=== PATIENT | female | born 1960 | race Caucasian/White ===

== ENCOUNTER 2017-03-02 21:13 | Emergency (ER) | payer OTHER ==
[~2017-03-02] VITALS: Ht 157.5 cm; Wt 108.4 kg
[~2017-03-02 21:13] MED LIST: ALBU0.63 NEB; ALBU6.7H IH; ALBU8.5H8 INH; AMOX500C PO; AZIT250T PO; CITA40TA5 PO; PRED20TA PO
[2017-03-02] MEDS ORDERED: IPRATRPIUM/ALBUTEROL 0.5/2.5MG 3 ML NEBU. ONE (21:26)
[2017-03-02] MEDS ORDERED: IPRATRPIUM/ALBUTEROL 0.5/2.5MG 3 ML NEBU. NEB ONE (21:30)
--- NOTE | 2017-03-02 21:34 | ED.ADGEN ---
Past History Past Medical History: Anxiety, Asthma, Depression Past Surgical History: No Surgical History Alcohol Use: None Drug Use: None Adult General Chief Complaint Chief Complaint ASTHMA EXACERBATION HPI HPI Patient is a 56 Y/O female with asthma sx for past 3-4 days. she has been using her albuterol. she is out of symbicort. she states allergy meds make her tired. she has not felt ill nor has she been around sick contacts. she believes her allergies are bothering her asthma. no fever. no productive cough Review of Systems Review of Systems Constitutional: Denies fever or chills [] Eyes: Denies change in visual acuity, redness, or eye pain [] HENT:+ nasal congestion o, neg sore throat [] Respiratory:dyspnea, wheezing Cardiovascular: No additional information not addressed in HPI [] GI: Denies abdominal pain, nausea, vomiting, bloody stools or diarrhea [] : Denies dysuria or hematuria [] Musculoskeletal: Denies back pain or joint pain [] Integument: Denies rash or skin lesions [] Neurologic: Denies headache, focal weakness or sensory changes [] Endocrine: Denies polyuria or polydipsia [] Current Medications Current Medications Current Medications Medications (Trade) Dose Ordered Sig/Shaunna Start Time Stop Time Status Last Admin Dose Admin Albuterol/ Ipratropium (Duoneb) 6 ml 1X ONCE 03/02/17 21:30 03/02/17 21:31 DC 03/02/17 21:34 6 ML Allergies Allergies Allergies Coded Allergies Type Severity Reaction Last Updated Verified Sulfa (Sulfonamide Antibiotics) Allergy Intermediate 07/24/16 No Physical Exam Physical Exam Constitutional: Well developed, well nourished, no acute distress, non-toxic appearance. [] HENT: Normocephalic, atraumatic, bilateral external ears normal, oropharynx moist, no oral exudates, nose normal. [] Eyes: PERRLA, EOMI, conjunctiva normal, no discharge. [] Neck: Normal range of motion, no tenderness, supple, no stridor. [] Cardiovascular:Heart rate regular rhythm, no murmur [] Lungs & Thorax: wheezing bilat Abdomen: Bowel sounds normal, soft, no tenderness, no masses, no pulsatile masses. [] Skin: Warm, dry, no erythema, no rash. [] Back: No tenderness, no CVA tenderness. [] Extremities: No tenderness, no cyanosis, no clubbing, ROM intact, no edema. [] Neurologic: Alert and oriented X 3, normal motor function, normal sensory function, no focal deficits noted. [] Psychologic: Affect normal, judgement normal, mood normal. [] Current Patient Data Vital Signs Vital Signs Date Time Temp Pulse Resp B/P (MAP) Pulse Ox O2 Delivery O2 Flow Rate FiO2 03/02/17 22:20 99 20 130/54 (79) 98 Room Air 03/02/17 21:13 98.4 EKG EKG [] Radiology/Procedures Radiology/Procedures NAD[] Course & Med Decision Making Course & Med Decision Making Pertinent Labs and Imaging studies reviewed. (See chart for details) pt improved with nebs. still wheezing but feels much better. will refill albuterol and prednisone Final Impression Final Impression asthma exacerbation[] Problems: Dragon Disclaimer Dragon Disclaimer This electronic medical record was generated, in whole or in part, using a voice recognition dictation system. Departure Time of Disposition: 21:59 Disposition: HOME, SELF-CARE Diagnosis: asthma exacerbation Condition: IMPROVED Patient Instructions: Asthma, Adult, [id number] Additional Instructions: albuterol as needed for wheezing. prednisone for inflammation. return if symptoms worsen TOMY MINOR MD Mar 02, 2017 21:34
[2017-03-02] MEDS ORDERED: ALBU2.5V5 NEB (22:03)
[2017-03-02] MEDS ORDERED: PRED50TA PO (22:11)
[2017-03-02] MEDS ORDERED: ALBU6.7H IH (22:11)
[2017-03-02] MEDS ORDERED: ALBU1.25 NEB (22:11)
[2017-03-02 22:20] VITALS: BP 130/54
--- NOTE | 2017-03-03 07:28 | RAD ---
Portable chest, 03/02/2017: History: Asthma, shortness of breath Comparison is made to a study from 07/24/2016. The heart size and pulmonary vascularity are normal. No pulmonary infiltrates are seen. There is no evidence of pleural fluid. IMPRESSION: No acute cardiopulmonary abnormality is detected.
== END 2017-03-02 22:25 | disposition home or self-care (01) ==
LOC: ER 21:13
DX: J45.901 Unspecified asthma with (acute) exacerbation (principal); F41.9 Anxiety disorder, unspecified; F32.9 Major depressive disorder, single episode, unspecified; Z88.2 Allergy status to sulfonamides
CPT/HCPCS: 71010; 94640; 99283; J7620

== ENCOUNTER 2017-03-19 20:39 | Emergency (ER) | payer OTHER ==
[~2017-03-19] VITALS: Ht 157.5 cm; Wt 108.4 kg
[~2017-03-19 20:39] MED LIST changes: +ALBU1.25 NEB; +ALBU2.5V5 NEB; +PRED50TA PO
[2017-03-19] MEDS ORDERED: IPRATRPIUM/ALBUTEROL 0.5/2.5MG 3 ML NEBU. ONE (20:49)
[2017-03-19] MEDS: IPRATRPIUM/ALBUTEROL 0.5/2.5MG 3 ML NEBU. NEB ONE ×2 (21:15→23:01)
[2017-03-19 21:27] LABS: BASO # 0.1 x10^3/uL (0.0-0.2); BASO % 1 % (0-3); EOS # 0.4 x10^3/uL (0.0-0.7); EOS % 4 % (0-3); HEMATOCRIT 40.8 % (36.0-47.0); HEMOGLOBIN 14.1 g/dL (12.0-15.5); LYMPH # 2.6 x10^3/uL (1.0-4.8); LYMPH % 27 % (24-48); MEAN CORPUSCULAR HEMOGLOBIN 30 pg (25-35); MEAN CORPUSCULAR HGB CONC 35 g/dL (31-37); MEAN CORPUSCULAR VOLUME 87 fL (79-100); MONO # 0.5 x10^3/uL (0.0-1.1); MONO % 6 % (0-9); NEUT # 5.9 x10^3uL (1.8-7.7); NEUT % 62 % (31-73); PLATELET COUNT 236 x10^3/uL (140-400); RED BLOOD COUNT 4.69 x10^6/uL (3.50-5.40); RED CELL DISTRIBUTION WIDTH 13.5 % (11.5-14.5); WHITE BLOOD COUNT 9.5 x10^3/uL (4.0-11.0)
[2017-03-19] MEDS ORDERED: IPRATRPIUM/ALBUTEROL 0.5/2.5MG 3 ML NEBU. NEB ONE (21:30)
--- NOTE | 2017-03-19 21:36 | ED.ADGEN ---
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 Patient states symptoms began after walking and overheating. Patient states her was frequently triggered by the weather. Patient took 3 nebulized breathing treatments prior to arrival with limited improvement. She reports chest tightness and wheezing. Denies cough, sore throat, nausea, vomiting and sweats. No chest pain, leg pain or swelling. Patient last treated for asthma exacerbation with steroids 20 days ago. She was placed on a 4 day course of steroids at the time but states her symptoms did not fully improve. Patient is a nonsmoker. No other acute symptoms or complaints. Review of Systems Review of Systems U symptoms as per history of present illness. All other review symptoms are negative. Current Medications Current Medications Current Medications Medications (Trade) Dose Ordered Sig/Shaunna Start Time Stop Time Status Last Admin Dose Admin Albuterol/ Ipratropium (Duoneb) 3 ml 1X ONCE 03/19/17 21:30 03/19/17 21:31 03/19/17 21:26 3 ML Allergies Allergies Allergies Coded Allergies Type Severity Reaction Last Updated Verified Sulfa (Sulfonamide Antibiotics) Allergy Intermediate 07/24/16 No Physical Exam Physical Exam Constitutional: Well developed, well nourished, no acute distress, non-toxic appearance. [] HENT: Normocephalic, atraumatic, bilateral external ears normal, oropharynx moist, no oral exudates, nose normal. [] Eyes: PERRLA, EOMI, conjunctiva normal, no discharge. [] Neck: Normal range of motion, no tenderness, supple, no stridor. [] Cardiovascular:Heart rate regular rhythm, no murmur. Negative Homans sign. Trace peripheral edema. [] Lungs & Thorax: Respirations nonlabored, mildly diminished, with inspiratory next 3 wheezes. No conversational dyspnea[] Abdomen: Bowel sounds normal, soft, no tenderness, no masses, no pulsatile masses. [] Skin: Warm, dry, no erythema, no rash. [] Back: No tenderness, no CVA tenderness. [] Extremities: No tenderness, no cyanosis. [] Neurologic: Alert and oriented X 3, normal motor function, normal sensory function, no focal deficits noted. [] Psychologic: Affect normal, judgement normal, mood normal. [] Current Patient Data Vital Signs Vital Signs Date Time Temp Pulse Resp B/P (MAP) Pulse Ox O2 Delivery O2 Flow Rate FiO2 03/19/17 20:50 98.6 106 20 90 Room Air Lab Results Laboratory Tests Test 03/19/17 21:12 White Blood Count 9.5 x10^3/uL (4.0-11.0) Red Blood Count 4.69 x10^6/uL (3.50-5.40) Hemoglobin 14.1 g/dL (12.0-15.5) Hematocrit 40.8 % (36.0-47.0) Mean Corpuscular Volume 87 fL (79-100) Mean Corpuscular Hemoglobin 30 pg (25-35) Mean Corpuscular Hemoglobin Concent 35 g/dL (31-37) Red Cell Distribution Width 13.5 % (11.5-14.5) Platelet Count 236 x10^3/uL (140-400) Neutrophils (%) (Auto) 62 % (31-73) Lymphocytes (%) (Auto) 27 % (24-48) Monocytes (%) (Auto) 6 % (0-9) Eosinophils (%) (Auto) 4 % (0-3) H Basophils (%) (Auto) 1 % (0-3) Neutrophils # (Auto) 5.9 x10^3uL (1.8-7.7) Lymphocytes # (Auto) 2.6 x10^3/uL (1.0-4.8) Monocytes # (Auto) 0.5 x10^3/uL (0.0-1.1) Eosinophils # (Auto) 0.4 x10^3/uL (0.0-0.7) Basophils # (Auto) 0.1 x10^3/uL (0.0-0.2) EKG EKG [EKG: Normal sinus rhythm, nonspecific T-wave abnormality in the anterolateral leads. Rate 92, QTC 4:30. Chest x-ray: No acute cardiopulmonary disease on preliminary ED read] Radiology/Procedures Radiology/Procedures [] Course & Med Decision Making Course & Med Decision Making Pertinent Labs and Imaging studies reviewed. (See chart for details) [Mild persistent asthma exacerbation. Repeat nebs, steroids given in ED with significant improvement. Increased air movement with only occasional expiratory wheeze on re-auscultation. Will continue supportive treatment with PCP follow- up. Return precautions reviewed.] Final Impression Final Impression [1. Acute asthma exacerbation ] Problems: Dragmagdy Disclaimer Dragon Disclaimer This electronic medical record was generated, in whole or in part, using a voice recognition dictation system. BERTA OLIVER DO Mar 19, 2017 21:36
[2017-03-19] MEDS ORDERED: predniSONE 20 MG TABLET PO ONE (21:45)
[2017-03-19] MEDS ORDERED: ALBUTEROL SULFATE 2.5 MG/3 ML NEBU. NEB ONE (21:45)
[2017-03-19 21:46] LABS: CALCIUM 9.3 mg/dL (8.5-10.1); GFR 57.1
--- NOTE | 2017-03-19 22:18 | EKG ---
[address] [address] Test Date: 2017-03-19 Test Time: 21:04:15 Pat Name: MATEO RODRIGUEZ Department: Room: Gender: F License Issuer: [id number] : 1960 Requested By: BERTA OLIVER Order Number: [id number] Reading MD: Measurements Intervals [place] Rate: 92 P: 51 GA: 148 QRS: 48 QRSD: 82 T: 20 QT: 344 QTc: 430 Interpretive Statements SINUS RHYTHM T ABNORMALITY IN ANTEROLATERAL LEADS ABNORMAL ECG RI6.01 No previous ECG available for comparison
[2017-03-19 23:21] VITALS: BP 142/82
--- NOTE | 2017-03-20 08:25 | RAD ---
AP chest. History: Short of air, history of asthma AP view was taken of the chest. Lungs are clear. Heart is normal in size. There is no effusion. Impression: 1. No acute chest disease.
== END 2017-03-19 23:21 | disposition home or self-care (01) ==
LOC: ER 20:39
DX: J45.901 Unspecified asthma with (acute) exacerbation (principal); Z88.2 Allergy status to sulfonamides
CPT/HCPCS: 36415; 71010; 80048; 83880; 85025; 93005; 94640; 99285; J7512; J7613; J7620

== ENCOUNTER 2017-05-16 17:51 | Emergency (ER) | payer OTHER ==
[~2017-05-16] VITALS: Ht 157.5 cm; Wt 108.4 kg
[2017-05-16 18:05] VITALS: BP 142/82
--- NOTE | 2017-05-16 18:45 | ED.ADGEN ---
Past History Past Medical History: Asthma Past Surgical History: No Surgical History Alcohol Use: None Drug Use: None Adult General Chief Complaint Chief Complaint " My asthma is kicking up" HPI HPI Patient is a 56 year old female who presents with above hx and complaints of Asthma exacerbations. She has one previous history of admission for asthma exacerbation. Incident occurred in July last year after infection with influenza. Patient is not yet received a flu vaccination this year. Patient denies any travel or specific ill contacts. She has not been on steroids recently. Patient does have a history of allergy to sulfa products such as Bactrim. Patient normally follows Dr. Youngblood. Review of Systems Review of Systems Constitutional: History of fever or chills [] Eyes: Denies change in visual acuity, redness, or eye pain [] HENT: History of nasal congestion and sore throat [] Respiratory: History of cough and wheezing Cardiovascular: No additional information not addressed in HPI [] GI: Denies abdominal pain, nausea, vomiting, bloody stools or diarrhea [] : Denies dysuria or hematuria [] Musculoskeletal: Denies back pain or joint pain [] Integument: Denies rash or skin lesions [] Neurologic: Denies headache, focal weakness or sensory changes [] Endocrine: Denies polyuria or polydipsia [] All other systems were reviewed and found to be within normal limits, except as documented in this note. Family History Family History Noncontributory Current Medications Current Medications Current Medications Medications (Trade) Dose Ordered Sig/Shaunna Start Time Stop Time Status Last Admin Dose Admin Albuterol Sulfate (Ventolin Hfa) 2 puff 1X ONCE 05/16/17 19:00 05/16/17 19:01 DC 05/16/17 18:54 2 PUFF Azithromycin (Zithromax) 500 mg 1X ONCE 05/16/17 19:00 05/16/17 19:01 DC 05/16/17 19:00 500 MG Prednisone (Prednisone) 50 mg 1X ONCE 05/16/17 19:00 05/16/17 19:01 DC 05/16/17 19:06 50 MG See nursing for home medications Allergies Allergies Allergies Coded Allergies Type Severity Reaction Last Updated Verified Sulfa (Sulfonamide Antibiotics) Allergy Intermediate 07/24/16 No Physical Exam Physical Exam Constitutional: , well nourished, mild distress, non-toxic appearance. [] HENT: Normocephalic, atraumatic, bilateral external ears normal, oropharynx moist, mild pharyngeal injection, no oral exudates, nose rhinorrhea-clear Eyes: PERRLA, EOMI, conjunctiva normal, no discharge. [] Neck: Normal range of motion, no tenderness, supple, no stridor. [] Cardiovascular:Heart rate regular rhythm, no murmur [] Lungs & Thorax: Bilateral breath sounds equal with scattered wheezing on auscultation [] Abdomen: Bowel sounds normal, soft, no tenderness, no masses, no pulsatile masses. Obese. Skin: Warm, dry, no erythema, no rash. [] Back: No tenderness, no CVA tenderness. [] Extremities: No tenderness, no cyanosis, no clubbing, ROM intact, no edema. No cording noted Neurologic: Alert and oriented X 3, normal motor function, normal sensory function, no focal deficits noted. [] Psychologic: Affect normal, judgement normal, mood normal. [] Current Patient Data Vital Signs Vital Signs Date Time Temp Pulse Resp B/P (MAP) Pulse Ox O2 Delivery O2 Flow Rate FiO2 05/16/17 18:05 98.3 78 16 98 Room Air Lab Results Laboratory Tests Test 05/16/17 18:55 Influenza Type A (Rapid) Negative (NEGATIVE) Influenza Type B (Rapid) Negative (NEGATIVE) EKG EKG [] Radiology/Procedures Radiology/Procedures [] Course & Med Decision Making Course & Med Decision Making Pertinent Labs and Imaging studies reviewed. (See chart for details). Patient take Tylenol and ibuprofen as needed for fever and discomfort. Patient may use Benadryl 25-50 mg up 4 times day for marked coughing, congestion and drainage. Patient take prednisone 50 mg day for 5 days. Patient take his Zithromax 250 mg a day for 5 days. Use MDI 2 puffs 4 times a day. Patient follow-up primary care. Patient return if any concerns. She'll follow-up primary care. Patient strongly encouraged to obtain flu vaccination when over this acute illness. [] Final Impression Final Impression 1. Asthma Exacerbation[] 2. Bronchitis 3. Upper respiratory infection Problems: Dragon Disclaimer Dragon Disclaimer This electronic medical record was generated, in whole or in part, using a voice recognition dictation system. RAYNE REN MD May 16, 2017 18:45
[2017-05-16] MEDS ORDERED: PRED50TA PO (18:50)
[2017-05-16] MEDS ORDERED: AZIT250T PO (18:52)
[2017-05-16] MEDS ORDERED: ALBUTEROL SULFATE 8GM INHALER. INH ONE (19:00)
[2017-05-16] MEDS ORDERED: AZITHROMYCIN 250 MG TABLET. PO ONE (19:00)
[2017-05-16] MEDS ORDERED: predniSONE 10 MG TABLET PO ONE (19:00)
[2017-05-16 19:51] LABS: INFLUENZA A PATIENT NEGATIVE (NEGATIVE); INFLUENZA B PATIENT NEGATIVE (NEGATIVE)
== END 2017-05-16 20:20 | disposition home or self-care (01) ==
LOC: ER 17:51
DX: J45.901 Unspecified asthma with (acute) exacerbation (principal); J06.9 Acute upper respiratory infection, unspecified; Z88.2 Allergy status to sulfonamides
CPT/HCPCS: 87804; 94640; 99284; J0456; J7512; J7613; 94664

== ENCOUNTER 2017-07-06 10:32 | Emergency (ER) | payer OTHER ==
[~2017-07-06] VITALS: Ht 157.5 cm; Wt 108.4 kg
--- NOTE | 2017-07-06 11:14 | RAD ---
Right shoulder, 3 views, 07/06/2017: History: Fall on ice There is cortical irregularity along the lateral margin of the humeral head with a small calcification suggesting a displaced cortical fragment. A tendinous calcification is less likely. No major fracture line extending across the width of the humerus is seen. No dislocation is evident. Moderate degenerative change is present at the AC joint. IMPRESSION: Probable acute fracture of the lateral humeral head.
--- NOTE | 2017-07-06 11:24 | PHYS DOC ---
General Chief Complaint: SHOULDER INJURY Stated Complaint: UPPER EXTREMITY PAIN Time Seen by MD: 10:39 Source: patient Exam Limitations: no limitations Problems: History of Present Illness Initial Comments Patient is a 56-year-old female who comes to the ED complaining of shoulder pain. Patient states that last night she slipped on the ice and fell to her lateral right shoulder. She's had bilateral right shoulder pain since that time with decreased motion at the shoulder due to discomfort. She denies any distal numbness tingling weakness or radiating symptoms, denies head trauma loss of consciousness headache or neck pain. Ehfe-juj-ifwnsdf medications are not helping her pain complaints today so she came for evaluation. Timing/Duration: 24 hours Severity: moderate Modifying Factors: worse with movement, improves with rest Associated Symptoms: other Allergies: Coded Allergies: Sulfa (Sulfonamide Antibiotics) (Unverified Allergy, Intermediate, 07/24/16) Past Medical History Medical History: other (asthma, URI) Surgical History: tonsillectomy Family History Significant Family History: no pertinent family hx Social History Smoker: non-smoker Alcohol: none Drugs: none Review of Systems Constitutional: denies chills, denies diaphoresis, denies fever, denies malaise Respiratory: denies cough, denies shortness of breath Cardiovascular: denies chest pain, denies palpitations Gastrointestinal: denies abdominal pain, denies nausea, denies vomiting Musculoskeletal: see HPI Psychiatric/Neurological: see HPI Hematologic/Lymphatic: denies blood clots, denies easy bleeding, denies easy bruising Physical Exam General Appearance: WD/WN, no apparent distress Ear, Nose, Throat: hearing grossly normal, normal ENT inspection, other ( normocephalic atraumatic) Neck: non-tender, supple Respiratory: normal breath sounds, no respiratory distress Cardiovascular: normal peripheral pulses, regular rate, rhythm Extremities: no calf tenderness, pelvis stable, other (diffuse tenderness both bony and soft tissue at the lateral right shoulder no palpable bony deformity, the rotator cuff tendon integrity not tested due to fracture and patient's pain tolerance, extremity is neurovascularly intact) Orders, Labs, Meds PATIENT: MATEO RODRIGUEZ ACCOUNT: [id number] : 1960 LOCATION: ER AGE: 56 SEX: F EXAM STATUS: REG ER ORD. PHYSICIAN: MONIKA RAMOS DO REASON: fall on ice to R shoulder PROCEDURE: SHOULDER 2+V RIGHT Right shoulder, 3 views, 07/06/2017: History: Fall on ice There is cortical irregularity along the lateral margin of the humeral head with a small calcification suggesting a displaced cortical fragment. A tendinous calcification is less likely. No major fracture line extending across the width of the humerus is seen. No dislocation is evident. Moderate degenerative change is present at the AC joint. IMPRESSION: Probable acute fracture of the lateral humeral head. DICTATED AND SIGNED BY: GOLDY MIRANDA MD DATE: 07/06/17 1108 CC: JESUS MATHEWS DO; MONIKA RAMOS DO ~ Departure Time of Disposition: 11:29 Disposition: 01 HOME, SELF-CARE Diagnosis: right humeral head fracture, mechanical fall Condition: GOOD Patient Instructions: Shoulder Exercises, Generic, SportsMed Additional Instructions: Please review the patient education materials given by ED staff. Wear the sling on her right arm until cleared by orthopedics. No use of right arm until cleared by orthopedics, work note given. Ice to affected area 15-20 minutes 4-6 times daily. Ladw-oty-vfkjibe ibuprofen for baseline discomfort. Prescription: Winkelman 5 mg quantity 20, take with food to avoid nausea and take [id number]-wwgobwu stool softeners to avoid constipation. You will need to follow-up with an orthopedic surgeon. ED staff will provide you with contact information for Dr. Gutierrez orthopedics surgery. Call her office upon discharge to schedule next available appointment for evaluation. Return to the ED with new or changing symptoms. MONIKA RAMOS DO Jul 06, 2017 11:24
[2017-07-06] MEDS ORDERED: HYDR-971 PO (11:29)
[2017-07-06 11:45] VITALS: BP 139/83
== END 2017-07-06 11:45 | disposition home or self-care (01) ==
LOC: ER 10:32
DX: S42.291A Other displaced fracture of upper end of right humerus, initial encounter for closed fracture (principal); J45.909 Unspecified asthma, uncomplicated; Z88.2 Allergy status to sulfonamides; W00.0XXA Fall on same level due to ice and snow, initial encounter; Y93.89 Activity, other specified; Y99.8 Other external cause status; Y92.89 Other specified places as the place of occurrence of the external cause
CPT/HCPCS: 73030; 99284

== ENCOUNTER 2017-09-29 14:47 | Emergency (ER) | payer OTHER ==
[~2017-09-29] VITALS: Ht 160 cm; Wt 113.4 kg
[~2017-09-29 14:47] MED LIST changes: +HYDR-971 PO
[2017-09-29] MEDS ORDERED: IPRATRPIUM/ALBUTEROL 0.5/2.5MG 3 ML NEBU. NEB ONE (15:15)
[2017-09-29] MEDS ORDERED: predniSONE 20 MG TABLET PO ONE (16:00)
[2017-09-29 16:05] VITALS: BP 164/82
[2017-09-29] MEDS ORDERED: PRED50TA PO (16:15)
[2017-09-29] MEDS ORDERED: ALBU2.5V5 NEB (16:15)
--- NOTE | 2017-09-29 16:15 | PHYS DOC ---
Past History Past Medical History: Asthma, URI, Other Past Surgical History: Tonsillectomy, Other Alcohol Use: None Drug Use: None Adult General Chief Complaint Chief Complaint: SHORTNESS OF BREATH [facility] HPI 56-year-old female patient with history of asthma complaining of shortness of breath and dry cough for the last 3 days and had her home nebulizer treatment but was not able to give prescription for Medrol Dosepak because of financial problem presented to ER because of shortness of breath. Patient denies fever and chills, chest pain, vomiting and diarrhea. Review of Systems Review of Systems Constitutional: Denies fever or chills [] Eyes: Denies change in visual acuity, redness, or eye pain [] HENT: Denies nasal congestion or sore throat [] Respiratory: Reports cough and shortness of breath Cardiovascular: No additional information not addressed in HPI [] GI: Denies abdominal pain, nausea, vomiting, bloody stools or diarrhea [] : Denies dysuria or hematuria [] Musculoskeletal: Denies back pain or joint pain [] Integument: Denies rash or skin lesions [] Neurologic: Denies headache, focal weakness or sensory changes [] Endocrine: Denies polyuria or polydipsia [] All other systems were reviewed and found to be within normal limits, except as documented in this note. Current Medications Current Medications Current Medications Medications (Trade) Dose Ordered Sig/Shaunna Start Time Stop Time Status Last Admin Dose Admin Albuterol/ Ipratropium (Duoneb) 3 ml 1X ONCE 09/29/17 15:15 09/29/17 15:16 DC 09/29/17 15:06 3 ML Prednisone (Prednisone) 60 mg 1X ONCE 09/29/17 16:00 09/29/17 16:01 DC 09/29/17 15:57 60 MG Allergies Allergies Allergies Coded Allergies Type Severity Reaction Last Updated Verified Sulfa (Sulfonamide Antibiotics) Allergy Intermediate 07/24/16 No Physical Exam Physical Exam Constitutional: Well developed, well nourished, mild distress, non-toxic appearance. [] HENT: Normocephalic, atraumatic, bilateral external ears normal, oropharynx moist, no oral exudates, nose normal. [] Eyes: PERRLA, EOMI, conjunctiva normal, no discharge. [] Neck: Normal range of motion, no tenderness, supple, no stridor. [] Cardiovascular:Heart rate regular rhythm, no murmur [] Lungs & Thorax: Marked respiratory distress with intercostal retraction and wheezing] Abdomen: Bowel sounds normal, soft, no tenderness, no masses, no pulsatile masses. [] Skin: Warm, dry, no erythema, no rash. [] Back: No tenderness, no CVA tenderness. [] Extremities: No tenderness, no cyanosis, no clubbing, ROM intact, no edema. [] Neurologic: Alert and oriented X 3, normal motor function, normal sensory function, no focal deficits noted. [] Psychologic: Affect normal, judgement normal, mood normal. [] Current Patient Data Vital Signs Vital Signs Date Time Temp Pulse Resp B/P (MAP) Pulse Ox O2 Delivery O2 Flow Rate FiO2 09/29/17 15:07 95 Room Air EKG EKG [] Radiology/Procedures Radiology/Procedures [] Course & Med Decision Making Course & Med Decision Making discharge: I've spoken with the patient and/or caregivers. I've explained the patient's condition, diagnosis and treatment plan based on information available to me at this time. I've answered the patient's and/or caregivers questions and addressed any concerns. The patient and/or caregivers have a good understanding the patient's diagnosis, condition and treatment plan as can be expected at this point. Vital signs have been stabilized. The patient's condition is stable for discharge from the emergency department. The patient will pursue further outpatient evaluation with her primary care provider or other designated consulting physician as outlined in the discharge instructions. Patient and/or caregivers are agreeable to this plan of care and follow-up instructions have been explained in detail. The patient and/or caregivers have received these instructions in written format and expressed understanding of these discharge instructions. The patient and her caregivers are aware that if any significant change in condition or worsening of symptoms should prompt him to immediately return to this of the closest emergency department. If an emergent department is not readily available I would encourage him to call 911. [] Dragon Disclaimer Dragon Disclaimer This electronic medical record was generated, in whole or in part, using a voice recognition dictation system. Departure Departure: Impression: Primary Impression: Acute asthma exacerbation Additional Impression: Medication refill Disposition: HOME, SELF-CARE (At 1615) Condition: IMPROVED Referrals: JESUS MATHEWS DO (PCP) Patient Instructions: Asthma, Adult Additional Instructions: Drink plenty of liquids Follow-up with your primary care physician in 3-5 days Return to ER if not getting better Scripts Prednisone (PREDNISONE) 50 Mg Tablet 1 TAB PO DAILY, #5 TAB Prov: HUMBERTO ROBERTSON MD 09/29/17 Albuterol Sulfate (ALBUTEROL SULFATE NEB SOLN ) 2.5 Mg/3 Ml Vial.neb 1 VIAL NEB PRN Q4HRS, #25 VIAL Prov: HUMBERTO ROBERTSON MD 09/29/17 Problem Qualifiers HUMBERTO ROBERTSON MD Sep 29, 2017 16:15
== END 2017-09-29 16:25 | disposition home or self-care (01) ==
LOC: ER 14:47
DX: J45.901 Unspecified asthma with (acute) exacerbation (principal); Z76.0 Encounter for issue of repeat prescription; Z88.2 Allergy status to sulfonamides
CPT/HCPCS: 94640; 99283; J7512; J7620

== ENCOUNTER 2017-10-24 17:16 | Emergency (ER) | payer SELFPAY ==
[2017-10-24 17:35] VITALS: BP 191/88
--- NOTE | 2017-10-24 18:23 | ED.ADGEN ---
Past History Past Medical History: Asthma, URI, Other Past Surgical History: Tonsillectomy, Other Alcohol Use: None Drug Use: None Adult General Chief Complaint Chief Complaint Anxiety HPI HPI Patient is a 56-year-old female who presents with anxiety. She states she's had difficulty sleeping at night the past 3 nights. She reports feeling anxious about her health. She denies chest pain palpitations shortness of breath. No fever chills, sweats, nausea vomiting. No abdominal pain. No urinary frequency urgency. No dizziness, lightheadedness or strokelike symptoms. No other acute symptoms or complaints. Patient is requesting blood work to be performed for reassurance.[] Review of Systems Review of Systems Review symptoms as per history of present illness. All other review symptoms are negative. All other systems were reviewed and found to be within normal limits, except as documented in this note. Allergies Allergies Allergies Coded Allergies Type Severity Reaction Last Updated Verified Sulfa (Sulfonamide Antibiotics) Allergy Intermediate 07/24/16 No Physical Exam Physical Exam Constitutional: Well developed, well nourished, no acute distress, non-toxic appearance. [] HENT: Normocephalic, atraumatic, bilateral external ears normal, oropharynx moist, nose normal. [] Eyes: PERRLA, EOMI, conjunctiva normal, no discharge. [] Neck: Normal range of motion. [] Lungs & Thorax: Bilateral breath sounds clear to auscultation [ Neurologic: Alert and oriented X 3, normal motor function, normal sensory function, no focal deficits noted. [] Psychologic: Affect,anxious. [] Current Patient Data Vital Signs Vital Signs Date Time Temp Pulse Resp B/P (MAP) Pulse Ox O2 Delivery O2 Flow Rate FiO2 10/24/17 17:35 98.2 120 16 95 Room Air EKG EKG [] Radiology/Procedures Radiology/Procedures [] Course & Med Decision Making Course & Med Decision Making Pertinent Labs and Imaging studies reviewed. (See chart for details) [Patient clinically anxious. Recommendations are melatonin at night for sleeping and following up with PCP for evaluation and management of anxiety.] Final Impression Final Impression [1. Anxiety state] Problems: Dragon Disclaimer Dragon Disclaimer This electronic medical record was generated, in whole or in part, using a voice recognition dictation system. BERTA OLIVER DO October 24, 2017 18:23
== END 2017-10-24 18:10 | disposition home or self-care (01) ==
LOC: ER 17:16
DX: F41.1 Generalized anxiety disorder (principal); J45.909 Unspecified asthma, uncomplicated; Z88.2 Allergy status to sulfonamides
CPT/HCPCS: 99281

== ENCOUNTER 2017-10-24 19:58 | Emergency (ER) | payer SELFPAY ==
[~2017-10-24] VITALS: Ht 160 cm; Wt 113.4 kg
[2017-10-24 20:11] VITALS: BP 119/54
--- NOTE | 2017-10-24 20:49 | ED.ADGEN ---
Past History Past Medical History: Anxiety Past Surgical History: Tonsillectomy, Other Alcohol Use: None Drug Use: None Adult General Chief Complaint Chief Complaint Left ear pain HPI HPI Patient is a 56-year-old female seen in the emergency Department 2 hours ago by this provider for concerns and anxiety regarding her health who presents with left ear pain. Patient reports left ear pain fullness for the past several days. Reports nasal congestion, rhinorrhea. No drainage, tinnitus or hearing loss. No sore throat, cough, fever. Patient also reports insomnia and concerns for her overall health. Patient instructed to take melatonin and Benadryl yet done so.[] Review of Systems Review of Systems Review symptoms as per history of present illness. All other systems were reviewed and found to be within normal limits, except as documented in this note. Allergies Allergies Allergies Coded Allergies Type Severity Reaction Last Updated Verified Sulfa (Sulfonamide Antibiotics) Allergy Intermediate 07/24/16 No Physical Exam Physical Exam Constitutional: Well developed, well nourished, no acute distress, non-toxic appearance. [] HENT: Normocephalic, atraumatic, bilateral external ears normal, left TM, bulging, semi-opaque with clear effusion oropharynx moist, no oral exudates, nose normal. [] Eyes: PERRLA, EOMI, conjunctiva normal, no discharge. [] Neck: Normal range of motion, no tenderness, supple, no stridor. [] Cardiovascular:Heart rate regular rhythm, no murmur [] Lungs & Thorax: Bilateral breath sounds clear to auscultation [] Abdomen: Bowel sounds normal, soft, no tenderness, no masses, no pulsatile masses. [] Skin: Warm, dry, no erythema, no rash. [] Back: No tenderness, no CVA tenderness. [] Extremities: No tenderness, no cyanosis, no clubbing, ROM intact, no edema. [] Neurologic: Alert and oriented X 3, normal motor function, normal sensory function, no focal deficits noted. [] Psychologic: Affect anxious[] Current Patient Data Vital Signs Vital Signs Date Time Temp Pulse Resp B/P (MAP) Pulse Ox O2 Delivery O2 Flow Rate FiO2 10/24/17 20:11 98.3 99 19 98 Room Air EKG EKG [] Radiology/Procedures Radiology/Procedures [] Course & Med Decision Making Course & Med Decision Making Pertinent Labs and Imaging studies reviewed. (See chart for details) [Otalgia with left serous otitis media. Instructions to take antihistamines and Tylenol. Patient instructed to follow-up with case manager specialist and morning with regard to insomnia and other mental illness concerns.] Final Impression Final Impression [#1 left sided otalgia #2 serous otitis media left ear] Problems: Dragon Disclaimer Dragon Disclaimer This electronic medical record was generated, in whole or in part, using a voice recognition dictation system. BERTA OLIVER DO October 24, 2017 20:49
== END 2017-10-24 20:53 | disposition home or self-care (01) ==
LOC: ER 20:01
DX: H65.92 Unspecified nonsuppurative otitis media, left ear (principal); F41.9 Anxiety disorder, unspecified; G47.00 Insomnia, unspecified; Z88.2 Allergy status to sulfonamides
CPT/HCPCS: 99281

== ENCOUNTER 2017-10-25 07:08 | Emergency (ER) | payer SELFPAY ==
[~2017-10-25] VITALS: Ht 160 cm; Wt 113.4 kg
[2017-10-25 07:15] VITALS: BP 161/92
--- NOTE | 2017-10-25 07:40 | PHYS DOC ---
Past History Past Medical History: Anxiety Past Surgical History: Tonsillectomy, Other Alcohol Use: None Drug Use: None Adult General Chief Complaint Chief Complaint: ANXIETY/PANIC ATTACK HPI HPI 56-year-old female patient to emergency room for the third time during the last 24 hours complaining that she cannot shot down her mind and sleep and wants to be admitted at Hospital to have some rest. She denies suicidal and homicidal ideation and previous mental hospitalization. Patient states she is hearing some voices not sure if they are hallucination or not. She denies chest pain, shortness of breath, nausea and vomiting, focal neuro deficit, fever and chills. Patient asking for obtaining blood test to make sure she is not poisoned. Patient states she planned to go to [facility] but they were not open and decided to come to emergency room. Review of Systems Review of Systems Constitutional: Denies fever or chills [] Eyes: Denies change in visual acuity, redness, or eye pain [] HENT: Denies nasal congestion or sore throat [] Respiratory: Denies cough or shortness of breath [] Cardiovascular: No additional information not addressed in HPI [] GI: Denies abdominal pain, nausea, vomiting, bloody stools or diarrhea [] : Denies dysuria or hematuria [] Musculoskeletal: Denies back pain or joint pain [] Integument: Denies rash or skin lesions [] Neurologic: Denies headache, focal weakness or sensory changes [] Endocrine: Denies polyuria or polydipsia [] All other systems were reviewed and found to be within normal limits, except as documented in this note. Allergies Allergies Allergies Coded Allergies Type Severity Reaction Last Updated Verified Sulfa (Sulfonamide Antibiotics) Allergy Intermediate 07/24/16 No Physical Exam Physical Exam Constitutional: Well nourished, no acute distress, non-toxic appearance. [] HENT: Normocephalic, atraumatic, bilateral external ears normal, oropharynx moist, no oral exudates, nose normal. [] Eyes: PERRLA, EOMI, conjunctiva normal, no discharge. [] Neck: Normal range of motion, no tenderness, supple, no stridor. [] Cardiovascular:Heart rate regular rhythm, no murmur [] Lungs & Thorax: Bilateral breath sounds clear to auscultation [] Abdomen: Bowel sounds normal, soft, no tenderness, no masses, no pulsatile masses. [] Skin: Warm, dry, no erythema, no rash. [] Back: No tenderness, no CVA tenderness. [] Extremities: No tenderness, no cyanosis, no clubbing, ROM intact, no edema. [] Neurologic: Alert and oriented X 3, normal motor function, normal sensory function, no focal deficits noted. [] Psychologic: Anxious, mood normal. [] EKG EKG [] Radiology/Procedures Radiology/Procedures [] Course & Med Decision Making Course & Med Decision Making Evaluation of patient in ER showed 56-year-old female patient presented to emergency room for the third time during the last 24 hours and complaining of unable to shot down her mind and get some rest. Patient left at 0734 without signing AMA form. Dragon Disclaimer Dragon Disclaimer This electronic medical record was generated, in whole or in part, using a voice recognition dictation system. Departure Departure: Impression: Primary Impression: Left against medical advice Disposition: 07 AGAINST MEDICAL ADVICE (at 0734) Referrals: JESUS MATHEWS DO (PCP) HUMBERTO ROBERTSON MD October 25, 2017 07:40
== END 2017-10-25 07:50 | disposition left against medical advice (07) ==
LOC: ER 07:08
DX: R44.0 Auditory hallucinations (principal); F41.9 Anxiety disorder, unspecified; Z88.2 Allergy status to sulfonamides
CPT/HCPCS: 99281

== ENCOUNTER 2017-10-26 07:32 | Emergency (ER) | payer SELFPAY ==
[~2017-10-26] VITALS: Ht 160 cm; Wt 113.4 kg
[2017-10-26 07:34] VITALS: BP 146/91
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
[2017-10-26 08:29] LABS: BASO % 0 % (0-3); EOS # 0.1 x10^3/uL (0.0-0.7); EOS % 1 % (0-3); HEMATOCRIT 41.4 % (36.0-47.0); HEMOGLOBIN 14.1 g/dL (12.0-15.5); LYMPH # 2.7 x10^3/uL (1.0-4.8); LYMPH % 25 % (24-48); MEAN CORPUSCULAR HEMOGLOBIN 30 pg (25-35); MEAN CORPUSCULAR HGB CONC 34 g/dL (31-37); MEAN CORPUSCULAR VOLUME 87 fL (79-100); MONO # 0.9 x10^3/uL (0.0-1.1); MONO % 9 % (0-9); NEUT # 7.1 x10^3uL (1.8-7.7); NEUT % 66 % (31-73); PLATELET COUNT 319 x10^3/uL (140-400); RED BLOOD COUNT 4.75 x10^6/uL (3.50-5.40); RED CELL DISTRIBUTION WIDTH 13.7 % (11.5-14.5); WHITE BLOOD COUNT 10.9 x10^3/uL (4.0-11.0)
[2017-10-26 08:37] LABS: POTASSIUM ISTAT 3.7 mmol/L (3.5-5.0)
[2017-10-26 08:38] LABS: HEMOGLOBIN ISTAT 14.3 gm/dL
[2017-10-26 09:20] LABS: ALBUMIN 4.8 g/dL (3.4-5.0); TOTAL BILIRUBIN 0.8 mg/dL (0.2-1.0); TOTAL PROTEIN 8.5 g/dL (6.4-8.2)
[2017-10-26 09:22] LABS: DIRECT BILIRUBIN 0.4 mg/dL (0.0-0.2); MAGNESIUM 1.9 mg/dL (1.8-2.4)
[2017-10-26 09:24] LABS: SALIC < 1.0 mg/dL (2.8-20.0)
[2017-10-26 09:25] LABS: BACTERIA,URINE FEW /HPF (0-FEW); BILIRUBIN,URINE NEG (NEG); CLARITY,URINE HAZY; COLOR,URINE YELLOW; GLUCOSE,URINE NEG (NEG); NITRITE,URINE NEG (NEG); RBC,URINE 0 /HPF (0-2); SQUAMOUS EPITHELIAL CELL,UR FEW /LPF; UROBILINOGEN,URINE 0.2 mg/dL (0.2 mg/dL)
[2017-10-26 09:25] LABS: ACETAMIN < 10 mcg/mL (10-30); ETHANOL < 10 mg/dL (0-10)
[2017-10-26 10:39] LABS: AMPHETAMINE/METHAMPHETAMINE NEG (NEG); BARBITURATES NEG (NEG); BENZODIAZEPINES NEG (NEG); COCAINE NEG (NEG); METHADONE NEG (NEG); OPIATES NEG (NEG); PHENCYCLIDINE NEG (NEG)
[2017-10-26 10:40] LABS: CANNABINOIDS NEG (NEG)
== END 2017-10-26 10:50 | disposition left against medical advice (07) ==
LOC: ER 07:32
DX: F23 Brief psychotic disorder (principal); F22 Delusional disorders; J45.909 Unspecified asthma, uncomplicated; Z88.2 Allergy status to sulfonamides
CPT/HCPCS: 36415; 80047; 80076; 80307; 81001; 83735; 85025; 87086; 99284; G0480; G0479

== ENCOUNTER 2017-10-26 12:59 | Inpatient (IN) | payer SELFPAY ==
[~2017-10-26] VITALS: Ht 160 cm; Wt 111.6 kg
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
[2017-10-26] MEDS ORDERED: ALPRAZolam 0.25 MG TABLET PO ONE (16:00)
[2017-10-26 23:58] VITALS: BP 131/70
[2017-10-27] MEDS ORDERED: ACETAMINOPHEN 325 MG TABLET PO PRN (03:30)
[2017-10-27] MEDS ORDERED: ALBUTEROL SULFATE 2.5 MG/3 ML NEBU. NEB PRN (03:30)
[2017-10-27 05:00] VITALS: BP 102/63
== END 2017-10-27 07:05 | DRG 885 ==
LOC: ER 12:59 → 1 SOUTH 22:52 → ER 23:46
PROVIDERS: ADMIT Internal Medicine; ATTEND Internal Medicine
DX: F23 Brief psychotic disorder (principal); F41.9 Anxiety disorder, unspecified; Z88.2 Allergy status to sulfonamides; Z90.89 Acquired absence of other organs
CPT/HCPCS: 99285-25

== ENCOUNTER 2017-11-05 19:33 | Emergency (ER) | payer SELFPAY ==
[~2017-11-05] VITALS: Ht 160 cm; Wt 108.0 kg
--- NOTE | 2017-11-05 19:36 | ED.ADGEN ---
Past History Past Medical History: Anxiety, Asthma, Bipolar, Depression, Pancreatitis, Schizophrenia, UTI, Other Past Surgical History: Tonsillectomy Alcohol Use: None Drug Use: None Adult General Chief Complaint Chief Complaint " ... I am worried I have bad electrolytes.. and need a blood thinner..." " I just left [facility] because they would not give me any IV fluids... and anticoagulants... I was admitted here the other day for taking overdose of stool softeners..... They also admitted at for mild pancreatitis ..... but then they put me on the Mental / [facility] for an evaluation... ... but I left there because they were not taking care of me... They said I'm crazy at ...... But I am not.. All my family hates me... And I need to have a check of my electrolytes and CBC just to make sure I am okay...",, I know I get anxiety... and sometimes things just don't make sense to me... but I am not crazy..."..They say I am schizo... but I am not..." HPI HPI Patient is a 56 year old female who presents with above hx and complaints worries and concerns she has abnormal electrolytes. Pt. patient has no complaints of pain. Patient denies any drug use or immunosuppression. Patient does admit to anxiety and depression. Patient denies any suicidal ideation or homicidal ideation. Patient admits to leaving multiple hospitals [facility], [facility], and in the last month. Patient denies any travel or specific ill contacts. Patient does have pressured speech and fears that family is against her. Pt. does have hx of frequent ED visits and evaluations. Pt. Has hx. of non-compliance with medical regimens. Pt. normally follows with Viki Bill and Ad[facility] Winters. Review of Systems Review of Systems Concerns about her Electrolytes Constitutional: Denies fever or chills [] Eyes: Denies change in visual acuity, redness, or eye pain [] HENT: Denies nasal congestion or sore throat [] Respiratory: Denies cough or shortness of breath [] Cardiovascular: No additional information not addressed in HPI [] GI: Denies abdominal pain, nausea, vomiting, bloody stools or diarrhea [] : Denies dysuria or hematuria [] Musculoskeletal: Denies back pain or joint pain [] Integument: Denies rash or skin lesions [] Neurologic: Denies headache, focal weakness or sensory changes [] Endocrine: Denies polyuria or polydipsia [] All other systems were reviewed and found to be within normal limits, except as documented in this note. Family History Family History Noncontributory Current Medications Current Medications Current Medications Medications (Trade) Dose Ordered Sig/Shaunna Start Time Stop Time Status Last Admin Dose Admin Cephalexin HCl (Keflex) 500 mg 1X ONCE 11/05/17 22:45 11/05/17 22:46 DC 11/05/17 22:40 500 MG Lactated Ringer's 1,000 ml @ 1,000 mls/hr Q1H 11/05/17 20:16 11/05/17 21:15 DC 11/05/17 21:03 1,000 MLS/HR See nursing for home meds Allergies Allergies Allergies Coded Allergies Type Severity Reaction Last Updated Verified Sulfa (Sulfonamide Antibiotics) Allergy Intermediate 07/24/16 No Physical Exam Physical Exam Constitutional: Anxious, no acute distress, non-toxic appearance. [] HENT: Normocephalic, atraumatic, bilateral external ears normal, oropharynx moist, no oral exudates, nose normal. Very poor dentition. Eyes: PERRLA, EOMI, conjunctiva normal, no discharge. [] Neck: Normal range of motion, no tenderness, supple, no stridor. [] Cardiovascular:Heart rate regular rhythm, no murmur [] Lungs & Thorax: Bilateral breath sounds clear to auscultation [] Abdomen: Bowel sounds normal, soft, no tenderness, no masses, no pulsatile masses. [] Obese Skin: Warm, dry, no erythema, no rash. [] Back: No tenderness, no CVA tenderness. [] Extremities: No tenderness, no cyanosis, no clubbing, ROM intact, no edema. [] Neurologic: Alert and oriented X 3, normal motor function, normal sensory function, no focal deficits noted. [] Psychologic: Affect anxious, judgement seems to lack insight at times, mood normal. []Patient denies suicidal ideation/or homicidal ideation. Patient denies hallucinations. Does exhibit pressured speech at times and fears everyone is out to get her. Current Patient Data Vital Signs Vital Signs Date Time Temp Pulse Resp B/P (MAP) Pulse Ox O2 Delivery O2 Flow Rate FiO2 11/05/17 22:37 86 18 151/87 (108) 97 Room Air 11/05/17 19:33 98.4 Lab Results Laboratory Tests Test 11/05/17 20:04 11/05/17 21:00 Urine Collection Type Unknown Urine Color Yellow Urine Clarity Hazy Urine pH 5.5 Urine Specific Powell 1.025 Urine Protein 30 mg/dl (NEG-TRACE) Urine Glucose (UA) Neg mg/dL (NEG) Urine Ketones (Stick) Neg mg/dL (NEG) Urine Blood Neg (NEG) Urine Nitrite Neg (NEG) Urine Bilirubin Neg (NEG) Urine Urobilinogen Dipstick 0.2 mg/dL (0.2 mg/dL) Urine Leukocyte Esterase Small (NEG) Urine RBC 0 /HPF (0-2) Urine WBC 5-10 /HPF (0-4) Urine Squamous Epithelial Cells Occ /LPF Urine Bacteria Few /HPF (0-FEW) Urine Mucus Mod /LPF White Blood Count 8.2 x10^3/uL (4.0-11.0) Red Blood Count 4.35 x10^6/uL (3.50-5.40) Hemoglobin 13.2 g/dL (12.0-15.5) Hematocrit 38.1 % (36.0-47.0) Mean Corpuscular Volume 88 fL (79-100) Mean Corpuscular Hemoglobin 31 pg (25-35) Mean Corpuscular Hemoglobin Concent 35 g/dL (31-37) Red Cell Distribution Width 13.7 % (11.5-14.5) Platelet Count 326 x10^3/uL (140-400) Neutrophils (%) (Auto) 57 % (31-73) Lymphocytes (%) (Auto) 31 % (24-48) Monocytes (%) (Auto) 8 % (0-9) Eosinophils (%) (Auto) 2 % (0-3) Basophils (%) (Auto) 1 % (0-3) Neutrophils # (Auto) 4.7 x10^3uL (1.8-7.7) Lymphocytes # (Auto) 2.5 x10^3/uL (1.0-4.8) Monocytes # (Auto) 0.7 x10^3/uL (0.0-1.1) Eosinophils # (Auto) 0.2 x10^3/uL (0.0-0.7) Basophils # (Auto) 0.1 x10^3/uL (0.0-0.2) Sodium Level 145 mmol/L (136-145) Potassium Level 3.2 mmol/L (3.5-5.1) L Chloride Level 105 mmol/L (98-107) Carbon Dioxide Level 28 mmol/L (21-32) Anion Gap 12 (6-14) Blood Urea Nitrogen 6 mg/dL (7-20) L Creatinine 0.9 mg/dL (0.6-1.0) Estimated GFR (Cockcroft-Gault) 64.5 Glucose Level 99 mg/dL (70-99) Calcium Level 9.1 mg/dL (8.5-10.1) Total Bilirubin 0.3 mg/dL (0.2-1.0) Direct Bilirubin 0.1 mg/dL (0.0-0.2) Aspartate Amino Transferase (AST) 37 U/L (15-37) Alanine Aminotransferase (ALT) 71 U/L (14-59) H Alkaline Phosphatase 147 U/L (46-116) H Total Protein 7.6 g/dL (6.4-8.2) Albumin 3.5 g/dL (3.4-5.0) Amylase Level 94 U/L (25-115) Lipase 1373 U/L (73-393) H EKG EKG [] Radiology/Procedures Radiology/Procedures [] Course & Med Decision Making Course & Med Decision Making Pertinent Labs and Imaging studies reviewed. (See chart for details). Patient encouraged follow-up for primary care. Patient return of any concerns of abdomen pain or exacerbation of pancreatitis. Advised patient her lipase is still elevated. Patient given a prescription for Keflex 503 times a day for her urinary tract infection. Patient encouraged to return if he elected further evaluation. Patient insistent on leaving in spite of the elevated lipase. Patient to push fruit juices. Patient encouraged follow-up with her primary care or return at any time. [] Final Impression Final Impression 1. Multiple Somatic Complaints 2.Anxiety Disorder 3. Hx Pancreatitis- Elevated Lipase 4. Hypokalemia 5. UTI 6. Hx. Asthma 7. Hx. Depression 8. Hx. Delusions/ Thoughts of persecution and paranoia 9. Hx. Non-compliance 10. Hx. Bipolar Dragon Disclaimer Dragon Disclaimer This electronic medical record was generated, in whole or in part, using a voice recognition dictation system. RAYNE REN MD November 05, 2017 19:36
[2017-11-05] MEDS ORDERED: IV RINGERS SOLUTION,LACTATED 1,000 ML IV SCH (20:16)
[2017-11-05 21:22] LABS: BASO # 0.1 x10^3/uL (0.0-0.2); BASO % 1 % (0-3); EOS # 0.2 x10^3/uL (0.0-0.7); EOS % 2 % (0-3); HEMATOCRIT 38.1 % (36.0-47.0); HEMOGLOBIN 13.2 g/dL (12.0-15.5); LYMPH # 2.5 x10^3/uL (1.0-4.8); LYMPH % 31 % (24-48); MEAN CORPUSCULAR HEMOGLOBIN 31 pg (25-35); MEAN CORPUSCULAR HGB CONC 35 g/dL (31-37); MEAN CORPUSCULAR VOLUME 88 fL (79-100); MONO # 0.7 x10^3/uL (0.0-1.1); MONO % 8 % (0-9); NEUT # 4.7 x10^3uL (1.8-7.7); NEUT % 57 % (31-73); PLATELET COUNT 326 x10^3/uL (140-400); RED BLOOD COUNT 4.35 x10^6/uL (3.50-5.40); RED CELL DISTRIBUTION WIDTH 13.7 % (11.5-14.5); WHITE BLOOD COUNT 8.2 x10^3/uL (4.0-11.0)
[2017-11-05 21:36] LABS: ALBUMIN 3.5 g/dL (3.4-5.0); CALCIUM 9.1 mg/dL (8.5-10.1); CREATININE 0.9 mg/dL (0.6-1.0); DIRECT BILIRUBIN 0.1 mg/dL (0.0-0.2); GFR 64.5; POTASSIUM 3.2 mmol/L (3.5-5.1); TOTAL BILIRUBIN 0.3 mg/dL (0.2-1.0); TOTAL PROTEIN 7.6 g/dL (6.4-8.2)
[2017-11-05 21:53] LABS: BACTERIA,URINE FEW /HPF (0-FEW); BILIRUBIN,URINE NEG (NEG); CLARITY,URINE HAZY; GLUCOSE,URINE NEG (NEG); NITRITE,URINE NEG (NEG); RBC,URINE 0 /HPF (0-2); UROBILINOGEN,URINE 0.2 mg/dL (0.2 mg/dL)
[2017-11-05 21:54] LABS: COLOR,URINE YELLOW; SQUAMOUS EPITHELIAL CELL,UR OCC /LPF
[2017-11-05 22:37] VITALS: BP 151/87
[2017-11-05] MEDS ORDERED: CEPH-264 PO (22:41)
[2017-11-05] MEDS ORDERED: CEPHALEXIN 250 MG CAPSULE PO ONE (22:45)
== END 2017-11-05 22:57 | disposition home or self-care (01) ==
LOC: ER 19:33
DX: F41.9 Anxiety disorder, unspecified (principal); N39.0 Urinary tract infection, site not specified; E87.8 Other disorders of electrolyte and fluid balance, not elsewhere classified; E87.6 Hypokalemia; J45.909 Unspecified asthma, uncomplicated; F20.9 Schizophrenia, unspecified; F31.9 Bipolar disorder, unspecified; Z91.19 Patient's noncompliance with other medical treatment and regimen; Z88.2 Allergy status to sulfonamides
CPT/HCPCS: 36415; 80048; 80076; 81001; 82150; 83690; 85025; 87086; 96360; 96361; 99285; J7120

== ENCOUNTER 2017-11-22 16:15 | Emergency (ER) | payer SELFPAY ==
[~2017-11-22] VITALS: Ht 160 cm; Wt 102.0 kg
[~2017-11-22 16:15] MED LIST changes: +CEPH-264 PO
--- NOTE | 2017-11-22 16:52 | PHYS DOC ---
Past History Past Medical History: Anxiety, Asthma, Bipolar, Depression, Pancreatitis, P.U.D , Schizophrenia, UTI, Other Past Surgical History: Tonsillectomy Alcohol Use: None Drug Use: None Adult General Chief Complaint Chief Complaint: FOOT INJURY PAIN HPI HPI 56-year-old female who is well-known to the ED presents with concern for left foot infection. The patient walking a lot with flip-flops on and noticed yesterday that she has a 2 cm x 2 cm white area on the bottom of her foot between her first and second toe. She just wants to make sure that it is not an infection. She also one aspirin a what medicine she should get for peptic ulcer disease. States that a doctor told her to get a medicine but she couldn't think of the name of it. She denies fever or chills. She has no other complaints. She would like to have a Sprite. Review of Systems Review of Systems Constitutional: Denies fever or chills [] Eyes: Denies change in visual acuity, redness, or eye pain [] HENT: Denies nasal congestion or sore throat [] Respiratory: Denies cough or shortness of breath [] Cardiovascular: No additional information not addressed in HPI [] GI: Denies abdominal pain, nausea, vomiting, bloody stools or diarrhea [] : Denies dysuria or hematuria [] Musculoskeletal: Denies back pain or joint pain [] Integument: white spot on foot [] Neurologic: Denies headache, focal weakness or sensory changes [] Endocrine: Denies polyuria or polydipsia [] All other systems were reviewed and found to be within normal limits, except as documented in this note. Allergies Allergies Allergies Coded Allergies Type Severity Reaction Last Updated Verified Sulfa (Sulfonamide Antibiotics) Allergy Intermediate 11/22/17 No Physical Exam Physical Exam Constitutional: Well developed, well nourished, no acute distress, non-toxic appearance. [] HENT: Normocephalic, atraumatic, bilateral external ears normal, oropharynx moist, no oral exudates, nose normal. [] Eyes: PERRLA, EOMI, conjunctiva normal, no discharge. [] Neck: Normal range of motion, no tenderness, supple, no stridor. [] Cardiovascular:Heart rate regular rhythm, no murmur [] Lungs & Thorax: Bilateral breath sounds clear to auscultation [] Abdomen: Bowel sounds normal, soft, no tenderness, no masses, no pulsatile masses. [] Skin: Calous forming on bilateral bottom of her feet, worse on the left [] Back: No tenderness, no CVA tenderness. [] Extremities: No tenderness, no cyanosis, no clubbing, ROM intact, no edema. [] Neurologic: Alert and oriented X 3, normal motor function, normal sensory function, no focal deficits noted. [] Psychologic: Affect normal, judgement normal, mood normal. [] Current Patient Data Vital Signs Vital Signs Date Time Temp Pulse Resp B/P (MAP) Pulse Ox O2 Delivery O2 Flow Rate FiO2 11/22/17 16:15 97.9 73 18 97 Room Air EKG EKG [] Radiology/Procedures Radiology/Procedures [] Course & Med Decision Making Course & Med Decision Making Pertinent Labs and Imaging studies reviewed. (See chart for details) Patient's feet are negative or signs of infection. She has deep callus formation on both feet. I mentioned that she could have a bunion forming on the left foot and that she should follow up with PCP or pleat patternmaker. Also informed her that the medication she was probably thinking of was a proton pump inhibitor such as Nexium. She should double check with her physician at [facility] to be sure. [] Dragon Disclaimer Dragon Disclaimer This electronic medical record was generated, in whole or in part, using a voice recognition dictation system. Departure Departure: Referrals: GREY MATIAS APRN (PCP) BERTA KIM DO Nov 22, 2017 16:52
[2017-11-22 17:13] VITALS: BP 126/71
== END 2017-11-22 17:05 | disposition home or self-care (01) ==
LOC: ER 16:15
DX: L84 Corns and callosities (principal); F41.9 Anxiety disorder, unspecified; J45.909 Unspecified asthma, uncomplicated; G31.9 Degenerative disease of nervous system, unspecified; F31.9 Bipolar disorder, unspecified; F20.9 Schizophrenia, unspecified; Z87.440 Personal history of urinary (tract) infections; Z87.11 Personal history of peptic ulcer disease; Z88.2 Allergy status to sulfonamides
CPT/HCPCS: 99281; 99283

== ENCOUNTER 2017-12-04 21:47 | Emergency (ER) | payer SELFPAY ==
[~2017-12-04] VITALS: Ht 160 cm; Wt 102.0 kg
[2017-12-04 21:47] VITALS: BP 154/79
[2017-12-04] MEDS: IBUPROFEN 600 MG TABLET. PO ONE (22:08)
[2017-12-04] MEDS: TETANUS AND DIPHTHERIA TOX/PF 0.5 ML VIAL. VAX IM ONE (22:09)
--- NOTE | 2017-12-04 22:39 | ED.ADGEN ---
Past History Past Medical History: Anxiety, Asthma, Bipolar, Depression, Pancreatitis, P.U.D , Schizophrenia, UTI, Other Past Surgical History: Tonsillectomy Alcohol Use: None Drug Use: None Adult General Chief Complaint Chief Complaint ".. I walk... I don't have a car... can you smell that gas smell".." My sister will not let me stay with her.. HPI HPI Patient is a 57 year old female who presents with blister to balls of both feet. Blisters appear to be different stages of development. Injury occurred from walking in loose sandals. Distal neurovascular intact in feet. Patient does not remember her last tetanus shot but does not want get a tetanus booster. No history of HIV or immunosuppression. Patient is well-known to emergency department staff for her schizophrenia and delusions. Patient denies any suicidal or homicidal ideation. Patient refusing meds or tetanus update. Patient requesting a cab ride to her aunt's house. Review of Systems Review of Systems Constitutional: Denies fever or chills [] Eyes: Denies change in visual acuity, redness, or eye pain [] HENT: Denies nasal congestion or sore throat [] Respiratory: Denies cough or shortness of breath [] Cardiovascular: No additional information not addressed in HPI [] GI: Denies abdominal pain, nausea, vomiting, bloody stools or diarrhea [] : Denies dysuria or hematuria [] Musculoskeletal: Denies back pain or joint pain [] Integument: Denies rash or skin lesions []complaints of bilateral foot blisters Neurologic: Denies headache, focal weakness or sensory changes [] Endocrine: Denies polyuria or polydipsia [] All other systems were reviewed and found to be within normal limits, except as documented in this note. Family History Family History Noncontributory Current Medications Current Medications Current Medications Medications (Trade) Dose Ordered Sig/Shaunna Start Time Stop Time Status Last Admin Dose Admin Ibuprofen (Motrin) 600 mg 1X ONCE 12/04/17 22:15 12/04/17 22:34 DC Tetanus/ Diphtheria Toxoids Adsorbed (Tenivac Vial) 0.5 ml ONCE ONCE 12/04/17 22:15 12/04/17 22:34 DC Allergies Allergies Allergies Coded Allergies Type Severity Reaction Last Updated Verified Sulfa (Sulfonamide Antibiotics) Allergy Intermediate 11/22/17 No Physical Exam Physical Exam Constitutional: Moderately acute distress, non-toxic appearance. [] HENT: Normocephalic, atraumatic, bilateral external ears normal, oropharynx moist, no oral exudates, nose normal. [] Eyes: PERRLA, EOMI, conjunctiva normal, no discharge. [] Neck: Normal range of motion, no tenderness, supple, no stridor. [] Cardiovascular:Heart rate regular rhythm, no murmur [] Lungs & Thorax: Bilateral breath sounds equal apex on auscultation [] Abdomen: Bowel sounds normal, soft, no tenderness, no masses, no pulsatile masses. [] Skin: Warm, dry, no erythema, no rash. [] Back: No tenderness, no CVA tenderness. [] Extremities: No tenderness, no cyanosis, no clubbing, ROM intact, no edema. [] Complaints of bilateral foot pain. Bilateral foot blisters Neurologic: Alert and oriented X 3, normal motor function, normal sensory function, no focal deficits noted. [] Psychologic: Affect argumentative, judgement limited , mood normal. [] Current Patient Data Vital Signs Vital Signs Date Time Temp Pulse Resp B/P (MAP) Pulse Ox O2 Delivery O2 Flow Rate FiO2 12/04/17 21:47 98.2 90 18 98 Room Air EKG EKG [] Radiology/Procedures Radiology/Procedures [] Course & Med Decision Making Course & Med Decision Making Pertinent Labs and Imaging studies reviewed. (See chart for details) Keep feet clean and dry. Wear white Socks. Take Tylenol and ibuprofen for pain. Avoid excessive walking. Keep follow-up at counseling center. [] Final Impression Final Impression 1. Bilateral foot blisters 2. History of schizophrenia[] Dragon Disclaimer Dragon Disclaimer This electronic medical record was generated, in whole or in part, using a voice recognition dictation system. RAYNE REN MD Dec 04, 2017 22:39
== END 2017-12-04 22:10 | disposition home or self-care (01) ==
LOC: ER 21:47
DX: S90.822A Blister (nonthermal), left foot, initial encounter (principal); S90.821A Blister (nonthermal), right foot, initial encounter; F41.9 Anxiety disorder, unspecified; J45.909 Unspecified asthma, uncomplicated; F32.9 Major depressive disorder, single episode, unspecified; F20.9 Schizophrenia, unspecified; Z87.11 Personal history of peptic ulcer disease; Z87.440 Personal history of urinary (tract) infections; Z88.2 Allergy status to sulfonamides; X58.XXXA Exposure to other specified factors, initial encounter; Y93.89 Activity, other specified; Y99.8 Other external cause status; Y92.89 Other specified places as the place of occurrence of the external cause
CPT/HCPCS: 99281

== ENCOUNTER 2017-12-13 00:37 | Emergency (ER) | payer SELFPAY ==
[~2017-12-13] VITALS: Ht 160 cm; Wt 102.0 kg
[2017-12-13 00:39] VITALS: BP 154/79
--- NOTE | 2017-12-13 00:46 | ED.ADGEN ---
Past History Past Medical History: Anxiety, Asthma, Bipolar, Depression, Pancreatitis, P.U.D , Schizophrenia, UTI, Other Past Surgical History: Tonsillectomy Alcohol Use: None Drug Use: None Adult General Chief Complaint Chief Complaint ".. I am having chest pain.. and sometime my heart skips a beat... I need a EKG..." [facility] HPI Patient is a 57 year old female who presents with above hx and complaints. Pt. know to ED staff. Pt. has hx of presentation to ED, but leaving before labs or meds given. Pt. Has hx of Schizophrenia and Delusional disorder. Frequent hallucination is that of toxic gas she smells, but no one else is aware. Pt. states she is not suicidal or wants to harm anyone else. Pt does not smoker or use illicit drugs. Pt. to my memory has never been violent or aggressive. Pt. has been referred to Counseling center many times as well as her family her locally has tried to get tx for her. Pt. however refuses to be interested in meds or counseling. Pt. to night states she was worried about her heart and wanted a EKG. As soon as EKG was completed she left the ED, refusing other labs or evaluation. Pt. ambulatory and states she has no CP, dyspnea or other concerns. Begged pt. to return at any time to complete her work up. Note pt seen multiple places on Hospital grounds. She hides from Security, or leaves property when found . . Pt. then returns to Hospital grounds. Attempts to sneak into un occupied rooms to sleep and watch TV. Pt. refuses to go to [facility]. Family has been unable to obtain court order for tx or medical decision. Pt. last seen walking up hill towards the main Hospital. Review of Systems Review of Systems Constitutional: Denies fever or chills [] Eyes: Denies change in visual acuity, redness, or eye pain [] HENT: Denies nasal congestion or sore throat [] Respiratory: Denies cough or shortness of breath [] Cardiovascular: No additional information not addressed in HPI [] GI: Denies abdominal pain, nausea, vomiting, bloody stools or diarrhea [] : Denies dysuria or hematuria [] Musculoskeletal: Denies back pain or joint pain [] Integument: Denies rash or skin lesions [] Neurologic: Denies headache, focal weakness or sensory changes [] Endocrine: Denies polyuria or polydipsia [] All other systems were reviewed and found to be within normal limits, except as documented in this note. Family History Family History Non-contributory Current Medications Current Medications Current Medications Medications (Trade) Dose Ordered Sig/Shaunna Start Time Stop Time Status Last Admin Dose Admin Aspirin (Children'S Aspirin) 81 mg 1X ONCE 12/13/17 01:15 12/13/17 01:17 DC Allergies Allergies Allergies Coded Allergies Type Severity Reaction Last Updated Verified Sulfa (Sulfonamide Antibiotics) Allergy Intermediate 12/13/17 No Physical Exam Physical Exam Constitutional: no acute distress, non-toxic appearance. [] HENT: Normocephalic, atraumatic, bilateral external ears normal, oropharynx moist, no oral exudates, nose normal. [] Eyes: PERRLA, EOMI, conjunctiva normal, no discharge. [] Neck: Normal range of motion, no tenderness, supple, no stridor. [] Cardiovascular:Heart rate regular rhythm, no murmur [] Lungs & Thorax: Bilateral breath sounds clear to auscultation [] Abdomen: Bowel sounds normal, soft, no tenderness, no masses, no pulsatile masses. [] Skin: Warm, dry, no erythema, no rash. [] Back: No tenderness, no CVA tenderness. [] Extremities: No tenderness, no cyanosis, no clubbing, ROM intact, no edema. [] Some blister on her feet from walking. Neurologic: Alert and oriented X 3, normal motor function, normal sensory function, no focal deficits noted. [] Psychologic: Affect distracted, judgement normal, mood normal. [] Current Patient Data Vital Signs Vital Signs Date Time Temp Pulse Resp B/P (MAP) Pulse Ox O2 Delivery O2 Flow Rate FiO2 12/13/17 00:39 97.9 90 16 98 Room Air EKG EKG My interpretation of EKG shows no acute findings, sinus rhythm at a rate of 79, no acute morphology. Radiology/Procedures Radiology/Procedures Refuse CXR[] Course & Med Decision Making Course & Med Decision Making Pertinent Labs and Imaging studies reviewed. (See chart for details)- Pt. refusing Labs or observation. Left- ambulatory without problems. [] Final Impression Final Impression 1. Concern about heart rhythm- dysrhythmia- None noted on EKG or monitor 2. Hx. of Schizophrenia 3. Hx. of Anxiety Disorder[] 4. Blisters on Feet from walking - see last ED Eval. 5. Hx. Bipolar 6. Non-compliance with Med. Tx plans Dragon Disclaimer Dragon Disclaimer This electronic medical record was generated, in whole or in part, using a voice recognition dictation system. RAYNE REN MD Dec 13, 2017 00:46
--- NOTE | 2017-12-13 00:52 | EKG ---
[address] [address] Test Date: 2017-12-13 Test Time: 00:44:51 Pat Name: MATEO RODRIGUEZ Department: Room: Gender: F Hog Ringer: ALEX : 1960 Requested By: RAYNE REN Order Number: [id number] Reading MD: Peter Villalba MD Measurements Intervals Waddy Rate: 79 P: 52 MO: 162 QRS: 15 QRSD: 90 T: 19 QT: 372 QTc: 428 Interpretive Statements SINUS RHYTHM Electronically Signed On 12-13-2017 11:59:04 CDT by Peter Villalba MD
[2017-12-13] MEDS ORDERED: ASPIRIN 81 MG TAB.CHEW PO ONE (01:15)
[2017-12-13] MEDS ORDERED: ZINC57OI TP (14:12)
== END 2017-12-13 01:16 | disposition left against medical advice (07) ==
LOC: ER 00:37
DX: R07.9 Chest pain, unspecified (principal); F20.9 Schizophrenia, unspecified; F41.9 Anxiety disorder, unspecified; F31.9 Bipolar disorder, unspecified; S90.822A Blister (nonthermal), left foot, initial encounter; S90.821A Blister (nonthermal), right foot, initial encounter; J45.909 Unspecified asthma, uncomplicated; Z88.2 Allergy status to sulfonamides; Z87.440 Personal history of urinary (tract) infections; Z87.11 Personal history of peptic ulcer disease; Z91.14 Patient's other noncompliance with medication regimen; X58.XXXA Exposure to other specified factors, initial encounter; Y93.01 Activity, walking, marching and hiking; Y92.89 Other specified places as the place of occurrence of the external cause; Y99.8 Other external cause status
CPT/HCPCS: 93005; 99283

== ENCOUNTER 2017-12-13 13:02 | Emergency (ER) | payer SELFPAY ==
[~2017-12-13] VITALS: Ht 160 cm; Wt 102.1 kg
[2017-12-13 13:36] VITALS: BP 124/66
[2017-12-13] MEDS ORDERED: ZINC57OI TP (14:12)
--- NOTE | 2017-12-13 14:16 | PHYS DOC ---
Past History Past Medical History: Asthma, Depression Additional Past Medical Histor: psychosis Past Surgical History: Tonsillectomy, Other Alcohol Use: None Drug Use: None Adult General Chief Complaint Chief Complaint: LOWER EXT PAIN HPI HPI 57-year-old homeless female patient with history of psychosis and frequent emergency room visits who became homeless recently complaining of bilateral feet blister for more than 12 days that does not getting better. Patient denies fever, drainage of pus, focal neuro deficit. Review of Systems Review of Systems Constitutional: Denies fever or chills [] Eyes: Denies change in visual acuity, redness, or eye pain [] HENT: Denies nasal congestion or sore throat [] Respiratory: Denies cough or shortness of breath [] Cardiovascular: No additional information not addressed in HPI [] GI: Denies abdominal pain, nausea, vomiting, bloody stools or diarrhea [] : Denies dysuria or hematuria [] Musculoskeletal: Denies back pain or joint pain [] Integument: Denies rash, reports blister Neurologic: Denies headache, focal weakness or sensory changes [] Endocrine: Denies polyuria or polydipsia [] All other systems were reviewed and found to be within normal limits, except as documented in this note. Allergies Allergies Allergies Coded Allergies Type Severity Reaction Last Updated Verified Sulfa (Sulfonamide Antibiotics) Allergy Intermediate 12/13/17 No Physical Exam Physical Exam Constitutional: Well well nourished, no acute distress, non-toxic appearance. [] HENT: Normocephalic, atraumatic Eyes: PERRLA, EOMI, conjunctiva normal, no discharge. [] Neck: Normal range of motion, no tenderness, supple, no stridor. [] Cardiovascular:Heart rate regular rhythm, no murmur [] Lungs & Thorax: Bilateral breath sounds clear to auscultation [] Extremities: Bilateral feet old blister in forefeet without sign of infection No tenderness, no cyanosis, no clubbing, ROM intact, no edema. [] Neurologic: Alert and oriented X 3, normal motor function, normal sensory function, no focal deficits noted. [] Psychologic: Affect anxious , mood normal. [] Current Patient Data Vital Signs Vital Signs Date Time Temp Pulse Resp B/P (MAP) Pulse Ox O2 Delivery O2 Flow Rate FiO2 12/13/17 13:36 98.6 95 18 98 Room Air EKG EKG [] Radiology/Procedures Radiology/Procedures [] Course & Med Decision Making Course & Med Decision Making discharge: I've spoken with the patient and/or caregivers. I've explained the patient's condition, diagnosis and treatment plan based on information available to me at this time. I've answered the patient's and/or caregivers questions and addressed any concerns. The patient and/or caregivers have a good understanding the patient's diagnosis, condition and treatment plan as can be expected at this point. Vital signs have been stabilized. The patient's condition is stable for discharge from the emergency department. The patient will pursue further outpatient evaluation with her primary care provider or other designated consulting physician as outlined in the discharge instructions. Patient and/or caregivers are agreeable to this plan of care and follow-up instructions have been explained in detail. The patient and/or caregivers have received these instructions in written format and expressed understanding of these discharge instructions. The patient and her caregivers are aware that if any significant change in condition or worsening of symptoms should prompt him to immediately return to this of the closest emergency department. If an emergent department is not readily available I would encourage him to call 911. Dragon Disclaimer Dragon Disclaimer This electronic medical record was generated, in whole or in part, using a voice recognition dictation system. Departure Departure: Impression: Primary Impression: Blister of foot Disposition: HOME, SELF-CARE (At 1409) Condition: STABLE Referrals: JAZLYN ROMERO (PCP) Patient Instructions: Blisters Additional Instructions: Avoid of walking a lot change your shoes Scripts Zinc Oxide (ZINC OXIDE) 57 Gm Oint...g. 1 GM TP BID, #1 MISC Prov: HUMBERTO ROBERTSON MD 12/13/17 HUMBERTO ROBERTSON MD Dec 13, 2017 14:16
== END 2017-12-13 14:20 | disposition home or self-care (01) ==
LOC: ER 13:02
DX: S90.822A Blister (nonthermal), left foot, initial encounter (principal); S90.821A Blister (nonthermal), right foot, initial encounter; J45.909 Unspecified asthma, uncomplicated; F29 Unspecified psychosis not due to a substance or known physiological condition; Z59.0 Homelessness; Z88.2 Allergy status to sulfonamides; X58.XXXA Exposure to other specified factors, initial encounter; Y93.89 Activity, other specified; Y99.8 Other external cause status; Y92.89 Other specified places as the place of occurrence of the external cause
CPT/HCPCS: 99282

== ENCOUNTER 2017-12-16 01:14 | Inpatient (IN) | payer SELFPAY ==
[~2017-12-16] VITALS: Ht 170.2 cm; Wt 94.5 kg
[~2017-12-16 01:14] MED LIST changes: +ZINC57OI TP
[2017-12-16] MEDS ORDERED: TETANUS AND DIPHTHERIA TOX/PF 0.5 ML VIAL. VAX IM ONE (01:30)
[2017-12-16] MEDS ORDERED: MVI, ADULT NO.4 WITH VIT K 10 ML, FOLIC ACID SYRINGE for ER 1 MG, THIAMINE 100 MG in IV... IV ONE ×4 (01:30)
[2017-12-16] MEDS ORDERED: MVI, ADULT NO.4 WITH VIT K 10 ML VIAL IV ONE (01:40)
[2017-12-16] MEDS ORDERED: FOLIC ACID 5 MG/ML SYRINGE for ER IV ONE (01:40)
[2017-12-16] MEDS ORDERED: THIAMINE 200 MG/2 ML VIAL. IV ONE (01:40)
[2017-12-16] MEDS ORDERED: PHYTONADIONE 10 MG/ML AMPUL. ONE (01:40)
[2017-12-16] MEDS ORDERED: DIPHTH,PERTUSS(ACELL),TET TOX 0.5 ML DISP.SYRIN. VAX IM ONE (01:41)
--- NOTE | 2017-12-16 01:44 | EKG ---
[address] [address] Test Date: 2017-12-16 Test Time: 01:39:27 Pat Name: MATEO RODRIGUEZ Department: Room: Gender: F Grinder Chipper: COURTNEY : 1960 Requested By: RAYNE REN Order Number: [id number] Reading MD: Peter Villalba MD Measurements Intervals [place] Rate: 85 P: 54 MT: 174 QRS: 53 QRSD: 88 T: 11 QT: 386 QTc: 460 Interpretive Statements SINUS RHYTHM NON-SPECIFIC ST/T CHANGES Electronically Signed On 12-16-2017 16:33:19 CDT by Peter Villalba MD
[2017-12-16 01:47] LABS: BASO # 0.1 x10^3/uL (0.0-0.2); BASO % 1 % (0-3); EOS # 0.1 x10^3/uL (0.0-0.7); EOS % 2 % (0-3); HEMATOCRIT 38.5 % (36.0-47.0); HEMOGLOBIN 13.1 g/dL (12.0-15.5); LYMPH # 2.1 x10^3/uL (1.0-4.8); LYMPH % 29 % (24-48); MEAN CORPUSCULAR HEMOGLOBIN 30 pg (25-35); MEAN CORPUSCULAR HGB CONC 34 g/dL (31-37); MEAN CORPUSCULAR VOLUME 88 fL (79-100); MONO # 0.7 x10^3/uL (0.0-1.1); MONO % 10 % (0-9); NEUT # 4.2 x10^3uL (1.8-7.7); NEUT % 58 % (31-73); PLATELET COUNT 262 x10^3/uL (140-400); RED BLOOD COUNT 4.39 x10^6/uL (3.50-5.40); RED CELL DISTRIBUTION WIDTH 14.1 % (11.5-14.5); WHITE BLOOD COUNT 7.1 x10^3/uL (4.0-11.0)
--- NOTE | 2017-12-16 02:07 | ED.ADGEN ---
Past History Past Medical History: Anxiety, Asthma, Depression, Schizophrenia, Other Additional Past Medical Histor: psychosis Past Surgical History: Tonsillectomy, Other Alcohol Use: None Drug Use: None Adult General Chief Complaint Chief Complaint "...I was waiting for my sister to get home...and maybe let me in..." HPI HPI Patient is a 57 year old female who presents with hx. of concerns by sister that she may be dehydrated. Pt. is know to ED staff. Frequent visits for multiple complaints. Pt. know hx of schizophrenia and anxiety disorder. Pt. frequents ED's of [facility] and [facility]. Pt. recently eval. at for her mental health. Pt. has been non-compliant with medical recommendations. Pt. refuses to follow up at [facility] for tx. of her schizophrenia and hallucinations. Pt. frequent has hallucinations of toxic gas exposure. Pt. recently seen for blister on her feet from walking. Pt. usually refuses care, meds or referral to in hospital tx. for her schizophrenia. Pt. frequently leave ED AMA or without discharge. Pt. sometimes hides on hospital property, and attempts to stay in empty rooms in hospital. Pt. however refuses admission. Pt. sisters have attempted to have pt court ordered tx. Pt. denies homicidal or suicidal ideation. Pt. has refused referral to skilled nursing. Tonight exam shows some new blisters on her feet and some findings of possible cellulitis to shins. Pt. has agreed to IV fluids and lab draws. Review of Systems Review of Systems Constitutional: Denies fever or chills [] Eyes: Denies change in visual acuity, redness, or eye pain [] HENT: Denies nasal congestion or sore throat [] Respiratory: Denies cough or shortness of breath [] Cardiovascular: No additional information not addressed in HPI [] GI: Denies abdominal pain, nausea, vomiting, bloody stools or diarrhea [] : Denies dysuria or hematuria [] Musculoskeletal: Denies back pain or joint pain [] Integument: Denies rash or skin lesions [] Neurologic: Denies headache, focal weakness or sensory changes [] Endocrine: Denies polyuria or polydipsia [] All other systems were reviewed and found to be within normal limits, except as documented in this note. Family History Family History Non contributory Current Medications Current Medications Current Medications Medications (Trade) Dose Ordered Sig/Shaunna Start Time Stop Time Status Last Admin Dose Admin Acetaminophen (Tylenol) 1,000 mg PRN QID PRN 12/16/17 03:00 Diphtheria/ Tetanus/Acell Pertussis (Boostrix) 0.5 ml STK-MED ONCE 12/16/17 01:41 12/16/17 01:42 DC Folic Acid (FOLIC ACID SYRINGE for ER) 5 mg STK-MED ONCE 12/16/17 01:40 12/16/17 01:41 DC Lactated Ringer's 1,000 ml @ 200 mls/hr Q5H 12/16/17 03:00 Multivitamins/ Minerals (Infuvite Adult) 10 ml STK-MED ONCE 12/16/17 01:40 12/16/17 01:41 DC Multivitamins/ Minerals 10 ml/ Folic Acid 1 mg/ Thiamine HCl 100 mg/Lactated Ringer's 1,011.2 ml @ 1,000 mls/ hr 1X ONCE 12/16/17 01:30 12/16/17 02:30 DC 12/16/17 01:50 1,000 MLS/HR Phytonadione (Vitamin K) 10 mg STK-MED ONCE 12/16/17 01:40 12/16/17 01:41 DC Potassium Chloride (KCl Oral Soln) 40 meq 1X ONCE 12/16/17 02:15 12/16/17 04:45 DC 12/16/17 02:21 40 MEQ Tetanus/ Diphtheria Toxoids Adsorbed (Tenivac Vial) 0.5 ml ONCE ONCE 12/16/17 01:30 12/16/17 02:13 DC 12/16/17 01:51 0.5 ML Thiamine HCl 200 mg STK-MED ONCE 12/16/17 01:40 12/16/17 01:41 DC Allergies Allergies Allergies Coded Allergies Type Severity Reaction Last Updated Verified Sulfa (Sulfonamide Antibiotics) Allergy Intermediate 12/13/17 No Physical Exam Physical Exam Constitutional: , no acute distress, non-toxic appearance. [] HENT: Normocephalic, atraumatic, bilateral external ears normal, oropharynx moist, no oral exudates, nose normal. [Poor dentition. Eyes: PERRLA, EOMI, conjunctiva normal, no discharge. [] Neck: Normal range of motion, no tenderness, supple, no stridor. [] Cardiovascular:Heart rate regular rhythm, no murmur [] Lungs & Thorax: Bilateral breath sounds equal at apex on auscultation [] Abdomen: Bowel sounds normal, soft, no tenderness, no masses, no pulsatile masses. [] Skin: Warm, dry, bilateral rincon erythema, blisters on feet, new and old. Back: No tenderness, no CVA tenderness. [] Extremities: No tenderness, no cyanosis, no clubbing, ROM intact, no edema. [] Neurologic: Alert and oriented X 3, normal motor function, normal sensory function, no focal deficits noted. [] Psychologic: Affect distracted, judgement poor insight to her mental health disorder. , mood normal. [] Current Patient Data Vital Signs Vital Signs Date Time Temp Pulse Resp B/P (MAP) Pulse Ox O2 Delivery O2 Flow Rate FiO2 12/16/17 01:25 97.5 87 18 98 Room Air Lab Results Laboratory Tests Test 12/16/17 01:31 White Blood Count 7.1 x10^3/uL (4.0-11.0) Red Blood Count 4.39 x10^6/uL (3.50-5.40) Hemoglobin 13.1 g/dL (12.0-15.5) Hematocrit 38.5 % (36.0-47.0) Mean Corpuscular Volume 88 fL (79-100) Mean Corpuscular Hemoglobin 30 pg (25-35) Mean Corpuscular Hemoglobin Concent 34 g/dL (31-37) Red Cell Distribution Width 14.1 % (11.5-14.5) Platelet Count 262 x10^3/uL (140-400) Neutrophils (%) (Auto) 58 % (31-73) Lymphocytes (%) (Auto) 29 % (24-48) Monocytes (%) (Auto) 10 % (0-9) H Eosinophils (%) (Auto) 2 % (0-3) Basophils (%) (Auto) 1 % (0-3) Neutrophils # (Auto) 4.2 x10^3uL (1.8-7.7) Lymphocytes # (Auto) 2.1 x10^3/uL (1.0-4.8) Monocytes # (Auto) 0.7 x10^3/uL (0.0-1.1) Eosinophils # (Auto) 0.1 x10^3/uL (0.0-0.7) Basophils # (Auto) 0.1 x10^3/uL (0.0-0.2) Prothrombin Time 11.5 SEC (9.4-11.4) H Prothrombin Time INR 1.1 (0.9-1.1) PTT 25 SEC (23-33) Sodium Level 141 mmol/L (136-145) Potassium Level 2.8 mmol/L (3.5-5.1) *L Chloride Level 102 mmol/L (98-107) Carbon Dioxide Level 30 mmol/L (21-32) Anion Gap 9 (6-14) Blood Urea Nitrogen 9 mg/dL (7-20) Creatinine 0.9 mg/dL (0.6-1.0) Estimated GFR (Cockcroft-Gault) 64.3 Glucose Level 86 mg/dL (70-99) Calcium Level 8.9 mg/dL (8.5-10.1) Magnesium Level 1.9 mg/dL (1.8-2.4) Creatine Kinase 657 U/L (26-192) H Creatine Kinase MB (Mass) 2.4 ng/mL (0.0-3.6) Creatine Kinase MB Relative Index 0.4 % (0-4) Troponin I Quantitative < 0.017 ng/mL (0-0.055) EKG EKG My interpretation EKG shows a sinus rhythm at 85 bpm. No acute morphology[] Radiology/Procedures Radiology/Procedures My interpretation chest x-ray shows no acute cardiopulmonary findings.[] Course & Med Decision Making Course & Med Decision Making Pertinent Labs and Imaging studies reviewed. (See chart for details) Pt. has agreed to Tetanus and admit for dehydration , hypokalemia-, cellulitis. Discussed presentation, testing and tx. plan with Dr. Armendariz- [] Final Impression Final Impression 1. Schizophrenia 2. Plantar blisters acute on old 3. Cellulitis of shins/ feet 4. Hypokalemia 5. Dehydration 6. Anxiety 7. Hallucinations / Delusions 8. Elevated CK 9. Hx of Non-compliance with medical recommendations. [] Dragon Disclaimer Dragon Disclaimer This electronic medical record was generated, in whole or in part, using a voice recognition dictation system. RAYNE REN MD Dec 16, 2017 02:07
[2017-12-16 02:11] LABS: CALCIUM 8.9 mg/dL (8.5-10.1); CREATININE 0.9 mg/dL (0.6-1.0); GFR 64.3; MAGNESIUM 1.9 mg/dL (1.8-2.4)
[2017-12-16 02:14] LABS: POTASSIUM 2.8 mmol/L (3.5-5.1)
[2017-12-16] MEDS ORDERED: POTASSIUM CHLORIDE 20 MEQ/15 ML ORAL LIQUID. PO ONE (02:15)
[2017-12-16 03:41] LABS: CLARITY,URINE CLEAR; COLOR,URINE YELLOW
[2017-12-16 03:42] VITALS: BP 140/72
[2017-12-16 03:42] LABS: BACTERIA,URINE 0 /HPF (0-FEW); BILIRUBIN,URINE NEG (NEG); GLUCOSE,URINE NEG (NEG); NITRITE,URINE NEG (NEG); RBC,URINE 0 /HPF (0-2); SQUAMOUS EPITHELIAL CELL,UR OCC /LPF; UROBILINOGEN,URINE 0.2 mg/dL (0.2 mg/dL); WBC,URINE OCC /HPF (0-4)
[2017-12-16 03:45] LABS: BARBITURATES NEG (NEG); BENZODIAZEPINES NEG (NEG); CANNABINOIDS NEG (NEG); COCAINE NEG (NEG); METHADONE NEG (NEG); OPIATES NEG (NEG); PHENCYCLIDINE NEG (NEG)
[2017-12-16 03:52] LABS: AMPHETAMINE/METHAMPHETAMINE NEG (NEG)
[2017-12-16] MEDS ORDERED: SODIUM BICARB ADULT 8.4% 50 MEQ/50 ML DISP.SYRIN. IV ONE (04:45)
[2017-12-16] MEDS: IPRATRPIUM/ALBUTEROL 0.5/2.5MG 3 ML NEBU. NEB PRN ×2 (05:20→21:05)
--- NOTE | 2017-12-16 05:37 | RAD ---
Chest AP portable at 0254: Reason for examination: Cough and congestion. Comparison is made to previous study dated 03/19/2017. The heart size is normal. Mediastinum is unremarkable. Lung gonzales are clear. No acute bony abnormalities are seen. Impression: No acute cardiopulmonary disease. Electronically signed by: Racheal Cra MD (12/16/2017 5:33 AM) [facility] [place]
[2017-12-16] MEDS: IV RINGERS SOLUTION,LACTATED 1,000 ML IV SCH ×3 (06:08→11:24)
[2017-12-16] MEDS: NEOMYCIN/BACITRAC/POLY TOPICAL OINTMENT 28GM TUBE. TP SCH ×4 (08:24→20:05)
[2017-12-16] MEDS: CLINDAMYCIN 600MG PREMIX 50 ML IV SCH ×3 (08:25→21:06)
[2017-12-16] MEDS ORDERED: BACITRACIN/POLYMYXIN B TOPICAL OINT 15GM TUBE. TP SCH (09:00)
[2017-12-16] MEDS: LACTOBACILLUS RHAMNOSUS GG 1 CAPSULE. PO SCH ×2 (09:00→20:04)
[2017-12-16] MEDS ORDERED: POTASSIUM CHLORIDE 20 MEQ/15 ML ORAL LIQUID. PO SCH (09:00)
[2017-12-16 09:33] VITALS: BP 123/54
[2017-12-16] MEDS ORDERED: POTASSIUM CHLORIDE 20 MEQ TABLET.ER. PO ONE (10:00)
[2017-12-16 11:08] LABS: CALCIUM 8.2 mg/dL (8.5-10.1); CREATININE 0.8 mg/dL (0.6-1.0); GFR 73.7
[2017-12-16] MEDS: POTASSIUM CL 40MEQ D5-0.45NACL 1,000 ML IV SCH (11:49)
--- NOTE | 2017-12-16 11:54 | HP ---
ADMIT DATE: 12/16/2017 HISTORY OF PRESENT ILLNESS: The patient is a 57-year-old female patient who was brought to the Emergency Room by her sister that she might be dehydrated. She is well known to the Emergency Department staff as she has frequent visits for multiple complaints. She is known to have schizophrenia, anxiety disorder and has been seen in the Emergency Room Department of both [facility] and [facility]. She was recently admitted to [facility] for acute psychosis. Unfortunately, she is not compliant with medical recommendation. She refuses to follow up at the [facility] for treatment of her schizophrenia and hallucination. She frequently has hallucination for toxic gas exposure. She was evaluated in the Emergency Room, was found to have blisters on her feet from walking. She usually refuses care, medication, or referral to in-hospital treatment for her schizophrenia and has been frequently leaving the Emergency Department against medical advice with or without discharge. Her sister has attempted to have start the patient court ordered treatment; however, she denied any homicidal or suicidal ideation. She refused referral to [facility]; however, last night she was evaluated in the Emergency Room and was found to have blisters in her deep plantar aspect of both feet and also possible cellulitis in her shins bilaterally. She was also found to be dehydrated and hypokalemic. Her potassium was only 2.8 and was admitted for rehydration and IV antibiotic treatment for bilateral lower extremity cellulitis. PAST MEDICAL HISTORY: Significant for bronchial asthma. PAST SURGICAL HISTORY: Significant for tonsillectomy, adenoidectomy, right ear surgery. ALLERGIES: SHE IS ALLERGIC TO SULFA DRUGS. MEDICATIONS: She is only on albuterol inhaler for her bronchial asthma. FAMILY HISTORY: She has 3 brothers and 4 sisters. She said that she is closer to her youngest sister and oldest brother. Her father at age of 73 because of lung cancer and mother at age of 78 because of lung cancer. SOCIAL HISTORY: She is single, never , has no children. She does not smoke, drink alcohol or use recreational drugs. He claimed that she has worked for 38 years at [employer] and also [employer]. REVIEW OF SYSTEMS: Unremarkable. PHYSICAL EXAMINATION: GENERAL: On arrival to the Emergency Room, she apparently looked well and was clearly in no apparent respiratory distress. VITAL SIGNS: Her heart rate was 87, blood pressure 140/72, temperature was 97.5, respiratory rate was 18 and oxygen saturation was 97% on room air. HEAD, EYES, EARS, NOSE AND THROAT: Showed normocephalic, atraumatic. NECK: Supple. HEART: Showed normal first and second heart sounds with no gallop, rub or murmur. CHEST: Clear to auscultation. No crepitation or rhonchi. ABDOMEN: Distended, soft, nontender. NEUROLOGIC: She is awake, alert, responding appropriately. Her cranial nerves are intact. EXTREMITIES: She moves extremities without difficulty. She apparently ambulates without assistance or assistive devices. Examination of lower extremity showed that she has blisters on the plantar aspect of both feet, more so on the left than the right. She has also what seems of bilateral cellulitis and probably lymphangitis extending proximally senior care both legs with intense erythema. LABORATORY DATA: Showed that her white cell count was 7100; hemoglobin 13; hematocrit 38; MCV 88 and platelet count of 162,000. Serum sodium on admission 141, potassium 2.8, chloride 102, bicarbonate 30, anion gap of 9, BUN 9, creatinine 0.9. Estimated GFR was 64 mL per minute. Her glucose was 86, calcium was 8.9, magnesium was 1.9. Her CK was 657. Her prothrombin time was 11.5, INR 1.1, aPTT was 25. Urinalysis showed the urine was yellow, clear with a pH of 6.5, specific gravity of 1.010. The urine was negative for protein, glucose. There was trace of ketones, negative for blood, nitrite and leukocyte esterase. There were no rbc's, no wbc's and no bacteria and urine toxicology screen was negative. Her chest x-ray showed that the heart size is normal, mediastinum is unremarkable. Lung gonzales are clear. No acute bony abnormalities are seen. IMPRESSION AND PLAN: In summary, this is a 57-year-old female patient with known chronic schizophrenia and anxiety disorder, episode of acute psychosis who came in to the Emergency Room for possible dehydration. She was found to be extremely hypokalemic. She has also blisters under plantar aspect of both feet with cellulitis and probably lymphangitis with intense erythema extending approximately senior care to both legs. She was given oral potassium. We will continue with the normal saline with 40 mEq of potassium chloride. Continue with IV clindamycin and pain management. Monitor her labs closely. PRINCE IWTT MD DR: BARBARA/miladys JOB#: [id number] / [id number]
[2017-12-16 16:13] VITALS: BP 99/60
[2017-12-16 19:18] VITALS: BP 177/85
[2017-12-16 20:00] VITALS: BP 130/71
[2017-12-16] MEDS: ACETAMINOPHEN 500 MG TABLET PO PRN (20:02)
[2017-12-16 22:51] VITALS: BP 92/57
[2017-12-17] MEDS: POTASSIUM CL 40MEQ D5-0.45NACL 1,000 ML IV SCH ×2 (02:15→14:10)
[2017-12-17] MEDS: CLINDAMYCIN 600MG PREMIX 50 ML IV SCH (05:37)
[2017-12-17 06:02] VITALS: BP 98/58
[2017-12-17 06:07] LABS: BASO % 0 % (0-3); EOS % 1 % (0-3); HEMATOCRIT 37.3 % (36.0-47.0); HEMOGLOBIN 12.4 g/dL (12.0-15.5); LYMPH # 0.5 x10^3/uL (1.0-4.8); LYMPH % 11 % (24-48); MEAN CORPUSCULAR HEMOGLOBIN 29 pg (25-35); MEAN CORPUSCULAR HGB CONC 33 g/dL (31-37); MEAN CORPUSCULAR VOLUME 88 fL (79-100); MONO # 0.4 x10^3/uL (0.0-1.1); MONO % 8 % (0-9); NEUT # 3.3 x10^3uL (1.8-7.7); NEUT % 79 % (31-73); PLATELET COUNT 207 x10^3/uL (140-400); RED BLOOD COUNT 4.22 x10^6/uL (3.50-5.40); RED CELL DISTRIBUTION WIDTH 14.2 % (11.5-14.5); WHITE BLOOD COUNT 4.2 x10^3/uL (4.0-11.0)
[2017-12-17 06:12] LABS: CALCIUM 7.9 mg/dL (8.5-10.1); CREATININE 0.8 mg/dL (0.6-1.0); GFR 73.7; MAGNESIUM 1.4 mg/dL (1.8-2.4); POTASSIUM 3.3 mmol/L (3.5-5.1)
[2017-12-17] MEDS: ACETAMINOPHEN 500 MG TABLET PO PRN (06:20)
[2017-12-17] MEDS: IPRATRPIUM/ALBUTEROL 0.5/2.5MG 3 ML NEBU. NEB PRN ×3 (06:35→23:58)
[2017-12-17] MEDS ORDERED: MAGNESIUM OXIDE 400 MG TABLET PO SCH (09:00)
[2017-12-17] MEDS: LACTOBACILLUS RHAMNOSUS GG 1 CAPSULE. PO SCH ×2 (10:18→21:00)
[2017-12-17] MEDS: NEOMYCIN/BACITRAC/POLY TOPICAL OINTMENT 28GM TUBE. TP SCH ×4 (10:19→21:00)
[2017-12-17 10:41] VITALS: BP 101/62
--- NOTE | 2017-12-17 18:39 | PDOC ---
Exam Note: Gerardo Note: Please also refer to the separate dictated note~for this date of service dictated separately.~Patient seen individually. Discussed the patient with Nursing staff reviewed the chart.~Reviewed interim history and current functioning. Reviewed vital signs,~Labs/ Radiology~and current medications noted below. Continue current treatment with the changes noted in the dictated addendum note Assessment: Vital Signs: Vital Signs Date Time Temp Pulse Resp B/P (MAP) Pulse Ox O2 Delivery O2 Flow Rate FiO2 12/17/17 10:41 98.7 84 18 101/62 (75) 95 Room Air I&O Intake and Output 12/17/17 07:00 Intake Total 2853.11 ml Balance 2853.11 ml Intake Oral 890 ml IV Total 1963.11 ml # Voids 5 Labs: Laboratory Tests Test 12/17/17 05:50 White Blood Count 4.2 x10^3/uL (4.0-11.0) Red Blood Count 4.22 x10^6/uL (3.50-5.40) Hemoglobin 12.4 g/dL (12.0-15.5) Hematocrit 37.3 % (36.0-47.0) Mean Corpuscular Volume 88 fL (79-100) Mean Corpuscular Hemoglobin 29 pg (25-35) Mean Corpuscular Hemoglobin Concent 33 g/dL (31-37) Red Cell Distribution Width 14.2 % (11.5-14.5) Platelet Count 207 x10^3/uL (140-400) Neutrophils (%) (Auto) 79 % (31-73) H Lymphocytes (%) (Auto) 11 % (24-48) L Monocytes (%) (Auto) 8 % (0-9) Eosinophils (%) (Auto) 1 % (0-3) Basophils (%) (Auto) 0 % (0-3) Neutrophils # (Auto) 3.3 x10^3uL (1.8-7.7) Lymphocytes # (Auto) 0.5 x10^3/uL (1.0-4.8) L Monocytes # (Auto) 0.4 x10^3/uL (0.0-1.1) Eosinophils # (Auto) 0.0 x10^3/uL (0.0-0.7) Basophils # (Auto) 0.0 x10^3/uL (0.0-0.2) Sodium Level 139 mmol/L (136-145) Potassium Level 3.3 mmol/L (3.5-5.1) L Chloride Level 105 mmol/L (98-107) Carbon Dioxide Level 30 mmol/L (21-32) Anion Gap 4 (6-14) L Blood Urea Nitrogen 4 mg/dL (7-20) L Creatinine 0.8 mg/dL (0.6-1.0) Estimated GFR (Cockcroft-Gault) 73.7 Glucose Level 123 mg/dL (70-99) H Calcium Level 7.9 mg/dL (8.5-10.1) L Magnesium Level 1.4 mg/dL (1.8-2.4) L Creatine Kinase 238 U/L (26-192) H Current Medications: Meds: Current Medications Multivitamins/ Minerals 10 ml/ Folic Acid 1 mg/ Thiamine HCl 100 mg/Lactated Ringer's 1,011.2 ml @ 1,000 mls/ hr 1X ONCE IV Last administered on at 01:50; Start 12/16/17 at 01:30; Stop 12/16/17 at 02:30; Status DC Tetanus/ Diphtheria Toxoids Adsorbed (Tenivac Vial) 0.5 ml ONCE ONCE VAX IM Last administered on 12/16/17at 01:51; Start 12/16/17 at 01:30; Stop 12/16/17 at 02:13; Status DC Phytonadione (Vitamin K) 10 mg STK-MED ONCE .ROUTE ; Start 12/16/17 at 01:40; Stop 12/16/17 at 01:41; Status DC Thiamine HCl 200 mg STK-MED ONCE IV ; Start 12/16/17 at 01:40; Stop 12/16/17 at 01:41; Status DC Multivitamins/ Minerals (Infuvite Adult) 10 ml STK-MED ONCE IV ; Start 12/16/17 at 01:40; Stop 12/16/17 at 01:41; Status DC Folic Acid (FOLIC ACID SYRINGE for ER) 5 mg STK-MED ONCE IV ; Start 12/16/17 at 01:40; Stop 12/16/17 at 01:41; Status DC Diphtheria/ Tetanus/Acell Pertussis (Boostrix) 0.5 ml STK-MED ONCE VAX IM ; Start 12/16/17 at 01:41; Stop 12/16/17 at 01:42; Status DC Potassium Chloride (KCl Oral Soln) 40 meq 1X ONCE PO Last administered on 12/16at 02:21; Start 12/16/17 at 02:15; Stop 12/16/17 at 04:45; Status DC Lactated Ringer's 1,000 ml @ 200 mls/hr Q5H IV Last administered on 12/16/17at 06:08; Start 12/16/17 at 03:00; Stop 12/16/17 at 12:31; Status DC Potassium Chloride (KCl Oral Soln) 40 meq DAILY PO Last administered on at 08:13; Start 12/16/17 at 09:00; Stop 12/16/17 at 09:27; Status DC Acetaminophen (Tylenol) 1,000 mg PRN QID PRN PO pain Last administered on at 06:20; Start 12/16/17 at 03:00 Clindamycin Phosphate 50 ml @ 100 mls/hr Q8HRS IV Last administered on at 05:37; Start 12/16/17 at 06:00; Stop 12/17/17 at 16:21; Status DC Bacitracin/ Polymyxin B Sulfate (Polysporin) 1 helena QID TP ; Start 12/16/17 at 09 :00; Stop 12/16/17 at 09:00; Status DC Sodium Bicarbonate (Sodium Bicarb Adult 8.4% Syr) 50 meq 1X ONCE IV Last administered on 12/16/17at 06:08; Start 12/16/17 at 04:45; Stop 12/16/17 at 04:46 ; Status DC Albuterol/ Ipratropium (Duoneb) 3 ml RTQID PRN NEB SHORTNESS OF BREATH Last administered on 12/17/17at 15:20; Start 12/16/17 at 04:45 Neomycin/ Polymyxin/ Bacitracin (Triple Antibiotic) 1 helena QID TP Last administered on 12/17/17at 13:00; Start 12/16/17 at 09:00 Lactobacillus Rhamnosus (Culturelle) 1 cap BID PO Last administered on at 10:18; Start 12/16/17 at 09:00 Potassium Chloride (Klor-Con) 40 meq 1X ONCE PO Last administered on at 09:44; Start 12/16/17 at 10:00; Stop 12/16/17 at 10:01; Status DC Potassium Chloride/Dextrose/ Sod Cl 1,000 ml @ 75 mls/hr [id number] IV Last administered on 12/17/17at 02:15; Start 12/16/17 at 11:30; Stop 12/17/17 at 16:38 ; Status DC Magnesium Oxide (Magnesium Oxide) 400 mg BID PO Last administered on 12/17/17at 09:04; Start 12/17/17 at 09:00; Stop 12/18/17 at 21:01 Clindamycin HCl (Cleocin) 450 mg TID PO ; Start 12/17/17 at 21:00 Levofloxacin (Levaquin) 750 mg DAILY06 PO ; Start 12/18/17 at 06:00 Magnesium Oxide (Magnesium Oxide) 400 mg TID PO ; Start 12/17/17 at 21:00 Potassium Chloride (Klor-Con) 20 meq TID PO ; Start 12/17/17 at 21:00 Active Scripts Active Reported No Known Medications Prior To Admisstion (Info) Each 1 Each MC I have reviewed the current psychotropics carefully including drug interactions. Risk benefit ratio favors no change other than as noted in my dictated progress note. Diagnosis: Problems: (1) Psychosis, atypical (2) Hypokalemia (3) Dehydration (4) Asthma exacerbation (5) Acute severe asthma (6) Acute respiratory failure with hypoxia (7) Asthma CINDY STEWART MD Dec 17, 2017 18:39
[2017-12-17 19:33] VITALS: BP 118/69
[2017-12-17] MEDS: POTASSIUM CHLORIDE 20 MEQ TABLET.ER. PO SCH ×2 (21:00→21:54)
[2017-12-17] MEDS: MAGNESIUM OXIDE 400 MG TABLET PO SCH ×2 (21:00→21:53)
[2017-12-17] MEDS: CLINDAMYCIN HCL 150 MG CAPSULE PO SCH ×2 (21:00→21:53)
[2017-12-17 22:41] VITALS: BP 119/69
[2017-12-17] MEDS: risperiDONE ORAL 1 MG/ML 30ml BOTTLE. SL SCH (23:00)
--- NOTE | 2017-12-18 00:12 | PN ---
DATE: 12/17/2017 SUBJECTIVE: The patient is sitting on the edge of the bed comfortably, in no apparent distress. On questioning her, she feels that her feet are looking much better. She continued to have erythema. She has multiple blisters on the plantar aspect of her right foot. I actually cut all the skin and opened 2 blisters and took swabs for culture and sensitivity. Unfortunately, the patient is refusing to allow us to put an IV line. Continue with IV antibiotics. She continued to have hypokalemia and hypomagnesemia and the plan is to continue. PHYSICAL EXAMINATION: GENERAL: When I examined her, she looked well and was clearly in no apparent respiratory distress. VITAL SIGNS: Her heart rate was 84, blood pressure was 101/62, temperature was 98.7, respiratory rate was 18 and oxygen saturation was 95%. She continued to spike her temperature. HEAD, EYES, EARS, NOSE AND THROAT: Showed normocephalic, atraumatic. NECK: Supple. HEART: Showed normal first and second sounds. No gallop, rub or murmur. CHEST: Clear to auscultation. No crepitation or rhonchi. ABDOMEN: Distended, soft, nontender. No guarding or rigidity. No organomegaly. Hernial orifice intact. Bowel sounds normal. NEUROLOGIC: She was awake, alert, and responding appropriately. Cranial nerves intact. She moves her extremities without difficulty. EXTREMITIES: She continued to have bilateral lower extremity cellulitis with multiple blisters in the plantar aspect of both feet. I removed large amount of skin from the plantar aspect of the right foot and open 2 blisters and took swab for culture and sensitivity. LABORATORY DATA: This morning showed a serum sodium 139, potassium 3.3, chloride 105, bicarbonate 30, anion gap of 4, BUN 4, creatinine 0.8, estimated GFR was 74 mL per minute. Her glucose was 123, calcium was 7.9, magnesium was 1.4. CK was 238. White cell count was 4200, hemoglobin 12, hematocrit 37, MCV 88 and platelet count 207,000. Prothrombin time was 11.5, INR 1.1, aPTT was 25. Urinalysis was unremarkable. Toxic screen was negative. Her blood culture so far negative. ASSESSMENT AND PLAN: The patient was admitted with bilateral lower extremity cellulitis. She has also multiple blisters on the plantar aspect of both feet. She has other medical problems to include bronchial asthma and she is also known to have schizophrenia as well as anxiety disorder. Today, she has been uncooperative, refusing all IV antibiotics and IV fluid. We did consult the wound care. My plan is to continue with oral clindamycin as well as levofloxacin to cover gram-negative bacteria as we took swabs from the blisters that were opened and removed large amount of skin from the plantar aspect of her right foot. PRINCE WITT MD DR: BARBARA/miladys JOB#: [id number] / [id number]
[2017-12-18 05:39] VITALS: BP 133/78
[2017-12-18] MEDS: levoFLOXacin 750 MG TABLET PO SCH (06:20)
[2017-12-18 08:02] LABS: CALCIUM 8.2 mg/dL (8.5-10.1); CREATININE 0.8 mg/dL (0.6-1.0); GFR 73.7; MAGNESIUM 1.6 mg/dL (1.8-2.4); POTASSIUM 3.6 mmol/L (3.5-5.1)
[2017-12-18] MEDS: NEOMYCIN/BACITRAC/POLY TOPICAL OINTMENT 28GM TUBE. TP SCH ×4 (09:00→21:15)
--- NOTE | 2017-12-18 11:31 | PN ---
DATE: 12/18/2017 SUBJECTIVE: The patient is resting slightly propped up in bed, in no apparent respiratory distress. Awake, alert, stated that she felt dizzy, but no fall. We debrided her right foot and removed a large amount of skin and opened to blisters, took swabs. Her erythema is fading slowly. Nursing staff did not voice any concern. States that she has an uneventful night. PHYSICAL EXAMINATION: GENERAL: When I examined her, there was no pallor, jaundice, cyanosis, or thyromegaly. No jugular venous distension. No limb edema. VITAL SIGNS: Her heart rate was 80, blood pressure was 133/78, temperature was 99.3, respiratory rate was 16, and oxygen saturation was 96%. HEAD, EYES, EARS, NOSE, AND THROAT: Showed normocephalic, atraumatic. NECK: Supple. HEART: Showed normal first and second heart sounds. No gallop, rub, or murmur. CHEST: Clear to auscultation. No crepitation or rhonchi. ABDOMEN: Distended, soft, nontender. No guarding or rigidity. No organomegaly. All hernial orifices intact. Bowel sounds normal. NEUROLOGIC: She was awake, alert, responding appropriately. Cranial nerves intact. She moves extremities without difficulty. She ambulates without assistance or assistive devices. LABORATORY DATA: Her chemistry showed a serum sodium of 142, potassium 3.6, chloride 107, bicarbonate 31, anion gap of 4, BUN 2, creatinine 0.8, estimated GFR was 74 mL per minute. Her glucose was 92, calcium was 8.2, and magnesium was 1.6. Her white cell count is 4200, hemoglobin 12, hematocrit 37, MCV 88 and platelet count of 207,000. ASSESSMENT AND PLAN: 1. Bilateral lower extremity cellulitis. 2. Multiple blisters on both the plantar aspect of both feet. 3. Bronchial asthma. 4. Schizophrenia. 5. Anxiety disorder. Plan is to continue with oral antibiotic. Continue with wound care and we have consulted Dr. Jarvis. PRINCE WITT MD DR: BARBARA/miladys JOB#: [id number] / [id number]
[2017-12-18] MEDS: MAGNESIUM OXIDE 400 MG TABLET PO SCH ×3 (12:19→21:00)
[2017-12-18] MEDS: POTASSIUM CHLORIDE 20 MEQ TABLET.ER. PO SCH ×3 (12:19→21:00)
[2017-12-18] MEDS: CLINDAMYCIN HCL 150 MG CAPSULE PO SCH ×3 (12:19→21:00)
[2017-12-18] MEDS: LACTOBACILLUS RHAMNOSUS GG 1 CAPSULE. PO SCH ×2 (12:20→21:00)
[2017-12-18] MEDS: risperiDONE ORAL 1 MG/ML 30ml BOTTLE. SL SCH ×2 (12:20→19:58)
[2017-12-18 15:28] VITALS: BP 104/66
[2017-12-18] MEDS: IPRATRPIUM/ALBUTEROL 0.5/2.5MG 3 ML NEBU. NEB PRN (17:00)
--- NOTE | 2017-12-18 18:15 | PDOC ---
Exam Note: Gerardo Note: Please also refer to the separate dictated note~for this date of service dictated separately.~Patient seen individually. Discussed the patient with Nursing staff reviewed the chart.~Reviewed interim history and current functioning. Reviewed vital signs,~Labs/ Radiology~and current medications noted below. Continue current treatment with the changes noted in the dictated addendum note Assessment: Vital Signs: Vital Signs Date Time Temp Pulse Resp B/P (MAP) Pulse Ox O2 Delivery O2 Flow Rate FiO2 12/18/17 17:00 96 Room Air 12/18/17 15:28 98.0 80 20 104/66 (79) I&O Intake and Output 12/18/17 07:00 Intake Total 1240 ml Balance 1240 ml Intake Oral 1240 ml # Voids 3 Labs: Laboratory Tests Test 12/18/17 06:08 Sodium Level 142 mmol/L (136-145) Potassium Level 3.6 mmol/L (3.5-5.1) Chloride Level 107 mmol/L (98-107) Carbon Dioxide Level 31 mmol/L (21-32) Anion Gap 4 (6-14) L Blood Urea Nitrogen 2 mg/dL (7-20) L Creatinine 0.8 mg/dL (0.6-1.0) Estimated GFR (Cockcroft-Gault) 73.7 Glucose Level 92 mg/dL (70-99) Calcium Level 8.2 mg/dL (8.5-10.1) L Magnesium Level 1.6 mg/dL (1.8-2.4) L Current Medications: Meds: Current Medications Multivitamins/ Minerals 10 ml/ Folic Acid 1 mg/ Thiamine HCl 100 mg/Lactated Ringer's 1,011.2 ml @ 1,000 mls/ hr 1X ONCE IV Last administered on at 01:50; Start 12/16/17 at 01:30; Stop 12/16/17 at 02:30; Status DC Tetanus/ Diphtheria Toxoids Adsorbed (Tenivac Vial) 0.5 ml ONCE ONCE VAX IM Last administered on 12/16/17at 01:51; Start 12/16/17 at 01:30; Stop 12/16/17 at 02:13; Status DC Phytonadione (Vitamin K) 10 mg STK-MED ONCE .ROUTE ; Start 12/16/17 at 01:40; Stop 12/16/17 at 01:41; Status DC Thiamine HCl 200 mg STK-MED ONCE IV ; Start 12/16/17 at 01:40; Stop 12/16/17 at 01:41; Status DC Multivitamins/ Minerals (Infuvite Adult) 10 ml STK-MED ONCE IV ; Start 12/16/17 at 01:40; Stop 12/16/17 at 01:41; Status DC Folic Acid (FOLIC ACID SYRINGE for ER) 5 mg STK-MED ONCE IV ; Start 12/16/17 at 01:40; Stop 12/16/17 at 01:41; Status DC Diphtheria/ Tetanus/Acell Pertussis (Boostrix) 0.5 ml STK-MED ONCE VAX IM ; Start 12/16/17 at 01:41; Stop 12/16/17 at 01:42; Status DC Potassium Chloride (KCl Oral Soln) 40 meq 1X ONCE PO Last administered on 12/16at 02:21; Start 12/16/17 at 02:15; Stop 12/16/17 at 04:45; Status DC Lactated Ringer's 1,000 ml @ 200 mls/hr Q5H IV Last administered on 12/16/17at 06:08; Start 12/16/17 at 03:00; Stop 12/16/17 at 12:31; Status DC Potassium Chloride (KCl Oral Soln) 40 meq DAILY PO Last administered on at 08:13; Start 12/16/17 at 09:00; Stop 12/16/17 at 09:27; Status DC Acetaminophen (Tylenol) 1,000 mg PRN QID PRN PO pain Last administered on at 06:20; Start 12/16/17 at 03:00 Clindamycin Phosphate 50 ml @ 100 mls/hr Q8HRS IV Last administered on at 05:37; Start 12/16/17 at 06:00; Stop 12/17/17 at 16:21; Status DC Bacitracin/ Polymyxin B Sulfate (Polysporin) 1 helena QID TP ; Start 12/16/17 at 09 :00; Stop 12/16/17 at 09:00; Status DC Sodium Bicarbonate (Sodium Bicarb Adult 8.4% Syr) 50 meq 1X ONCE IV Last administered on 12/16/17at 06:08; Start 12/16/17 at 04:45; Stop 12/16/17 at 04:46 ; Status DC Albuterol/ Ipratropium (Duoneb) 3 ml RTQID PRN NEB SHORTNESS OF BREATH Last administered on 12/18/17 17:00; Start 12/16/17 at 04:45 Neomycin/ Polymyxin/ Bacitracin (Triple Antibiotic) 1 helena QID TP Last administered on 12/18/17 17:00; Start 12/16/17 at 09:00 Lactobacillus Rhamnosus (Culturelle) 1 cap BID PO Last administered on 12:20; Start 12/16/17 at 09:00 Potassium Chloride (Klor-Con) 40 meq 1X ONCE PO Last administered on at 09:44; Start 12/16/17 at 10:00; Stop 12/16/17 at 10:01; Status DC Potassium Chloride/Dextrose/ Sod Cl 1,000 ml @ 75 mls/hr [id number] IV Last administered on 12/17/17at 02:15; Start 12/16/17 at 11:30; Stop 12/17/17 at 16:38 ; Status DC Magnesium Oxide (Magnesium Oxide) 400 mg BID PO Last administered on 12/17/17 09:04; Start 12/17/17 at 09:00; Stop 12/17/17 at 22:22; Status DC Clindamycin HCl (Cleocin) 450 mg TID PO Last administered on 12/18/17 12:19; Start 12/17/17 at 21:00 Levofloxacin (Levaquin) 750 mg DAILY06 PO Last administered on 12/18/17 06:20 ; Start 12/18/17 at 06:00 Magnesium Oxide (Magnesium Oxide) 400 mg TID PO Last administered on 12/18/17 12:19; Start 12/17/17 at 21:00 Potassium Chloride (Klor-Con) 20 meq TID PO Last administered on 12/18/17 12: 19; Start 12/17/17 at 21:00 Risperidone (RisperDAL) 0.5 mg DAILY SL Last administered on 12/18/17 12:20; Start 12/17/17 at 23:00 Active Scripts Active Reported No Known Medications Prior To Admisstion (Info) Each 1 Each MC I have reviewed the current psychotropics carefully including drug interactions. Risk benefit ratio favors no change other than as noted in my dictated progress note. Diagnosis: Problems: (1) Psychosis, atypical CINDY STEWART MD Dec 18, 2017 18:15
[2017-12-18 20:10] VITALS: BP 114/71
--- NOTE | 2017-12-18 21:20 | CONS ---
DATE OF CONSULTATION: 12/17/2017 PSYCHIATRIC CONSULTATION This late entry date of service 12/17/2017 covers elements not covered in my initial note. IDENTIFYING DATA: The patient is a 57-year-old female seen in bed [address] [facility] for a psychiatric consult requested by Dr. Armendariz on account of the patient's marked psychosis, refusal of medications for her cellulitis and treatment for her dehydration. Reportedly, the patient has been to the [facility] in the past, refused all treatment, has been paranoid, psychotic, homeless. Additionally, refusing treatment of her cellulitis. The patient has been walking in over a 100 degree temperature on the [place], would just flip flops, is being turned away from homeless shelters and other living arrangements due to her ongoing psychotic symptoms. No suicidal or homicidal ideation. CHIEF COMPLAINT: "There is nothing wrong with my mind. My sister was putting things in the vents and covering it. I could smell it. That's the problem nothing else." HISTORY OF PRESENT ILLNESS: The patient reportedly has a long history of psychiatric symptoms, but she had been able to reside at her sister's place. Recently, she has been increasingly psychotic, turned out and away from the sister's place. She has been homeless, psychotic. States her sister has her own son who has disability, living at home. Reportedly, the patient was leaving the doors open so that disabled son could walk away leading to concerns about safety of other family members, partly which prompted her leaving the home. PAST PSYCHIATRIC HISTORY: As above. MEDICAL HISTORY: Hypokalemia, cellulitis. No alcohol or drug abuse history is noted. Bronchial asthma. PAST SURGICAL HISTORY: Tonsillectomy, adenoidectomy, right ear surgery. ALLERGIES: SULFA DRUGS. CURRENT MEDICATIONS: Albuterol inhaler and I have reviewed her EMRAD. FAMILY HISTORY: The patient states that her father was diagnosed with bipolar disorder, also had alcohol abuse. SOCIAL HISTORY: No alcohol or drug abuse. She is single, never , has no children, was living with her sister as noted above and currently homeless. Reportedly, she worked for 38 years at [employer] and [employer]. MENTAL STATUS EXAM: The patient was seen individually in room 109. She is lying in bed, refusing all treatment per nursing staff. Quite paranoid, suspicious of the medications. Otherwise, well oriented. No suicidal or homicidal ideation. Speech coherent. Thought processes goal directed for the most part. Intellect average and she states she has completed high school and went to [employer] for a couple of semesters and then dropped out. No active suicidal or homicidal ideation. IMPRESSION: Probable bipolar 1 disorder, mixed with psychotic features; psychotic disorder, unspecified. Rest as above. PLAN: From a psychiatric standpoint, would recommend starting Risperdal liquid 0.5 mg daily, may need to increase this if psychotic symptoms persist. May add Depakote as a mood stabilizer, but once the patient is medically stable the [facility] should be consulted to see if she could be placed inpatient psychiatry for stabilization. Additionally, social service should help coordinate some placement options since she is homeless and has been turned away from shelters as well. MAN Darío STEWART MD DR: CARLOS A/miladys JOB#: [id number] / [id number]
[2017-12-19 06:32] VITALS: BP 130/82
[2017-12-19] MEDS: levoFLOXacin 750 MG TABLET PO SCH (06:32)
[2017-12-19] MEDS: IPRATRPIUM/ALBUTEROL 0.5/2.5MG 3 ML NEBU. NEB PRN ×2 (06:36→20:58)
[2017-12-19] MEDS: LACTOBACILLUS RHAMNOSUS GG 1 CAPSULE. PO SCH ×2 (09:00→21:20)
[2017-12-19 11:00] VITALS: BP 111/70
[2017-12-19] MEDS: MAGNESIUM OXIDE 400 MG TABLET PO SCH ×3 (11:53→21:19)
[2017-12-19] MEDS: POTASSIUM CHLORIDE 20 MEQ TABLET.ER. PO SCH ×3 (11:53→21:20)
[2017-12-19] MEDS: CLINDAMYCIN HCL 150 MG CAPSULE PO SCH ×3 (11:54→21:19)
[2017-12-19] MEDS: risperiDONE ORAL 1 MG/ML 30ml BOTTLE. SL SCH (14:46)
[2017-12-19] MEDS: NEOMYCIN/BACITRAC/POLY TOPICAL OINTMENT 28GM TUBE. TP SCH ×4 (14:46→22:01)
--- NOTE | 2017-12-19 15:01 | PN ---
DATE: 12/19/2017 SUBJECTIVE: The patient is resting, slightly propped up in bed, in no apparent distress. On questioning her, she denied any complaints; however, the nursing staff states that she has been refusing to take her medication, extremely paranoid. She took only one Levaquin yesterday, refused all her clindamycin. We did debride her right foot, took large amount of skin and opened 2 blisters and we took swabs for culture and sensitivity. Her cultures so far showed no growths. OBJECTIVE: GENERAL: When I examined her this afternoon, she looked well and was clearly in no apparent respiratory distress, pale, but no jaundice, cyanosis, lymphadenopathy or thyromegaly. No jugular venous distension. No limb edema. VITAL SIGNS: Her heart rate was 78, blood pressure was 111/70, temperature was 98.3, respiratory rate 20, and oxygen saturation was 95%. HEAD, EYES, EARS, NOSE AND THROAT: Normocephalic, atraumatic. NECK: Supple. HEART: Showed normal first and second heart sounds with no gallop, rub or murmur. CHEST: Clear to auscultation. No crepitation or rhonchi. ABDOMEN: Distended, soft, nontender. No guarding or rigidity. No organomegaly. Hernial orifice intact. Bowel sounds normal. NEUROLOGIC: She was awake, alert. All her cranial nerves intact. She moves extremities without difficulty. The erythema on both legs is slowly fading. Continued to have large amount of hyperkeratotic skin that is nonviable on the plantar aspect of both feet. I actually managed to debride some more of that. LABORATORY DATA: Her lab work showed a serum sodium of 142, potassium 3.6, chloride 107, bicarbonate 31, anion gap of 4, BUN 2, creatinine 0.8. Her white cell count is 4200, hemoglobin 12, hematocrit 37, MCV 88 and platelet count 207,000. ASSESSMENT: 1. Bilateral lower extremity cellulitis, multiple blisters on the plantar aspect of both feet that were opened. 2. Hypokalemia, resolved. 3. Hypomagnesemia, improved. 4. Mild rhabdomyolysis, also improving. PLAN: To continue with oral clindamycin and Levaquin. Continue with potassium supplement and magnesium supplement. We will repeat all her lab work tomorrow and if they remained stable, she can be discharged to continue treatment as an outpatient. PRINCE WITT MD DR: BARBARA/miladys JOB#: [id number] / [id number]
[2017-12-19 15:09] VITALS: BP 122/76
[2017-12-19 19:17] VITALS: BP 117/75
--- NOTE | 2017-12-19 22:44 | PN ---
DATE: 12/18/2017 This is a late entry, 12/18/2017, covers the elements not covered in my initial note, 12/18/2017. SUBJECTIVE: Per nursing report, the patient is being quite psychotic, refusing her antibiotics for the cellulitis. She has had 2 dosages of Risperdal 0.5 mg so far. I met with the patient in her room. She states that she does not need any antibiotics. She has no medical problems. She just needs to get to work. MENTAL STATUS EXAMINATION: Speech coherent, appears somewhat anxious, distractible, and paranoid. No active suicidal or homicidal ideation. Attention span short. Language function intact. LABORATORY DATA: Reviewed. IMPRESSION: Unchanged from initial note. PLAN: Increase Risperdal to 1 mg by mouth daily liquid, continue rest of the psychotropics for now. MAN Darío STEWART MD DR: CARLOS A/miladys JOB#: [id number] / [id number]
[2017-12-20 05:20] VITALS: BP 122/78
[2017-12-20] MEDS: levoFLOXacin 750 MG TABLET PO SCH (05:42)
[2017-12-20 06:30] LABS: CALCIUM 8.7 mg/dL (8.5-10.1); CREATININE 0.8 mg/dL (0.6-1.0); GFR 73.7; MAGNESIUM 1.8 mg/dL (1.8-2.4)
[2017-12-20] MEDS: MAGNESIUM OXIDE 400 MG TABLET PO SCH ×2 (09:00→14:00)
[2017-12-20] MEDS: POTASSIUM CHLORIDE 20 MEQ TABLET.ER. PO SCH ×2 (09:00→14:00)
[2017-12-20] MEDS: LACTOBACILLUS RHAMNOSUS GG 1 CAPSULE. PO SCH (09:00)
[2017-12-20] MEDS: IPRATRPIUM/ALBUTEROL 0.5/2.5MG 3 ML NEBU. NEB PRN ×2 (09:15→16:42)
[2017-12-20 11:00] VITALS: BP 113/72
[2017-12-20] MEDS: NEOMYCIN/BACITRAC/POLY TOPICAL OINTMENT 28GM TUBE. TP SCH ×2 (12:36→13:00)
[2017-12-20] MEDS: CLINDAMYCIN HCL 150 MG CAPSULE PO SCH ×2 (12:36→15:57)
[2017-12-20] MEDS ORDERED: CLIN300C8 PO (13:34)
[2017-12-20] MEDS ORDERED: LEVO500T59 PO (13:35)
--- NOTE | 2017-12-20 15:31 | DS ---
DATE OF DISCHARGE: 12/20/2017 HOSPITAL COURSE: The patient is a 57-year-old female patient who was admitted with bilateral lower extremity cellulitis, dehydration, severe hypokalemia and hypomagnesemia. She also has blisters on the plantar aspect of both feet with accompanying cellulitis and probably lymphangitis, intense erythema extending approximately longterm of both legs. She was treated with IV fluid and with potassium chloride. She was also started on clindamycin 600 mg IV q. 8 hourly as well as pain management. The patient was not very cooperative and paranoid because of underlying schizophrenia and so we could not finish treatment with IV antibiotic and we started her on oral clindamycin as well as Levaquin. I did open blisters on her both feet and we did actually send the swabs for culture and sensitivity that were so far negative and no growth was seen, although the Gram stain showed that there have few gram-positive cocci. I debrided plantar aspect of both feet and removed a large amount of skin that was peeled off easily after opening the blisters. The patient did very well. She remained afebrile and hemodynamically stable. Her serum potassium and magnesium were replenished. In fact, her potassium this morning was 4 mEq per liter from as low as 2.8 and her magnesium was 1.8 from a low of 1.2 and the patient was felt to be safe to be discharged home to her brother or sister to continue treatment as an outpatient. PHYSICAL EXAMINATION: GENERAL: When I saw her today, she looked well and was clearly in no apparent respiratory distress, pale, but no jaundice, cyanosis, lymphadenopathy or thyromegaly. No jugular venous distension. No lower limb edema. VITAL SIGNS: Her heart rate was 75, blood pressure 113/72, temperature was 98, respiratory rate was 20, and oxygen saturation was 94%. HEAD, EYES, EARS, NOSE AND THROAT: Normocephalic, atraumatic. NECK: Supple. HEART: Showed normal first and second sounds. No gallop, rub or murmur. CHEST: Clear to auscultation. No crepitation or rhonchi. ABDOMEN: Distended, soft, nontender. No guarding or rigidity. No organomegaly. Hernial orifice intact. Bowel sounds normal. NEUROLOGIC: She was awake, alert, responding appropriately. All cranial nerves intact. She moves extremities without difficulty. She ambulates without assistance or assistive devices. Her intake is 1200, no output was recorded. LABORATORY DATA: This morning showed a serum sodium 139, potassium 4, chloride 100, bicarbonate 27, anion gap of 6, BUN 4, creatinine 0.8, estimated GFR was 74 mL per minute. Her glucose was 95, calcium was 8.7, magnesium was 1.8. Her white cell count was 4200, hemoglobin 12, hematocrit 37, MCV 88 and platelet count 207,000. DISCHARGE MEDICATIONS: The patient was discharged home to continue on clindamycin 450 mg 3 times a day for 5 more days and Levaquin 500 mg once a day for 5 more days. FINAL DISCHARGE DIAGNOSES: 1. Chronic schizophrenia, anxiety disorder with episodes of acute psychosis. 2. Dehydration with hypokalemia and hypomagnesemia. Bilateral lower extremity cellulitis and lymphangitis with intense erythema extending approximately half of both legs, bilateral blisters on the plantar aspect of both feet that were opened and the skin was debrided. The patient will be discharged to her brother or her sister's care as she is schizophrenic, severely paranoid, and noncompliant with her medication. PRINCE WITT MD DR: BARBARA/miladys JOB#: [id number] / [id number]
[2017-12-20] MEDS: risperiDONE ORAL 1 MG/ML 30ml BOTTLE. SL SCH (15:57)
--- NOTE | 2017-12-20 18:43 | PDOC ---
Exam Note: Gerardo Note: Please also refer to the separate dictated note~for this date of service dictated separately.~Patient seen individually. Discussed the patient with Nursing staff reviewed the chart.~Reviewed interim history and current functioning. Reviewed vital signs,~Labs/ Radiology~and current medications noted below. Continue current treatment with the changes noted in the dictated addendum note Assessment: Vital Signs: Vital Signs Date Time Temp Pulse Resp B/P (MAP) Pulse Ox O2 Delivery O2 Flow Rate FiO2 12/20/17 16:43 97 Room Air 12/20/17 11:00 98.0 75 20 113/72 (86) I&O Intake and Output 12/20/17 07:00 Intake Total 1390 ml Output Total 120 ml Balance 1270 ml Intake Oral 1390 ml Output Urine Total 120 ml # Voids 7 # Bowel Movements 1 Labs: Laboratory Tests Test 12/20/17 05:50 Sodium Level 139 mmol/L (136-145) Potassium Level 4.0 mmol/L (3.5-5.1) Chloride Level 106 mmol/L (98-107) Carbon Dioxide Level 27 mmol/L (21-32) Anion Gap 6 (6-14) Blood Urea Nitrogen 4 mg/dL (7-20) L Creatinine 0.8 mg/dL (0.6-1.0) Estimated GFR (Cockcroft-Gault) 73.7 Glucose Level 95 mg/dL (70-99) Calcium Level 8.7 mg/dL (8.5-10.1) Magnesium Level 1.8 mg/dL (1.8-2.4) Current Medications: Meds: Current Medications Multivitamins/ Minerals 10 ml/ Folic Acid 1 mg/ Thiamine HCl 100 mg/Lactated Ringer's 1,011.2 ml @ 1,000 mls/ hr 1X ONCE IV Last administered on at 01:50; Start 12/16/17 at 01:30; Stop 12/16/17 at 02:30; Status DC Tetanus/ Diphtheria Toxoids Adsorbed (Tenivac Vial) 0.5 ml ONCE ONCE VAX IM Last administered on 12/16/17at 01:51; Start 12/16/17 at 01:30; Stop 12/16/17 at 02:13; Status DC Phytonadione (Vitamin K) 10 mg STK-MED ONCE .ROUTE ; Start 12/16/17 at 01:40; Stop 12/16/17 at 01:41; Status DC Thiamine HCl 200 mg STK-MED ONCE IV ; Start 12/16/17 at 01:40; Stop 12/16/17 at 01:41; Status DC Multivitamins/ Minerals (Infuvite Adult) 10 ml STK-MED ONCE IV ; Start 12/16/17 at 01:40; Stop 12/16/17 at 01:41; Status DC Folic Acid (FOLIC ACID SYRINGE for ER) 5 mg STK-MED ONCE IV ; Start 12/16/17 at 01:40; Stop 12/16/17 at 01:41; Status DC Diphtheria/ Tetanus/Acell Pertussis (Boostrix) 0.5 ml STK-MED ONCE VAX IM ; Start 12/16/17 at 01:41; Stop 12/16/17 at 01:42; Status DC Potassium Chloride (KCl Oral Soln) 40 meq 1X ONCE PO Last administered on 12/16at 02:21; Start 12/16/17 at 02:15; Stop 12/16/17 at 04:45; Status DC Lactated Ringer's 1,000 ml @ 200 mls/hr Q5H IV Last administered on 12/16/17at 06:08; Start 12/16/17 at 03:00; Stop 12/16/17 at 12:31; Status DC Potassium Chloride (KCl Oral Soln) 40 meq DAILY PO Last administered on at 08:13; Start 12/16/17 at 09:00; Stop 12/16/17 at 09:27; Status DC Acetaminophen (Tylenol) 1,000 mg PRN QID PRN PO pain Last administered on at 06:20; Start 12/16/17 at 03:00 Clindamycin Phosphate 50 ml @ 100 mls/hr Q8HRS IV Last administered on at 05:37; Start 12/16/17 at 06:00; Stop 12/17/17 at 16:21; Status DC Bacitracin/ Polymyxin B Sulfate (Polysporin) 1 helena QID TP ; Start 12/16/17 at 09 :00; Stop 12/16/17 at 09:00; Status DC Sodium Bicarbonate (Sodium Bicarb Adult 8.4% Syr) 50 meq 1X ONCE IV Last administered on 12/16/17 06:08; Start 12/16/17 at 04:45; Stop 12/16/17 at 04:46 ; Status DC Albuterol/ Ipratropium (Duoneb) 3 ml RTQID PRN NEB SHORTNESS OF BREATH Last administered on 12/20/17 16:42; Start 12/16/17 at 04:45 Neomycin/ Polymyxin/ Bacitracin (Triple Antibiotic) 1 helena QID TP Last administered on 12/20/17at 13:00; Start 12/16/17 at 09:00 Lactobacillus Rhamnosus (Culturelle) 1 cap BID PO Last administered on 21:20; Start 12/16/17 at 09:00 Potassium Chloride (Klor-Con) 40 meq 1X ONCE PO Last administered on at 09:44; Start 12/16/17 at 10:00; Stop 12/16/17 at 10:01; Status DC Potassium Chloride/Dextrose/ Sod Cl 1,000 ml @ 75 mls/hr [id number] IV Last administered on 12/17/17at 02:15; Start 12/16/17 at 11:30; Stop 12/17/17 at 16:38 ; Status DC Magnesium Oxide (Magnesium Oxide) 400 mg BID PO Last administered on 12/17/17 09:04; Start 12/17/17 at 09:00; Stop 12/17/17 at 22:22; Status DC Clindamycin HCl (Cleocin) 450 mg TID PO Last administered on 12/20/17 15:57; Start 12/17/17 at 21:00 Levofloxacin (Levaquin) 750 mg DAILY06 PO Last administered on 12/19/17at 06:32; Start 12/18/17 at 06:00 Magnesium Oxide (Magnesium Oxide) 400 mg TID PO Last administered on 12/19/17 21:19; Start 12/17/17 at 21:00 Potassium Chloride (Klor-Con) 20 meq TID PO Last administered on 12/19/17 21:20 ; Start 12/17/17 at 21:00 Risperidone (RisperDAL) 0.5 mg DAILY SL Last administered on 12/18/17 12:20; Start 12/17/17 at 23:00; Stop 12/18/17 at 19:06; Status DC Risperidone (RisperDAL) 1 mg DAILY SL Last administered on 12/20/17at 15:57; Start 12/18/17 at 19:15 Active Scripts Active Levaquin (Levofloxacin) 500 Mg Tablet 1 Tab PO DAILY 7 Days Clindamycin Hcl 300 Mg Capsule 450 Mg PO TID Reported No Known Medications Prior To Admisstion (Info) Each 1 Each MC I have reviewed the current psychotropics carefully including drug interactions. Risk benefit ratio favors no change other than as noted in my dictated progress note. Diagnosis: Problems: (1) Psychosis, atypical CINDY STEWART MD Dec 20, 2017 18:43
--- NOTE | 2017-12-20 23:23 | PN ---
DATE: 12/19/2017 PSYCHIATRIC PROGRESS NOTE This is a late entry 12/19/2017, covers elements not covered in my initial note 12/19/2017. SUBJECTIVE: I met with the patient in the evening. Per nursing report, the patient has received 1 mg Risperdal, seems less psychotic, more accepting of her treatment. She still remains somewhat confused, wanting to go for her job. MENTAL STATUS EXAM: I met with her in her room. She is very appreciative of my visit, less paranoid, less psychotic. No suicidal or homicidal ideation. Despite all of this, she is still suspicious, but showing improvement. IMPRESSION: Unchanged from initial note. PLAN: No change from initial note. MAN Darío STEWART MD DR: CARLOS A/miladys JOB#: [id number] / [id number]
--- NOTE | 2017-12-21 21:11 | PN ---
DATE: 12/20/2017 PSYCHIATRIC PROGRESS NOTE This note covers elements not covered in my initial note 12/20/2017. SUBJECTIVE: Discussed the patient with nursing staff, reviewed the chart. Nursing staff informed me that the patient is being transitioned to a homeless fpc and that the family has been informed since they were not able to have the patient back with the sister. The patient has been intermittently more compliant with her psychotropics. Diagnosis is unchanged and I have not been made aware of any suicidal or homicidal ideation and in the past the patient has categorically denied these. PLAN: I would recommend considering contacting the [facility].ace[facility] nurse to see if the patient would qualify for inpatient psychiatric hospitalization through the state system given financial considerations of hospital coverage. Rest, she should continue with Risperdal 1 mg daily and if she is not admitted inpatient, she should follow up outpatient at the [facility]. CINDY STEWART MD DR: CARLOS A/miladys JOB#: [id number] / [id number]
== END 2017-12-20 20:12 | disposition home or self-care (01) | DRG 602 ==
LOC: ER 01:14 → ICU 03:00 → 1 SOUTH 14:36
PROVIDERS: ADMIT Internal Medicine; ATTEND Internal Medicine
PROC: 0HDNXZZ Extraction of Left Foot Skin, External Approach (ICD-10-PCS; principal; 2017-12-18)
PROC: 0HDMXZZ Extraction of Right Foot Skin, External Approach (ICD-10-PCS; 2017-12-18)
DX: L03.115 Cellulitis of right lower limb (principal); J96.01 Acute respiratory failure with hypoxia; F31.60 Bipolar disorder, current episode mixed, unspecified; J45.901 Unspecified asthma with (acute) exacerbation; M62.82 Rhabdomyolysis; E83.42 Hypomagnesemia; E86.0 Dehydration; E87.6 Hypokalemia; F20.9 Schizophrenia, unspecified; S90.822A Blister (nonthermal), left foot, initial encounter; S90.821A Blister (nonthermal), right foot, initial encounter; X58.XXXA Exposure to other specified factors, initial encounter; F41.9 Anxiety disorder, unspecified; L03.116 Cellulitis of left lower limb; Z59.0 Homelessness; Z80.1 Family history of malignant neoplasm of trachea, bronchus and lung; Z91.14 Patient's other noncompliance with medication regimen; Z90.89 Acquired absence of other organs; Z88.2 Allergy status to sulfonamides; Y93.89 Activity, other specified; Y92.89 Other specified places as the place of occurrence of the external cause; Y99.8 Other external cause status
CPT/HCPCS: 36415; 71045; 80048; 80307; 81001; 82550; 82553; 83735; 84484; 85025; 85610; 85730; 87040; 87070; 87641; 90471; 90714; 93005; 94640; 96365; G0238; J3490; J7042; J7120; J7620; 99285-25; G0479

== ENCOUNTER 2017-12-21 10:40 | Emergency (ER) | payer SELFPAY ==
[~2017-12-21] VITALS: Ht 170.2 cm; Wt 93.4 kg
[~2017-12-21 10:40] MED LIST changes: +CLIN300C8 PO; +LEVO500T59 PO
--- NOTE | 2017-12-21 11:10 | PHYS DOC ---
Past History Past Medical History: Anxiety, Asthma, Depression, Schizophrenia, Other Additional Past Medical Histor: psychosis Past Surgical History: Tonsillectomy, Other Alcohol Use: None Drug Use: None Adult General Chief Complaint Chief Complaint: ASTHMA HPI HPI 57-year-old female well-known to the ED presents with shortness of breath. The patient has asthma and feels like her breathing is slightly restricted. She is concerned that she did not take all of prednisone that she was supposed to take. She tells me she was in another facility and they gave her steroids but she could not afford to get the prescription for the additional days. She did take 3 days' worth of prednisone that she was given pills by that facility. Today she says she feels like her breathing is slightly tight. She does not have access to her inhaler as she left at someone's house. She does believe she can get access to it but does not have it right now. She denies chest pain or diaphoresis. The patient was just discharged from this facility yesterday for hypokalemia and cellulitis. The patient does not mention any of this to me. She denies other complaints. She denies fever or chills. Review of Systems Review of Systems Constitutional: Denies fever or chills [] Eyes: Denies change in visual acuity, redness, or eye pain [] HENT: Denies nasal congestion or sore throat [] Respiratory: Shortness of breath [] Cardiovascular: No additional information not addressed in HPI [] GI: Denies abdominal pain, nausea, vomiting, bloody stools or diarrhea [] : Denies dysuria or hematuria [] Musculoskeletal: Denies back pain or joint pain [] Integument: Denies rash or skin lesions [] Neurologic: Denies headache, focal weakness or sensory changes [] Endocrine: Denies polyuria or polydipsia [] All other systems were reviewed and found to be within normal limits, except as documented in this note. Current Medications Current Medications Current Medications Medications (Trade) Dose Ordered Sig/Shaunna Start Time Stop Time Status Last Admin Dose Admin Albuterol/ Ipratropium (Duoneb) 3 ml 1X ONCE 12/21/17 11:15 12/21/17 11:16 UNV Allergies Allergies Allergies Coded Allergies Type Severity Reaction Last Updated Verified Sulfa (Sulfonamide Antibiotics) Allergy Intermediate 12/13/17 No Physical Exam Physical Exam Constitutional: Well developed, well nourished, no acute distress, non-toxic appearance. [] HENT: Normocephalic, atraumatic, bilateral external ears normal, oropharynx moist, no oral exudates, nose normal. [] Eyes: PERRLA, EOMI, conjunctiva normal, no discharge. [] Neck: Normal range of motion, no tenderness, supple, no stridor. [] Cardiovascular:Heart rate regular rhythm, no murmur [] Lungs & Thorax: Bilateral breath sounds clear to auscultation [] Abdomen: Bowel sounds normal, soft, no tenderness, no masses, no pulsatile masses. [] Skin: Warm, dry, no erythema, no rash. [] Back: No tenderness, no CVA tenderness. [] Extremities: No tenderness, no cyanosis, no clubbing, ROM intact, no edema. [] Neurologic: Alert and oriented X 3, normal motor function, normal sensory function, no focal deficits noted. [] Psychologic: Affect normal, judgement normal, mood normal. [] Current Patient Data Vital Signs Vital Signs Date Time Temp Pulse Resp B/P (MAP) Pulse Ox O2 Delivery O2 Flow Rate FiO2 12/21/17 10:49 98.1 95 18 99 Room Air EKG EKG [] Radiology/Procedures Radiology/Procedures [] Course & Med Decision Making Course & Med Decision Making Pertinent Labs and Imaging studies reviewed. (See chart for details) The patient's lungs sound clear. She may have some upper airway congestion. I will give her a DuoNeb to see if this helps her feel breathing better. It may also dry her secretions. The patient was feeling better after the breathing treatment. She felt able to go home. She is stable for discharge. [] Dragon Disclaimer Dragon Disclaimer This electronic medical record was generated, in whole or in part, using a voice recognition dictation system. Departure Departure: Referrals: JAZLYN ROMERO (PCP) BERTA KIM DO Dec 21, 2017 11:10
[2017-12-21 11:25] VITALS: BP 124/61
[2017-12-21] MEDS ORDERED: IPRATRPIUM/ALBUTEROL 0.5/2.5MG 3 ML NEBU. NEB ONE (11:30)
[2017-12-22] MEDS ORDERED: ALBU8.5H8 INH (11:30)
== END 2017-12-21 11:46 | disposition home or self-care (01) ==
LOC: ER 10:40
DX: R06.02 Shortness of breath (principal); J45.901 Unspecified asthma with (acute) exacerbation; F41.9 Anxiety disorder, unspecified; F20.9 Schizophrenia, unspecified; F32.9 Major depressive disorder, single episode, unspecified; Z88.2 Allergy status to sulfonamides
CPT/HCPCS: 94640; 99283; J7620

== ENCOUNTER 2017-12-22 09:56 | Emergency (ER) | payer SELFPAY ==
[~2017-12-22] VITALS: Ht 160 cm; Wt 102.1 kg
[2017-12-22] MEDS ORDERED: predniSONE 10 MG TABLET PO ONE (10:30)
[2017-12-22] MEDS ORDERED: IPRATRPIUM/ALBUTEROL 0.5/2.5MG 3 ML NEBU. NEB ONE (10:45)
[2017-12-22 10:46] LABS: BASO # 0.1 x10^3/uL (0.0-0.2); BASO % 1 % (0-3); EOS # 0.1 x10^3/uL (0.0-0.7); EOS % 1 % (0-3); HEMATOCRIT 40.3 % (36.0-47.0); HEMOGLOBIN 13.3 g/dL (12.0-15.5); LYMPH # 1.6 x10^3/uL (1.0-4.8); LYMPH % 24 % (24-48); MEAN CORPUSCULAR HEMOGLOBIN 29 pg (25-35); MEAN CORPUSCULAR HGB CONC 33 g/dL (31-37); MEAN CORPUSCULAR VOLUME 89 fL (79-100); MONO # 0.6 x10^3/uL (0.0-1.1); MONO % 10 % (0-9); NEUT # 4.3 x10^3uL (1.8-7.7); NEUT % 65 % (31-73); PLATELET COUNT 244 x10^3/uL (140-400); RED BLOOD COUNT 4.55 x10^6/uL (3.50-5.40); WHITE BLOOD COUNT 6.7 x10^3/uL (4.0-11.0)
[2017-12-22] MEDS ORDERED: methylPREDNISolone SOD SUCC PF 125 MG/2 ML VIAL. IV ONE (11:00)
--- NOTE | 2017-12-22 11:02 | RAD ---
EXAM: Chest, 2 views. HISTORY: Shortness of breath. COMPARISON: 12/16/2017 FINDINGS: Frontal and lateral views of the chest are obtained. There is no infiltrate, pleural effusion or pneumothorax. The heart is normal in size. There is a healed left seventh rib fracture. IMPRESSION: No acute pulmonary finding. Electronically signed by: Danuta Silva MD (12/22/2017 10:59 AM) [facility]
--- NOTE | 2017-12-22 11:11 | PHYS DOC ---
Past History Past Medical History: Anxiety, Asthma, Bipolar, Depression, Schizophrenia Additional Past Medical Histor: psychosis Past Surgical History: Tonsillectomy Alcohol Use: None Drug Use: None Adult General Chief Complaint Chief Complaint: SHORTNESS OF BREATH HPI HPI 57-year-old homeless female patient with history of schizophrenia and frequent emergency room visits who was seen twice in this emergency room yesterday complaining of shortness of breath since this morning and states her asthma is acting up. Patient complaining of dry cough without chest pain, fever and chills , focal neuro deficit, vomiting and diarrhea. Patient denies taking any medication for asthma. Patient denies suicidal and homicidal ideation and hallucination. Review of Systems Review of Systems Constitutional: Denies fever or chills [] Eyes: Denies change in visual acuity, redness, or eye pain [] HENT: Denies nasal congestion or sore throat [] Respiratory: Reports shortness of breath and dry cough Cardiovascular: No additional information not addressed in HPI [] GI: Denies abdominal pain, nausea, vomiting, bloody stools or diarrhea [] : Denies dysuria or hematuria [] Musculoskeletal: Denies back pain or joint pain [] Integument: Denies rash or skin lesions [] Neurologic: Denies headache, focal weakness or sensory changes [] Endocrine: Denies polyuria or polydipsia [] All other systems were reviewed and found to be within normal limits, except as documented in this note. Current Medications Current Medications Current Medications Medications (Trade) Dose Ordered Sig/Shaunna Start Time Stop Time Status Last Admin Dose Admin Albuterol/ Ipratropium (Duoneb) 3 ml 1X ONCE 12/22/17 10:45 12/22/17 10:46 DC 12/22/17 10:34 3 ML Methylprednisolone Sodium Succinate (SOLU-Medrol 125MG VIAL) 125 mg 1X ONCE 12/22/17 11:00 12/22/17 11:01 DC 12/22/17 10:46 125 MG Prednisone (Prednisone) 125 mg 1X ONCE 12/22/17 10:30 12/22/17 10:35 DC Allergies Allergies Allergies Coded Allergies Type Severity Reaction Last Updated Verified Sulfa (Sulfonamide Antibiotics) Allergy Intermediate 12/13/17 No Physical Exam Physical Exam Constitutional: Well nourished, no acute distress, non-toxic appearance, poor hygiene. [] HENT: Normocephalic, atraumatic, bilateral external ears normal, oropharynx moist, no oral exudates, nose normal. [] Eyes: PERRLA, EOMI, conjunctiva normal, no discharge. [] Neck: Normal range of motion, no tenderness, supple, no stridor. [] Cardiovascular:Heart rate regular rhythm, no murmur [] Lungs & Thorax: Inspiratory and expiratory wheezing without respiratory distress Abdomen: Bowel sounds normal, soft, no tenderness, no masses, no pulsatile masses. [] Skin: Warm, dry, no erythema, no rash. [] Back: No tenderness, no CVA tenderness. [] Extremities: No tenderness, no cyanosis, no clubbing, ROM intact, no edema. [] Neurologic: Alert and oriented X 3, normal motor function, normal sensory function, no focal deficits noted. [] Psychologic: Affect anxious, mood normal. [] Current Patient Data Vital Signs Vital Signs Date Time Temp Pulse Resp B/P (MAP) Pulse Ox O2 Delivery O2 Flow Rate FiO2 12/22/17 10:49 102 18 116/82 (93) 96 Room Air 12/22/17 10:00 98.4 Lab Results Laboratory Tests Test 12/22/17 10:30 White Blood Count 6.7 x10^3/uL (4.0-11.0) # Red Blood Count 4.55 x10^6/uL (3.50-5.40) Hemoglobin 13.3 g/dL (12.0-15.5) Hematocrit 40.3 % (36.0-47.0) Mean Corpuscular Volume 89 fL (79-100) Mean Corpuscular Hemoglobin 29 pg (25-35) Mean Corpuscular Hemoglobin Concent 33 g/dL (31-37) Red Cell Distribution Width 14.0 % (11.5-14.5) Platelet Count 244 x10^3/uL (140-400) Neutrophils (%) (Auto) 65 % (31-73) Lymphocytes (%) (Auto) 24 % (24-48) Monocytes (%) (Auto) 10 % (0-9) H Eosinophils (%) (Auto) 1 % (0-3) Basophils (%) (Auto) 1 % (0-3) Neutrophils # (Auto) 4.3 x10^3uL (1.8-7.7) Lymphocytes # (Auto) 1.6 x10^3/uL (1.0-4.8) Monocytes # (Auto) 0.6 x10^3/uL (0.0-1.1) Eosinophils # (Auto) 0.1 x10^3/uL (0.0-0.7) Basophils # (Auto) 0.1 x10^3/uL (0.0-0.2) Troponin I Quantitative < 0.017 ng/mL (0-0.055) EKG EKG [] Radiology/Procedures Radiology/Procedures [][address] [id number] IMAGING REPORT Signed PATIENT: MATEO RODRIGUEZ ACCOUNT: [id number] : 1960 LOCATION: ER AGE: 57 SEX: F EXAM STATUS: REG ER ORD. PHYSICIAN: HUMBERTO ROBERTSON MD REASON: shortness of breath PROCEDURE: CHEST PA & LATERAL EXAM: Chest, 2 views. HISTORY: Shortness of breath. COMPARISON: 12/16/2017 FINDINGS: Frontal and lateral views of the chest are obtained. There is no infiltrate, pleural effusion or pneumothorax. The heart is normal in size. There is a healed left seventh rib fracture. IMPRESSION: No acute pulmonary finding. Electronically signed by: Danuta Tompkins MD (12/22/2017 10:59 AM) [facility] DICTATED AND SIGNED BY: DANUTA TOMPKINS MD DATE: 12/22/17 1059 CC: HUMBERTO ROBERTSON MD; JAZLYN ROMERO ~ Course & Med Decision Making Course & Med Decision Making Pertinent Labs and Imaging studies reviewed. (See chart for details) Evaluation of patient in ER showed 57-year-old homeless female patient complaining of shortness of breath since this morning. Patient treated Solu- Medrol and DuoNeb and felt better. Labs and x-ray was unremarkable and patient discharged with prescription of albuterol inhaler. Dragon Disclaimer Dragon Disclaimer This electronic medical record was generated, in whole or in part, using a voice recognition dictation system. Departure Departure: Impression: Primary Impression: Dyspnea Additional Impressions: Schizophrenia Asthma exacerbation Homelessness Disposition: HOME, SELF-CARE (at 1128) Condition: IMPROVED Referrals: JAZLYN ROMERO (PCP) Patient Instructions: Asthma Attacks, Prevention, Asthma, Adult Additional Instructions: Drink plenty of liquids Follow-up with your primary care physician in 3-5 days Return to ER if not getting better Stay with family member or in a [place] [facility] facility Scripts Albuterol Sulfate (PROAIR HFA INHALER) 8.5 Gm Hfa.aer.ad 2 PUFF INH PRN Q6HRS PRN for SHORTNESS OF BREATH, #1 INHALER 0 Refills Prov: HUMBERTO ROBERTSON MD 12/22/17 Problem Qualifiers HUMBERTO ROBERTSON MD Dec 22, 2017 11:11
[2017-12-22 11:15] LABS: ALBUMIN 3.3 g/dL (3.4-5.0); ALBUMIN/GLOBULIN RATIO 0.8 (1.0-1.7); CREATININE 0.9 mg/dL (0.6-1.0); GFR 64.3; POTASSIUM 3.8 mmol/L (3.5-5.1); TOTAL BILIRUBIN 0.7 mg/dL (0.2-1.0); TOTAL PROTEIN 7.2 g/dL (6.4-8.2)
[2017-12-22] MEDS ORDERED: ALBU8.5H8 INH (11:30)
[2017-12-22 11:35] VITALS: BP 127/55
--- NOTE | 2017-12-22 15:20 | EKG ---
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
== END 2017-12-22 11:41 | disposition home or self-care (01) ==
LOC: ER 09:56
DX: R06.00 Dyspnea, unspecified (principal); J45.901 Unspecified asthma with (acute) exacerbation; F20.9 Schizophrenia, unspecified; F41.9 Anxiety disorder, unspecified; F31.9 Bipolar disorder, unspecified; Z59.0 Homelessness; Z88.2 Allergy status to sulfonamides
CPT/HCPCS: 36415; 71046; 80053; 82553; 83605; 83880; 84484; 85025; 93005; 94640; 96374; 99285; J2930; J7620

== ENCOUNTER 2017-12-23 17:57 | Emergency (ER) | payer SELFPAY ==
[~2017-12-23] VITALS: Ht 160 cm; Wt 93.4 kg
--- NOTE | 2017-12-23 18:05 | ED.ADGEN ---
Past History Past Medical History: Anxiety, Asthma, Bipolar, Depression, Schizophrenia Additional Past Medical Histor: psychosis Past Surgical History: Tonsillectomy Alcohol Use: None Drug Use: None Adult General Chief Complaint Chief Complaint " .. I left my MDI in the snf... and they have closed... " " Karmen had given me two... that I lost... and they would not give me another one.. and they escorted me off the hospital property to night......" HPI HPI Patient is a 57 year old female who presents with above hx and complaints asthma and lost of her MDI. Pt. is know to ED staff. Pt. has hx. of schizophrenia and asthma. Pt. recent admitted for cellulitis. Pt. has hx of non-compliance with medical plans. Pt. refused tx. for schizophrenia or placement. Pt. cellulitis on legs have markedly improved since last exam when she was admitted. Pt. seen previously in 12/22 for asthma. Pt. currently does not appear in asthma exacerbation. Does have some wheezes. Pt. requesting a MDI for the one she just lost. Pt. will be give a depo of Medrol so she will be able to taper steroid- with out having to depend on her to take prednisone as directed. Pt. denies suicidal, self harm or homicidal ideations; Does have delusions that air is full of toxic fumes ( particular here in the hospital). Review of Systems Review of Systems Constitutional: Denies fever or chills [] Eyes: Denies change in visual acuity, redness, or eye pain [] HENT: Denies nasal congestion or sore throat [] Respiratory: Complaints of wheezing. Cardiovascular: No additional information not addressed in HPI [] GI: Denies abdominal pain, nausea, vomiting, bloody stools or diarrhea [] : Denies dysuria or hematuria [] Musculoskeletal: Denies back pain or joint pain [] Integument: Denies rash or skin lesions [] Neurologic: Denies headache, focal weakness or sensory changes [] Endocrine: Denies polyuria or polydipsia [] All other systems were reviewed and found to be within normal limits, except as documented in this note. Family History Family History Non- contributory Current Medications Current Medications Current Medications Medications (Trade) Dose Ordered Sig/Shaunna Start Time Stop Time Status Last Admin Dose Admin Albuterol Sulfate (Ventolin Hfa) 2 puff 1X ONCE 12/23/17 18:15 12/23/17 18:23 DC 12/23/17 19:09 2 PUFF Albuterol/ Ipratropium (Duoneb) 3 ml 1X ONCE 12/23/17 18:30 12/23/17 18:31 DC 12/23/17 18:27 3 ML Methylprednisolone Acetate (DEPO-Medrol IM) 40 mg 1X ONCE 12/23/17 18:15 12/23/17 18:23 DC 12/23/17 19:08 40 MG Allergies Allergies Allergies Coded Allergies Type Severity Reaction Last Updated Verified Sulfa (Sulfonamide Antibiotics) Allergy Intermediate 12/13/17 No Physical Exam Physical Exam Constitutional: well nourished, no acute distress, non-toxic appearance. [] HENT: Normocephalic, atraumatic, bilateral external ears normal, oropharynx moist, no oral exudates, nose normal. [] Eyes: PERRLA, EOMI, conjunctiva normal, no discharge. [] Neck: Normal range of motion, no tenderness, supple, no stridor. [] Cardiovascular:Heart rate regular rhythm, no murmur [] Lungs & Thorax: Bilateral breath sounds equal at apex with few wheezes on auscultation [] Peak flow 340= > 90% of predicted. Abdomen: Bowel sounds normal, soft, no tenderness, no masses, no pulsatile masses. [] Skin: Warm, dry, no erythema, no rash. [] Back: No tenderness, no CVA tenderness. [] Extremities: No tenderness, no cyanosis, no clubbing, ROM intact, no edema. [] Almost complete resolution of cellulitis legs. Blisters healing on feet. Neurologic: Alert and oriented X 3, normal motor function, normal sensory function, no focal deficits noted. [] Psychologic: Affect distracted, judgement normal, mood normal. [] Current Patient Data Vital Signs Vital Signs Date Time Temp Pulse Resp B/P (MAP) Pulse Ox O2 Delivery O2 Flow Rate FiO2 12/23/17 19:05 79 16 111/52 (71) 97 Room Air EKG EKG [] Radiology/Procedures Radiology/Procedures [] Course & Med Decision Making Course & Med Decision Making Pertinent Labs and Imaging studies reviewed. (See chart for details) Pt. just escorted of [facility] property prior to presentation here. Pt. encouraged to follow up with primary. Pt. encouraged to follow up at counseling center. Pt. to use MDI 2 puffs four times a day. Must keep MDI with her. Pt. encourage to follow up with primary. [] Final Impression Final Impression 1. Asthma 2. Schizophrenia.[] 3. History of noncompliance Dragon Disclaimer Dragon Disclaimer This electronic medical record was generated, in whole or in part, using a voice recognition dictation system. RAYNE REN MD Dec 23, 2017 18:05
[2017-12-23] MEDS ORDERED: ALBUTEROL SULFATE 8GM INHALER. INH ONE (18:15)
[2017-12-23] MEDS ORDERED: methylPREDNISolone ACETATE 40 MG/ML VIAL. IM ONE (18:15)
[2017-12-23] MEDS ORDERED: IPRATRPIUM/ALBUTEROL 0.5/2.5MG 3 ML NEBU. NEB ONE (18:30)
[2017-12-23 19:05] VITALS: BP 111/52
== END 2017-12-23 19:10 | disposition home or self-care (01) ==
LOC: ER 17:57
DX: J45.909 Unspecified asthma, uncomplicated (principal); F20.9 Schizophrenia, unspecified; F41.9 Anxiety disorder, unspecified; F32.9 Major depressive disorder, single episode, unspecified; Z91.19 Patient's noncompliance with other medical treatment and regimen; Z88.2 Allergy status to sulfonamides
CPT/HCPCS: 94640; 96372; 99284; J1030; J7613; J7620

== ENCOUNTER 2017-12-27 15:29 | Emergency (ER) | payer SELFPAY ==
[~2017-12-27] VITALS: Ht 160 cm; Wt 93.4 kg
[2017-12-27 15:38] VITALS: BP 120/76
[2017-12-27 16:18] LABS: BASO # 0.1 x10^3/uL (0.0-0.2); BASO % 1 % (0-3); EOS # 0.1 x10^3/uL (0.0-0.7); EOS % 1 % (0-3); HEMATOCRIT 42.3 % (36.0-47.0); HEMOGLOBIN 14.2 g/dL (12.0-15.5); LYMPH # 2.3 x10^3/uL (1.0-4.8); LYMPH % 27 % (24-48); MEAN CORPUSCULAR HEMOGLOBIN 30 pg (25-35); MEAN CORPUSCULAR HGB CONC 34 g/dL (31-37); MEAN CORPUSCULAR VOLUME 88 fL (79-100); MONO # 0.7 x10^3/uL (0.0-1.1); MONO % 9 % (0-9); NEUT # 5.2 x10^3uL (1.8-7.7); NEUT % 62 % (31-73); PLATELET COUNT 317 x10^3/uL (140-400); RED BLOOD COUNT 4.79 x10^6/uL (3.50-5.40); RED CELL DISTRIBUTION WIDTH 14.7 % (11.5-14.5); WHITE BLOOD COUNT 8.3 x10^3/uL (4.0-11.0)
[2017-12-27 16:40] LABS: CALCIUM 9.3 mg/dL (8.5-10.1); CREATININE 0.9 mg/dL (0.6-1.0); GFR 64.3; POTASSIUM 3.8 mmol/L (3.5-5.1)
[2017-12-27 16:57] LABS: BILIRUBIN,URINE NEG (NEG); CLARITY,URINE CLOUDY; COLOR,URINE YELLOW; GLUCOSE,URINE NEG (NEG); NITRITE,URINE NEG (NEG); UROBILINOGEN,URINE 0.2 mg/dL (0.2 mg/dL)
[2017-12-27 16:58] LABS: AMORPHOUS SEDIMENT,UR PRESENT /HPF; BACTERIA,URINE FEW /HPF (0-FEW); RBC,URINE 0 /HPF (0-2); SQUAMOUS EPITHELIAL CELL,UR FEW /LPF
--- NOTE | 2017-12-27 17:15 | ED.ADGEN ---
Past History Past Medical History: Anxiety, COPD Additional Past Medical Histor: psychosis Past Surgical History: No Surgical History Alcohol Use: None Drug Use: None Adult General HPI HPI Patient is a 57 year old female who presents with generalized weakness. The patient is well-known to this emergency department. Today, she presents to the ER complaining of generalized weakness over the last 2-3 days. She states that she is homeless and she does a lot of walking outside. She complains that she feels she is unable to walk as far as she normally would without becoming generally weak and sometimes with shortness of breath. She does not have chest pain. No fever. No recent illness. [facility] and cannot reenter the detention until 9 PM. Review of Systems Review of Systems Constitutional: Denies fever or chills Eyes: Denies change in visual acuity, redness, or eye pain HENT: Denies nasal congestion or sore throat Respiratory: Denies cough or shortness of breath Cardiovascular: No additional information not addressed in HPI GI: Denies abdominal pain, nausea : Denies dysuria or hematuria Musculoskeletal: Denies back pain Integument: Denies rash or skin lesions Neurologic: Denies headache, focal weakness All other systems were reviewed and found to be within normal limits, except as documented in this note. Allergies Allergies Allergies Coded Allergies Type Severity Reaction Last Updated Verified Sulfa (Sulfonamide Antibiotics) Allergy Intermediate 12/13/17 No Physical Exam Physical Exam Constitutional: Well developed, well nourished HENT: Normocephalic, atraumatic Eyes: PERRLA, EOMI, conjunctiva normal Neck: Normal range of motion, no tenderness, supple Cardiovascular:Heart rate regular rhythm, no murmur Lungs & Thorax: Bilateral breath sounds clear to auscultation Abdomen: Bowel sounds normal, soft, no tenderness Skin: Warm, dry, no erythema, no rash Extremities: No tenderness, no cyanosis, no clubbing, ROM intact Neurologic: Alert and oriented X 3 Psychologic: Affect normal Current Patient Data Vital Signs Vital Signs Date Time Temp Pulse Resp B/P (MAP) Pulse Ox O2 Delivery O2 Flow Rate FiO2 12/27/17 15:38 98.0 75 18 99 Room Air Lab Results Laboratory Tests Test 12/27/17 15:54 12/27/17 16:07 White Blood Count 8.3 x10^3/uL (4.0-11.0) Red Blood Count 4.79 x10^6/uL (3.50-5.40) Hemoglobin 14.2 g/dL (12.0-15.5) Hematocrit 42.3 % (36.0-47.0) Mean Corpuscular Volume 88 fL (79-100) Mean Corpuscular Hemoglobin 30 pg (25-35) Mean Corpuscular Hemoglobin Concent 34 g/dL (31-37) Red Cell Distribution Width 14.7 % (11.5-14.5) H Platelet Count 317 x10^3/uL (140-400) Neutrophils (%) (Auto) 62 % (31-73) Lymphocytes (%) (Auto) 27 % (24-48) Monocytes (%) (Auto) 9 % (0-9) Eosinophils (%) (Auto) 1 % (0-3) Basophils (%) (Auto) 1 % (0-3) Neutrophils # (Auto) 5.2 x10^3uL (1.8-7.7) Lymphocytes # (Auto) 2.3 x10^3/uL (1.0-4.8) Monocytes # (Auto) 0.7 x10^3/uL (0.0-1.1) Eosinophils # (Auto) 0.1 x10^3/uL (0.0-0.7) Basophils # (Auto) 0.1 x10^3/uL (0.0-0.2) Sodium Level 140 mmol/L (136-145) Potassium Level 3.8 mmol/L (3.5-5.1) Chloride Level 101 mmol/L (98-107) Carbon Dioxide Level 30 mmol/L (21-32) Anion Gap 9 (6-14) Blood Urea Nitrogen 11 mg/dL (7-20) Creatinine 0.9 mg/dL (0.6-1.0) Estimated GFR (Cockcroft-Gault) 64.3 Glucose Level 94 mg/dL (70-99) Calcium Level 9.3 mg/dL (8.5-10.1) WA-Vph-A-Type Natriuretic Peptide 236 pg/mL (0-124) H Urine Collection Type Unknown Urine Color Yellow Urine Clarity Cloudy Urine pH 5.5 Urine Specific [place] >=1.030 Urine Protein Trace (NEG-TRACE) Urine Glucose (UA) Neg mg/dL (NEG) Urine Ketones (Stick) Neg mg/dL (NEG) Urine Blood Neg (NEG) Urine Nitrite Neg (NEG) Urine Bilirubin Neg (NEG) Urine Urobilinogen Dipstick 0.2 mg/dL (0.2 mg/dL) Urine Leukocyte Esterase Trace (NEG) Urine RBC 0 /HPF (0-2) Urine WBC 1-4 /HPF (0-4) Urine Squamous Epithelial Cells Few /LPF Urine Transitional Epithelial Cells Few /LPF Urine Amorphous Sediment Present /HPF Urine Bacteria Few /HPF (0-FEW) EKG EKG [] Radiology/Procedures Radiology/Procedures [] Course & Med Decision Making Course & Med Decision Making Pertinent Labs and Imaging studies reviewed. (See chart for details) Patient is seen and examined in the ER. Her physical exam is benign. Basic labs are completed but there are no acute findings to explain her symptoms. Suspect her symptoms are secondary to her poor social situation and homelessness. Patient is discharged from the ER. She is encouraged to continue all of her current medical regimens and seek detention at the usual location this evening. She was given food and fluids by mouth in the emergency department. Final Impression Final Impression Generalized Weakness [place] Disclaimer Dragon Disclaimer This electronic medical record was generated, in whole or in part, using a voice recognition dictation system. TEODORA COLE DO Dec 27, 2017 17:15
== END 2017-12-27 17:30 | disposition home or self-care (01) ==
LOC: ER 15:29
DX: R53.1 Weakness (principal); R06.02 Shortness of breath; J44.9 Chronic obstructive pulmonary disease, unspecified; F41.9 Anxiety disorder, unspecified; Z59.0 Homelessness; Z88.2 Allergy status to sulfonamides
CPT/HCPCS: 36415; 80048; 81001; 83880; 85025; 99284

== ENCOUNTER 2018-01-09 23:07 | Emergency (ER) | payer SELFPAY ==
[~2018-01-09] VITALS: Ht 160 cm; Wt 89.5 kg
[2018-01-09] MEDS ORDERED: IV NORMAL SALINE 1,000ML 1,000 ML IV ONE (23:30)
[2018-01-09 23:45] LABS: BASO # 0.1 x10^3/uL (0.0-0.2); BASO % 1 % (0-3); EOS # 0.1 x10^3/uL (0.0-0.7); EOS % 1 % (0-3); HEMATOCRIT 41.4 % (36.0-47.0); HEMOGLOBIN 13.6 g/dL (12.0-15.5); LYMPH # 1.9 x10^3/uL (1.0-4.8); LYMPH % 30 % (24-48); MEAN CORPUSCULAR HEMOGLOBIN 29 pg (25-35); MEAN CORPUSCULAR HGB CONC 33 g/dL (31-37); MEAN CORPUSCULAR VOLUME 89 fL (79-100); MONO # 0.5 x10^3/uL (0.0-1.1); MONO % 8 % (0-9); NEUT # 3.7 x10^3uL (1.8-7.7); NEUT % 59 % (31-73); PLATELET COUNT 240 x10^3/uL (140-400); RED BLOOD COUNT 4.66 x10^6/uL (3.50-5.40); RED CELL DISTRIBUTION WIDTH 14.5 % (11.5-14.5); WHITE BLOOD COUNT 6.2 x10^3/uL (4.0-11.0)
[2018-01-09 23:53] LABS: CALCIUM 9.4 mg/dL (8.5-10.1); GFR 56.9; POTASSIUM 3.2 mmol/L (3.5-5.1)
--- NOTE | 2018-01-10 00:10 | PHYS DOC ---
Past History Past Medical History: Anxiety, Asthma, COPD Additional Past Medical Histor: psychosis Past Surgical History: Tonsillectomy, Other Alcohol Use: None Drug Use: None Adult General Chief Complaint Chief Complaint: PAIN ON URINATION HPI HPI 57-year-old female well-known to the ED presents with dysuria for last 2 days. The patient states it doesn't hurt every time she relates, but when she holds her urine for several hours, she has pain with urination and sometimes a darkly colored discharge. She denies discharge at any other time. She denies fever or chills. She does not complain of urinary frequency or abdominal pain. Review of Systems Review of Systems Constitutional: Denies fever or chills [] Eyes: Denies change in visual acuity, redness, or eye pain [] HENT: Denies nasal congestion or sore throat [] Respiratory: Denies cough or shortness of breath [] Cardiovascular: No additional information not addressed in HPI [] GI: Denies abdominal pain, nausea, vomiting, bloody stools or diarrhea [] : Dysuria [] Musculoskeletal: Denies back pain or joint pain [] Integument: Denies rash or skin lesions [] Neurologic: Denies headache, focal weakness or sensory changes [] Endocrine: Denies polyuria or polydipsia [] All other systems were reviewed and found to be within normal limits, except as documented in this note. Current Medications Current Medications Current Medications Medications (Trade) Dose Ordered Sig/Shaunna Start Time Stop Time Status Last Admin Dose Admin Sodium Chloride 1,000 ml @ 1,000 mls/hr 1X ONCE 01/09/18 23:30 01/10/18 00:29 01/09/18 23:41 1,000 MLS/HR Allergies Allergies Allergies Coded Allergies Type Severity Reaction Last Updated Verified Sulfa (Sulfonamide Antibiotics) Allergy Intermediate 12/13/17 No Physical Exam Physical Exam Constitutional: Well developed, well nourished, no acute distress, non-toxic appearance. [] HENT: Normocephalic, atraumatic, bilateral external ears normal, oropharynx moist, no oral exudates, nose normal. [] Eyes: PERRLA, EOMI, conjunctiva normal, no discharge. [] Neck: Normal range of motion, no tenderness, supple, no stridor. [] Cardiovascular:Heart rate regular rhythm, no murmur [] Lungs & Thorax: Bilateral breath sounds clear to auscultation [] Abdomen: Bowel sounds normal, soft, no tenderness, no masses, no pulsatile masses. [] Skin: Warm, dry, no erythema, no rash. [] Back: No tenderness, no CVA tenderness. [] Extremities: No tenderness, no cyanosis, no clubbing, ROM intact, no edema. [] Neurologic: Alert and oriented X 3, normal motor function, normal sensory function, no focal deficits noted. [] Psychologic: Affect normal, judgement normal, mood normal. [] Current Patient Data Vital Signs Vital Signs Date Time Temp Pulse Resp B/P (MAP) Pulse Ox O2 Delivery O2 Flow Rate FiO2 01/09/18 23:07 97.9 77 20 98 Room Air Lab Results Laboratory Tests Test 01/09/18 23:29 White Blood Count 6.2 x10^3/uL (4.0-11.0) Red Blood Count 4.66 x10^6/uL (3.50-5.40) Hemoglobin 13.6 g/dL (12.0-15.5) Hematocrit 41.4 % (36.0-47.0) Mean Corpuscular Volume 89 fL (79-100) Mean Corpuscular Hemoglobin 29 pg (25-35) Mean Corpuscular Hemoglobin Concent 33 g/dL (31-37) Red Cell Distribution Width 14.5 % (11.5-14.5) Platelet Count 240 x10^3/uL (140-400) Neutrophils (%) (Auto) 59 % (31-73) Lymphocytes (%) (Auto) 30 % (24-48) Monocytes (%) (Auto) 8 % (0-9) Eosinophils (%) (Auto) 1 % (0-3) Basophils (%) (Auto) 1 % (0-3) Neutrophils # (Auto) 3.7 x10^3uL (1.8-7.7) Lymphocytes # (Auto) 1.9 x10^3/uL (1.0-4.8) Monocytes # (Auto) 0.5 x10^3/uL (0.0-1.1) Eosinophils # (Auto) 0.1 x10^3/uL (0.0-0.7) Basophils # (Auto) 0.1 x10^3/uL (0.0-0.2) Sodium Level 144 mmol/L (136-145) Potassium Level 3.2 mmol/L (3.5-5.1) L Chloride Level 106 mmol/L (98-107) Carbon Dioxide Level 30 mmol/L (21-32) Anion Gap 8 (6-14) Blood Urea Nitrogen 13 mg/dL (7-20) Creatinine 1.0 mg/dL (0.6-1.0) Estimated GFR (Cockcroft-Gault) 56.9 Glucose Level 90 mg/dL (70-99) Calcium Level 9.4 mg/dL (8.5-10.1) EKG EKG [] Radiology/Procedures Radiology/Procedures [] Course & Med Decision Making Course & Med Decision Making Pertinent Labs and Imaging studies reviewed. (See chart for details) The patient's labs are unremarkable. Her urinalysis does show UTI. We'll treat her with Keflex in the ED and discharge her with a prescription for the same. [] Dragon Disclaimer Dragon Disclaimer This electronic medical record was generated, in whole or in part, using a voice recognition dictation system. Departure Departure: Referrals: JAZLYN ROMERO (PCP) Scripts Cephalexin (KEFLEX) 500 Mg Capsule 1 CAP PO TID for 3 Days, #9 CAP Prov: BERTA KIM DO 01/10/18 BERTA KIM DO Jan 10, 2018 00:10
[2018-01-10] MEDS ORDERED: POTASSIUM CHLORIDE 20 MEQ TABLET.ER. PO ONE (00:30)
[2018-01-10] MEDS ORDERED: ALBUTEROL SULFATE 2.5 MG/3 ML NEBU. NEB ONE (01:30)
[2018-01-10 01:41] LABS: BILIRUBIN,URINE NEG (NEG); CLARITY,URINE CLEAR; COLOR,URINE YELLOW; GLUCOSE,URINE NEG (NEG); NITRITE,URINE POS (NEG); RBC,URINE 0 /HPF (0-2); UROBILINOGEN,URINE 0.2 mg/dL (0.2 mg/dL)
[2018-01-10 01:42] LABS: BACTERIA,URINE FEW /HPF (0-FEW); SQUAMOUS EPITHELIAL CELL,UR MOD /LPF
[2018-01-10] MEDS ORDERED: CEPH-264 PO (01:50)
[2018-01-10 02:00] VITALS: BP 146/63
[2018-01-10] MEDS ORDERED: CEPHALEXIN 250 MG CAPSULE PO ONE (02:30)
== END 2018-01-10 02:05 | disposition home or self-care (01) ==
LOC: ER 23:07
DX: N39.0 Urinary tract infection, site not specified (principal); F41.9 Anxiety disorder, unspecified; J44.9 Chronic obstructive pulmonary disease, unspecified; Z88.2 Allergy status to sulfonamides
CPT/HCPCS: 36415; 80048; 81001; 85025; 87086; 94640; 99284; J7613; 96360; J7030

== ENCOUNTER 2018-01-10 05:37 | Emergency (ER) | payer SELFPAY ==
[2018-01-10 02:00] VITALS: BP 146/63
== END 2018-01-10 05:42 | disposition left against medical advice (07) ==
LOC: ER 05:37
DX: M79.673 Pain in unspecified foot (principal); Z53.21 Procedure and treatment not carried out due to patient leaving prior to being seen by health care provider

== ENCOUNTER 2018-01-13 12:52 | Emergency (ER) | payer SELFPAY ==
[~2018-01-13] VITALS: Ht 160 cm; Wt 89.4 kg
[2018-01-13] MEDS ORDERED: IPRATRPIUM/ALBUTEROL 0.5/2.5MG 3 ML NEBU. ONE (13:00)
[2018-01-13] MEDS ORDERED: IV NORMAL SALINE 1,000ML 1,000 ML IV SCH (13:38)
[2018-01-13] MEDS ORDERED: methylPREDNISolone SOD SUCC PF 125 MG/2 ML VIAL. IV ONE (13:45)
--- NOTE | 2018-01-13 13:57 | RAD ---
CHEST PA LATERAL History: SHORT OF BREATH, COUGH Comparison: Two-view chest December 22, 2017. Findings: The cardiomediastinal silhouette is normal. Pulmonary vasculature is normal. There is minimal airspace opacity in the left lung base.. No pleural effusion or pneumothorax is seen. There is no acute bone abnormality. IMPRESSION: Minimal airspace opacity in the left lung base may be atelectasis or early pneumonia. Electronically signed by: Harrison Mendoza MD (01/13/2018 1:54 PM) [id number]
[2018-01-13 14:10] LABS: BASO # 0.1 x10^3/uL (0.0-0.2); BASO % 1 % (0-3); EOS # 0.1 x10^3/uL (0.0-0.7); EOS % 1 % (0-3); HEMATOCRIT 42.7 % (36.0-47.0); LYMPH # 0.8 x10^3/uL (1.0-4.8); LYMPH % 10 % (24-48); MEAN CORPUSCULAR HEMOGLOBIN 29 pg (25-35); MEAN CORPUSCULAR HGB CONC 33 g/dL (31-37); MEAN CORPUSCULAR VOLUME 89 fL (79-100); MONO # 0.4 x10^3/uL (0.0-1.1); MONO % 5 % (0-9); NEUT % 84 % (31-73); PLATELET COUNT 222 x10^3/uL (140-400); RED CELL DISTRIBUTION WIDTH 14.8 % (11.5-14.5); WHITE BLOOD COUNT 8.4 x10^3/uL (4.0-11.0)
[2018-01-13 14:42] LABS: ALBUMIN 3.4 g/dL (3.4-5.0); ALBUMIN/GLOBULIN RATIO 0.9 (1.0-1.7); CALCIUM 8.9 mg/dL (8.5-10.1); CREATININE 0.8 mg/dL (0.6-1.0); GFR 73.7; POTASSIUM 3.4 mmol/L (3.5-5.1); TOTAL BILIRUBIN 0.5 mg/dL (0.2-1.0); TOTAL PROTEIN 7.1 g/dL (6.4-8.2)
[2018-01-13] MEDS ORDERED: ALBU8.5H8 INH (14:54)
--- NOTE | 2018-01-13 14:54 | PHYS DOC ---
Past History Past Medical History: Anxiety, Asthma, COPD Additional Past Medical Histor: psychosis Past Surgical History: Tonsillectomy, Other Alcohol Use: None Drug Use: None Adult General Chief Complaint Chief Complaint: SHORTNESS OF BREATH HPI HPI 57-year-old homeless female patient with history of sarcoidosis and asthma and frequent emergency room visits complaining of shortness of breath since this morning after she left long term at 7 AM and was walking at [address]. Patient states she has had cough for several weeks and denies fever and chills, chest pain, nausea and vomiting. Patient asking for a general checkup. Review of Systems Review of Systems Constitutional: Denies fever or chills [] Eyes: Denies change in visual acuity, redness, or eye pain [] HENT: Denies nasal congestion or sore throat [] Respiratory: Reports shortness of breath and cough[] Cardiovascular: No additional information not addressed in HPI [] GI: Denies abdominal pain, nausea, vomiting, bloody stools or diarrhea [] : Denies dysuria or hematuria [] Musculoskeletal: Denies back pain or joint pain [] Integument: Denies rash or skin lesions [] Neurologic: Denies headache, focal weakness or sensory changes [] Endocrine: Denies polyuria or polydipsia [] All other systems were reviewed and found to be within normal limits, except as documented in this note. Current Medications Current Medications Current Medications Medications (Trade) Dose Ordered Sig/Shaunna Start Time Stop Time Status Last Admin Dose Admin Albuterol/ Ipratropium (Duoneb) 3 ml STK-MED ONCE 01/13/18 13:00 01/13/18 13:01 DC Methylprednisolone Sodium Succinate (SOLU-Medrol 125MG VIAL) 125 mg 1X ONCE 01/13/18 13:45 01/13/18 14:02 DC 01/13/18 14:00 125 MG Sodium Chloride 1,000 ml @ 1,000 mls/hr Q1H 01/13/18 13:38 01/13/18 14:37 DC 01/13/18 14:00 1,000 MLS/HR Allergies Allergies Allergies Coded Allergies Type Severity Reaction Last Updated Verified Sulfa (Sulfonamide Antibiotics) Allergy Intermediate 12/13/17 No Physical Exam Physical Exam Constitutional: No acute distress, facial sun burn, non-toxic appearance. [] HENT: Normocephalic, atraumatic, oropharynx moist, no oral exudates, nose normal. [] Eyes: PERRLA, EOMI, conjunctiva normal, no discharge. [] Neck: Normal range of motion, no tenderness, supple, no stridor. [] Cardiovascular:Heart rate regular rhythm, no murmur [] Lungs & Thorax: Bilateral breath sounds clear to auscultation [] Abdomen: Bowel sounds normal, soft, no tenderness, no masses, no pulsatile masses. [] Skin: Warm, dry, no erythema, no rash. [] Back: No tenderness, no CVA tenderness. [] Extremities: No tenderness, no cyanosis, no clubbing, ROM intact, no edema. [] Neurologic: Alert and oriented X 3, normal motor function, normal sensory function, no focal deficits noted. [] Psychologic: Anxious, judgement abnormal, not suicidal or homicidal Current Patient Data Vital Signs Vital Signs Date Time Temp Pulse Resp B/P (MAP) Pulse Ox O2 Delivery O2 Flow Rate FiO2 01/13/18 13:05 92 Nasal Cannula 2.0 01/13/18 12:52 98.7 110 24 Lab Results Laboratory Tests Test 01/13/18 13:58 White Blood Count 8.4 x10^3/uL (4.0-11.0) Red Blood Count 4.80 x10^6/uL (3.50-5.40) Hemoglobin 14.0 g/dL (12.0-15.5) Hematocrit 42.7 % (36.0-47.0) Mean Corpuscular Volume 89 fL (79-100) Mean Corpuscular Hemoglobin 29 pg (25-35) Mean Corpuscular Hemoglobin Concent 33 g/dL (31-37) Red Cell Distribution Width 14.8 % (11.5-14.5) H Platelet Count 222 x10^3/uL (140-400) Neutrophils (%) (Auto) 84 % (31-73) H Lymphocytes (%) (Auto) 10 % (24-48) L Monocytes (%) (Auto) 5 % (0-9) Eosinophils (%) (Auto) 1 % (0-3) Basophils (%) (Auto) 1 % (0-3) Neutrophils # (Auto) 7.0 x10^3uL (1.8-7.7) Lymphocytes # (Auto) 0.8 x10^3/uL (1.0-4.8) L Monocytes # (Auto) 0.4 x10^3/uL (0.0-1.1) Eosinophils # (Auto) 0.1 x10^3/uL (0.0-0.7) Basophils # (Auto) 0.1 x10^3/uL (0.0-0.2) Sodium Level 143 mmol/L (136-145) Potassium Level 3.4 mmol/L (3.5-5.1) L Chloride Level 106 mmol/L (98-107) Carbon Dioxide Level 29 mmol/L (21-32) Anion Gap 8 (6-14) Blood Urea Nitrogen 7 mg/dL (7-20) Creatinine 0.8 mg/dL (0.6-1.0) Estimated GFR (Cockcroft-Gault) 73.7 BUN/Creatinine Ratio 9 (6-20) Glucose Level 129 mg/dL (70-99) H Calcium Level 8.9 mg/dL (8.5-10.1) Total Bilirubin 0.5 mg/dL (0.2-1.0) Aspartate Amino Transferase (AST) 28 U/L (15-37) Alanine Aminotransferase (ALT) 25 U/L (14-59) Alkaline Phosphatase 79 U/L (46-116) Troponin I Quantitative < 0.017 ng/mL (0-0.055) XN-Doo-A-Type Natriuretic Peptide 496 pg/mL (0-124) H Total Protein 7.1 g/dL (6.4-8.2) Albumin 3.4 g/dL (3.4-5.0) Albumin/Globulin Ratio 0.9 (1.0-1.7) L EKG EKG [] Radiology/Procedures Radiology/Procedures [][address] [id number] IMAGING REPORT Signed PATIENT: MATEO RODRIGUEZ ACCOUNT: [id number] : 1960 LOCATION: ER AGE: 57 SEX: F EXAM STATUS: REG ER ORD. PHYSICIAN: HUMBERTO ROBERTSON MD REASON: shortness of breath PROCEDURE: CHEST PA & LATERAL CHEST PA LATERAL History: SHORT OF BREATH, COUGH Comparison: Two-view chest December 22, 2017. Findings: The cardiomediastinal silhouette is normal. Pulmonary vasculature is normal. There is minimal airspace opacity in the left lung base.. No pleural effusion or pneumothorax is seen. There is no acute bone abnormality. IMPRESSION: Minimal airspace opacity in the left lung base may be atelectasis or early pneumonia. Electronically signed by: Harrison Mendoza MD (01/13/2018 1:54 PM) [id number] DICTATED AND SIGNED BY: HARRISON MENDOZA MD DATE: 01/13/18 1353 CC: HUMBERTO ROBERTSON MD; JAZLYN ROMERO ~ Course & Med Decision Making Course & Med Decision Making Pertinent Labs and Imaging studies reviewed. (See chart for details) Evaluation of patient in ER showed 57-year-old female patient with history of schizophrenia and frequent emergency room visits complaining of shortness of breath. Patient had O2 sat of 88% at arrival to triage that improved with nebulizer treatment and oxygen. Patient had O2 sat of 97% at time of discharge at room air. Patient ambulated without problem and instructed to avoid of walking at hot weather. Prescription for Proair was given. Dragon Disclaimer Dragon Disclaimer This electronic medical record was generated, in whole or in part, using a voice recognition dictation system. Departure Departure: Impression: Primary Impression: Dyspnea Additional Impressions: Asthma Homelessness Psychosis, atypical Disposition: 01 HOME, SELF-CARE (at 1452) Condition: IMPROVED Referrals: JAZLYN ROMERO (PCP) Patient Instructions: Asthma Attacks, Prevention, Asthma, Adult Additional Instructions: Drink plenty of liquids Follow-up with your primary care physician in 3-5 days Return to ER if not getting better Scripts Albuterol Sulfate (PROAIR HFA INHALER) 8.5 Gm Hfa.aer.ad 2 PUFF INH PRN Q6HRS PRN for SHORTNESS OF BREATH, #1 INHALER 0 Refills Prov: HUMBERTO ROBERTSON MD 01/13/18 Problem Qualifiers HUMBERTO ROBERTSON MD Jan 13, 2018 14:54
[2018-01-13 15:00] VITALS: BP 138/73
[2018-01-13] MEDS ORDERED: BENZ100C PO (17:55)
== END 2018-01-13 14:57 | disposition home or self-care (01) ==
LOC: ER 12:52
DX: J45.909 Unspecified asthma, uncomplicated (principal); J44.9 Chronic obstructive pulmonary disease, unspecified; F41.9 Anxiety disorder, unspecified; F29 Unspecified psychosis not due to a substance or known physiological condition; Z59.0 Homelessness; Z88.2 Allergy status to sulfonamides
CPT/HCPCS: 36415; 71046; 80053; 83880; 84484; 85025; 94640; 96374; 99285; J2930; J7030

== ENCOUNTER 2018-01-13 17:25 | Emergency (ER) | payer SELFPAY ==
[2018-01-13 17:40] VITALS: BP 127/68
--- NOTE | 2018-01-13 17:41 | PHYS DOC ---
Past History Past Medical History: Anxiety, Asthma, COPD Additional Past Medical Histor: psychosis Past Surgical History: Tonsillectomy, Other Alcohol Use: None Drug Use: None Adult General Chief Complaint Chief Complaint: SHORTNESS OF BREATH [facility] 57-year-old female patient with history of schizophrenia and psychosis and homelessness who was here today with the same complaint complaining of shortness of breath and feeling something in her throat with cough after she left the emergency room. Review of Systems Review of Systems Constitutional: Denies fever or chills [] Eyes: Denies change in visual acuity, redness, or eye pain [] HENT: Denies nasal congestion or sore throat [] Respiratory: Reports cough and shortness of breath Cardiovascular: No additional information not addressed in HPI [] GI: Denies abdominal pain, nausea, vomiting, bloody stools or diarrhea [] : Denies dysuria or hematuria [] Musculoskeletal: Denies back pain or joint pain [] Integument: Denies rash or skin lesions [] Neurologic: Denies headache, focal weakness or sensory changes [] Endocrine: Denies polyuria or polydipsia [] All other systems were reviewed and found to be within normal limits, except as documented in this note. Allergies Allergies Allergies Coded Allergies Type Severity Reaction Last Updated Verified Sulfa (Sulfonamide Antibiotics) Allergy Intermediate 12/13/17 No Physical Exam Physical Exam Constitutional: No acute distress, non-toxic appearance. [] HENT: Normocephalic, atraumatic, oropharynx moist, no oral exudates, nose normal. [] Eyes: PERRLA, EOMI, conjunctiva normal, no discharge. [] Neck: Normal range of motion, no tenderness, supple, no stridor. [] Cardiovascular:Heart rate regular rhythm, no murmur [] Lungs & Thorax: Bilateral breath sounds clear to auscultation [] Skin: Warm, dry, no erythema, no rash. [] Back: No tenderness, no CVA tenderness. [] Extremities: No tenderness, no cyanosis, no clubbing, ROM intact, no edema. [] Neurologic: Alert and oriented X 3, normal motor function, normal sensory function, no focal deficits noted. [] Psychologic: Affect anxious, not suicidal ] EKG EKG [] Radiology/Procedures Radiology/Procedures [] Course & Med Decision Making Course & Med Decision Making discharge: I've spoken with the patient and/or caregivers. I've explained the patient's condition, diagnosis and treatment plan based on information available to me at this time. I've answered the patient's and/or caregivers questions and addressed any concerns. The patient and/or caregivers have a good understanding the patient's diagnosis, condition and treatment plan as can be expected at this point. Vital signs have been stabilized. The patient's condition is stable for discharge from the emergency department. The patient will pursue further outpatient evaluation with her primary care provider or other designated consulting physician as outlined in the discharge instructions. Patient and/or caregivers are agreeable to this plan of care and follow-up instructions have been explained in detail. The patient and/or caregivers have received these instructions in written format and expressed understanding of these discharge instructions. The patient and her caregivers are aware that if any significant change in condition or worsening of symptoms should prompt him to immediately return to this of the closest emergency department. If an emergent department is not readily available I would encourage him to call 911. Dragon Disclaimer Dragon Disclaimer This electronic medical record was generated, in whole or in part, using a voice recognition dictation system. Departure Departure: Impression: Primary Impression: Cough Disposition: HOME, SELF-CARE (at 1754) Condition: STABLE Referrals: JAZLYN ROMERO (PCP) Patient Instructions: Cough, Adult Additional Instructions: Drink plenty of liquids Follow-up with your primary care physician in 3-5 days Return to ER if not getting better Scripts Benzonatate (TESSALON PERLE) 100 Mg Capsule 1 CAP PO TID, #21 CAP Prov: HUMBERTO ROBERTSON MD 01/13/18 HUMBERTO ROBERTSON MD Jan 13, 2018 17:41
[2018-01-13] MEDS ORDERED: BENZONATATE 100 MG CAPSULE. PO ONE (17:45)
[2018-01-13] MEDS ORDERED: BENZ100C PO (17:55)
== END 2018-01-13 18:04 | disposition home or self-care (01) ==
LOC: ER 17:25
DX: R05 Cough (principal); R06.02 Shortness of breath; F20.9 Schizophrenia, unspecified; J44.9 Chronic obstructive pulmonary disease, unspecified; F41.9 Anxiety disorder, unspecified; F29 Unspecified psychosis not due to a substance or known physiological condition; Z59.0 Homelessness; Z88.2 Allergy status to sulfonamides
CPT/HCPCS: 99283

== ENCOUNTER 2018-02-05 21:56 | Emergency (ER) | payer SELFPAY ==
[~2018-02-05] VITALS: Ht 160 cm; Wt 89.5 kg
[2018-02-05 21:56] VITALS: BP 131/68
[~2018-02-05 21:56] MED LIST changes: +BENZ100C PO
== END 2018-02-05 22:39 | disposition left against medical advice (07) ==
LOC: ER 21:56
DX: M79.672 Pain in left foot (principal); Z53.21 Procedure and treatment not carried out due to patient leaving prior to being seen by health care provider

== ENCOUNTER 2018-02-06 21:25 | Emergency (ER) | payer SELFPAY ==
[~2018-02-06] VITALS: Ht 160 cm; Wt 89.1 kg
[2018-02-06] MEDS ORDERED: IV NORMAL SALINE 1,000ML 1,000 ML IV ONE (21:45)
[2018-02-06 22:06] LABS: BASO % 1 % (0-3); EOS # 0.2 x10^3/uL (0.0-0.7); EOS % 3 % (0-3); HEMATOCRIT 40.2 % (36.0-47.0); HEMOGLOBIN 13.3 g/dL (12.0-15.5); LYMPH # 2.5 x10^3/uL (1.0-4.8); LYMPH % 33 % (24-48); MEAN CORPUSCULAR HEMOGLOBIN 29 pg (25-35); MEAN CORPUSCULAR HGB CONC 33 g/dL (31-37); MEAN CORPUSCULAR VOLUME 88 fL (79-100); MONO # 0.6 x10^3/uL (0.0-1.1); MONO % 8 % (0-9); NEUT # 4.2 x10^3uL (1.8-7.7); NEUT % 56 % (31-73); PLATELET COUNT 262 x10^3/uL (140-400); RED BLOOD COUNT 4.59 x10^6/uL (3.50-5.40); RED CELL DISTRIBUTION WIDTH 14.4 % (11.5-14.5); WHITE BLOOD COUNT 7.6 x10^3/uL (4.0-11.0)
[2018-02-06 22:18] LABS: ALBUMIN 3.1 g/dL (3.4-5.0); ALBUMIN/GLOBULIN RATIO 0.8 (1.0-1.7); CREATININE 0.7 mg/dL (0.6-1.0); GFR 85.9; POTASSIUM 3.7 mmol/L (3.5-5.1); TOTAL BILIRUBIN 0.4 mg/dL (0.2-1.0); TOTAL PROTEIN 6.8 g/dL (6.4-8.2)
[2018-02-06 22:20] VITALS: BP 134/64
[2018-02-06] MEDS ORDERED: ALBUTEROL SULFATE 2.5 MG/3 ML NEBU. ONE (22:33)
[2018-02-06] MEDS ORDERED: ALBUTEROL SULFATE 2.5 MG/3 ML NEBU. NEB ONE (22:45)
--- NOTE | 2018-02-06 22:50 | PHYS DOC ---
Past History Past Medical History: Asthma, Schizophrenia Additional Past Medical Histor: psychosis Past Surgical History: Other Alcohol Use: None Drug Use: None Adult General Chief Complaint Chief Complaint: OTHER COMPLAINTS HPI HPI 57-year-old female well-known to the ED returns with complaint of low potassium and calcium. She states that she can tell these are low because she is having mild numbness in the back of her hands. She is not specific about which hand. She is nonspecific about how long this has lasted. She would like us to check these blood levels. He denies any other complaints or concerns. Denies fever or chills. Review of Systems Review of Systems Constitutional: Denies fever or chills [] Eyes: Denies change in visual acuity, redness, or eye pain [] HENT: Denies nasal congestion or sore throat [] Respiratory: Denies cough or shortness of breath [] Cardiovascular: No additional information not addressed in HPI [] GI: Denies abdominal pain, nausea, vomiting, bloody stools or diarrhea [] : Denies dysuria or hematuria [] Musculoskeletal: Denies back pain or joint pain [] Integument: Denies rash or skin lesions [] Neurologic: Denies headache, focal weakness. Dorsal hand tingling [] Endocrine: Denies polyuria or polydipsia [] All other systems were reviewed and found to be within normal limits, except as documented in this note. Current Medications Current Medications Current Medications Medications (Trade) Dose Ordered Sig/Shaunna Start Time Stop Time Status Last Admin Dose Admin Albuterol Sulfate (Ventolin) 2.5 mg 1X ONCE 02/06/18 22:45 02/06/18 22:46 DC 02/06/18 22:37 2.5 MG Sodium Chloride 1,000 ml @ 1,000 mls/hr 1X ONCE 02/06/18 21:45 02/06/18 22:44 DC 02/06/18 22:02 1,000 MLS/HR Allergies Allergies Allergies Coded Allergies Type Severity Reaction Last Updated Verified Sulfa (Sulfonamide Antibiotics) Allergy Intermediate 12/13/17 No Physical Exam Physical Exam Constitutional: Well developed, well nourished, no acute distress, non-toxic appearance. [] HENT: Normocephalic, atraumatic, bilateral external ears normal, oropharynx moist, no oral exudates, nose normal. [] Eyes: PERRLA, EOMI, conjunctiva normal, no discharge. [] Neck: Normal range of motion, no tenderness, supple, no stridor. [] Cardiovascular:Heart rate regular rhythm, no murmur [] Lungs & Thorax: Bilateral breath sounds clear to auscultation [] Abdomen: Bowel sounds normal, soft, no tenderness, no masses, no pulsatile masses. [] Skin: Warm, dry, no erythema, no rash. [] Back: No tenderness, no CVA tenderness. [] Extremities: No tenderness, no cyanosis, no clubbing, ROM intact, no edema. [] Neurologic: Alert and oriented X 3, normal motor function, normal sensory function, no focal deficits noted. [] Psychologic: Affect flat. [] Current Patient Data Vital Signs Vital Signs Date Time Temp Pulse Resp B/P (MAP) Pulse Ox O2 Delivery O2 Flow Rate FiO2 02/06/18 22:40 98 Room Air 02/06/18 21:25 97.6 71 16 Lab Results Laboratory Tests Test 02/06/18 21:51 White Blood Count 7.6 x10^3/uL (4.0-11.0) Red Blood Count 4.59 x10^6/uL (3.50-5.40) Hemoglobin 13.3 g/dL (12.0-15.5) Hematocrit 40.2 % (36.0-47.0) Mean Corpuscular Volume 88 fL (79-100) Mean Corpuscular Hemoglobin 29 pg (25-35) Mean Corpuscular Hemoglobin Concent 33 g/dL (31-37) Red Cell Distribution Width 14.4 % (11.5-14.5) Platelet Count 262 x10^3/uL (140-400) Neutrophils (%) (Auto) 56 % (31-73) Lymphocytes (%) (Auto) 33 % (24-48) Monocytes (%) (Auto) 8 % (0-9) Eosinophils (%) (Auto) 3 % (0-3) Basophils (%) (Auto) 1 % (0-3) Neutrophils # (Auto) 4.2 x10^3uL (1.8-7.7) Lymphocytes # (Auto) 2.5 x10^3/uL (1.0-4.8) Monocytes # (Auto) 0.6 x10^3/uL (0.0-1.1) Eosinophils # (Auto) 0.2 x10^3/uL (0.0-0.7) Basophils # (Auto) 0.0 x10^3/uL (0.0-0.2) Sodium Level 144 mmol/L (136-145) Potassium Level 3.7 mmol/L (3.5-5.1) Chloride Level 109 mmol/L (98-107) H Carbon Dioxide Level 32 mmol/L (21-32) Anion Gap 3 (6-14) L Blood Urea Nitrogen 8 mg/dL (7-20) Creatinine 0.7 mg/dL (0.6-1.0) Estimated GFR (Cockcroft-Gault) 85.9 BUN/Creatinine Ratio 11 (6-20) Glucose Level 93 mg/dL (70-99) Calcium Level 9.0 mg/dL (8.5-10.1) Total Bilirubin 0.4 mg/dL (0.2-1.0) Aspartate Amino Transferase (AST) 24 U/L (15-37) Alanine Aminotransferase (ALT) 19 U/L (14-59) Alkaline Phosphatase 91 U/L (46-116) Total Protein 6.8 g/dL (6.4-8.2) Albumin 3.1 g/dL (3.4-5.0) L Albumin/Globulin Ratio 0.8 (1.0-1.7) L EKG EKG [] Radiology/Procedures Radiology/Procedures [] Course & Med Decision Making Course & Med Decision Making Pertinent Labs and Imaging studies reviewed. (See chart for details) The patient's labs are unremarkable. Her potassium and calcium were normal. She was given 1 L normal saline as she has a history of being dehydrated which comes the ED. After the IV, she requested a breathing treatment because the IV "was letting the air out of her" and she was feeling short of breath. I did comply with requests and had a nebulizer treatment of albuterol. She stated that this helped and she was better. She is stable for discharge at this time. [] Dragon Disclaimer Dragon Disclaimer This electronic medical record was generated, in whole or in part, using a voice recognition dictation system. Departure Departure: Referrals: JAZLYN ROMERO (PCP) BERTA KIM DO Feb 06, 2018 22:50
== END 2018-02-06 23:05 | disposition home or self-care (01) ==
LOC: ER 21:25
DX: R20.2 Paresthesia of skin (principal); E86.0 Dehydration; J45.909 Unspecified asthma, uncomplicated; F20.9 Schizophrenia, unspecified; Z88.2 Allergy status to sulfonamides
CPT/HCPCS: 36415; 80053; 85025; 94640; 96360; 99284; J7613; J7030

== ENCOUNTER 2018-03-27 22:51 | Emergency (ER) | payer SELFPAY ==
[~2018-03-27] VITALS: Ht 158.8 cm; Wt 80.8 kg
--- NOTE | 2018-03-27 22:55 | ED.ADGEN ---
Past History Past Medical History: Asthma, Schizophrenia Additional Past Medical Histor: psychosis Past Surgical History: Other Alcohol Use: None Drug Use: None Adult General Chief Complaint Chief Complaint ".. I ve been wheezing more this year... It was too hot summer....and now kick you out of the homeless correction in the day time.. I left the correction.. because they had bad air... and now it raining.. My sister will not have me at her house.. and my brother is out of town... I did eat a bad sandwich at [facility]... I lost 150 pounds..".. " I have not been able to drink water... because it is bad here in [place]...".. " Even the bottle water has poison in it... and tastes bad...".." If I drink it .. it make my neck hurt..." HPI HPI Patient is a 57 year old female who presents with complaints of of increased wheezing and coughing. Patient denies specific ill contacts. No recent travel. Patient has not recently followed at the [facility] for her schizophrenia and delusions of "bad" and/or " toxic" air. Patient states she's had a recent nonproductive cough. No specific history of fever. Patient denies any trauma or fever. Patient is known to the emergency department for frequent ED visits. Patient does a history of schizophrenia, asthma and persistent noncompliance with medical recommendations. Review of Systems Review of Systems Constitutional: Denies fever or chills [] Eyes: Denies change in visual acuity, redness, or eye pain [] HENT: Denies nasal congestion or sore throat [] Respiratory: Complaints of cough and wheezing Cardiovascular: No additional information not addressed in HPI [] GI: Denies abdominal pain, nausea, vomiting, bloody stools or diarrhea [] : Denies dysuria or hematuria [] Musculoskeletal: Denies back pain or joint pain [] Integument: Denies rash or skin lesions [] Neurologic: Denies headache, focal weakness or sensory changes [] Endocrine: Denies polyuria or polydipsia [] All other systems were reviewed and found to be within normal limits, except as documented in this note. Family History Family History Noncontributory Current Medications Current Medications Current Medications Medications (Trade) Dose Ordered Sig/Shaunna Start Time Stop Time Status Last Admin Dose Admin Albuterol Sulfate (Ventolin Hfa Inhaler) 2 puff 1X ONCE 03/27/18 23:15 03/27/18 23:16 DC 03/27/18 23:23 2 PUFF Albuterol/ Ipratropium (Duoneb) 3 ml 1X ONCE 03/27/18 23:30 03/27/18 23:47 DC 03/27/18 23:26 3 ML Diphenhydramine HCl (Benadryl) 25 mg 1X ONCE 03/27/18 23:15 03/27/18 23:16 DC Methylprednisolone Acetate (DEPO-Medrol IM) 40 mg 1X ONCE 03/27/18 23:45 03/27/18 23:47 DC Prednisone (Prednisone) 50 mg 1X ONCE 03/27/18 23:15 03/27/18 23:16 DC Allergies Allergies Allergies Coded Allergies Type Severity Reaction Last Updated Verified Sulfa (Sulfonamide Antibiotics) Allergy Intermediate 03/27/18 No Physical Exam Physical Exam Constitutional: Moderately acute distress, non-toxic appearance. [] HENT: Normocephalic, atraumatic, bilateral external ears normal, oropharynx moist, no oral exudates, nose clear rhinorrhea] Eyes: PERRLA, EOMI, conjunctiva normal, no discharge. [] Neck: Normal range of motion, no tenderness, supple, no stridor. [] Cardiovascular:Heart rate regular rhythm, no murmur [] Lungs & Thorax: Bilateral breath sounds equal apex with scattered wheezing on auscultation [] Abdomen: Bowel sounds normal, soft, no tenderness, no masses, no pulsatile masses. [] Skin: Warm, dry, no erythema, no rash. [] Back: No tenderness, no CVA tenderness. [] Extremities: No tenderness, no cyanosis, no clubbing, ROM intact, no edema. [] Neurologic: Alert and oriented X 3, normal motor function, normal sensory function, no focal deficits noted. [] Psychologic: Affect anxious, judgement normal, mood normal. []Some delusions which are typical for patient- of toxic fumes, air, and poisons in [place]. Current Patient Data Vital Signs Vital Signs Date Time Temp Pulse Resp B/P (MAP) Pulse Ox O2 Delivery O2 Flow Rate FiO2 03/27/18 23:28 96 Room Air 10/7/18 23:00 98.0 99 20 EKG EKG [] Radiology/Procedures Radiology/Procedures [] Course & Med Decision Making Course & Med Decision Making Pertinent Labs and Imaging studies reviewed. (See chart for details) Patient to use MDI 2 puffs 4 times a day. Patient may take Benadryl 25-50 mg up 4 times a day. Patient follow-up primary care. Patient to follow-up at [facility]. Patient return of any concerns. Pt at time of discharge refused any meds. [] Final Impression Final Impression 1. Mild asthma exacerbation 2. Schizophrenia[] Dragon Disclaimer Dragon Disclaimer This electronic medical record was generated, in whole or in part, using a voice recognition dictation system. RAYNE REN MD Mar 27, 2018 22:55
[2018-03-27 23:00] VITALS: BP 128/44
[2018-03-27] MEDS ORDERED: diphenhydrAMINE HCL 25 MG CAPSULE PO ONE (23:15)
[2018-03-27] MEDS ORDERED: ALBUTEROL SULFATE 8GM INHALER. INH ONE (23:15)
[2018-03-27] MEDS ORDERED: predniSONE 10 MG TABLET PO ONE (23:15)
[2018-03-27] MEDS ORDERED: IPRATRPIUM/ALBUTEROL 0.5/2.5MG 3 ML NEBU. NEB ONE (23:30)
[2018-03-27] MEDS ORDERED: methylPREDNISolone ACETATE 40 MG/ML VIAL. IM ONE (23:45)
[2018-03-27] MEDS ORDERED: PRED50TA PO (23:46)
== END 2018-03-28 00:24 | disposition home or self-care (01) ==
LOC: ER 22:51
DX: J45.901 Unspecified asthma with (acute) exacerbation (principal); F20.9 Schizophrenia, unspecified; Z88.2 Allergy status to sulfonamides
CPT/HCPCS: 94640; 99284; J7613; J7620

== ENCOUNTER 2018-04-13 14:12 | Emergency (ER) | payer SELFPAY | END 2018-04-13 14:20 | disposition left against medical advice (07) | LOC: ER 14:12 | DX: J45.909 Unspecified asthma, uncomplicated (principal); Z53.21 Procedure and treatment not carried out due to patient leaving prior to being seen by health care provider ==

== ENCOUNTER 2018-05-22 19:28 | Emergency (ER) | payer SELFPAY ==
[~2018-05-22] VITALS: Ht 158.8 cm; Wt 81.6 kg
[~2018-05-22 19:28] MED LIST changes: +HYDR-3165 PO; -HYDR-971 PO
--- NOTE | 2018-05-22 19:59 | PHYS DOC ---
Past History Past Medical History: Asthma, Schizophrenia Additional Past Medical Histor: psychosis Past Surgical History: Tonsillectomy Alcohol Use: None Drug Use: None Adult General Chief Complaint Chief Complaint: SHORTNESS OF BREATH HPI HPI Patient is a 57 year old female who presents with complaint of shortness of breath. Patient states her symptoms started worsening today. Patient states she has history of asthma and states that she has been trying to use her inhaler today for symptoms with no significant relief. Patient states that she thinks her albuterol inhaler maybe about. Denies any fever or chest pain. Due to worsening symptoms the patient called 911 and was brought to the emergency department by ambulance. Patient was administered a DuoNeb treatment during transport which she stated helped with her symptoms. Cough has been productive of whitish sputum. Patient also notes that she has a bump on her back that she would like to be evaluated. Patient states that she has had this for several months and has noticed that when she ever she lays down on it or back into a chair. She states that his is uncomfortable but has not seemed to grow significantly in size over the past several months. Review of Systems Review of Systems Constitutional: Denies fever or chills [] Eyes: Denies change in visual acuity, redness, or eye pain [] HENT: Denies nasal congestion or sore throat [] Respiratory: Cough, wheezing, shortness of breath[] Cardiovascular: Denies chest pain or edema[] GI: Denies abdominal pain, nausea, vomiting, bloody stools or diarrhea [] : Denies dysuria or hematuria [] Musculoskeletal: Denies back pain or joint pain [] Integument: Denies rash or skin lesions [] Neurologic: Denies headache, focal weakness or sensory changes [] All other systems were reviewed and found to be within normal limits, except as documented in this note. Current Medications Current Medications Current Medications Medications (Trade) Dose Ordered Sig/Shaunna Start Time Stop Time Status Last Admin Dose Admin Albuterol Sulfate (Ventolin) 2.5 mg 1X ONCE 05/22/18 20:00 05/22/18 20:01 UNV Prednisone (Prednisone) 60 mg 1X ONCE 05/22/18 20:00 05/22/18 20:01 UNV Allergies Allergies Allergies Coded Allergies Type Severity Reaction Last Updated Verified Sulfa (Sulfonamide Antibiotics) Allergy Intermediate 03/27/18 No Physical Exam Physical Exam Constitutional: Well developed, well nourished, no acute distress, non-toxic appearance. [] HENT: Normocephalic, atraumatic, bilateral external ears normal, oropharynx moist, no oral exudates, nose normal. [] Eyes: PERRLA, EOMI, conjunctiva normal, no discharge. [] Neck: Normal range of motion, no tenderness, supple, no stridor. [] Cardiovascular:Heart rate regular rhythm, no murmur [] Lungs & Thorax: Wheezing bilaterally, mildly shifted air movement bilaterally, no rales, no accessory muscle usage[] Abdomen: Bowel sounds normal, soft, no tenderness, no masses, no pulsatile masses. [] Skin: Warm, dry, no erythema, no rash. [] Back: No midline tenderness, no CVA tenderness, 5 cm spongy freely mobile soft tissue mass overlying right posterior thorax, nontender to palpation. [] Extremities: No tenderness, no cyanosis, no clubbing, ROM intact, no edema. [] Neurologic: Alert and oriented X 3, normal motor function, normal sensory function, no focal deficits noted. [] Current Patient Data Vital Signs Vital Signs Date Time Temp Pulse Resp B/P (MAP) Pulse Ox O2 Delivery O2 Flow Rate FiO2 05/22/18 19:37 97.8 97 97 Room Air 05/22/18 19:33 18 139/88 (105) Lab Results Not performed EKG EKG Not performed[] Radiology/Procedures Radiology/Procedures Two-view chest x-ray interpreted by me: No infiltrate, no effusions, normal cardiac silhouette[] Course & Med Decision Making Course & Med Decision Making Pertinent Labs and Imaging studies reviewed. (See chart for details) Patient given albuterol and prednisone in the emergency department. On reevaluation, wheezing has resolved and patient states that she is feeling better. The patient's soft tissue mass on her back is consistent with a benign lipoma. Chest x-ray negative. Patient discharged with albuterol and prednisone. Advised follow-up with primary care in 3-5 days for reevaluation and return to emergency department for any worsening symptoms. Patient was understanding and in agreement with treatment plan.[] Dragon Disclaimer Dragon Disclaimer This electronic medical record was generated, in whole or in part, using a voice recognition dictation system. Departure Departure: Impression: Primary Impression: Asthma exacerbation Additional Impression: Lipoma Disposition: HOME, SELF-CARE Condition: IMPROVED Referrals: JAZLYN ROMERO (PCP) Patient Instructions: Asthma, Adult Additional Instructions: Follow-up with your primary doctor in 3-5 days for reevaluation. The soft tissue mass on your back is believed to be a benign fatty tumor called a lipoma. This typically does not require any further care but can be followed up by your primary doctor if it continues to cause significant discomfort. Return to the emergency department for any worsening symptoms. Scripts Prednisone (PREDNISONE) 10 Mg Tablet 10 MG PO UD for PREDNISONE TAPER, #39 TAB 0 Refills Take 3 tablets by mouth twice a day for 3 days, then take 2 tablets by mouth twice a day for 3 days, then take 1 tablet by mouth twice a day for 3 days, then take 1 tablet by mouth daily x 3 days, then stop. Prov: ASIA RYAN MD 05/22/18 Albuterol Sulfate (PROAIR HFA INHALER) 8.5 Gm Hfa.aer.ad 1 PUFF INH PRN Q4-6HRS PRN for SHORTNESS OF BREATH, #1 INHALER 0 Refills Prov: ASIA RYAN MD 05/22/18 Problem Qualifiers Primary Impression: Asthma exacerbation Asthma severity: mild Asthma persistence: unspecified Qualified Codes: J45.901 - Unspecified asthma with (acute) exacerbation Additional Impression: Lipoma Lipoma location: unspecified Qualified Codes: D17.9 - Benign lipomatous neoplasm, unspecified ASIA RYAN MD May 22, 2018 19:59
[2018-05-22] MEDS ORDERED: predniSONE 20 MG TABLET PO ONE (20:00)
[2018-05-22] MEDS ORDERED: ALBUTEROL SULFATE 2.5 MG/3 ML NEBU. NEB ONE (20:00)
[2018-05-22 20:34] VITALS: BP 117/74
[2018-05-22] MEDS ORDERED: PRED-220 PO (20:53)
[2018-05-22] MEDS ORDERED: ALBU8.5H8 INH (20:53)
--- NOTE | 2018-05-22 22:38 | RAD ---
Chest PA and lateral 05/22/2018. Reason for exam: Shortness of breath and cough. Comparison is made with a study of 01/13/2018. No infiltrate or effusion is seen. Heart size and pulmonary vascularity appear normal. IMPRESSION: No acute disease. Electronically signed by: William Wild Jr., MD (05/22/2018 10:35 PM) [id number]
== END 2018-05-22 20:58 | disposition home or self-care (01) ==
LOC: ER 19:28
DX: J45.901 Unspecified asthma with (acute) exacerbation (principal); D17.9 Benign lipomatous neoplasm, unspecified; F20.9 Schizophrenia, unspecified; Z88.2 Allergy status to sulfonamides
CPT/HCPCS: 71046; 94640; 99283; J7512; J7613

== ENCOUNTER 2018-10-13 05:48 | Emergency (ER) | payer SELFPAY ==
[~2018-10-13] VITALS: Ht 154.9 cm; Wt 65.8 kg
[~2018-10-13 05:48] MED LIST changes: +ALBU2.5V8 IH; +ALBU2.5V8 INH; -ALBU6.7H IH; -ALBU8.5H8 INH; +PRED-220 PO
--- NOTE | 2018-10-13 05:55 | ED.ADGEN ---
Past History Past Medical History: Asthma, Schizophrenia Additional Past Medical Histor: psychosis (RAYNE REN MD) Past Surgical History: Tonsillectomy (RAYNE REN MD) Alcohol Use: None Drug Use: None (RAYNE REN MD) Adult General Chief Complaint Chief Complaint ".. I ve been sick all week... I ve been using my inhaler... The coffee they started at the residential... made me much worse.. " (RAYNE REN MD) HPI HPI Patient is a 57 year old female who presents with above hx and complaints of e xacerbation of her Asthma. Pt. reports a history of increased wheezing , coughing, fever and chills this past week. Patient has known seasonal and weather changes which is exacerbated her asthma. Patient is a known schizophrenic who has been noncompliant with her meds. 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 Patient does not smoke. No history immunosuppression. No history of travel. Per paramedics patient was seen yesterday at [facility] for similar complaint. Patient currently living at [facility]. (RAYNE REN MD) Review of Systems Review of Systems Constitutional:Give history of fever or chills [] Eyes: Denies change in visual acuity, redness, or eye pain [] HENT: History of nasal congestion and itchy sore throat [] Respiratory: History of cough , shortness of breath and wheezing[] Cardiovascular: No additional information not addressed in HPI [] GI: Denies abdominal pain, nausea, vomiting, bloody stools or diarrhea [] : Denies dysuria or hematuria [] Musculoskeletal: Denies back pain or joint pain [] Integument: Denies rash or skin lesions [] Neurologic: Denies headache, focal weakness or sensory changes [] Endocrine: Denies polyuria or polydipsia [] All other systems were reviewed and found to be within normal limits, except as documented in this note. (RAYNE REN MD) Family History Family History Noncontributory still has a sister that lives in [place] (RAYNE REN MD) Current Medications Current Medications Current Medications Medications (Trade) Dose Ordered Sig/Shaunna Start Time Stop Time Status Last Admin Dose Admin Albuterol/ Ipratropium (Duoneb) 3 ml 1X ONCE 10/13/18 06:30 10/13/18 06:31 DC 10/13/18 06:26 3 ML Lactated Ringer's 1,000 ml @ 1,000 mls/hr Q1H 10/13/18 06:30 10/13/18 07:29 10/13/18 06:30 1,000 MLS/HR Methylprednisolone Sodium Succinate (SOLU-Medrol 125MG VIAL) 125 mg 1X ONCE 10/13/18 06:30 10/13/18 06:31 DC 10/13/18 06:30 125 MG ([facility]) Allergies Allergies Allergies Coded Allergies Type Severity Reaction Last Updated Verified Sulfa (Sulfonamide Antibiotics) Allergy Intermediate 03/27/18 No ([facility]) Physical Exam Physical Exam Constitutional: Moderately acute distress, non-toxic appearance. [] HENT: Normocephalic, atraumatic, mild excoriation of ear canals,, oropharynx moist, no oral exudates, nose swollen turbinates and clear rhinorrhea Eyes: PERRLA, EOMI, conjunctiva normal, no discharge. [] Neck: Normal range of motion, no tenderness, supple, no stridor. [] Cardiovascular: Tachycardia Heart rate regular rhythm, no murmur [] Lungs & Thorax: Bilateral breath sounds equal apex with scattered wheezes on auscultation [] Abdomen: Bowel sounds normal, soft, no tenderness, no masses, no pulsatile masses. [] Skin: Warm, dry, no erythema, no rash. [] Back: No tenderness, no CVA tenderness. [] Extremities: No tenderness, no cyanosis, no clubbing, ROM intact, no edema. [] Neurologic: Alert and oriented X 3, normal motor function, normal sensory function, no focal deficits noted. [] Psychologic: Affect anxious, judgement normal, mood normal. [] (RAYNE REN MD) Current Patient Data Vital Signs Vital Signs Date Time Temp Pulse Resp B/P (MAP) Pulse Ox O2 Delivery O2 Flow Rate FiO2 10/13/18 06:27 Room Air 10/13/18 05:48 98.2 93 18 97 ([facility]) Lab Results Laboratory Tests Test 10/13/18 06:12 10/13/18 06:20 Urine Collection Type Unknown Urine Color Yellow Urine Clarity Clear Urine pH 7.0 Urine Specific [place] 1.020 Urine Protein Neg (NEG-TRACE) Urine Glucose (UA) Neg mg/dL (NEG) Urine Ketones (Stick) Neg mg/dL (NEG) Urine Blood Neg (NEG) Urine Nitrite Neg (NEG) Urine Bilirubin Neg (NEG) Urine Urobilinogen Dipstick 0.2 mg/dL (0.2 mg/dL) Urine Leukocyte Esterase Neg (NEG) Urine RBC Occ /HPF (0-2) Urine WBC Occ /HPF (0-4) Urine Squamous Epithelial Cells Few /LPF Urine Bacteria 0 /HPF (0-FEW) Urine Mucus Slight /LPF Urine Opiates Screen Neg (NEG) Urine Methadone Screen Neg (NEG) Urine Barbiturates Neg (NEG) Urine Phencyclidine Screen Neg (NEG) Urine Amphetamine/Methamphetamine Neg (NEG) Urine Benzodiazepines Screen Neg (NEG) Urine Cocaine Screen Neg (NEG) Urine Cannabinoids Screen Neg (NEG) Urine Ethyl Alcohol Neg (NEG) White Blood Count 10.2 x10^3/uL (4.0-11.0) Red Blood Count 4.65 x10^6/uL (3.50-5.40) Hemoglobin 14.2 g/dL (12.0-15.5) Hematocrit 42.0 % (36.0-47.0) Mean Corpuscular Volume 90 fL (79-100) Mean Corpuscular Hemoglobin 31 pg (25-35) Mean Corpuscular Hemoglobin Concent 34 g/dL (31-37) Red Cell Distribution Width 14.3 % (11.5-14.5) Platelet Count 220 x10^3/uL (140-400) Neutrophils (%) (Auto) 93 % (31-73) H Lymphocytes (%) (Auto) 4 % (24-48) L Monocytes (%) (Auto) 3 % (0-9) Eosinophils (%) (Auto) 0 % (0-3) Basophils (%) (Auto) 0 % (0-3) Neutrophils # (Auto) 9.5 x10^3uL (1.8-7.7) H Lymphocytes # (Auto) 0.4 x10^3/uL (1.0-4.8) L Monocytes # (Auto) 0.3 x10^3/uL (0.0-1.1) Eosinophils # (Auto) 0.0 x10^3/uL (0.0-0.7) Basophils # (Auto) 0.0 x10^3/uL (0.0-0.2) Prothrombin Time 9.8 SEC (9.4-11.4) Prothrombin Time INR 1.0 (0.9-1.1) PTT 25 SEC (23-33) D-Dimer ([place]) 0.19 mg/L (0.00-0.50) Troponin I Quantitative < 0.017 ng/mL (0-0.055) (VERN ELLISON DO) Lab Results Laboratory Tests Test 10/13/18 06:12 10/13/18 06:20 Urine Collection Type Unknown Urine Color Yellow Urine Clarity Clear Urine pH 7.0 Urine Specific [place] 1.020 Urine Protein Neg (NEG-TRACE) Urine Glucose (UA) Neg mg/dL (NEG) Urine Ketones (Stick) Neg mg/dL (NEG) Urine Blood Neg (NEG) Urine Nitrite Neg (NEG) Urine Bilirubin Neg (NEG) Urine Urobilinogen Dipstick 0.2 mg/dL (0.2 mg/dL) Urine Leukocyte Esterase Neg (NEG) Urine RBC Occ /HPF (0-2) Urine WBC Occ /HPF (0-4) Urine Squamous Epithelial Cells Few /LPF Urine Bacteria 0 /HPF (0-FEW) Urine Mucus Slight /LPF Urine Opiates Screen Neg (NEG) Urine Methadone Screen Neg (NEG) Urine Barbiturates Neg (NEG) Urine Phencyclidine Screen Neg (NEG) Urine Amphetamine/Methamphetamine Neg (NEG) Urine Benzodiazepines Screen Neg (NEG) Urine Cocaine Screen Neg (NEG) Urine Cannabinoids Screen Neg (NEG) Urine Ethyl Alcohol Neg (NEG) White Blood Count 10.2 x10^3/uL (4.0-11.0) Red Blood Count 4.65 x10^6/uL (3.50-5.40) Hemoglobin 14.2 g/dL (12.0-15.5) Hematocrit 42.0 % (36.0-47.0) Mean Corpuscular Volume 90 fL (79-100) Mean Corpuscular Hemoglobin 31 pg (25-35) Mean Corpuscular Hemoglobin Concent 34 g/dL (31-37) Red Cell Distribution Width 14.3 % (11.5-14.5) Platelet Count 220 x10^3/uL (140-400) Neutrophils (%) (Auto) 93 % (31-73) H Lymphocytes (%) (Auto) 4 % (24-48) L Monocytes (%) (Auto) 3 % (0-9) Eosinophils (%) (Auto) 0 % (0-3) Basophils (%) (Auto) 0 % (0-3) Neutrophils # (Auto) 9.5 x10^3uL (1.8-7.7) H Lymphocytes # (Auto) 0.4 x10^3/uL (1.0-4.8) L Monocytes # (Auto) 0.3 x10^3/uL (0.0-1.1) Eosinophils # (Auto) 0.0 x10^3/uL (0.0-0.7) Basophils # (Auto) 0.0 x10^3/uL (0.0-0.2) Prothrombin Time 9.8 SEC (9.4-11.4) Prothrombin Time INR 1.0 (0.9-1.1) PTT 25 SEC (23-33) D-Dimer ([place]) 0.19 mg/L (0.00-0.50) Sodium Level 142 mmol/L (136-145) Potassium Level 4.2 mmol/L (3.5-5.1) Chloride Level 103 mmol/L (98-107) Carbon Dioxide Level 29 mmol/L (21-32) Anion Gap 10 (6-14) Blood Urea Nitrogen 8 mg/dL (7-20) Creatinine 0.9 mg/dL (0.6-1.0) Estimated GFR (Cockcroft-Gault) 64.3 Glucose Level 123 mg/dL (70-99) H Calcium Level 9.6 mg/dL (8.5-10.1) Magnesium Level 1.6 mg/dL (1.8-2.4) L Total Bilirubin 0.6 mg/dL (0.2-1.0) Direct Bilirubin 0.1 mg/dL (0.0-0.2) Aspartate Amino Transferase (AST) 30 U/L (15-37) Alanine Aminotransferase (ALT) 37 U/L (14-59) Alkaline Phosphatase 88 U/L (46-116) Creatine Kinase 178 U/L (26-192) Troponin I Quantitative < 0.017 ng/mL (0-0.055) SK-[id number]-[id number]-Type Natriuretic Peptide 205 pg/mL (0-124) H Total Protein 7.9 g/dL (6.4-8.2) Albumin 4.0 g/dL (3.4-5.0) Thyroid Stimulating Hormone (TSH) 0.869 uIU/mL (0.358-3.740) Microbiology 10/13/18 Blood Culture - Preliminary, Resulted NO GROWTH AFTER 2 DAYS... (RAYNE REN MD) EKG EKG [] (RAYNE REN MD) EKG EKG shows sinus tachycardia at 108 bpm, no ST elevation, normal axis, QTC of 441 ms. Interpreted by me at 0647 (VERN ELLISON DO) Radiology/Procedures Radiology/Procedures [] (RAYNE REN MD) Radiology/Procedures Chest x-ray shows no infiltrate, no effusion, no pneumothorax. Compared with 05/22/2018, no acute changes. (VERN ELLISON DO) Course & Med Decision Making Course & Med Decision Making Pertinent Labs and Imaging studies reviewed. (See chart for details) Pt. checked out to Dr. Ellison at shift change. He will make disposition of pt. [] (RAYNE REN MD) Course & Med Decision Making Dr. Ellison's note: Receive patient at 6 AM. Agree with previous H&P. After breathing treatments her breath sounds were clear to auscultation. Oxygen saturation 99% on room air. Patient reported feeling much better. Laboratory and x-ray findings were discussed with the patient voiced understanding. All questions were answered. Patient was discharged in improved condition. (VERN ELLISON DO) Final Impression Final Impression 1. Asthma Exacerbation 2. Schizophrenia 3. Bronchitis[] 4. History of delusions of toxic gases 5. History of Non-compliance (RAYNE REN MD) Problems: (1) Asthma exacerbation Qualifiers: Qualified Codes: J45.21 - Mild intermittent asthma with (acute) exacerbation (VERN ELLISON DO) Dragon Disclaimer Dragon Disclaimer This electronic medical record was generated, in whole or in part, using a voice recognition dictation system. (RAYNE REN MD) RAYNE REN MD Oct 13, 2018 05:55 VERN ELLISON DO Oct 13, 2018 07:11
[2018-10-13] MEDS ORDERED: IV RINGERS SOLUTION,LACTATED 1,000 ML IV SCH (06:30)
[2018-10-13] MEDS ORDERED: methylPREDNISolone SOD SUCC PF 125 MG/2 ML VIAL. IV ONE (06:30)
[2018-10-13] MEDS ORDERED: IPRATRPIUM/ALBUTEROL 0.5/2.5MG 3 ML NEBU. NEB ONE (06:30)
[2018-10-13 06:39] LABS: BASO % 0 % (0-3); EOS % 0 % (0-3); HEMOGLOBIN 14.2 g/dL (12.0-15.5); LYMPH # 0.4 x10^3/uL (1.0-4.8); LYMPH % 4 % (24-48); MEAN CORPUSCULAR HEMOGLOBIN 31 pg (25-35); MEAN CORPUSCULAR HGB CONC 34 g/dL (31-37); MEAN CORPUSCULAR VOLUME 90 fL (79-100); MONO # 0.3 x10^3/uL (0.0-1.1); MONO % 3 % (0-9); NEUT # 9.5 x10^3uL (1.8-7.7); NEUT % 93 % (31-73); PLATELET COUNT 220 x10^3/uL (140-400); RED BLOOD COUNT 4.65 x10^6/uL (3.50-5.40); RED CELL DISTRIBUTION WIDTH 14.3 % (11.5-14.5); WHITE BLOOD COUNT 10.2 x10^3/uL (4.0-11.0)
[2018-10-13 06:49] LABS: BACTERIA,URINE 0 /HPF (0-FEW); BILIRUBIN,URINE NEG (NEG); CLARITY,URINE CLEAR; COLOR,URINE YELLOW; GLUCOSE,URINE NEG (NEG); NITRITE,URINE NEG (NEG); RBC,URINE OCC /HPF (0-2); SQUAMOUS EPITHELIAL CELL,UR FEW /LPF; UROBILINOGEN,URINE 0.2 mg/dL (0.2 mg/dL); WBC,URINE OCC /HPF (0-4)
[2018-10-13 06:54] LABS: AMPHETAMINE/METHAMPHETAMINE NEG (NEG); BARBITURATES NEG (NEG); BENZODIAZEPINES NEG (NEG); CANNABINOIDS NEG (NEG); COCAINE NEG (NEG); METHADONE NEG (NEG); OPIATES NEG (NEG); PHENCYCLIDINE NEG (NEG)
[2018-10-13 07:04] LABS: CALCIUM 9.6 mg/dL (8.5-10.1); CREATININE 0.9 mg/dL (0.6-1.0); DIRECT BILIRUBIN 0.1 mg/dL (0.0-0.2); GFR 64.3; MAGNESIUM 1.6 mg/dL (1.8-2.4); POTASSIUM 4.2 mmol/L (3.5-5.1); TOTAL BILIRUBIN 0.6 mg/dL (0.2-1.0); TOTAL PROTEIN 7.9 g/dL (6.4-8.2)
[2018-10-13 07:09] VITALS: BP 118/57
[2018-10-13] MEDS ORDERED: ALBU2.5V8 INH (07:14)
[2018-10-13] MEDS ORDERED: PRED50TA PO (07:14)
--- NOTE | 2018-10-13 08:01 | RAD ---
CHEST PA LATERAL History: DYSPNEA, COUGH Comparison: 05/22/2018 two-view chest x-ray exam. Findings: The cardiomediastinal silhouette is normal. Pulmonary vasculature is normal. The lungs are clear. No pleural effusion or pneumothorax is seen. There is no acute bone abnormality. IMPRESSION: No acute cardiopulmonary process. Electronically signed by: Quique Rodarte MD (10/13/2018 7:59 AM) [facility]
--- NOTE | 2018-10-13 16:39 | EKG ---
[address] [address] Test Date: 2018-10-13 Test Time: 06:45:36 Pat Name: MATEO RODRIGUEZ Department: Room: Gender: F Pocket Marker: FUNMILAYO : 1960 Requested By: RAYNE REN Order Number: [id number] Reading MD: William George Measurements Intervals [place] Rate: 108 P: 59 [place]: 134 QRS: 56 QRSD: 78 T: 23 QT: 326 QTc: 441 Interpretive Statements SINUS TACHYCARDIA NONSPECIFIC ST-T WAVE CHANGES. Electronically Signed On 10-19-2018 11:48:57 CDT by William George
== END 2018-10-13 07:45 | disposition home or self-care (01) ==
LOC: ER 05:48
DX: J45.21 Mild intermittent asthma with (acute) exacerbation (principal); F20.9 Schizophrenia, unspecified; Z88.2 Allergy status to sulfonamides
CPT/HCPCS: 36415; 71046; 80048; 80076; 80307; 81001; 82550; 83735; 83880; 84443; 84484; 85025; 85379; 85610; 85730; 87040; 93005; 94640; 96374; 99285; J2930; J7120; J7620

== ENCOUNTER 2019-02-24 10:44 | Emergency (ER) | payer SELFPAY ==
[~2019-02-24] VITALS: Ht 154.9 cm; Wt 81.0 kg
[2019-02-24] MEDS ORDERED: IPRATRPIUM/ALBUTEROL 0.5/2.5MG 3 ML NEBU. NEB ONE (11:15)
[2019-02-24 11:19] VITALS: BP 110/49
[2019-02-24] MEDS ORDERED: DOXY100C2 PO (11:20)
--- NOTE | 2019-02-24 11:29 | RAD ---
Chest, PA and Lateral: Technique: PA and lateral views of the chest were obtained. History: Cough. Comparison: None. Findings: The heart and pulmonary vasculature appear within normal limits. Minimal right lung base atelectasis or infiltrate.. The pleural margins are clear. Impression: Minimal right lung base atelectasis or infiltrate.. Electronically signed by: Tiburcio Patel MD (02/24/2019 11:26 AM) [place] [id number]
[2019-02-24] MEDS ORDERED: ALBUTEROL SULFATE 2.5 MG/3 ML NEBU. NEB ONE (11:30)
--- NOTE | 2019-02-24 12:02 | PHYS DOC ---
Past History Past Medical History: Asthma Additional Past Medical Histor: psychosis Past Surgical History: Tonsillectomy, Other Additional Past Surgical Histo: EAR SURGERY Alcohol Use: None Drug Use: None Adult General Chief Complaint Chief Complaint: SHORTNESS OF BREATH HPI HPI Patient is a 58 yo f sob cough yellow sputum no fever went to [place] last night got neb and prednisone still having wheezing and cough wants a nebulizer for home symptoms moderate Review of Systems Review of Systems Constitutional: Denies fever or chills [] Eyes: Denies change in visual acuity, redness, or eye pain [] HENT: Denies nasal congestion or sore throat [] Respiratory: Denies cough or shortness of breath [] Cardiovascular: No additional information not addressed in HPI [] GI: Denies abdominal pain, nausea, vomiting, bloody stools or diarrhea [] : Denies dysuria or hematuria [] Musculoskeletal: Denies back pain or joint pain [] Integument: Denies rash or skin lesions [] Neurologic: Denies headache, focal weakness or sensory changes [] Endocrine: Denies polyuria or polydipsia [] All other systems were reviewed and found to be within normal limits, except as documented in this note. Current Medications Current Medications Current Medications Medications (Trade) Dose Ordered Sig/Shaunna Start Time Stop Time Status Last Admin Dose Admin Albuterol Sulfate (Ventolin) 2.5 mg 1X ONCE 02/24/19 11:30 02/24/19 11:31 DC 02/24/19 11:18 2.5 MG Albuterol/ Ipratropium (Duoneb) 3 ml 1X ONCE 02/24/19 11:15 02/24/19 11:17 DC 02/24/19 11:08 3 ML Allergies Allergies Allergies Coded Allergies Type Severity Reaction Last Updated Verified Sulfa (Sulfonamide Antibiotics) Allergy Intermediate 02/24/19 No Physical Exam Physical Exam Constitutional: Well developed, well nourished, no acute distress, non-toxic appearance. [] HENT: Normocephalic, atraumatic, bilateral external ears normal, oropharynx moist, no oral exudates, nose normal. [] Eyes: PERRLA, EOMI, conjunctiva normal, no discharge. [] Neck: Normal range of motion, no tenderness, supple, no stridor. [] Cardiovascular:Heart rate regular rhythm, no murmur [] Lungs & Thorax: pt speaking full sentences. wheezing mild. no rhonchi Abdomen: Bowel sounds normal, soft, no tenderness, no masses, no pulsatile mass es. [] Skin: Warm, dry, no erythema, no rash. [] Back: No tenderness, no CVA tenderness. [] Extremities: No tenderness, no cyanosis, no clubbing, ROM intact, no edema. [] Neurologic: Alert and oriented X 3, normal motor function, normal sensory function, no focal deficits noted. [] Psychologic: Affect normal, judgement normal, mood normal. [] Current Patient Data Vital Signs Vital Signs Date Time Temp Pulse Resp B/P (MAP) Pulse Ox O2 Delivery O2 Flow Rate FiO2 02/24/19 11:19 89 18 110/49 (69) 97 02/24/19 10:51 97.7 Room Air EKG EKG [] Radiology/Procedures Radiology/Procedures [] Impressions: Findings: The heart and pulmonary vasculature appear within normal limits. Minimal right lung base atelectasis or infiltrate.. The pleural margins are clear. Impression: Minimal right lung base atelectasis or infiltrate.. Electronically signed by: Tiburcio Patel MD (02/24/2019 11:26 AM) [facility] DICTATED AND SIGNED BY: TIBURCIO PATEL MD DATE: 02/24/191125 CC: PEPITO DAWKINS MD; PCP,NO ~ Course & Med Decision Making Course & Med Decision Making Pertinent Labs and Imaging studies reviewed. (See chart for details) []58 yo f hx of asthma, well apperaing mild wheezing sat'ing well faint wheezing on reeval but no resp distress able to ambulate appears ok fro outpt mgmt noted xray will give abx, in case, mild finding overall. Dragon Disclaimer Dragon Disclaimer This electronic medical record was generated, in whole or in part, using a voice recognition dictation system. Departure Departure: Impression: Primary Impression: Asthma exacerbation Disposition: 01 HOME/RESIDENCE PRIOR TO ADM Condition: STABLE Referrals: PCP,NO (PCP) Patient Instructions: Asthma, Adult, [id number] Scripts Doxycycline Hyclate (DOXYCYCLINE HYCLATE) 100 Mg Capsule 1 CAP PO BID for bronchitis, #14 CAP Prov: PEPITO DAWKINS MD 02/24/19 PEPITO DAWKINS MD Feb 24, 2019 12:02
[2019-02-28] MEDS ORDERED: PRED20TA PO (14:26)
[2019-02-28] MEDS ORDERED: AZIT250T PO (14:26)
== END 2019-02-24 11:51 | disposition home or self-care (01) ==
LOC: ER 10:44
DX: J45.901 Unspecified asthma with (acute) exacerbation (principal); Z88.2 Allergy status to sulfonamides
CPT/HCPCS: 71046; 94640; 99284; J7613; J7620

== ENCOUNTER 2019-02-25 08:40 | Inpatient (IN) | payer SELFPAY ==
[~2019-02-25] VITALS: Ht 154.9 cm; Wt 79.4 kg
[~2019-02-25 08:40] MED LIST changes: +DOXY100C2 PO
[2019-02-25 09:18] LABS: BASO % 0 % (0-3); EOS % 0 % (0-3); HEMATOCRIT 42.2 % (36.0-47.0); HEMOGLOBIN 13.9 g/dL (12.0-15.5); LYMPH # 1.4 x10^3/uL (1.0-4.8); LYMPH % 11 % (24-48); MEAN CORPUSCULAR HEMOGLOBIN 30 pg (25-35); MEAN CORPUSCULAR HGB CONC 33 g/dL (31-37); MEAN CORPUSCULAR VOLUME 91 fL (79-100); MONO # 1.1 x10^3/uL (0.0-1.1); MONO % 8 % (0-9); NEUT # 10.6 x10^3uL (1.8-7.7); NEUT % 81 % (31-73); PLATELET COUNT 240 x10^3/uL (140-400); RED BLOOD COUNT 4.62 x10^6/uL (3.50-5.40); RED CELL DISTRIBUTION WIDTH 13.8 % (11.5-14.5); WHITE BLOOD COUNT 13.1 x10^3/uL (4.0-11.0)
--- NOTE | 2019-02-25 09:24 | ED.ADGEN ---
Past History Past Medical History: Anxiety, Asthma, COPD, Depression Additional Past Medical Histor: psychosis Past Surgical History: No Surgical History Additional Past Surgical Histo: EAR SURGERY Alcohol Use: None Drug Use: None Adult General Chief Complaint Chief Complaint Asthma exacerbation HPI HPI Patient is a 58-year-old female with history of asthma who presents with her third ER visit in 3 days with persistent asthma exacerbation despite steroids, antibiotics and breathing tx. Patient is taking prednisone for the past 3 days and started on Zithromax yesterday. States she has increased shortness of breath and wheezing. Her O2 saturation is 90% on room air. No fever, shills, sweat. Review of Systems Review of Systems ROS as per HPI. All other systems were reviewed and found to be within normal limits, except as documented in this note. Allergies Allergies Allergies Coded Allergies Type Severity Reaction Last Updated Verified Sulfa (Sulfonamide Antibiotics) Allergy Intermediate 02/24/19 No Physical Exam Physical Exam Constitutional: Well developed, well nourished, no acute distress, non-toxic appearance. [] HENT: Normocephalic, atraumatic, bilateral external ears normal, oropharynx moist, no oral exudates, nose normal. [] Eyes: PERRLA, EOMI, conjunctiva normal, no discharge. [] Neck: Normal range of motion, no tenderness, supple, no stridor. [] Cardiovascular:Heart rate regular rhythm, no murmur [] Lungs & Thorax: [] Abdomen: Bowel sounds normal, soft, no tenderness.[] Skin: Warm, dry, no erythema, no rash. [] Back: No tenderness, no CVA tenderness. [] Extremities: No tenderness, no cyanosis, no clubbing, ROM intact, no edema. [] Neurologic: Alert and oriented X 3, normal motor function, normal sensory function, no focal deficits noted. [] Psychologic: Affect normal, judgement normal, mood normal. [] Current Patient Data Vital Signs Vital Signs Date Time Temp Pulse Resp B/P (MAP) Pulse Ox O2 Delivery O2 Flow Rate FiO2 02/25/19 08:54 98.1 107 20 93 Nasal Cannula 2.0 EKG EKG [EKG: Normal sinus rhythm.] Radiology/Procedures Radiology/Procedures [CXR: R sided infiltrate] Course & Med Decision Making Course & Med Decision Making Pertinent Labs and Imaging studies reviewed. (See chart for details) [Moderate persistent asthma exacerbation with hypoxia despite 3 days of. Therap y, acute bronchitis/pneumonia noted on x-ray dated 02/24/19. Will admit for further treatment.] Final Impression Final Impression [1 acute respiratory failure with hypoxia ]2. Moderate persistent asthma exacerbation. 3. Pneumonia Dragon Disclaimer Dragon Disclaimer This electronic medical record was generated, in whole or in part, using a voice recognition dictation system. BERTA OLIVER DO Feb 25, 2019 09:24
--- NOTE | 2019-02-25 09:27 | RAD ---
AP portable chest radiograph 02/25/2019 Clinical History: Chest pain. An AP erect portable digital radiograph of the chest was obtained. Comparison study is dated 02/24/2019. The cardiac silhouette is normal in size. The thoracic aorta is minimally tortuous. No acute pulmonary infiltrate is seen. No pleural effusion or pneumothorax is noted. The osseous structures are unchanged. Impression: No acute abnormality is seen. Electronically signed by: Manny Keys MD (02/25/2019 9:25 AM) [facility]
[2019-02-25 09:29] LABS: ALBUMIN 3.9 g/dL (3.4-5.0); CALCIUM 9.2 mg/dL (8.5-10.1); CREATININE 1.1 mg/dL (0.6-1.0); GFR 50.8; POTASSIUM 3.6 mmol/L (3.5-5.1); TOTAL BILIRUBIN 0.4 mg/dL (0.2-1.0)
[2019-02-25] MEDS ORDERED: IPRATRPIUM/ALBUTEROL 0.5/2.5MG 3 ML NEBU. NEB ONE (09:45)
[2019-02-25] MEDS ORDERED: methylPREDNISolone SOD SUCC PF 125 MG/2 ML VIAL. IV ONE (09:45)
[2019-02-25] MEDS ORDERED: ONDANSETRON PF 4 MG/2 ML VIAL. IV PRN (10:15)
[2019-02-25] MEDS ORDERED: methylPREDNISolone SOD SUCC PF 125 MG/2 ML VIAL. IV SCH (10:15)
[2019-02-25] MEDS ORDERED: AZITHROMYCIN 250 MG TABLET. PO ONE (10:15)
[2019-02-25 10:31] LABS: BGAS PH 7.43 (7.35-7.45)
[2019-02-25 11:26] VITALS: BP 118/72
[2019-02-25 11:31] LABS: TOTAL PROTEIN 7.9 g/dL (6.4-8.2)
[2019-02-25] MEDS: IPRATRPIUM/ALBUTEROL 0.5/2.5MG 3 ML NEBU. NEB SCH ×3 (12:21→20:43)
--- NOTE | 2019-02-25 12:40 | HP ---
ADMIT DATE: 02/25/2019 HISTORY OF PRESENT ILLNESS: The patient is a 58-year-old female patient who [facility] [place] [facility] and who basically came to the Emergency Room, complaining of shortness of breath, cough with yellowish sputum. She was apparently seen at [facility] and was started on steroids and Zithromax without much improvement. By the time she arrived to the Emergency Room, her oxygen saturation was only 90% on room air and continued to have marked chest tightness and wheezing and therefore, a decision was made to admit her for inpatient treatment of her asthma exacerbation. The patient denied any chest pain, denied any chills, rigors or fever. PAST MEDICAL HISTORY: Significant for bronchial asthma/COPD, has anxiety and depression as well as questionable hypothyroidism, severe sensorineural deafness and possible schizophrenia. PAST SURGICAL HISTORY: Significant for tonsillectomy, adenoidectomy, ear surgery, left ovarian cyst, and left breast biopsy. ALLERGIES: She is allergic to SULFA DRUGS. FAMILY HISTORY: She has one brother who at the age of 59 because of lung cancer. Her sister also diagnosed with lung cancer at the age of 53. Her father at the age of 73 because of lung cancer and mother at age of 78 because of lung cancer. SOCIAL HISTORY: She is single, never , has no children. She does not smoke, drink alcohol or use any recreational drugs. She used to work at [employer] and apparently has worked for [employer] for almost 26 years. MEDICATIONS: She is currently on following medications: She is on doxycycline 100 mg twice a day, albuterol sulfate 2 puffs every 6 hours, prednisone 50 mg daily, prednisone in a tapering fashion. PHYSICAL EXAMINATION: GENERAL: On arrival to the Emergency Room, the patient looked slightly tachypneic, but there is no pallor, jaundice, cyanosis or thyromegaly. No jugular venous distention. No limb edema. VITAL SIGNS: Her heart rate was 107, blood pressure was 118/72, temperature was 98.1, respiratory rate 20, and oxygen saturation was 93%. HEAD, EYES, EARS, NOSE AND THROAT: Showed normocephalic, atraumatic. NECK: Supple. HEART: Showed normal first and second heart sounds. No gallop or murmur. CHEST: Shows central trachea, equal bilateral expansion, air entry, vesicular sounds with bilateral scattered rhonchi. I could not appreciate any crepitation. ABDOMEN: Distended, soft, nontender. NEUROLOGIC: She is awake, alert, responding appropriately. All cranial nerves intact. EXTREMITIES: She moves extremities without difficulty. She ambulates without assistance or assistive devices. LABORATORY DATA: Her lab work showed a white cell count of 13,100, hemoglobin 13.9, hematocrit 42, MCV 91, and platelet count 240,000 with normal manual differential. Her chemistry showed a serum sodium of 141, potassium 3.6, chloride 103, bicarbonate 28, anion gap of 10, BUN 14, creatinine 1.1, estimated GFR was 50 mL per minute. Her glucose was 83. Lactic acid was 1.3, calcium was 9.2. Total bilirubin, AST, ALT, alkaline phosphatase were normal. Total protein 7.9, albumin 3.9. Her D-dimer was only 0.43. Blood gases showed a pH of 7.43, pCO2 of 38, pO2 of 68, bicarbonate 25, and oxygen saturation was 94%. Her chest x-ray showed that the cardiac silhouette is normal in size. Thoracic aorta is minimally tortuous. No acute pulmonary infiltrate is seen. No pleural effusion, no pneumothorax noted. Osseous structures are unchanged. ASSESSMENT AND PLAN: The patient was admitted with acute asthma exacerbation. Continue with Zithromax. Continue with steroids, ipratropium bromide. I will add Pulmicort and Singulair and we will follow her closely on a daily basis. PRINCE WITT MD DR: BARBARA/miladys JOB#: [id number] / [id number]
[2019-02-25] MEDS: methylPREDNISolone SOD SUCC PF 125 MG/2 ML VIAL. IV SCH ×3 (12:58→20:24)
[2019-02-25 15:08] VITALS: BP 113/68
[2019-02-25 18:42] VITALS: BP 133/74
[2019-02-25] MEDS ORDERED: ACETAMINOPHEN 325 MG TABLET PO ONE (19:00)
[2019-02-25] MEDS: MONTELUKAST 10 MG TABLET. PO SCH (20:24)
[2019-02-25] MEDS: BUDESONIDE 0.5 MG/2 ML NEBU NEB SCH (20:42)
[2019-02-25 23:50] VITALS: BP 128/78
[2019-02-26] MEDS: IPRATRPIUM/ALBUTEROL 0.5/2.5MG 3 ML NEBU. NEB SCH ×2 (05:27→09:59)
[2019-02-26 07:02] LABS: HEMATOCRIT 40.3 % (36.0-47.0); HEMOGLOBIN 13.4 g/dL (12.0-15.5); RED BLOOD COUNT 4.47 x10^6/uL (3.50-5.40); WHITE BLOOD COUNT 7.4 x10^3/uL (4.0-11.0)
[2019-02-26 07:23] LABS: ALBUMIN 3.5 g/dL (3.4-5.0); ALBUMIN/GLOBULIN RATIO 0.9 (1.0-1.7); CALCIUM 8.9 mg/dL (8.5-10.1); CREATININE 0.8 mg/dL (0.6-1.0); GFR 73.4; POTASSIUM 3.8 mmol/L (3.5-5.1); TOTAL BILIRUBIN 0.4 mg/dL (0.2-1.0); TOTAL PROTEIN 7.4 g/dL (6.4-8.2)
[2019-02-26 07:27] VITALS: BP 114/70
[2019-02-26] MEDS: methylPREDNISolone SOD SUCC PF 125 MG/2 ML VIAL. IV SCH ×4 (07:52→20:50)
[2019-02-26] MEDS: AZITHROMYCIN 250 MG TABLET. PO SCH (07:53)
[2019-02-26] MEDS: LACTOBACILLUS RHAMNOSUS GG 1 CAPSULE. PO SCH ×2 (08:32→20:50)
[2019-02-26] MEDS: BUDESONIDE 0.5 MG/2 ML NEBU NEB SCH ×2 (09:58→21:33)
[2019-02-26 10:58] VITALS: BP 134/71
[2019-02-26] MEDS: ACETAMINOPHEN 325 MG TABLET PO PRN (14:51)
[2019-02-26 15:21] VITALS: BP 110/74
[2019-02-26 19:51] VITALS: BP 112/69
[2019-02-26] MEDS: MONTELUKAST 10 MG TABLET. PO SCH (20:50)
--- NOTE | 2019-02-26 23:29 | PN ---
DATE: 02/26/2019 SUBJECTIVE: The patient is resting, slightly propped up in bed, continued to be slightly tachypneic, continued to have marked chest tightness and wheezing. PHYSICAL EXAMINATION: GENERAL: When I examined her, she looked somewhat flushed with no pallor, jaundice, cyanosis or thyromegaly. No jugular venous distention. No limb edema. VITAL SIGNS: Her heart rate was 107, blood pressure was 134/71, temperature was 98, respiratory rate 20, and oxygen saturation was 93% on 4 liters of oxygen. HEAD, EYES, EARS, NOSE AND THROAT: Showed normocephalic, atraumatic. NECK: Supple. HEART: Showed normal first and second heart sounds. No gallop or murmur. CHEST: Shows central trachea, equal bilateral expansion, air entry, vesicular sounds with bilateral scattered rhonchi and wheezing both sides. I could not appreciate any crepitation. ABDOMEN: Distended, soft, nontender. NEUROLOGIC: She is awake, alert, responding appropriately. All cranial nerves intact. She moves extremities without difficulty. Her intake and output are incompletely recorded. LABORATORY DATA: Showed a white cell count is down to 7,400, hemoglobin 13, hematocrit 40, MCV 90 and platelet count 253,000. Her chemistry showed a serum sodium of 140, potassium 3.8, chloride 104, bicarbonate 26, anion gap of 10, BUN 12, creatinine 0.8, estimated GFR was 73 mL per minute. Her glucose 128, calcium was 8.9. Total bilirubin, AST, ALT, alkaline phosphatase were normal. Total protein was 7.4, albumin 3.5. Her TSH was normal at 0.463. ASSESSMENT: 1. Acute asthma exacerbation. Continue with IV steroids, IV Zithromax as well as bronchodilators. 2. Other medical problems include anxiety and depression, severe sensorineural deafness and possible schizophrenia. PRINCE WITT MD DR: BARBARA/miladys JOB#: [id number] / [id number]
[2019-02-26 23:30] VITALS: BP 136/70
--- NOTE | 2019-02-27 03:38 | EKG ---
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
[2019-02-27 05:50] LABS: HEMATOCRIT 38.7 % (36.0-47.0); HEMOGLOBIN 12.9 g/dL (12.0-15.5); RED BLOOD COUNT 4.27 x10^6/uL (3.50-5.40); RED CELL DISTRIBUTION WIDTH 13.9 % (11.5-14.5); WHITE BLOOD COUNT 10.1 x10^3/uL (4.0-11.0)
[2019-02-27 06:05] LABS: CALCIUM 8.6 mg/dL (8.5-10.1); CREATININE 0.8 mg/dL (0.6-1.0); GFR 73.4; POTASSIUM 4.1 mmol/L (3.5-5.1)
[2019-02-27 06:27] VITALS: BP 126/71
[2019-02-27] MEDS: BUDESONIDE 0.5 MG/2 ML NEBU NEB SCH ×2 (09:17→21:16)
[2019-02-27] MEDS: methylPREDNISolone SOD SUCC PF 125 MG/2 ML VIAL. IV SCH ×3 (09:58→20:26)
[2019-02-27] MEDS: AZITHROMYCIN 250 MG TABLET. PO SCH (09:58)
[2019-02-27] MEDS: LACTOBACILLUS RHAMNOSUS GG 1 CAPSULE. PO SCH ×2 (09:58→20:26)
[2019-02-27] MEDS: ACETAMINOPHEN 325 MG TABLET PO PRN ×2 (11:12→20:26)
[2019-02-27 11:18] VITALS: BP 123/69
--- NOTE | 2019-02-27 14:05 | RAD ---
CHEST PA LATERAL History: Worsening shortness of breath Comparison: February 25, 2019; February 24, 2019 Findings: 2 views of the chest are submitted. As seen on the March 06, 2019 exam, there is mild right base airspace opacity likely in the right lower lobe. There is no dependent pleural fluid or pneumothorax. Heart size is stable. Impression: 1. There is again mild right lower lobe atelectasis or infiltrate. Electronically signed by: Ruben Elmore MD (02/27/2019 2:02 PM) [id number]
[2019-02-27 14:28] VITALS: BP 109/66
[2019-02-27 18:27] VITALS: BP 113/69
[2019-02-27] MEDS: MONTELUKAST 10 MG TABLET. PO SCH (20:26)
[2019-02-27 22:05] VITALS: BP 129/77
--- NOTE | 2019-02-27 23:07 | PN ---
DATE: 02/27/2019 SUBJECTIVE: The patient is resting slightly propped up in bed, continued to have a complaint of cough with yellowish sputum. Continued to have chest tightness and wheezing. PHYSICAL EXAMINATION: GENERAL: When I examined her, she was sitting propped up in bed. No pallor, jaundice, cyanosis or thyromegaly. No jugular venous distension. No lower limb edema. VITAL SIGNS: Her heart rate was 64, blood pressure was 126/71, temperature was 98, respiratory rate was 18 and oxygen saturation was 93% on room air. HEAD, EYES, EARS, NOSE AND THROAT: Showed normocephalic, atraumatic. NECK: Supple. HEART: Showed normal first and second heart sounds with no gallop or murmur. CHEST: Clear to auscultation. No crepitation or rhonchi. ABDOMEN: Distended, soft, nontender. No guarding or rigidity. No organomegaly. All hernial orifices intact. Bowel sounds normal. NEUROLOGIC: She was awake, alert, responding appropriately. All cranial nerves intact. She moves extremities without difficulty. She ambulates without assistance or assistive devices. Her intake was 1300, no output was recorded. LABORATORY DATA: As of this morning, her white cell count is down to 10,000, hemoglobin 13, hematocrit 37, MCV 91, and platelet count 255,000. Her serum sodium was 140, potassium 4.1, chloride 106, bicarbonate 26, anion gap of 8, BUN 13, creatinine 0.8, estimated GFR was 73 mL per minute, his glucose 136, calcium was 8.6. D-dimer was only 0.43. His blood gases showed that her pO2 was 68. So far, her blood cultures showed no growth. ASSESSMENT: 1. Acute hypoxic respiratory failure. 2. Acute asthma exacerbation. PLAN: My plan is to repeat another chest x-ray as she has audible crackles on the right side posteriorly. She continued to have cough with whitish to yellowish sputum. Continued to have marked wheezing on both sides. Although the wheezing is slightly better than before, so I cut down steroids to 3 times a day. Repeat her chest x-ray today and hopefully, if improved tomorrow, she can be discharged home on a tapering course of steroids. PRINCE WITT MD DR: BARBARA/miladys JOB#: [id number] / [id number]
[2019-02-28 06:20] VITALS: BP 131/78
[2019-02-28] MEDS: BUDESONIDE 0.5 MG/2 ML NEBU NEB SCH ×2 (08:00→11:21)
[2019-02-28] MEDS: methylPREDNISolone SOD SUCC PF 125 MG/2 ML VIAL. IV SCH ×2 (09:09→13:23)
[2019-02-28] MEDS: AZITHROMYCIN 250 MG TABLET. PO SCH (09:09)
[2019-02-28] MEDS: LACTOBACILLUS RHAMNOSUS GG 1 CAPSULE. PO SCH (09:09)
[2019-02-28 10:45] VITALS: BP 139/84
[2019-02-28] MEDS: ACETAMINOPHEN 325 MG TABLET PO PRN (13:23)
[2019-02-28] MEDS ORDERED: PRED20TA PO (14:26)
[2019-02-28] MEDS ORDERED: AZIT250T PO (14:26)
--- NOTE | 2019-02-28 21:10 | DS ---
DATE OF DISCHARGE: 02/28/2019 HOSPITAL COURSE: The patient is a 58-year-old female patient who was admitted with shortness of breath, hypoxia, cough with yellow sputum. She was seen at [facility] and started on steroids and Zithromax without much improvement. By the time she arrived to the Emergency Room, she was hypoxic, marked chest tightness and wheezing; therefore, decision was made to admit her for inpatient treatment for asthma exacerbation. She was started on IV steroids as well as IV Zithromax and bronchodilator and she did actually very well. She is now maintaining her oxygen saturation at 94% on room air. Most of the wheezing has re-subsided. PHYSICAL EXAMINATION: GENERAL: When I examined her, she looked well and was clearly in no apparent respiratory distress. No pallor, jaundice, cyanosis or thyromegaly. No jugular venous distention. No limb edema. VITAL SIGNS: Her heart rate was 72, blood pressure was 139/84, temperature was 98.2, respiratory rate 20 and oxygen saturation was 94% on room air. HEAD, EYES, EARS, NOSE AND THROAT: Showed normocephalic, atraumatic. NECK: Supple. HEART: Showed normal first and second heart sounds with no gallop or murmur. CHEST: Shows central trachea, equal bilateral expansion, air entry. I could not appreciate any crepitation. She has very few scattered rhonchi, mostly on the right side posteriorly. ABDOMEN: Distended, soft, nontender. NEUROLOGIC: She is awake, alert, responding appropriately. All cranial nerves intact. EXTREMITIES: She moves extremities without difficulty. She ambulates without assistance or assistive devices. LABORATORY DATA: Showed a white cell count of 10,000, hemoglobin 13, hematocrit 39, MCV 91 and platelet count 255,000. Her serum sodium was 140, potassium 4.1, chloride 106, bicarbonate 26, anion gap of 8, BUN 13, creatinine 0.8, estimated GFR was 73 mL per minute. Her glucose 136, calcium was 8.6. Her TSH was 0.463. D-dimer was 0.43 mg/dL. DISCHARGE MEDICATIONS: She was discharged home to continue on albuterol inhaler 2 puffs 4 times a day, azithromycin 250 mg daily for 5 days and prednisone 40 mg once a day for 3 days, 30 mg once a day for 3 days, 20 mg once a day for 3 days and 10 mg once a day for 3 days. FINAL DISCHARGE DIAGNOSES: 1. Acute hypoxic respiratory failure, resolved. She is now maintaining her oxygen saturation at 94% on room air. 2. Acute asthma exacerbation, resolved. 3. Other medical problems include anxiety, depression, hypothyroidism, sensorineural deafness and schizophrenia. She is actually homeless. She was given prescription to go to [facility] to assist with her medications. PRINCE WITT MD DR: BARBARA/miladys JOB#: [id number] / [id number]
== END 2019-02-28 16:33 | disposition home or self-care (01) | DRG 193 ==
LOC: ER 08:40 → 1 SOUTH 10:54
PROVIDERS: ADMIT Internal Medicine; ATTEND Internal Medicine
DX: J18.9 Pneumonia, unspecified organism (principal); J96.01 Acute respiratory failure with hypoxia; J45.41 Moderate persistent asthma with (acute) exacerbation; E03.9 Hypothyroidism, unspecified; F20.9 Schizophrenia, unspecified; F32.9 Major depressive disorder, single episode, unspecified; F41.9 Anxiety disorder, unspecified; H90.5 Unspecified sensorineural hearing loss; J44.9 Chronic obstructive pulmonary disease, unspecified; Z59.0 Homelessness; Z80.1 Family history of malignant neoplasm of trachea, bronchus and lung; Z88.2 Allergy status to sulfonamides
CPT/HCPCS: 36415; 36600; 71045; 71046; 80048; 80053; 82803; 82947; 83605; 84443; 84484; 85025; 85027; 85379; 87040; 87641; 93005; 94640; 96374; J0456; J2930; J7620; J7626; 99285-25

== ENCOUNTER 2019-03-31 17:56 | Emergency (ER) | payer SELFPAY ==
--- NOTE | 2019-03-31 17:59 | ED.ADGEN ---
Past History Past Medical History: Anxiety, Asthma, COPD, Depression, Schizophrenia Additional Past Medical Histor: psychosis Past Surgical History: No Surgical History Additional Past Surgical Histo: EAR SURGERY Alcohol Use: None Drug Use: None Adult General Chief Complaint Chief Complaint ".. I just feeling really fatigued... just really tired.. I have been keeping my [facility] ups [facility]... currently I m staying in the care home. " I just need to be checked out..." HPI HPI Patient is a 58 year old female who presents with above hx and complaints of generalize fatigue. Pt. is know for prior ED visits for Asthma exacerbation and somatic complaints related to her Schizophrenia. Patient has history of noncompliance. Pt. Previously worked for [employer] for 36 yrs.. until disabled with her schizoaffective disorder. Pt. has hx of Paranoid delusions . Pt. has marked hx of Dysosmia and Hyper sensitivity to aromas. These olfactory hallucinations are most likely related to her schizoaffective disorder or atypical seizure. Tonight odors are irritation to her, but states they are not currently markedly exacerbated. Pt. reports some wheezing but does not feel she is in acute exacerbation. Pt. currently does not have a MDI. Pt. does agree to some lab work tonight, which she has refused on previous evaluation. Pt. agrees not to leave AMA and stay until results can be obtained. Patient does report she has been compliant with her medications and going to counseling center. Patient denies any immunosuppression, travel or specific ill contacts. Patient has hx of insomnia last few days, but reports it is always a problem when she sleeps in the care home. Patient denies any fever or chills. Patient denies any suicidal ideation or homicidal ideation. Patient reports some halluc inations but no significant exacerbation. Pt. does have hx of Depression and anxiety disorder. Overall pt. on lst impression pt. seems to emotionally stable as compared to previous ED visits. Review of Systems Review of Systems Constitutional: Denies fever or chills [] Eyes: Denies change in visual acuity, redness, or eye pain [] HENT: Denies nasal congestion or sore throat [] Respiratory: Denies cough or shortness of breath [] Cardiovascular: No additional information not addressed in HPI [] GI: Denies abdominal pain, nausea, vomiting, bloody stools or diarrhea [] : Denies dysuria or hematuria [] Musculoskeletal: Denies back pain or joint pain [] Integument: Denies rash or skin lesions [] Neurologic: Denies headache, focal weakness or sensory changes [] Endocrine: Denies polyuria or polydipsia [] All other systems were reviewed and found to be within normal limits, except as documented in this note. Family History Family History Noncontributory Current Medications Current Medications Current Medications Medications (Trade) Dose Ordered Sig/Shaunna Start Time Stop Time Status Last Admin Dose Admin Albuterol Sulfate (Ventolin Hfa Inhaler) 2 puff 1X ONCE 03/31/19 18:45 03/31/19 18:46 DC 03/31/19 19:00 2 PUFF Allergies Allergies Allergies Coded Allergies Type Severity Reaction Last Updated Verified Sulfa (Sulfonamide Antibiotics) Allergy Intermediate 02/24/19 No Physical Exam Physical Exam Constitutional: , no acute distress, non-toxic appearance. [] HENT: Normocephalic, atraumatic, bilateral external ears normal, oropharynx moist, no oral exudates, nose normal. [] Eyes: PERRLA, EOMI, conjunctiva normal, no discharge. [] Neck: Normal range of motion, no tenderness, supple, no stridor. [] Cardiovascular:Heart rate regular rhythm, no murmur [] Lungs & Thorax: Bilateral breath sounds equal at apexes with few scattered wheezes on auscultation [] Abdomen: Bowel sounds normal, soft, no tenderness, no masses, no pulsatile masses. [] Skin: Warm, dry, no erythema, no rash. [] Back: No tenderness, no CVA tenderness. [] Extremities: No tenderness, no cyanosis, no clubbing, ROM intact, no edema. [] Neurologic: Alert and oriented X 3, normal motor function, normal sensory function for her complaints of bad smells, no focal deficits noted. DTRs +2 patella and brachial. Patient is ambulatory without problems. Psychologic: Affect anxious, judgement normal, mood normal. [] Current Patient Data Vital Signs Vital Signs Date Time Temp Pulse Resp B/P (MAP) Pulse Ox O2 Delivery O2 Flow Rate FiO2 03/31/19 19:09 100 Room Air 03/31/19 18:04 97.6 81 18 Lab Results Laboratory Tests Test 03/31/19 18:45 03/31/19 19:10 Urine Collection Type Unknown Urine Color Yellow Urine Clarity Clear Urine pH 5.5 Urine Specific [place] 1.020 Urine Protein Neg (NEG-TRACE) Urine Glucose (UA) Neg mg/dL (NEG) Urine Ketones (Stick) Neg mg/dL (NEG) Urine Blood Neg (NEG) Urine Nitrite Neg (NEG) Urine Bilirubin Neg (NEG) Urine Urobilinogen Dipstick 0.2 mg/dL (0.2 mg/dL) Urine Leukocyte Esterase Neg (NEG) Urine RBC 0 /HPF (0-2) Urine WBC Occ /HPF (0-4) Urine Squamous Epithelial Cells Occ /LPF Urine Bacteria 0 /HPF (0-FEW) Urine Opiates Screen Neg (NEG) Urine Methadone Screen Neg (NEG) Urine Barbiturates Neg (NEG) Urine Phencyclidine Screen Neg (NEG) Urine Amphetamine/Methamphetamine Neg (NEG) Urine Benzodiazepines Screen Neg (NEG) Urine Cocaine Screen Neg (NEG) Urine Cannabinoids Screen Neg (NEG) Urine Ethyl Alcohol Neg (NEG) White Blood Count 4.9 x10^3/uL (4.0-11.0) Red Blood Count 4.31 x10^6/uL (3.50-5.40) Hemoglobin 13.6 g/dL (12.0-15.5) Hematocrit 41.0 % (36.0-47.0) Mean Corpuscular Volume 95 fL (79-100) Mean Corpuscular Hemoglobin 31 pg (25-35) Mean Corpuscular Hemoglobin Concent 33 g/dL (31-37) Red Cell Distribution Width 14.8 % (11.5-14.5) H Platelet Count 198 x10^3/uL (140-400) Neutrophils (%) (Auto) 45 % (31-73) Lymphocytes (%) (Auto) 45 % (24-48) Monocytes (%) (Auto) 8 % (0-9) Eosinophils (%) (Auto) 2 % (0-3) Basophils (%) (Auto) 1 % (0-3) Neutrophils # (Auto) 2.2 x10^3uL (1.8-7.7) Lymphocytes # (Auto) 2.2 x10^3/uL (1.0-4.8) Monocytes # (Auto) 0.4 x10^3/uL (0.0-1.1) Eosinophils # (Auto) 0.1 x10^3/uL (0.0-0.7) Basophils # (Auto) 0.0 x10^3/uL (0.0-0.2) Sodium Level 142 mmol/L (136-145) Potassium Level 3.8 mmol/L (3.5-5.1) Chloride Level 104 mmol/L (98-107) Carbon Dioxide Level 29 mmol/L (21-32) Anion Gap 9 (6-14) Blood Urea Nitrogen 11 mg/dL (7-20) Creatinine 0.9 mg/dL (0.6-1.0) Estimated GFR (Cockcroft-Gault) 64.1 Glucose Level 90 mg/dL (70-99) Calcium Level 8.7 mg/dL (8.5-10.1) Troponin I Quantitative < 0.017 ng/mL (0-0.055) EKG EKG My interpretation EKG shows a sinus rhythm at 60 bpm. No findings acute STEMI of contralateral changes.[] Radiology/Procedures Radiology/Procedures [] Course & Med Decision Making Course & Med Decision Making Pertinent Labs and Imaging studies reviewed. (See chart for details) Pt. to [facility]. Pt. return if any concerns. [] Final Impression Final Impression 1. Complaints of Fatigue 2. Hx. Schizoaffective Disorder 3. Hx. Dysosmia 4. Hx. Anxiety 5. Hx. of Asthma Dragon Disclaimer Dragon Disclaimer This electronic medical record was generated, in whole or in part, using a voice recognition dictation system. Dragon Disclaimer This chart was dictated in whole or in part using Voice Recognition software in a busy, high-work load, and often noisy Emergency Department environment. It may contain unintended and wholly unrecognized errors or omissions. RAYNE REN MD Mar 31, 2019 17:59
[2019-03-31 18:04] VITALS: BP 125/65
[2019-03-31] MEDS ORDERED: ALBUTEROL SULFATE 8GM INHALER. INH ONE (18:45)
--- NOTE | 2019-03-31 18:47 | EKG ---
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
[2019-03-31 19:45] LABS: BASO % 1 % (0-3); EOS # 0.1 x10^3/uL (0.0-0.7); EOS % 2 % (0-3); HEMOGLOBIN 13.6 g/dL (12.0-15.5); LYMPH # 2.2 x10^3/uL (1.0-4.8); LYMPH % 45 % (24-48); MEAN CORPUSCULAR HEMOGLOBIN 31 pg (25-35); MEAN CORPUSCULAR HGB CONC 33 g/dL (31-37); MEAN CORPUSCULAR VOLUME 95 fL (79-100); MONO # 0.4 x10^3/uL (0.0-1.1); MONO % 8 % (0-9); NEUT # 2.2 x10^3uL (1.8-7.7); NEUT % 45 % (31-73); PLATELET COUNT 198 x10^3/uL (140-400); RED BLOOD COUNT 4.31 x10^6/uL (3.50-5.40); RED CELL DISTRIBUTION WIDTH 14.8 % (11.5-14.5); WHITE BLOOD COUNT 4.9 x10^3/uL (4.0-11.0)
[2019-03-31 19:49] LABS: CALCIUM 8.7 mg/dL (8.5-10.1); CREATININE 0.9 mg/dL (0.6-1.0); GFR 64.1; POTASSIUM 3.8 mmol/L (3.5-5.1)
[2019-03-31 19:51] LABS: BARBITURATES NEG (NEG); BENZODIAZEPINES NEG (NEG); CANNABINOIDS NEG (NEG); COCAINE NEG (NEG); METHADONE NEG (NEG); OPIATES NEG (NEG); PHENCYCLIDINE NEG (NEG)
[2019-03-31 19:52] LABS: AMPHETAMINE/METHAMPHETAMINE NEG (NEG)
[2019-03-31 19:53] LABS: BILIRUBIN,URINE NEG (NEG); CLARITY,URINE CLEAR; COLOR,URINE YELLOW; GLUCOSE,URINE NEG (NEG); NITRITE,URINE NEG (NEG); RBC,URINE 0 /HPF (0-2); UROBILINOGEN,URINE 0.2 mg/dL (0.2 mg/dL); WBC,URINE OCC /HPF (0-4)
[2019-03-31 19:54] LABS: BACTERIA,URINE 0 /HPF (0-FEW); SQUAMOUS EPITHELIAL CELL,UR OCC /LPF
== END 2019-03-31 20:15 | disposition home or self-care (01) ==
LOC: ER 17:56
DX: R53.83 Other fatigue (principal); J44.9 Chronic obstructive pulmonary disease, unspecified; F25.9 Schizoaffective disorder, unspecified; F41.9 Anxiety disorder, unspecified; F32.9 Major depressive disorder, single episode, unspecified; Z88.2 Allergy status to sulfonamides
CPT/HCPCS: 36415; 80048; 80307; 81001; 84484; 85025; 93005; 94640; 99285; J7613

== ENCOUNTER 2019-07-04 15:23 | Emergency (ER) | payer SELFPAY ==
[~2019-07-04] VITALS: Ht 154.9 cm; Wt 85.1 kg
--- NOTE | 2019-07-04 16:13 | PHYS DOC ---
Past History Past Medical History: Anxiety, Asthma, COPD, Depression, Schizophrenia Additional Past Medical Histor: psychosis Past Surgical History: Tonsillectomy Additional Past Surgical Histo: EAR SURGERY Smoking: Non-smoker Alcohol Use: None Drug Use: None Adult General Chief Complaint Chief Complaint: MULTIPLE COMPLAINTS HPI HPI A 58-year-old female presents with sided chest pain that started today after waking up from a nap. She describes the pain as dull/achy and 7 and 10, the pain is constant and does not change with inhalation/exhalation, exertion, palpitations. The patient was diagnosed with walking pneumonia 5 days ago and has been taking doxycycline for it. She reports still having a dry cough but denies fevers, mucus production, shortness of breath, diarrhea. She reports occasional nausea. Review of Systems Review of Systems Constitutional: Denies fever or chills Eyes: Denies redness or eye pain HENT: Denies nasal congestion or sore throat Respiratory: Reports cough but denies shortness of breath Cardiovascular: Reports left-sided chest pain but denies palpitations GI: Reports occasional nausea but denies abdominal pain and vomiting. : Denies dysuria or hematuria Musculoskeletal: Denies back pain or joint pain Integument: Denies rash or skin lesions Neurologic: Denies headache, focal weakness or sensory changes Complete systems were reviewed and found to be within normal limits, except as documented in this note. Allergies Allergies Allergies Coded Allergies Type Severity Reaction Last Updated Verified Sulfa (Sulfonamide Antibiotics) Allergy Intermediate 07/04/19 No Physical Exam Physical Exam Constitutional: Well developed, well nourished, no acute distress, non-toxic helena earance HENT: Normocephalic, atraumatic, oropharynx moist Eyes: Conjunctiva normal, no discharge Neck: Normal range of motion, no tenderness, supple Cardiovascular: Heart rate normal, regular rhythm. Chest wall nontender to palpation. Lungs & Thorax: Bilateral breath sounds clear to auscultation, scattered wheezes Abdomen: Soft, no tenderness Skin: Warm, dry, no erythema, no rash Back: No tenderness, no CVA tenderness Extremities: No tenderness, ROM intact, no edema Neurologic: Alert and oriented X 3, no focal deficits noted Psychologic: Affect normal, judgment normal Current Patient Data Vital Signs Vital Signs Date Time Temp Pulse Resp B/P (MAP) Pulse Ox O2 Delivery O2 Flow Rate FiO2 07/04/19 15:44 98.2 78 18 99 Room Air EKG EKG EKG at 1631 shows sinus rhythm with a heart rate of 75 bpm. Low voltage QRS complex and aVL. No ST segment elevation noted. Radiology/Procedures Radiology/Procedures PROCEDURE: CHEST PA & LATERAL PA and lateral views of the chest. Comparison: 02/27/2019. Indication: Right-sided chest pain Findings: The heart size is normal. No pneumothorax or effusion. No air space or interstitial disease. The bony structures are intact. Impression: 1. No acute cardiopulmonary process. Electronically signed by: Willem Samaniego MD (07/04/2019 4:26 PM) [id number] Course & Med Decision Making Course & Med Decision Making Patient reports with left-sided chest pain that started today after waking up from a nap. She was recently diagnosed with walking pneumonia 5 days ago and is on doxycycline. Chest x-ray is negative for focal pneumonia. EKG suggests no cardiac pathology. CBC and CMP are unremarkable for signs of infection, electrolyte abnormalities, and negative for troponin. HEART score 1. Chest pain most likely chest muscle strain secondary to coughing. Patient instructed to continue antibiotics, and was prescribed steroids and a cough suppressant. She was instructed to return to the ER if symptoms worsen. Patient stable for discharge home with outpatient follow-up with PCP. Discussed findings and plan with patient, who acknowledges understanding and agreement. Dragon Disclaimer Dragon Disclaimer This electronic medical record was generated, in whole or in part, using a voice recognition dictation system. Departure Departure: Impression: Primary Impression: Atypical chest pain Disposition: HOME, SELF-CARE Condition: STABLE Referrals: RON MEJIAS (PCP) Patient Instructions: Chest Pain (Nonspecific), [id number] Scripts Benzonatate (TESSALON PERLE) 100 Mg Capsule 1 CAP PO TID PRN for COUGH, #21 CAP Prov: YARA TATUM DO 07/04/19 Prednisone (PREDNISONE) 20 Mg Tablet 1 TAB PO BID for Bronchitis, #10 TAB Prov: YARA TATUM DO 07/04/19 HEART Score for Chest Pain PTs The HEART Score for CP Pts HEART Score for Chest Pain: HEART Score for Chest Pain Response (Comments) Value History Slighlty/Non-Suspicious 0 ECG Normal 0 Age >45 - < 65 1 Risk Factors No Risk Factors 0 Troponin < Normal Limit 0 Total 1 Risk Factors: Risk Factors: DM, Current or recent (<one month) smoker, HTN, HLP, family history of CAD, obesity. Risk Scores: Score 0 - 3: 2.5% MACE over next 6 weeks - Discharge Home Score 4 - 6: 20.3% MACE over next 6 weeks - Admit for Clinical Observation Score 7 - 10: 72.7% MACE over next 6 weeks - Early Invasive Strategies YARA TATUM DO Jul 04, 2019 16:13
--- NOTE | 2019-07-04 16:29 | RAD ---
PA and lateral views of the chest. Comparison: 02/27/2019. Indication: Right-sided chest pain Findings: The heart size is normal. No pneumothorax or effusion. No air space or interstitial disease. The bony structures are intact. Impression: 1. No acute cardiopulmonary process. Electronically signed by: Willem Samaniego MD (07/04/2019 4:26 PM) [id number]
[2019-07-04] MEDS ORDERED: KETOROLAC 15 MG/ML VIAL. IVP ONE (16:30)
[2019-07-04] MEDS ORDERED: ASPIRIN 325 MG TABLET PO ONE (16:30)
[2019-07-04] MEDS ORDERED: IV NORMAL SALINE 1,000ML 1,000 ML IV ONE (16:30)
[2019-07-04 17:18] LABS: CALCIUM 8.4 mg/dL (8.5-10.1); CREATININE 0.9 mg/dL (0.6-1.0); GFR 64.1; POTASSIUM 4.7 mmol/L (3.5-5.1)
[2019-07-04 17:30] LABS: BASO # 0.1 x10^3/uL (0.0-0.2); BASO % 1 % (0-3); EOS # 0.1 x10^3/uL (0.0-0.7); EOS % 1 % (0-3); HEMATOCRIT 36.4 % (36.0-47.0); HEMOGLOBIN 12.1 g/dL (12.0-15.5); LYMPH # 2.3 x10^3/uL (1.0-4.8); LYMPH % 32 % (24-48); MEAN CORPUSCULAR HEMOGLOBIN 30 pg (25-35); MEAN CORPUSCULAR HGB CONC 33 g/dL (31-37); MEAN CORPUSCULAR VOLUME 90 fL (79-100); MONO # 0.5 x10^3/uL (0.0-1.1); MONO % 8 % (0-9); NEUT # 4.1 x10^3uL (1.8-7.7); NEUT % 58 % (31-73); PLATELET COUNT 339 x10^3/uL (140-400); RED BLOOD COUNT 4.07 x10^6/uL (3.50-5.40); RED CELL DISTRIBUTION WIDTH 13.3 % (11.5-14.5); WHITE BLOOD COUNT 7.1 x10^3/uL (4.0-11.0)
--- NOTE | 2019-07-04 17:32 | EKG ---
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
[2019-07-04 17:33] LABS: ALBUMIN 3.2 g/dL (3.4-5.0); ALBUMIN/GLOBULIN RATIO 1.1 (1.0-1.7); MAGNESIUM 1.9 mg/dL (1.8-2.4); TOTAL BILIRUBIN 0.2 mg/dL (0.2-1.0); TOTAL PROTEIN 6.2 g/dL (6.4-8.2)
[2019-07-04 17:41] VITALS: BP 119/59
[2019-07-04] MEDS ORDERED: BENZ100C PO (17:41)
[2019-07-04] MEDS ORDERED: PRED20TA PO (17:41)
== END 2019-07-04 17:50 | disposition home or self-care (01) ==
LOC: ER 15:23
DX: R07.89 Other chest pain (principal); F41.9 Anxiety disorder, unspecified; J44.9 Chronic obstructive pulmonary disease, unspecified; F32.9 Major depressive disorder, single episode, unspecified; Z88.2 Allergy status to sulfonamides
CPT/HCPCS: 36415; 71046; 80053; 82553; 83690; 83735; 83880; 84484; 85025; 93005; 96374; 99285; J1885; 96361; J7030

== ENCOUNTER 2020-04-04 23:41 | Emergency (ER) | payer SELFPAY ==
[~2020-04-04] VITALS: Ht 154.9 cm; Wt 85.1 kg
--- NOTE | 2020-04-05 00:20 | PHYS DOC ---
Past History Past Medical History: Anxiety, Asthma, COPD, Depression, Schizophrenia Additional Past Medical Histor: psychosis Past Surgical History: Tonsillectomy Additional Past Surgical Histo: EAR SURGERY Alcohol Use: None Drug Use: None General Adult EDM: Chief Complaint: SORE THROAT HPI: HPI: 59-year-old female who is well-known to the emergency room presents with sore throat and chest congestion. She denies fever chills. She has been homeless in the past, but states she is living with her sister. She has had a sore throat for the last couple of days and whenever checked out. No known COVID-19 exposures. Review of Systems: Review of Systems: Constitutional: Denies fever or chills Eyes: Denies change in visual acuity HENT: sore throat Respiratory: Denies cough or shortness of breath Cardiovascular: Denies chest pain or edema GI: Denies abdominal pain, nausea, vomiting, bloody stools or diarrhea : Denies dysuria Musculoskeletal: Denies back pain or joint pain Integument: Denies rash Neurologic: Denies headache, focal weakness or sensory changes Endocrine: Denies polyuria or polydipsia Lymphatic: Denies swollen glands Psychiatric: Denies depression or anxiety Heart Score: Risk Factors: Risk Factors: DM, Current or recent (<one month) smoker, HTN, HLP, family history of CAD, obesity. Risk Scores: Score 0 - 3: 2.5% MACE over next 6 weeks - Discharge Home Score 4 - 6: 20.3% MACE over next 6 weeks - Admit for Clinical Observation Score 7 - 10: 72.7% MACE over next 6 weeks - Early Invasive Strategies Allergies: Allergies: Allergies Coded Allergies Type Severity Reaction Last Updated Verified Sulfa (Sulfonamide Antibiotics) Allergy Intermediate 07/04/19 No Physical Exam: PE: Constitutional: Well developed, well nourished, no acute distress, non-toxic appearance. [] HENT: Normocephalic, atraumatic, bilateral external ears normal, oropharynx mildly erythematous without exudates, nose normal. [] Eyes: PERRLA, EOMI, conjunctiva normal, no discharge. [] Neck: Normal range of motion, no tenderness, supple, no stridor. [] Cardiovascular:Heart rate regular rhythm, no murmur [] Lungs & Thorax: Bilateral breath sounds clear to auscultation [] Abdomen: Bowel sounds normal, soft, no tenderness, no masses, no pulsatile masses. [] Skin: Warm, dry, no erythema, no rash. [] Back: No tenderness, no CVA tenderness. [] Extremities: No tenderness, no cyanosis, no clubbing, ROM intact, no edema. [] Neurologic: Alert and oriented X 3, normal motor function, normal sensory function, no focal deficits noted. [] Psychologic: Affect normal, judgement normal, mood normal. [] EKG: EKG: [] Radiology/Procedures: Radiology/Procedures: [] Course & Med Decision Making: Course & Med Decision Making Pertinent Labs and Imaging studies reviewed. (See chart for details) The patient's rapid strep is negative. She requested a breathing treatment and so she was given albuterol nebulizer. I believe this most likely the patient's symptoms are viral well with the recent weather changes. It is also possible that she has a viral infection. I have advised supportive care. She is stable for discharge at this time. [] Leon Disclaimer: Leon Disclaimer: This electronic medical record was generated, in whole or in part, using a voice recognition dictation system. Departure Departure: Impression: Primary Impression: Sorethroat Disposition: 01 DC HOME SELF CARE/HOMELESS Condition: STABLE Referrals: PCP,NO (PCP) Patient Instructions: Viral Pharyngitis BERTA KIM DO Apr 05, 2020 00:20
[2020-04-05] MEDS ORDERED: ALBUTEROL SULFATE 2.5 MG/3 ML NEBU. NEB ONE (00:30)
[2020-04-05] MEDS ORDERED: ALBUTEROL SULFATE 8GM INHALER. ONE (00:31)
[2020-04-05 01:15] VITALS: BP 128/63
== END 2020-04-05 01:41 | disposition home or self-care (01) ==
LOC: ER 23:41
DX: J02.9 Acute pharyngitis, unspecified (principal); R09.89 Other specified symptoms and signs involving the circulatory and respiratory systems; J44.9 Chronic obstructive pulmonary disease, unspecified; F20.9 Schizophrenia, unspecified; Z59.0 Homelessness; Z88.2 Allergy status to sulfonamides
CPT/HCPCS: 87070; 87880; 94640; 99284; J7613

== ENCOUNTER 2020-05-09 19:10 | Emergency (ER) | payer SELFPAY ==
[~2020-05-09] VITALS: Ht 154.9 cm; Wt 98.1 kg
[2020-05-09 19:20] VITALS: BP 148/80
[2020-05-09] MEDS ORDERED: predniSONE 20 MG TABLET PO ONE (20:00)
[2020-05-09] MEDS ORDERED: ALBUTEROL SULFATE 8GM INHALER. INH ONE (20:00)
--- NOTE | 2020-05-09 20:11 | RAD ---
Examination: CHEST AP ONLY History: Reason: shob / Spl. Instructions: / History: Comparison: 07/04/2021 view chest x-ray exam. Findings: AP portable upright frontal view of the chest was obtained. The cardiomediastinal silhouette is normal. Lungs are clear. There is no pneumothorax. No pleural effusion is appreciated. No acute bone abnormality. IMPRESSION: No acute cardiopulmonary process. Electronically signed by: Quique Rodarte MD (05/09/2020 8:08 PM) [facility]
--- NOTE | 2020-05-09 20:23 | PHYS DOC ---
Past History Past Medical History: Anxiety, Asthma, COPD, Depression, Schizophrenia Additional Past Medical Histor: psychosis Past Surgical History: Tonsillectomy Additional Past Surgical Histo: EAR SURGERY Alcohol Use: Rarely Drug Use: None Adult General Chief Complaint Chief Complaint: ASTHMA HPI HPI Patient is a 59-year-old female who presents for URI-like symptoms and wheezing. Patient has known history of asthma, reports being out of her albuterol inhaler for past 3 weeks and has been short of breath with increased wheezing suffered since onset. Patient also reports approximately 72 hours of URI-like symptoms. Patient reports being exposed in the public, has often forgotten her mask and has been around other individuals with similar symptomology, she is unsure if they had COVID-19 and unsure if they have been tested for it. She denies any reportable fever but feels hot, has had chills, nasal congestion and rhinorrhea with a productive cough which is new for her. No other changes in home medications, no recent antibiotic use, no long distance travel, chest pain, hemoptysis, history of cardiac abnormalities and/or blood clots, no abdominal pain, no changes in bladder or bowel function. Review of Systems Review of Systems Fourteen body systems of review of systems have been reviewed. See HPI for pertinent positives and negative responses, other chance all other systems are negative, non-pertinent or non-contributory Current Medications Current Medications Current Medications Medications (Trade) Dose Ordered Sig/Shaunna Start Time Stop Time Status Last Admin Dose Admin Albuterol Sulfate (Ventolin Hfa Inhaler) 1 puff 1X ONCE 05/09/20 20:00 05/09/20 20:01 DC 05/09/20 20:16 1 PUFF Prednisone (Prednisone) 60 mg 1X ONCE 05/09/20 20:00 05/09/20 20:01 DC 05/09/20 20:00 60 MG Allergies Allergies Allergies Coded Allergies Type Severity Reaction Last Updated Verified Sulfa (Sulfonamide Antibiotics) Allergy Intermediate 07/04/19 No Physical Exam Physical Exam Constitutional: Well developed, well nourished, no acute distress, non-toxic appearance. HENT: Normocephalic, atraumatic, bilateral external ears normal, oropharynx moist, no oral exudates, moderate postnasal drip present, moderately engorged nasal turbinates with clear rhinorrhea present, external nose normal. Eyes: PERRLA, EOMI, conjunctiva normal, no discharge. Neck: Normal range of motion, no tenderness, supple, no stridor. Cardiovascular: Heart rate regular, sinus rhythm, no murmurs rubs or gallops Lungs & Thorax: No respiratory distress or accessory muscle usage, wheezes present in bilateral lung gonzales without any obvious rhonchi or rails Abdomen: Bowel sounds normal, soft, no tenderness, no masses, no pulsatile masses. Nonsurgical abdomen, no peritoneal signs Skin: Warm, dry, no erythema, no rash. Back: No tenderness, no CVA tenderness. Extremities: No tenderness, no cyanosis, no clubbing, ROM intact, no edema. Neurologic: Alert and oriented X 3, grossly normal motor & sensory function, no focal deficits noted. Psychologic: Affect normal, judgement normal, mood normal. Current Patient Data Vital Signs Vital Signs Date Time Temp Pulse Resp B/P (MAP) Pulse Ox O2 Delivery O2 Flow Rate FiO2 05/09/20 19:20 98.1 82 18 148/80 (102) 99 Room Air EKG EKG [] Radiology/Procedures Radiology/Procedures PROCEDURE: CHEST AP ONLY Examination: CHEST AP ONLY History: Reason: shob / Spl. Instructions: / History: Comparison: 07/04/2021 view chest x-ray exam. Findings: AP portable upright frontal view of the chest was obtained. The cardiomediastinal silhouette is normal. Lungs are clear. There is no pneumothorax. No pleural effusion is appreciated. No acute bone abnormality. IMPRESSION: No acute cardiopulmonary process. Electronically signed by: Quique Rodarte MD (05/09/2020 8:08 PM) [facility] Heart Score HEART Score for Chest Pain: HEART Score for Chest Pain Response (Comments) Value History Slighlty/Non-Suspicious 0 ECG Normal 0 Age < 45 0 Risk Factors No Risk Factors 0 Total 0 Risk Factors: Risk Factors: DM, Current or recent (<one month) smoker, HTN, HLP, family history of CAD, obesity. Risk Scores: Risk Factors: DM, Current or recent (<one month) smoker, HTN, HLP, family history of CAD, obesity. Course & Med Decision Making Course & Med Decision Making Pertinent Labs and Imaging studies reviewed. (See chart for details) Discussed most likely diagnosis of viral syndrome, cannot exclude COVID-19 and thus patient was tested for this today. I do believe patient is suffering from acute asthma exacerbation as well, patient was given prednisone and DuoNeb treatment while in ER with near total improvement in wheezing and reported symptomology Patient well-appearing, ambulatory, hemodynamically stable with saturations greater than 90% on room air. I feel she is safe for discharge home with continued supportive care with new prescriptions for albuterol inhaler, albuterol nebulizer, and short-term prednisone taper for her asthma exacerbation I advised her she is a person under investigation for COVID-19 and as such, will need to self quarantine etc. until results pend. She was educated on this extensively with good understanding Strict return precautions were discussed with good understanding by patient, all questions and concerns addressed prior to ER departure in improved condition Dragmagdy Disclaimer Leon Disclaimer This electronic medical record was generated, in whole or in part, using a voice recognition dictation system. PERC Rule for PE PERC Rule for PE Response (Comments) Value Age > 50: Yes 1 HR > 100: No 0 Sa02 on room air <95%: No 0 Unilateral leg swelling: No 0 Hemoptysis: No 0 Recent surgery or trauma: No 0 Prior PE or DVT: No 0 Hormone use: No 0 Total 1 Departure Departure: Impression: Primary Impression: Acute asthma exacerbation Additional Impressions: Viral syndrome Person under investigation for COVID-19 Disposition: 01 DC HOME SELF CARE/HOMELESS Condition: IMPROVED Referrals: PCP,JENNIFER (PCP) Patient Instructions: Asthma Attacks, Prevention, Viral Syndrome Additional Instructions: Home Care Instructions for Patients with Mild Respiratory Infection Most people with respiratory infections like colds, the flu, and Coronavirus Disease (COVID-19) will have mild illness and can get better with appropriate home care and without the need to see a provider. People who are elderly, pre gnant, or have a weak immune system, or other medical problem are at higher risk of more serious illness or complications. It is recommended that they carefully monitor their symptoms closely and seek medical care early if their symptoms get worse. Treatment There is no specific treatment for most viruses including those that that cause the common cold and those that cause COVID-19. Sometimes there is treatment for the viruses that cause influenza if given early. Antibiotics treat infections caused by bacteria, but they do not work against viruses.Most people recover on their own from these viruses, including COVID-19. Here are steps that you can take to help you get better: Rest Drink plenty of fluids Take [id number] cold and flu medications to reduce fever and pain. Follow the instructions on the package, unless your doctor gave you instructions. Note that these medicines do not ``cure the illness and therefore do not stop you from spreading germs. Children should not be given medication that contains aspirin (acetylsalicylic acid) because it can cause a rare but serious illness called Abdullahi syndrome. Medicines without aspirin include acetaminophen (Tylenol) and ibuprofen (Advil, Motrin). Children younger than age 2 should not be given any mfui-vph-ejxbkii cold medications without first speaking with a doctor.Seeking Medical Care You should seek medical care if you are not getting better within a week, or if your symptoms get worse. If you are elderly, , have a weak immune system, or other medical problems, call your doctor right away. It is best to call ahead of time to discuss your symptoms, if possible. This may allow you to receive the advice you need by phone. By avoiding a visit to a healthcare facility, you protect yourself from getting a new infection and protect others from catching an infection from you. If you do visit a healthcare facility, put on a mask to protect other patients and staff. It is recommended that you seek medical care for serious symptoms, such as: People with potentially life-threatening symptoms should call 911. If possible, put on a facemask before emergency medical services arrive.PROTECTING OTHERS Follow the steps below to help prevent the disease from spreading to people in your home and community.Stay home when you are sick Stay home - do not go to work, school, or public areas. Stay home for at least 24 hours after your symptoms have gone away without the use of fever-reducing medicines. If you must leave home while you are sick, try to avoid using public transportation, ride-shares, and taxis. Wear a mask if possible. Separate yourself from other people and animals in your home Stay in a specific room and away from other people in your home as much as possible. Use a separate bathroom, if available. Try to stay at least 6 feet from others. Do not handle pets or other animals while you are sick. Cover your coughs and sneezes Cover your mouth and nose with a tissue when you cough or sneeze. Throw used tissues in a lined trash can; immediately wash your hands. Avoid sharing personal household items Do not share dishes, drinking glasses, cups, eating utensils, towels, or bedding with other people or pets in your home. Wash them thoroughly with soap and water after use. Clean your hands often Wash your hands often with soap and water for at least 20 seconds. If soap and water are not available, clean your hands with an alcohol-based hand manufacturing engineer chief that contains at least 60% alcohol, covering all surfaces of your hands and rubbing them together until they feel dry. Use soap and water if your hands are visibly dirty. Clean all ``high-touch surfaces every day High touch surfaces include counters, tabletops, doorknobs, bathroom fixtures, toilets, phones, keyboards, tablets, and bedside tables. Also, clean any surfaces that may have body fluids on them. Use a household cleaning spray or wipe, according to the product label instructions. COVID-19 (Novel Coronavirus) FAQs for Inquiring Patients What do you do if you are worried that you have been exposed to COVID-19 but are without any symptoms? If you develop symptoms that may indicate an infection, contact your physician. These include fever, cough, and shortness of breath. Testing is not available for asymptomatic individuals, regardless of travel history. To reduce the chance of getting sick use general infection prevention measures such as hand washing, covering your mouth and nose when you cough or sneeze and discarding any tissues carefully, and staying home when you are sick.Can excep tions be made for patients who are really worried and want to be tested? Presently testing is only available through the [facility] Department of Public Health and Centers for Disease Control and Prevention. Only patients who meet the updated COVID-19 PUI definition may be tested. We do not control or set the PUI definition or evaluation criteria. We are unable to provide testing to patients who do not meet the strict criteria. Should patients cancel or postpone an upcoming trip? The decision about travel is personal and should be made in the context of a persons underlying health conditions, reason for travel and necessity of travel. Travel insurance generally does not cover cancellations due to concerns of infectious disease outbreaks. The Center for Disease Control has a section on travel notices. Situations are changing frequently and you should monitor the site for updates. Should situations change rapidly in a foreign country while they are traveling, you could be subject to quarantine or restrictions upon return to the [place]. It is best to have a plan on how to return urgently if needed during a trip abroad. Because of how air circulates and is filtered on airplanes, most viruses do not spread easily on airplanes. CDC does not recommend use of facemasks during air travel.What other general precautions are advised? Patients should be instructed to: Avoid close contact with people who are sick. Avoid touching your eyes, nose and mouth. Stay home from work or school when they are sick. If you have a fever, you should remain home until 24 hours after fever resolves. Clean and disinfect frequently touched objects and surfaces using a regular household cleaning spray or wipe. Sneeze/cough into their elbow, not your hand. Practice frequent hand hygiene with soap and water (at least 20 seconds) or alcohol-based hand rub. Consider avoiding crowded places or mass gatherings, especially if you are immunocompromised or have chronic lung disease. There is no evidence to support transmission of COVID-19 from goods imported from [place]. Are there any special precautions that are recommended if I am ? There is not yet any information available about the susceptibility of women to COVID-19. As a general rule, women may be more susceptible to viral respiratory infections and at risk for more severe illness. The CDC guidance for COVID-19 and has answers to questions about transmission during delivery, as well as other situations. Should food, water, or medications be stockpiled? Should people telecommute? The CDC has excellent information on this. Please visit the CDCs guidance for getting your household ready for COVID-19. What should I do if I start feeling sick at work? And what should the workplace do for anyone exposed? Anyone who is sick with a fever and cough should stay home from work until at least 24 hours after resolution of fever, regardless of concerns for COVID-19. It is still influenza (flu) season and influenza remains far more common. Scripts Prednisone (PREDNISONE) 20 Mg Tablet 40 MG PO DAILY for bronchitis for 5 Days, #10 TAB Prov: JOSLYN TORRES DO 05/09/20 Albuterol Sulfate (ALBUTEROL SULFATE CONC NEB SOLN) 2.5 Mg/0.5 Ml Vial.neb 1 VIAL NEB Q4HRS for Shortness of breath, #60 VIAL 1 Refill Prov: JOSLYN TORRES DO 05/09/20 Albuterol Sulfate (PROAIR HFA INHALER) 8.5 Gm Hfa.aer.ad 2 PUFF INH PRN Q6HRS PRN for SHORTNESS OF BREATH for 7 Days, #1 INHALER 0 Refills Prov: JOSLYN TORRES DO 05/09/20 Problem Qualifiers JOSLYN TORRES DO May 09, 2020 20:23
[2020-05-09] MEDS ORDERED: PRED20TA PO (20:31)
[2020-05-09] MEDS ORDERED: ALBU2.5V14 NEB (20:31)
[2020-05-09] MEDS ORDERED: ALBU2.5V8 INH (20:31)
== END 2020-05-09 20:40 | disposition home or self-care (01) ==
LOC: ER 19:10
DX: J45.901 Unspecified asthma with (acute) exacerbation (principal); B34.9 Viral infection, unspecified; J44.9 Chronic obstructive pulmonary disease, unspecified; F20.9 Schizophrenia, unspecified; Z20.828 Contact with and (suspected) exposure to other viral communicable diseases; Z88.2 Allergy status to sulfonamides
CPT/HCPCS: 71045; 94640; 99284; C9803; J7512; J7613; U0003; 94664

== ENCOUNTER 2020-06-17 18:26 | Emergency (ER) | payer SELFPAY ==
[~2020-06-17] VITALS: Ht 154.9 cm; Wt 99.0 kg
[~2020-06-17 18:26] MED LIST changes: +ALBU2.5V14 NEB
[2020-06-17] MEDS ORDERED: ALBUTEROL SULFATE 8GM INHALER. ONE (18:55)
[2020-06-17] MEDS ORDERED: DEXAMETHASONE 4 MG TABLET PO ONE (19:00)
[2020-06-17] MEDS ORDERED: ALBUTEROL SULFATE 2.5 MG/3 ML NEBU. NEB ONE (19:00)
[2020-06-17] MEDS ORDERED: ALBU2.5V8 IH (20:44)
[2020-06-17] MEDS ORDERED: PRED20TA PO (20:44)
--- NOTE | 2020-06-17 20:45 | PHYS DOC ---
Past History Past Medical History: Anxiety, Asthma, COPD, Depression, Schizophrenia Additional Past Medical Histor: psychosis Past Surgical History: Tonsillectomy Additional Past Surgical Histo: EAR SURGERY Alcohol Use: Rarely Drug Use: None General Adult EDM: Chief Complaint: ASTHMA HPI: HPI: Patient is a [age] year old [sex] who presents with [] Review of Systems: Review of Systems: Constitutional: Denies fever or chills Eyes: Denies change in visual acuity HENT: Denies nasal congestion or sore throat Respiratory: Denies cough or shortness of breath Cardiovascular: Denies chest pain or edema GI: Denies abdominal pain, nausea, vomiting, bloody stools or diarrhea : Denies dysuria Musculoskeletal: Denies back pain or joint pain Integument: Denies rash Neurologic: Denies headache, focal weakness or sensory changes Endocrine: Denies polyuria or polydipsia Lymphatic: Denies swollen glands Psychiatric: Denies depression or anxiety Current Medications: Current Meds: Current Medications Medications (Trade) Dose Ordered Sig/Shaunna Start Time Stop Time Status Last Admin Dose Admin Albuterol Sulfate (Ventolin Hfa Inhaler) 60 puff STK-MED ONCE 06/17/20 18:55 06/17/20 18:55 DC Albuterol Sulfate (Ventolin) 2.5 mg 1X ONCE 06/17/20 19:00 06/17/20 19:01 DC 06/17/20 19:00 2.5 MG Dexamethasone (Decadron) 10 mg 1X ONCE 06/17/20 19:00 06/17/20 19:01 DC 06/17/20 19:08 10 MG Allergies: Allergies: Allergies Coded Allergies Type Severity Reaction Last Updated Verified Sulfa (Sulfonamide Antibiotics) Allergy Intermediate 06/17/20 No Physical Exam: PE: Constitutional: Well developed, well nourished, no acute distress, non-toxic appearance. [] HENT: Normocephalic, atraumatic, bilateral external ears normal, oropharynx moist, no oral exudates, nose normal. [] Eyes: PERRLA, EOMI, conjunctiva normal, no discharge. [] Neck: Normal range of motion, no tenderness, supple, no stridor. [] Cardiovascular:Heart rate regular rhythm, no murmur [] Lungs & Thorax: Bilateral breath sounds clear to auscultation [] Abdomen: Bowel sounds normal, soft, no tenderness, no masses, no pulsatile masses. [] Skin: Warm, dry, no erythema, no rash. [] Back: No tenderness, no CVA tenderness. [] Extremities: No tenderness, no cyanosis, no clubbing, ROM intact, no edema. [] Neurologic: Alert and oriented X 3, normal motor function, normal sensory function, no focal deficits noted. [] Psychologic: Affect normal, judgement normal, mood normal. [] Current Patient Data: Vital Signs: Vital Signs Date Time Temp Pulse Resp B/P (MAP) Pulse Ox O2 Delivery O2 Flow Rate FiO2 06/17/20 19:03 95 Room Air 06/17/20 18:40 97.1 92 20 113/57 (75) EKG: EKG: [] Radiology/Procedures: Radiology/Procedures: [] Heart Score: Risk Factors: Risk Factors: DM, Current or recent (<one month) smoker, HTN, HLP, family histo ry of CAD, obesity. Risk Scores: Score 0 - 3: 2.5% MACE over next 6 weeks - Discharge Home Score 4 - 6: 20.3% MACE over next 6 weeks - Admit for Clinical Observation Score 7 - 10: 72.7% MACE over next 6 weeks - Early Invasive Strategies Course & Med Decision Making: Course & Med Decision Making Pertinent Labs and Imaging studies reviewed. (See chart for details) [] Dragon Disclaimer: Dragon Disclaimer: This electronic medical record was generated, in whole or in part, using a voice recognition dictation system. Departure Departure: Impression: Primary Impression: Asthma exacerbation Qualified Codes: J45.21 - Mild intermittent asthma with (acute) exacerbation Additional Impression: Suspected 2019 novel coronavirus infection Disposition: 01 DC HOME SELF CARE/HOMELESS Condition: STABLE Referrals: PCP,NO (PCP) Patient Instructions: Asthma, Adult, [id number] Additional Instructions: You have been tested for or diagnosed with COVID-19. It is an infection caused by a new type of coronavirus. COVID-19 will cause cold-like or mild flu symptoms in most. It can cause more severe symptoms like problems breathing in some. There is no treatment for COVID-19. The body will clear the infection over time. Self-care will help to ease discomfort. Steps to Take: Self-Care Rest as needed. Healthy habits may help you feel better. Steps include: Choose healthy foods including fruits and vegetables. Drink water throughout the day. Get plenty of sleep each night. If you smoke, try to quit. It may ease breathing. Avoid alcohol. Keep Others Healthy The virus can spread to others. Droplets are released every time you sneeze or cough. The droplets can get into the mouth, nose, or eyes of people near you and lead to infection. To lower the chances of spreading COVID-19 to others: Stay at home until your doctor has said it is safe to leave. If you tested positive this will mean staying isolated until both of the following are true: At least 7 days have passed since the start of illness. You are free of fever for at least 72 hours without the use of medicine. During this time: - Avoid public areas, events, or transportation. Do not return to work or school until your doctor has said it is safe to do so. - Call ahead if you need to go to a medical center. Let them know you may have COVID-19. It will help them guide you where to go. They may also ask you to wear a facemask when you come to the office. - If you call for emergency medical services, let them know you may have COVID- 19. While at home: - Try to avoid close contact with others. Stay about 6 feet away. - If possible, spend most of your time in a separate room from others. - Use a face mask if you will be in close contact with others such as sharing a room or vehicle. - Have someone wipe down common surfaces in the home. Use household fire marshal refinery every day on areas like doorknobs, counters, or sinks. - Cough or sneeze into a tissue. Throw the tissue away right after use. If a tissue is not available, cough or sneeze into your elbow. - Wash your hands often. Wash them after sneezing or coughing. Use soap and water and wash for at least 20 seconds. Alcohol based hand coke still cleaner can be used if soap and water is not available. - Do not prepare food for others. Avoid sharing personal items like forks, spoons, or toothbrushes. - Avoid close contact with pets while you are sick. There is no evidence of the virus passing to pets. This is a safety step until more is known about this virus. Isolation can be frustrating. Social interaction can help. Keep in touch with friends and family through phone and tech options. You can still interact with others in your home, just keep a safe distance of about 6 feet. Follow-up: Your doctors office will check in with you to see if there are any changes in your health. You may be asked to keep track of symptoms to share with them. They will also let you know when you are clear to be in public again. Problems to Look Out For: Contact your doctor if your recovery is not going as you expect. Get emergency care if you have problems such as: - Trouble breathing - Nonstop chest pain or pressure - Changes in awareness, confusion, or problems waking - Lips or face have bluish color - Worsening of symptoms If you think you have an emergency, call for emergency medical services right away. As taken from [facility] Albuterol Sulfate (PROAIR HFA INHALER) 8.5 Gm Hfa.aer.ad 2 PUFF IH PRN Q4-6HRS PRN for wheezing for 21 Days, #1 INHALER 0 Refills Prov: YARA TATUM DO 06/17/20 Prednisone (PREDNISONE) 20 Mg Tablet 2 TAB PO DAILY for Asthma, #8 TAB Start this prescription tomorrow, Wednesday06/18/20 Prov: YARA TATUM DO 06/17/20 COVID-19 Assessment COVID-19 Patient Risks: Age 65 or older: No Sign of co-morbidity: Yes Exp to person + for COVID: No Exp to PUI: No Travel from affected area: No Lower respiratory symptoms: Yes Fever: No Other: No PPE Use: Full PPE with N95 mask or PAPR: Yes YARA TATUM DO Jun 17, 2020 20:45
[2020-06-17 20:53] VITALS: BP 122/62
--- NOTE | 2020-06-17 21:08 | RAD ---
EXAM: CHEST 1 VIEW History: Shortness of breath COMPARISON: 05/09/2020 TECHNIQUE: Single portable radiograph of the chest FINDINGS: The cardiac silhouette is unremarkable. Mild bibasilar lung atelectasis. The costophrenic sulci are clear and well demarcated. IMPRESSION: Mild bibasilar lung atelectasis Electronically signed by: Tiburcio Patel MD (06/17/2020 9:06 PM) [id number]
== END 2020-06-17 20:55 | disposition home or self-care (01) ==
LOC: ER 18:26
DX: J45.21 Mild intermittent asthma with (acute) exacerbation (principal); F41.9 Anxiety disorder, unspecified; J44.9 Chronic obstructive pulmonary disease, unspecified; F20.9 Schizophrenia, unspecified; Z20.828 Contact with and (suspected) exposure to other viral communicable diseases; Z88.2 Allergy status to sulfonamides
CPT/HCPCS: 71045; 94640; 99284; C9803; J7613; J8540; U0003

== ENCOUNTER 2020-07-09 09:10 | Emergency (ER) | payer SELFPAY ==
[~2020-07-09] VITALS: Ht 154.9 cm; Wt 99.0 kg
[~2020-07-09 09:10] MED LIST changes: -CLIN300C8 PO; +CLIN300C9 PO
--- NOTE | 2020-07-09 09:20 | PHYS DOC ---
Past History Past Medical History: Anxiety, Asthma, COPD, Depression, Schizophrenia Additional Past Medical Histor: psychosis Past Surgical History: Tonsillectomy Additional Past Surgical Histo: EAR SURGERY Alcohol Use: Rarely Drug Use: None General Adult EDM: Chief Complaint: ASTHMA HPI: HPI: Patient is a 59-year-old female who was brought here by EMS from home due to trouble breathing. Patient says she has a history of asthma, she woke up this morning having trouble breathing, she is running out of her albuterol inhaler. Patient called EMS, EMS stated that her oxygen saturation was 88% on room air with wheezing. EMS gave her a DuoNeb on route. Patient denies any cough or fever. Patient denies any chest pain. Patient denies being exposed to anybody who tested positive for COVID-19. Patient was evaluated here in April and May of last year for asthmatic exacerbation. Patient was tested negative for COVID-19 infection on June 17 of last year. Review of Systems: Review of Systems: Constitutional: Denies fever or chills Eyes: Denies change in visual acuity HENT: Positive for nasal congestion, denies sore throat, positive for left ear pain. Respiratory: Denies cough, positive for trouble breathing and wheezing Cardiovascular: Denies chest pain or edema GI: Denies abdominal pain, nausea, vomiting, bloody stools or diarrhea : Denies dysuria Musculoskeletal: Denies back pain or joint pain Integument: Denies rash Neurologic: Denies headache, focal weakness or sensory changes Endocrine: Denies polyuria or polydipsia Lymphatic: Denies swollen glands Psychiatric: Denies depression or anxiety Current Medications: Current Meds: Current Medications Medications (Trade) Dose Ordered Sig/Shaunna Start Time Stop Time Status Last Admin Dose Admin Albuterol/ Ipratropium (Duoneb) 3 ml 1X ONCE 07/09/20 09:15 07/09/20 09:16 UNV Prednisone (Prednisone) 60 mg 1X ONCE 07/09/20 09:15 07/09/20 09:16 UNV Allergies: Allergies: Allergies Coded Allergies Type Severity Reaction Last Updated Verified Sulfa (Sulfonamide Antibiotics) Allergy Intermediate 07/09/20 No Physical Exam: PE: Constitutional: Well developed, well nourished, no acute distress, non-toxic appearance. [] HENT: Normocephalic, atraumatic, bilateral external ears normal, oropharynx moist, no oral exudates, nose normal. Left TM is bulging with scar formation. Eyes: PERRLA, EOMI, conjunctiva normal, no discharge. [] Neck: Normal range of motion, no tenderness, supple, no stridor. [] Cardiovascular:Heart rate regular rhythm, no murmur [] Lungs & Thorax: Bilateral breath sounds with wheezing to auscultation [] Abdomen: Bowel sounds normal, soft, no tenderness, no masses, no pulsatile ma sses. [] Skin: Warm, dry, no erythema, no rash. [] Back: No tenderness, no CVA tenderness. [] Extremities: No tenderness, no cyanosis, no clubbing, ROM intact, no edema. [] Neurologic: Alert and oriented X 3, normal motor function, normal sensory function, no focal deficits noted. [] Psychologic: Affect normal, judgement normal, mood normal. [] Current Patient Data: Vital Signs: Current Medications Medications (Trade) Dose Ordered Sig/Shaunna Route PRN Reason Start Time Stop Time Status Last Admin Dose Admin Albuterol/ Ipratropium (Duoneb) 3 ml 1X ONCE NEB 07/09/20 09:30 07/09/20 09:31 DC 07/09/20 09:41 Prednisone (Prednisone) 60 mg 1X ONCE PO 07/09/20 09:30 07/09/20 09:31 DC 07/09/20 09:41 EKG: EKG: [] Radiology/Procedures: Radiology/Procedures: [address] [address] IMAGING REPORT Signed PATIENT: MATEO RODRIGUEZ ACCOUNT: [id number] : 1960 LOCATION: ER AGE: 59 SEX: F EXAM STATUS: REG ER ORD. PHYSICIAN: TEMI OLVERA DO REASON: shortness of air, chest pain PROCEDURE: CHEST AP ONLY EXAM: CHEST 1 VIEW History: Shortness of breath COMPARISON: 06/17/2020 TECHNIQUE: Single portable radiograph of the chest FINDINGS: The cardiac silhouette is unremarkable. The lungs are clear bilaterally. The costophrenic sulci are clear and well demarcated. IMPRESSION: No radiographic evidence of an acute cardiopulmonary process. Electronically signed by: Tiburcio Sahu MD (07/09/2020 9:50 AM) [id number] DICTATED AND SIGNED BY: TIBURCIO SAHU MD DATE: 07/09/20940 CC: PCPJENNIFER; TEMI OLVERA DO ~MTH0 0 Heart Score: Risk Factors: Risk Factors: DM, Current or recent (<one month) smoker, HTN, HLP, family history of CAD, obesity. Risk Scores: Score 0 - 3: 2.5% MACE over next 6 weeks - Discharge Home Score 4 - 6: 20.3% MACE over next 6 weeks - Admit for Clinical Observation Score 7 - 10: 72.7% MACE over next 6 weeks - Early Invasive Strategies Course & Med Decision Making: Course & Med Decision Making Pertinent Labs and Imaging studies reviewed. (See chart for details) Patient is a 59-year-old female who was evaluated in ER due to asthmatic attack. Patient chest x-ray is within normal limits. Patient was given p.o. steroids and DuoNeb treatment in the ER, she feel much better. Her oxygen saturation is 100% on room air. Patient would like a prescription for albuterol nebulizer solution and steroid and some antibiotic. Patient said last week she ate a piece of chocolate cake and it brought her asthma attack, interesting to test to see what she allergic to. Patient was informed by this physician that patient will need to follow-up with an outpatient allergy doctor for allergy testing. Patient will be discharged home, since she is instructed to follow-up with her family physician. Leon Disclaimer: Leon Disclaimer: This electronic medical record was generated, in whole or in part, using a voice recognition dictation system. Departure Departure: Impression: Primary Impression: Acute asthma exacerbation Additional Impression: Left otitis media Disposition: 01 DC HOME SELF CARE/HOMELESS Condition: IMPROVED Referrals: PCP,JENNIFER (PCP) Follow-up with your family physician for outpatient evaluation and treatment this week. Patient Instructions: Asthma Attacks, Prevention, Asthma, Adult, Otitis Media, Adult Additional Instructions: Thank you for visiting our Emergency Department. We appreciate you trusting us with your care. If any additional problems come up don't hesitate to return to visit us. Please follow up with your primary care provider so they can plan additional care if needed and know about the problem that you had. If symptoms worsen come back to the Emergency Department. Any concerning symptoms that start such as chest pain, shortness of air, weakness or numbness on one side of the body, running high fevers or any other concerning symptoms return to the ER. Scripts Amoxicillin/Potassium Clav (AUGMENTIN 875-125 TABLET) 1 Each Tablet 1 TAB PO BID for otitis media for 10 Days, #20 TAB 0 Refills Prov: TEMI OLVERA DO 07/09/20 Albuterol Sulfate (ALBUTEROL SULFATE CONC NEB SOLN) 2.5 Mg/0.5 Ml Vial.neb 1 VIAL NEB Q6HRS PRN for shortness of air for 30 Days, #60 VIAL 1 Refill Prov: TEMI OLVERA DO 07/09/20 Albuterol Sulfate (PROAIR HFA INHALER) 8.5 Gm Hfa.aer.ad 1 PUFF INH PRN Q6HRS PRN for SHORTNESS OF BREATH for 30 Days, #1 INHALER 0 Refills Prov: TEMI OLVERA DO 07/09/20 Prednisone (PREDNISONE) 20 Mg Tablet 1 TAB PO DAILY for asthma for 10 Days, #10 TAB Prov: TEMI OLVERA DO 07/09/20 TEMI OLVERA DO Jul 09, 2020 09:20
[2020-07-09] MEDS: predniSONE 20 MG TABLET PO ONE (09:41)
[2020-07-09] MEDS: IPRATRPIUM/ALBUTEROL 0.5/2.5MG 3 ML NEBU. NEB ONE (09:41)
--- NOTE | 2020-07-09 09:53 | RAD ---
EXAM: CHEST 1 VIEW History: Shortness of breath COMPARISON: 06/17/2020 TECHNIQUE: Single portable radiograph of the chest FINDINGS: The cardiac silhouette is unremarkable. The lungs are clear bilaterally. The costophrenic sulci are clear and well demarcated. IMPRESSION: No radiographic evidence of an acute cardiopulmonary process. Electronically signed by: Tiburcio Patel MD (07/09/2020 9:50 AM) [id number]
[2020-07-09 10:45] VITALS: BP 127/57
[2020-07-09] MEDS ORDERED: ALBU2.5V14 NEB (10:49)
[2020-07-09] MEDS ORDERED: AMOX1TAB61 PO (10:49)
[2020-07-09] MEDS ORDERED: ALBU2.5V8 INH (10:49)
[2020-07-09] MEDS ORDERED: PRED20TA PO (10:49)
== END 2020-07-09 11:00 | disposition home or self-care (01) ==
LOC: ER 09:10
DX: J45.901 Unspecified asthma with (acute) exacerbation (principal); H66.92 Otitis media, unspecified, left ear; J44.9 Chronic obstructive pulmonary disease, unspecified; F20.9 Schizophrenia, unspecified; F41.9 Anxiety disorder, unspecified; F32.9 Major depressive disorder, single episode, unspecified; Z88.2 Allergy status to sulfonamides
CPT/HCPCS: 71045; 94640; 99283; J7512

== ENCOUNTER 2020-07-29 21:54 | Emergency (ER) | payer SELFPAY ==
[~2020-07-29 21:54] MED LIST changes: +AMOX1TAB61 PO
== END 2020-07-29 22:30 | disposition left against medical advice (07) ==
LOC: ER 21:54
DX: R06.02 Shortness of breath (principal); J45.909 Unspecified asthma, uncomplicated; Z53.21 Procedure and treatment not carried out due to patient leaving prior to being seen by health care provider

== ENCOUNTER 2020-07-31 22:55 | Emergency (ER) | payer SELFPAY ==
[~2020-07-31] VITALS: Ht 154.9 cm; Wt 99.0 kg
--- NOTE | 2020-07-31 23:26 | RAD ---
XR CHEST 1V 07/31/2020 11:13 PM INDICATION: Cough, congestion COMPARISON: 07/09/2020 TECHNIQUE: Portable frontal view of the chest is provided. FINDINGS: The cardiomediastinal silhouette is within normal limits. Lungs are clear. There are no significant pleural effusions. There is no pulmonary vascular congestion. No pneumothora x. No suspicious osseous abnormality. IMPRESSION: There is no acute cardiopulmonary process. Electronically signed by: Bobbi Carpio MD (07/31/2020 11:24 PM) [facility]
[2020-07-31] MEDS ORDERED: IPRATRPIUM/ALBUTEROL 0.5/2.5MG 3 ML NEBU. NEB ONE (23:30)
[2020-07-31] MEDS ORDERED: DEXAMETHASONE 4 MG TABLET PO ONE (23:30)
--- NOTE | 2020-07-31 23:37 | EKG ---
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
--- NOTE | 2020-07-31 23:41 | PHYS DOC ---
Past History Past Medical History: Anxiety, Asthma, COPD, Depression, Schizophrenia Additional Past Medical Histor: psychosis Past Surgical History: Tonsillectomy Additional Past Surgical Histo: EAR SURGERY Alcohol Use: Rarely Drug Use: None Adult General Chief Complaint Chief Complaint: CHEST PAIN HPI HPI Patient is a 59-year-old female with a history of asthma who presents to the emergency department with a chief complaint shortness of breath, wheezing and cough with some nasal congestion for about the last day. States that she has had some wheezing at home and has used her asthma medications with minimal relief. Denies any recent travel, illnesses, fevers, known ill contacts. Denies any chest pain, abdominal pain, nausea, vomiting, diarrhea. States she is taking all her medications as prescribed. Denies any tobacco, alcohol or drug use. Review of Systems Review of Systems Review of systems otherwise unremarkable except noted in HPI Current Medications Current Medications Current Medications Medications (Trade) Dose Ordered Sig/Shaunna Start Time Stop Time Status Last Admin Dose Admin Albuterol/ Ipratropium (Duoneb) 3 ml 1X ONCE 07/31/20 23:30 07/31/20 23:31 DC 07/31/20 23:21 3 ML Dexamethasone (Decadron) 10 mg 1X ONCE 07/31/20 23:30 07/31/20 23:31 DC 07/31/20 23:25 10 MG Allergies Allergies Allergies Coded Allergies Type Severity Reaction Last Updated Verified Sulfa (Sulfonamide Antibiotics) Allergy Intermediate 07/31/20 No Physical Exam Physical Exam Constitutional: Well developed, well nourished, no acute distress, non-toxic appearance. [] HENT: Normocephalic, atraumatic, oropharynx moist, no oral exudates, Eyes: conjunctiva normal, no discharge. [] Neck: Normal range of motion, no tenderness, supple, no stridor. [] Cardiovascular:Heart rate regular rhythm, no murmur [] Lungs & Thorax: Bilateral breath sounds notable for end expiratory wheezing, globally. Abdomen: soft, no tenderness, no masses, no pulsatile masses. [] Skin: Warm, dry, no erythema, no rash. [] Extremities: No tenderness, no cyanosis, no clubbing, ROM intact, no edema. [] Neurologic: Alert and oriented X 3, normal motor function, normal sensory function, no focal deficits noted. [] Psychologic: Affect normal, judgement normal, mood normal. [] Current Patient Data Vital Signs Vital Signs Date Time Temp Pulse Resp B/P (MAP) Pulse Ox O2 Delivery O2 Flow Rate FiO2 07/31/20 23:23 98 Room Air 07/31/20 23:10 98.2 79 18 145/53 (83) EKG EKG [] Radiology/Procedures Radiology/Procedures [FINDINGS: The cardiomediastinal silhouette is within normal limits. Lungs are clear. There are no significant pleural effusions. There is no pulmonary vascular conge stion. No pneumothorax. No suspicious osseous abnormality. IMPRESSION: There is no acute cardiopulmonary process. Electronically signed by: Bobbi Carpio MD (07/31/2020 11:24 PM) [facility]] Heart Score Risk Factors: Risk Factors: DM, Current or recent (<one month) smoker, HTN, HLP, family history of CAD, obesity. Risk Scores: Risk Factors: DM, Current or recent (<one month) smoker, HTN, HLP, family history of CAD, obesity. Course & Med Decision Making Course & Med Decision Making Patient is a 59-year-old female who presents with asthma related symptoms with associated congestion for a day Vital signs notable for mild hypertension. Physical exam noted above. Patient placed on the monitor with IV access established. EKG noted above and not concerning. Troponin normal. Chest x-ray not concerning. Given dexamethasone. Given breathing treatment. On reassessment patient's wheezes had resolved, heart rate remained good, blood pressure normalized, and 98 - 100% saturation on room air. Patient states she was feeling much better and felt safe to discharge home. Advised to continue home medications. Advised to call primary care physician first thing tomorrow to set up a post ER follow-up visit to discuss asthma exacerbation management. Gave strict return precautions to the ED. Patient grateful, verbalized understanding and agreed with plan of discharge. [] Dragon Disclaimer Dragon Disclaimer This electronic medical record was generated, in whole or in part, using a voice recognition dictation system. Departure Departure: Disposition: 01 DC HOME SELF CARE/HOMELESS Condition: GOOD Referrals: PCP,NO (PCP) TEMI FAUSTIN MD Patient Instructions: Asthma Attacks, Prevention, Asthma, Acute Bronchospasm Additional Instructions: Please read all the attached information. Please continue your asthma medications at home as prescribed. You can use an [id number] cold medici ne or decongestant as needed for your nasal congestion. Please call your primary care physician first thing in the morning to set up a post ER follow-up visit as soon as you can. Please return to the ED with new or concerning symptoms. PRABHAKAR URBINA MD Jul 31, 2020 23:41
[2020-08-01 00:11] VITALS: BP 114/55
== END 2020-08-01 00:30 | disposition home or self-care (01) ==
LOC: ER 22:55
DX: R06.02 Shortness of breath (principal); R06.2 Wheezing; R09.81 Nasal congestion; J44.9 Chronic obstructive pulmonary disease, unspecified; F20.9 Schizophrenia, unspecified; F32.9 Major depressive disorder, single episode, unspecified; Z88.2 Allergy status to sulfonamides
CPT/HCPCS: 36415; 71045; 84484; 93005; 94640; 99285; J8540

== ENCOUNTER 2020-08-14 08:28 | Emergency (ER) | payer SELFPAY ==
[~2020-08-14] VITALS: Ht 154.9 cm; Wt 99.0 kg
[2020-08-14 08:42] VITALS: BP 153/85
[2020-08-14] MEDS ORDERED: DEXAMETHASONE 4 MG TABLET PO ONE (09:15)
[2020-08-14] MEDS ORDERED: IPRATRPIUM/ALBUTEROL 0.5/2.5MG 3 ML NEBU. NEB ONE ×2 (09:15)
--- NOTE | 2020-08-14 09:28 | RAD ---
EXAM: CHEST 1 VIEW History: Chest tightness COMPARISON: 07/31/2020. TECHNIQUE: Single portable radiograph of the chest FINDINGS: The cardiac silhouette is unremarkable. The lungs are clear bilaterally. The costophrenic sulci are clear and well demarcated. IMPRESSION: No radiographic evidence of an acute cardiopulmonary process. Electronically signed by: Tiburcio Patel MD (08/14/2020 9:26 AM) [id number]
[2020-08-14] MEDS ORDERED: DEXAMETHASONE SOD PHOS 10 MG/ML VIAL. IM ONE (09:30)
--- NOTE | 2020-08-14 09:59 | PHYS DOC ---
Past History Past Medical History: Anxiety, Asthma, COPD, Depression, Schizophrenia Additional Past Medical Histor: psychosis Past Surgical History: Tonsillectomy Additional Past Surgical Histo: EAR SURGERY Alcohol Use: None Drug Use: None General Adult EDM: Chief Complaint: ASTHMA HPI: HPI: 59-year-old female past medical history of schizophrenia, anxiety and asthma, presents the ED with complaints of "this morning I had an asthma attack," described as bilateral upper chest tightness with difficulties breathing. Reports last asthma exacerbation was 1 month ago when she was given a short term dose of prednisone. Last hospital admission for asthma was "over a year ago." H/o oxygen use with asthma but no intubations. No known h/o covid in past year. Sxs started this am -reports she slept comfortably last night. Review of Systems: Review of Systems: Constitutional: Denies fever or chills Eyes: Denies change in visual acuity HENT: Denies nasal congestion or sore throat Respiratory: Denies cough or shortness of breath Cardiovascular: Denies chest pain or edema GI: Denies abdominal pain, nausea, vomiting, bloody stools or diarrhea : Denies dysuria Musculoskeletal: Denies back pain or joint pain Integument: Denies rash Neurologic: Denies headache, focal weakness or sensory changes Endocrine: Denies polyuria or polydipsia Lymphatic: Denies swollen glands Psychiatric: Denies depression or anxiety Current Medications: Current Meds: Current Medications Medications (Trade) Dose Ordered Sig/Shaunna Start Time Stop Time Status Last Admin Dose Admin Albuterol/ Ipratropium (Duoneb) 3 ml 1X ONCE 08/14/20 09:15 08/14/20 09:16 DC 08/14/20 09:23 3 ML Dexamethasone (Decadron) 10 mg 1X ONCE 08/14/20 09:15 08/14/20 09:20 DC Dexamethasone Sodium Phosphate (Decadron) 10 mg 1X ONCE 08/14/20 09:30 08/14/20 09:31 DC 08/14/20 09:26 10 MG Allergies: Allergies: Allergies Coded Allergies Type Severity Reaction Last Updated Verified Sulfa (Sulfonamide Antibiotics) Allergy Intermediate 07/31/20 No Physical Exam: PE: Constitutional: Well developed, well nourished, no acute distress, non-toxic appearance. HENT: Normocephalic, atraumatic, Eyes: EOMI, conjunctiva normal, no discharge. Neck: Normal range of motion, supple, Cardiovascular: S1/2 present, regular rhythm Lungs & Thorax: Speaking in full sentences, bilateral equal chest rise, no tachypnea or increased work of breathing Abdomen: soft, no tenderness, Skin: Warm, dry, no erythema, no rash. [] Back: No tenderness, no CVA tenderness. [] Extremities: No tenderness, no cyanosis, no lower extremity edema Neurologic: Alert and oriented X 3, normal motor function, normal sensory function, no focal deficits noted. [] Psychologic: Affect normal, judgement normal, mood normal. [] Current Patient Data: Vital Signs: Vital Signs Date Time Temp Pulse Resp B/P (MAP) Pulse Ox O2 Delivery O2 Flow Rate FiO2 08/14/20 09:31 100 Room Air 08/14/20 08:42 97.7 102 24 153/85 (107) EKG: EKG: [] Radiology/Procedures: Radiology/Procedures: IMAGING REPORT Signed PATIENT: MATEO RODRIGUEZ ACCOUNT: [id number] : 1960 LOCATION: ER AGE: 59 SEX: F EXAM STATUS: REG ER ORD. PHYSICIAN: JAZLYN YODER DO REASON: chest tight PROCEDURE: CHEST AP ONLY EXAM: CHEST 1 VIEW History: Chest tightness COMPARISON: 07/31/2020. TECHNIQUE: Single portable radiograph of the chest FINDINGS: The cardiac silhouette is unremarkable. The lungs are clear bilat erally. The costophrenic sulci are clear and well demarcated. IMPRESSION: No radiographic evidence of an acute cardiopulmonary process. Electronically signed by: Tiburcio Patel MD (08/14/2020 9:26 AM) [id number] DICTATED AND SIGNED BY: TIBURCIO PATEL MD DATE: 08/14/20 0924 CC: PCP,JENNIFER; JAZLYN YODER DO ~MTH0 0 Heart Score: Risk Factors: Risk Factors: DM, Current or recent (<one month) smoker, HTN, HLP, family history of CAD, obesity. Risk Scores: Score 0 - 3: 2.5% MACE over next 6 weeks - Discharge Home Score 4 - 6: 20.3% MACE over next 6 weeks - Admit for Clinical Observation Score 7 - 10: 72.7% MACE over next 6 weeks - Early Invasive Strategies Course & Med Decision Making: Course & Med Decision Making Pertinent Labs and Imaging studies reviewed. (See chart for details) Will discharge home with strict ED return precautions were given for []. Encouraged urgent outpatient follow-up with PMD and pulmonology. Life- threatening processes were considered but are low suspicion at this time, given history, physical exam and ED workup. Pt was educated on all prescription medications and adverse effects. All patient's questions were answered and pt was stable at time of discharge. Life/limb-threatening differential includes but is not limited to, ACS, dysrhyth nanette, pneumothorax or hemothorax, pulmonary embolus, pneumonia, bronchoconstriction, pulmonary edema, angioedema, epiglottitis, tracheitis, Salinas's angina, RPA/CORE ANALYST, anaphylaxis, angioedema, cardiac tamponade or murmurs, pericarditis, myocarditis, poisoning or toxicity, sepsis or autoimmune/neurologic disease. I spoken with the patient and her caregivers. I explained the patient's condition, diagnoses and treatment plan based on the information available to me at this time. I have answered the patient and her caregiver's questions and addressed any concerns. The patient and her caregivers have a good understanding of patient's diagnosis, condition and treatment plan as can be expected at this point. Vital signs have been stable. Patient's condition is s table and appropriate for discharge from the emergency department. Patient will pursue further outpatient evaluation with primary care physician or other designated or consulting physician as outlined in the discharge instructions. The patient and/or caregivers are agreeable to this plan of care and follow-up instructions have been explained in detail. The patient and/or caregivers have received these instructions in written form and have expressed an understanding of the discharge instructions. The patient and/or caregivers are aware that any significant change of condition or worsening of symptoms should prompt immediate return to this or the closest emergency department or call to 911. Leon Disclaimer: Leon Disclaimer: This electronic medical record was generated, in whole or in part, using a voice recognition dictation system. Departure Departure: Impression: Primary Impression: Asthma exacerbation Disposition: 01 DC HOME SELF CARE/HOMELESS Condition: STABLE Referrals: PCP,NO (PCP) FOLLOW UP WITH FAMILY MEDICINE: Family Medicine Address: [address] [place] [address], [address] [place] [address] Patient Instructions: Asthma, Adult Additional Instructions: FOLLOW UP WITH: [facility] Address: [address] [place] [address] EMERGENCY DEPARTMENT GENERAL DISCHARGE INSTRUCTIONS Thank you for coming to [facility] (ED) today and trusting us with you care. We trust that you had a positivie experience in our Emergency Department. If you wish to speak to the department management, you may call the director at [phone]. YOUR FOLLOW UP INSTRUCTIONS ARE FOLLOWS: 1. Do you have a private Doctor? If you do not have a private doctor, please ask for a resource list of physicians or clinics that may be able to assist you with follow up care. 2. The Emergency Physician has interpreted your x-rays. The X-Ray specialist will also review them. If there is a change in the findings, you will be notified in 48 hours when at all possible. 3. A lab test or culture has been done, your results will be reviewed and you will be notified if you need a change in treatment. ADDITIONAL INSTRUCTIONS AND INFORMATION: 1. Your care today has been supervised by a physician who is specially trained in emergency care. Many problems require more than one evaluation for a complete diagnosis and treatment. We recommend that you schedule your follow up appointment as recommended to ensure complete treatment of you illness or injury. If you are unable to obtain follow up care and continue to have a problem, or if your condition worsens, we recommend that you return to the ED. 2. We are not able to safely determine your condition over the phone nor are we able to give sound medical advice over the phone. For these safety reasons, if you call for medical advice we will ask you to come to the ED for further evaluation. 3. If you have any questions regarding these discharge instructions please call the ED at [phone]. SAFETY INFORMATION: In the interest of safety, wellness, and injury prevention; we encourage you to wear your sealbelt, if you smoke; quite smoking, and we encourage family to use a protective helmet for bicycling and other sporting events that present an increased risk for head injury. IF YOUR SYMPTOMS WORSEN OR NEW SYMPTOMS DEVELOP, OR YOU HAVE CONCERNS ABOUT YOUR CONDITION; OR IF YOUR CONDITION WORSENS WHILE YOU ARE WAITING FOR YOUR FOLLOW UP APPOINTMENT; EITHER CONTACT YOUR PRIMARY CARE DOCTOR, THE PHYSICIAN WHOSE NAME AND NUMBER YOU WERE GIVEN, OR RETURN TO THE ED IMMEDIATELY. Scripts Albuterol Sulfate (VENTOLIN HFA INHALER) 18 Gm Hfa.aer.ad 1 PUFF IH PRN Q4HRS PRN for FOR ASTHMA for 30 Days, #1 EACH 0 Refills Prov: JAZLYN YODER DO 08/14/20 Prednisone (PREDNISONE) 10 Mg Tablet 40 MG PO DAILY for asthma for 5 Days, #20 TAB for 4 days started 08/15/20 Prov: JAZLYN YODER DO 08/14/20 JAZLYN YODER DO Aug 14, 2020 09:59
[2020-08-14] MEDS ORDERED: ALBU2.5V8 IH (10:41)
[2020-08-14] MEDS ORDERED: PRED-220 PO (10:41)
== END 2020-08-14 10:48 | disposition home or self-care (01) ==
LOC: ER 08:28
DX: J44.9 Chronic obstructive pulmonary disease, unspecified (principal); J45.901 Unspecified asthma with (acute) exacerbation; F20.9 Schizophrenia, unspecified; F32.9 Major depressive disorder, single episode, unspecified; Z88.2 Allergy status to sulfonamides
CPT/HCPCS: 71045; 94640; 96372; 99284; J1100

== ENCOUNTER → 2020-10-10 | Emergency (ER) | payer SELFPAY | END | disposition left against medical advice (07) | LOC: ER 22:12 | DX: R09.81 Nasal congestion (principal); R06.02 Shortness of breath; Z53.21 Procedure and treatment not carried out due to patient leaving prior to being seen by health care provider ==

== ENCOUNTER 2020-11-01 11:19 | Emergency (ER) | payer SELFPAY ==
[~2020-11-01] VITALS: Ht 154.9 cm; Wt 101.0 kg
[2020-11-01] MEDS ORDERED: predniSONE 20 MG TABLET PO ONE (12:45)
[2020-11-01] MEDS ORDERED: IBUPROFEN 600 MG TABLET. PO ONE (12:45)
[2020-11-01] MEDS ORDERED: IPRATRPIUM/ALBUTEROL 0.5/2.5MG 3 ML NEBU. NEB ONE (12:45)
--- NOTE | 2020-11-01 13:25 | RAD ---
EXAM: Chest, 2 views. HISTORY: Wheezing. Congestion. COMPARISON: 08/14/2020 FINDINGS: 2 views of chest are obtained. There is stable bilateral infrahilar opacity likely due to a telectasis or scarring. There is no consolidation, pleural effusion or pneumothorax. The heart is nor mal in size. IMPRESSION: No acute pulmonary finding. Electronically signed by: Danuta Silva MD (11/01/2020 1:23 PM) [facility]
--- NOTE | 2020-11-01 13:33 | PHYS DOC ---
Past History Past Medical History: Anxiety, Asthma, COPD, Depression, Schizophrenia Additional Past Medical Histor: psychosis (YARA SERRANO APRN) Past Surgical History: Tonsillectomy Additional Past Surgical Histo: EAR SURGERY (YARA SERRANO APRN) Alcohol Use: None Drug Use: None (YARA SERRANO APRN) Adult General Chief Complaint Chief Complaint: CONGESTION HPI HPI Patient is a 59-year-old female presents emergency department complaining of wheezing and dry cough for the past week. Patient states she is been using her inhaler several times a day and taking Tylenol without relief. Patient reports using her albuterol MDI 12 times today without relief. Patient denies any recent fever or chills, denies chest pain, denies headaches or dizziness. Patient denies swelling to her extremities. Patient denies any nasal congestion. Patient reports it feels to her as if she has chest congestion but she is unable to cough anything up. Patient reports she has a history of asthma. Patient states she has not had an asthma work-up performed with a primary care physician, patient states she only sees emergency room doctors to treat her asthma problems. Patient denies any other physical complaints or physical concerns. (YARA SERRANO APRN) Review of Systems Review of Systems 14 body systems of review of systems have been reviewed. See HPI for pertinent positives and negative responses, otherwise all other systems are negative, nonpertinent or noncontributory. (YARA SERRANO APRN) Current Medications Current Medications Albuterol MDI Current Medications Medications (Trade) Dose Ordered Sig/Shaunna Start Time Stop Time Status Last Admin Dose Admin Albuterol/ Ipratropium (Duoneb) 3 ml 1X ONCE 11/01/20 12:45 11/01/20 12:46 DC 11/01/20 12:45 3 ML Ibuprofen (Motrin) 600 mg 1X ONCE 11/01/20 12:45 11/01/20 12:46 DC 11/01/20 12:59 600 MG Prednisone (Prednisone) 60 mg 1X ONCE 11/01/20 12:45 11/01/20 12:46 DC 11/01/20 13:00 60 MG (YARA SERRANO APRN) Allergies Allergies Allergies Coded Allergies Type Severity Reaction Last Updated Verified Sulfa (Sulfonamide Antibiotics) Allergy Intermediate 07/31/20 No (YARA SERRANO APRN) Physical Exam Physical Exam Constitutional: Well developed, well nourished, no acute distress, non-toxic appearance. 59-year-old female in mild respiratory distress, audible i.e. wheezing appreciated. HENT: Normocephalic, atraumatic, bilateral external ears normal, oropharynx moist, no oral exudates, nose normal. Oropharynx pink, moist, no uvular edema, no peritonsillar swelling, no laryngeal edema appreciated, no deep tissue infectious process appreciated, no postnasal drip appreciated, no lymphadenopathy of the head or neck appreciated. Eyes: PERRLA, EOMI, conjunctiva normal, no discharge. Neck: Normal range of motion, no tenderness, supple, no stridor. No nuchal rigidity, no meningismus signs. Cardiovascular:Heart rate regular rhythm, no murmur heart sounds S1-S2 to auscultation. Lungs & Thorax: Diminished breath sounds bilateral bases, I/E wheezing upper lobes. No other adventitious lung sounds appreciated. Abdomen: Bowel sounds normal, soft, no tenderness, no masses, no pulsatile masses. Skin: Warm, dry, no erythema, no rash. Back: No tenderness, no CVA tenderness. Extremities: No tenderness, no cyanosis, no clubbing, ROM intact, no edema. Neurologic: Alert and oriented X 3, normal motor function, normal sensory function, no focal deficits noted. Psychologic: Affect normal, judgement normal, mood normal. (YARA SERRANO APRN) Current Patient Data Vital Signs Vital Signs Date Time Temp Pulse Resp B/P (MAP) Pulse Ox O2 Delivery O2 Flow Rate FiO2 11/01/20 12:49 97 Room Air 11/01/20 11:36 97.7 77 18 110/47 (68) (YARA SERRANO APRN) EKG EKG [] (YARA SERRANO APRN) Radiology/Procedures Radiology/Procedures PATIENT: MATEO RODRIGUEZ ACCOUNT: [id number] : 1960 LOCATION: ER AGE: 59 SEX: F EXAM STATUS: REG ER ORD. PHYSICIAN: YARA SERRANO APRN REASON: WHEEZING, CONGESTION PROCEDURE: CHEST PA & LATERAL EXAM: Chest, 2 views. HISTORY: Wheezing. Congestion. COMPARISON: 08/14/2020 FINDINGS: 2 views of chest are obtained. There is stable bilateral infrahilar opacity likely due to atelectasis or scarring. There is no consolidation, pleural effusion or pneumothorax. The heart is normal in size. IMPRESSION: No acute pulmonary finding. Electronically signed by: Danuta Tompkins MD (11/01/2020 1:23 PM) [facility] DICTATED AND SIGNED BY: DANUTA TOMPKINS MD DATE: 11/01/20 1322 CC: YARA SERRANO APRN; PCP,NO ~MTH0 0 (YARA SERRANO APRN) Heart Score C/O Chest Pain: No Risk Factors: Risk Factors: DM, Current or recent (<one month) smoker, HTN, HLP, family history of CAD, obesity. Risk Scores: Risk Factors: DM, Current or recent (<one month) smoker, HTN, HLP, family history of CAD, obesity. (YARA SERRANO APRN) Course & Med Decision Making Course & Med Decision Making Pertinent Labs and Imaging studies reviewed. (See chart for details) 59-year-old female, vital signs reviewed, presents emergency department concer charanjit wheezing and dry cough for the past week. Physical examination consistent with asthma exacerbation. Will order albuterol and Atrovent MDI, 60 mg p.o. prednisone, chest x-ray PA and lateral. Chest x-ray read negative for acute process per house radiologist interpretation. Upon reexamination of the patient after her MDI breathing treatment, found patient in no apparent distress, lung sounds clear to auscultate all lung gonzales, patient states she feels 100% better and is ready to go home, patient is requesting a MDI Ventolin inhaler, discussed with patient will also prescribe prednisone 20 mg daily x5 days. Discussed with patient strict follow-up with primary care provider for ongoing asthma evaluation and treatment. Discussed with patient will give an area healthcare provider for follow-up consideration, discussed with patient may use any physician of her choice. Patient gave verbal understanding of discharge home instructions, prescription instructions, strict follow-up with primary care provider for asthma evaluation and treatment, return to ER precautions and concerns, patient was discharged home without incident. (YARA SERRANO APRN) Dragon Disclaimer Dragon Disclaimer This electronic medical record was generated, in whole or in part, using a voice recognition dictation system. (YARA SERRANO APRN) Attending Co-Sign The patient was seen and interviewed as well as examined at the bedside. The chart was reviewed. The case was discussed. Agree with the plan of care. (BERTA KIM DO) Departure Departure: Impression: Primary Impression: Acute asthma exacerbation Disposition: HOME / SELF CARE / HOMELESS Condition: GOOD Referrals: PCP,JENNIFER (PCP) JAZLYN ROMERO Patient Instructions: Asthma, Acute Bronchospasm Additional Instructions: You were seen today in the emergency department for asthma exacerbation, you improved significantly with 1 albuterol and Atrovent breathing treatment. You are also given a 60 mg dose of prednisone in the ER today. As we discussed I am prescribing you prednisone to take at home, 20 mg tablets 1 tablet each day for the next 5 days. You may start this tomorrow. I am also prescribing you a Ventolin inhaler. I have provided you a healthcare provider to follow-up with for evaluation and ongoing treatment of your asthma problems. Please return to the emergency department for worsening symptoms or other concerns. EMERGENCY DEPARTMENT GENERAL DISCHARGE INSTRUCTIONS Thank you for coming to [facility] (ED) today and trusting us with you care. We trust that you had a positivie experience in our Emergency Department. If you wish to speak to the department management, you may call the director at [phone]. YOUR FOLLOW UP INSTRUCTIONS ARE FOLLOWS: 1. Do you have a private Doctor? If you do not have a private doctor, please ask for a resource list of physicians or clinics that may be able to assist you with follow up care. 2. The Emergency Physician has interpreted your x-rays. The X-Ray specialist will also review them. If there is a change in the findings, you will be notified in 48 hours when at all possible. 3. A lab test or culture has been done, your results will be reviewed and you will be notified if you need a change in treatment. ADDITIONAL INSTRUCTIONS AND INFORMATION: 1. Your care today has been supervised by a physician who is specially trained in emergency care. Many problems require more than one evaluation for a complete diagnosis and treatment. We recommend that you schedule your follow up appointment as recommended to ensure complete treatment of you illness or injury. If you are unable to obtain follow up care and continue to have a problem, or if your condition worsens, we recommend that you return to the ED. 2. We are not able to safely determine your condition over the phone nor are we able to give sound medical advice over the phone. For these safety reasons, if you call for medical advice we will ask you to come to the ED for further evaluation. 3. If you have any questions regarding these discharge instructions please call the ED at [phone]. SAFETY INFORMATION: In the interest of safety, wellness, and injury prevention; we encourage you to wear your sealbelt, if you smoke; quite smoking, and we encourage family to use a protective helmet for bicycling and other sporting events that present an increased risk for head injury. IF YOUR SYMPTOMS WORSEN OR NEW SYMPTOMS DEVELOP, OR YOU HAVE CONCERNS ABOUT YOUR CONDITION; OR IF YOUR CONDITION WORSENS WHILE YOU ARE WAITING FOR YOUR FOLLOW UP APPOINTMENT; EITHER CONTACT YOUR PRIMARY CARE DOCTOR, THE PHYSICIAN WHOSE NAME AND NUMBER YOU WERE GIVEN, OR RETURN TO THE ED IMMEDIATELY. Scripts Prednisone (PREDNISONE) 20 Mg Tablet 1 TAB PO DAILY for allergies for 5 Days, #5 TAB 0 Refills Prov: YARA SERRANO APRN 11/01/20 Albuterol Sulfate (VENTOLIN HFA INHALER) 18 Gm Hfa.aer.ad 1 PUFF IH PRN Q4HRS PRN for FOR ASTHMA, #1 EACH 0 Refills Prov: YARA SERRANO APRN 11/01/20 Problem Qualifiers Primary Impression: Acute asthma exacerbation Asthma severity: mild Asthma persistence: unspecified Qualified Codes: J45.901 - Unspecified asthma with (acute) exacerbation YARA SERRANO APRN November 01, 2020 13:33 BERTA KIM DO November 02, 2020 06:07
[2020-11-01] MEDS ORDERED: ALBU2.5V8 IH (13:42)
[2020-11-01] MEDS ORDERED: PRED20TA PO (13:42)
[2020-11-01 14:07] VITALS: BP 114/47
== END 2020-11-01 14:07 | disposition home or self-care (01) ==
LOC: ER 11:19
DX: J45.901 Unspecified asthma with (acute) exacerbation (principal); Z88.2 Allergy status to sulfonamides
CPT/HCPCS: 71046; 94640; 99283; J7512

== ENCOUNTER → 2020-11-01 | Emergency (ER) | payer SELFPAY | END | disposition left against medical advice (07) | LOC: ER 05:00 | DX: R07.9 Chest pain, unspecified (principal); Z53.21 Procedure and treatment not carried out due to patient leaving prior to being seen by health care provider ==

== ENCOUNTER 2020-11-02 03:32 | Emergency (ER) | payer SELFPAY ==
[~2020-11-02] VITALS: Ht 154.9 cm; Wt 101.0 kg
[2020-11-02 03:49] VITALS: BP 132/84
[2020-11-02] MEDS ORDERED: IPRATRPIUM/ALBUTEROL 0.5/2.5MG 3 ML NEBU. ONE (03:52)
[2020-11-02] MEDS ORDERED: DEXAMETHASONE 4 MG TABLET PO ONE (04:00)
--- NOTE | 2020-11-02 04:29 | PHYS DOC ---
Past History Past Medical History: Anxiety, Asthma, COPD, Depression, Schizophrenia Additional Past Medical Histor: psychosis Past Surgical History: Tonsillectomy Additional Past Surgical Histo: EAR SURGERY Alcohol Use: None Drug Use: None Adult General Chief Complaint Chief Complaint: ASTHMA HPI HPI Patient is a 59-year-old female with a past medical history for asthma who presents for chief complaint of asthma exacerbation. States she was in the emergency department yesterday and was treated for the same. States that she went home and was around her and some other people who were smoking cigarettes and it seemed to cause her to have some wheeze. States she has an albuterol inhaler at home but no spacer. States that she is currently working on getting in with a primary care physician to manage her medications better. Denies any recent travel, illnesses, fevers, chest pain, abdominal pain, nausea, vomiting. States she is otherwise eating and drinking normally. States though that the prescription she got earlier for albuterol and steroid she was not able to fill because she did not have time. Review of Systems Review of Systems Review of systems otherwise unremarkable except noted in HPI Current Medications Current Medications Current Medications Medications (Trade) Dose Ordered Sig/Shaunna Start Time Stop Time Status Last Admin Dose Admin Albuterol/ Ipratropium (Duoneb) 3 ml STK-MED ONCE 11/02/20 03:52 11/02/20 03:52 DC Dexamethasone (Decadron) 10 mg 1X ONCE 11/02/20 04:00 11/02/20 04:01 DC 11/02/20 04:02 10 MG Allergies Allergies Allergies Coded Allergies Type Severity Reaction Last Updated Verified Sulfa (Sulfonamide Antibiotics) Allergy Intermediate 07/31/20 No Physical Exam Physical Exam Constitutional: Well developed, well nourished, no acute distress, non-toxic appearance. [] HENT: Normocephalic, atraumatic, bilateral external ears normal, oropharynx moist, no oral exudates, nose normal. [] Eyes: PERRLA, EOMI, conjunctiva normal, no discharge. [] Neck: Normal range of motion, no tenderness, supple, no stridor. [] Cardiovascular:Heart rate regular rhythm, no murmur [] Lungs & Thorax: Global, bilateral mild end expiratory wheeze Abdomen: soft, no tenderness, no masses, no pulsatile masses. [] Skin: Warm, dry, no erythema, no rash. [] Neurologic: Alert and oriented X 3, normal motor function, normal sensory function, no focal deficits noted. [] Psychologic: Affect normal, judgement normal, mood normal. [] Current Patient Data Vital Signs Vital Signs Date Time Temp Pulse Resp B/P (MAP) Pulse Ox O2 Delivery O2 Flow Rate FiO2 11/02/20 03:55 96 2.5 11/02/20 03:49 97.6 117 32 132/84 (100) Nasal Cannula EKG EKG [] Radiology/Procedures Radiology/Procedures [] Heart Score C/O Chest Pain: No Risk Factors: Risk Factors: DM, Current or recent (<one month) smoker, HTN, HLP, family history of CAD, obesity. Risk Scores: Risk Factors: DM, Current or recent (<one month) smoker, HTN, HLP, family history of CAD, obesity. Course & Med Decision Making Course & Med Decision Making Patient is a 59-year-old female who presents with asthma exacerbation Vital signs notable for mild tachycardia. Physical exam noted above. Patient given dexamethasone, DuoNeb, and given an albuterol inhaler with a spacer and given instruction on appropriate use. Chest x-ray from yesterday with no acute findings. On reassessment patient's wheezes had improved and patient stated she felt as if she was breathing better and was ready to be discharged home. Discussed staying away from triggers and given education. Advised to follow-up with a primary care physician and given contact information for local free clinics. Gave return precautions to the ED. Patient very grateful, verbalized understanding and agreed with plan of discharge. [] Dragon Disclaimer Dragon Disclaimer This electronic medical record was generated, in whole or in part, using a voice recognition dictation system. Departure Departure: Impression: Primary Impression: Acute asthma exacerbation Disposition: HOME / SELF CARE / HOMELESS Condition: GOOD Referrals: PCP,NO (PCP) TEMI FAUSTIN MD Patient Instructions: Asthma Attacks, Prevention, Asthma, Acute Bronchospasm Additional Instructions: Please read all of the attached information very carefully. Please use your albuterol inhaler and spacer as instructed and demonstrated. Please fill your prescriptions as soon as you are able. Please follow-up with one of the primary care physician/free clinics noted in the information given to you as soon as you can to set up a follow-up visit and establish care. Please come back to the emergency department immediately with new or concerning symptoms. PRABHAKAR URBINA MD November 02, 2020 04:29
== END 2020-11-02 04:35 | disposition home or self-care (01) ==
LOC: ER 03:32
DX: J45.901 Unspecified asthma with (acute) exacerbation (principal); F17.210 Nicotine dependence, cigarettes, uncomplicated; Z88.2 Allergy status to sulfonamides
CPT/HCPCS: 94640; 99283; J8540

== ENCOUNTER 2020-11-15 01:02 | Emergency (ER) | payer SELFPAY ==
[~2020-11-15] VITALS: Ht 154.9 cm; Wt 101.0 kg
[2020-11-15 01:02] VITALS: BP 146/73
[2020-11-15] MEDS ORDERED: IPRATRPIUM/ALBUTEROL 0.5/2.5MG 3 ML NEBU. NEB ONE ×2 (01:30→01:45)
[2020-11-15] MEDS ORDERED: ALBUTEROL SULFATE 8GM INHALER. INH ONE (01:30)
[2020-11-15] MEDS ORDERED: DEXAMETHASONE SOD PHOS 10 MG/ML VIAL. PO ONE (01:30)
[2020-11-15] MEDS ORDERED: ALBU2.5V8 IH (01:31)
--- NOTE | 2020-11-15 01:41 | PHYS DOC ---
Past History Past Medical History: Anxiety, Asthma, COPD, Depression, Schizophrenia Additional Past Medical Histor: psychosis Past Surgical History: Tonsillectomy Additional Past Surgical Histo: EAR SURGERY Alcohol Use: None Drug Use: None Adult General Chief Complaint Chief Complaint: ASTHMA HPI HPI Patient is a 59-year-old female with a past medical history significant for asthma who presents to the emergency department with a chief complaint of asthma exacerbation. States she has been fighting with it over the last week but ran out of her albuterol. States over the last day or so she has had increased wheeze and is out of her albuterol inhaler and would like a medication refill. Denies any recent trauma, travels, illnesses, fevers, chest pain, abdominal pain, nausea, vomiting. Review of Systems Review of Systems Review of systems otherwise unremarkable except noted in HPI Allergies Allergies Allergies Coded Allergies Type Severity Reaction Last Updated Verified Sulfa (Sulfonamide Antibiotics) Allergy Intermediate 07/31/20 No Physical Exam Physical Exam Constitutional: Well developed, well nourished, no acute distress, non-toxic appearance. [] HENT: Normocephalic, atraumatic, bilateral external ears normal, oropharynx moist, no oral exudates, nose normal. [] Eyes: conjunctiva normal, no discharge. [] Neck: Normal range of motion, no tenderness, supple, no stridor. [] Cardiovascular:Heart rate regular rhythm, no murmur [] Lungs & Thorax: Bilateral breath sounds clear to auscultation [] Skin: Warm, dry, no erythema, no rash. [] Neurologic: Alert and oriented X 3, normal motor function, normal sensory function, no focal deficits noted. [] Psychologic: Affect normal, judgement normal, mood normal. [] EKG EKG [] Radiology/Procedures Radiology/Procedures [] Heart Score C/O Chest Pain: No Risk Factors: Risk Factors: DM, Current or recent (<one month) smoker, HTN, HLP, family history of CAD, obesity. Risk Scores: Risk Factors: DM, Current or recent (<one month) smoker, HTN, HLP, family history of CAD, obesity. Course & Med Decision Making Course & Med Decision Making Patient is a 59-year-old female who presents with a chief complaint of asthma exacerbation Vital signs not concerning. Physical exam noted above. Patient given corticosteroids. Given DuoNeb x2. Given albuterol inhaler for home with instr uction on how to use with spacer. Given resources for local primary care physicians and free clinics. Given good Rx coupon. Given prescription for multiple albuterol inhalers. Advised to call primary care physician/free clinics in the morning. Gave strict return precautions to the ED. Patient grateful, verbalized understanding and agreed with plan of discharge. [] Dragon Disclaimer Dragon Disclaimer This electronic medical record was generated, in whole or in part, using a voice recognition dictation system. Departure Departure: Impression: Primary Impression: Acute asthma exacerbation Disposition: HOME / SELF CARE / HOMELESS Condition: GOOD Referrals: PCP,JENNIFER (PCP) YI KINGSTON MD Patient Instructions: Asthma Attacks, Prevention, Asthma, Acute Bronchospasm Additional Instructions: Please read all the attached information very carefully. You are given a breathing treatment and corticosteroids in the emergency department. You are given prescriptions for 5 more days of steroids and refills on albuterol inhalers and a good Rx coupon. Please follow-up with your primary care physician tomorrow to discuss your ED visit and set up a follow-up as soon as possible. You are also given resources for other primary care physicians and free clinics in the area which you should call in the morning as well to try to get in and establish care with work and see first. Please come back to the emergency department immediately with new or concerning symptoms as discussed. Scripts Albuterol Sulfate (PROAIR HFA INHALER) 8.5 Gm Hfa.aer.ad 2 PUFF IH PRN Q4-6HRS PRN for wheezing for 21 Days, #1 INHALER 5 Refills Prov: PRABHAKAR URBINA MD 11/15/20 PRABHAKAR URBINA MD November 15, 2020 01:40
== END 2020-11-15 02:00 | disposition home or self-care (01) ==
LOC: ER 01:02
DX: J45.901 Unspecified asthma with (acute) exacerbation (principal); F41.9 Anxiety disorder, unspecified; F32.9 Major depressive disorder, single episode, unspecified; Z88.2 Allergy status to sulfonamides
CPT/HCPCS: 94640; 99285; J1100; 94664

== ENCOUNTER 2020-11-22 23:06 | Emergency (ER) | payer SELFPAY ==
[~2020-11-22] VITALS: Ht 154.9 cm; Wt 101.0 kg
--- NOTE | 2020-11-22 23:50 | PHYS DOC ---
Past History Past Medical History: Anxiety, Asthma, COPD, Depression, Schizophrenia Additional Past Medical Histor: psychosis Past Surgical History: Tonsillectomy Additional Past Surgical Histo: EAR SURGERY Alcohol Use: None Drug Use: None Adult General Chief Complaint Chief Complaint: ASTHMA HPI HPI Patient is a 59-year-old female with a past medical history significant for asthma who presents for a medication refill. States that she was in the emergency department approximately a week ago and got several refills on her albuterol inhaler but hadn't had a chance to refill them and she ran out earlier this morning. States that she came in as she felt like she was wheezing a little bit and wanted to get an albuterol inhaler to last her until she can go to the pharmacy tomorrow. Denies any other new symptoms or medical complaints at this time. Review of Systems Review of Systems Review of systems otherwise unremarkable except noted in HPI Current Medications Current Medications Current Medications Medications (Trade) Dose Ordered Sig/Shaunna Start Time Stop Time Status Last Admin Dose Admin Albuterol Sulfate (Ventolin Hfa Inhaler) 2 puff 1X ONCE 11/22/20 23:45 11/22/20 23:46 UNV Dexamethasone (Decadron) 10 mg 1X ONCE 11/22/20 23:45 11/22/20 23:46 UNV Allergies Allergies Allergies Coded Allergies Type Severity Reaction Last Updated Verified Sulfa (Sulfonamide Antibiotics) Allergy Intermediate 07/31/20 No Physical Exam Physical Exam Constitutional: Well developed, well nourished, no acute distress, non-toxic appearance. [] HENT: Normocephalic, atraumatic, bilateral external ears normal, oropharynx moist, no oral exudates, nose normal. [] Eyes: conjunctiva normal, no discharge. [] Neck: Normal range of motion, no tenderness, supple, no stridor. [] Cardiovascular:Heart rate regular rhythm, no murmur [] Lungs & Thorax: Bilateral breath sounds clear to auscultation [] Skin: Warm, dry, no erythema, no rash. [] Extremities: No tenderness,ROM intact, no edema. [] Neurologic: Alert and oriented X 3, normal motor function, normal sensory function, no focal deficits noted. [] Psychologic: Affect normal, judgement normal, mood normal. [] EKG EKG [] Radiology/Procedures Radiology/Procedures [] Heart Score C/O Chest Pain: No Risk Factors: Risk Factors: DM, Current or recent (<one month) smoker, HTN, HLP, family history of CAD, obesity. Risk Scores: Risk Factors: DM, Current or recent (<one month) smoker, HTN, HLP, family history of CAD, obesity. Course & Med Decision Making Course & Med Decision Making Patient is a 59-year-old female with a past medical history significant for asthma who presents for medication refill Vital signs not concerning. Physical exam noted above. Patient given one albuterol treatment in the ED and allowed to take the inhaler home until she can fill her albuterol prescriptions tomorrow. Advised to follow-up also with her primary care first thing Wednesday to discuss asthma medication management and strategies for better control. Patient also given education on asthma and controlling symptoms. Given resources for local primary care and free clinics again. Gave strict return precautions to the ED. Patient grateful, verbalized understanding and agreed with plan of discharge. Dragon Disclaimer Dragon Disclaimer This electronic medical record was generated, in whole or in part, using a voice recognition dictation system. Departure Departure: Impression: Primary Impression: Acute asthma exacerbation Additional Impression: Medication refill Disposition: HOME / SELF CARE / HOMELESS Condition: GOOD Referrals: PCP,NO (PCP) YI KINGSTON MD Patient Instructions: Asthma Prevention-Brief, Asthma, Acute Bronchospasm Additional Instructions: Please read all the attached information very carefully. Please be sure to go fill your albuterol prescription tomorrow so he can have plenty of inhalers handy. You were given one to take home from the emergency department tonight after your breathing treatment. Please call your primary care physician first thing Wednesday or contact one of the free clinics at the numbers provided to you at your last visit and on this visit to establish care if you don't have a primary care physician so you can manage your asthma medications. Please come back to the ED with new or concerning symptoms as we discussed. Problem Qualifiers PRABHAKAR URBINA MD Nov 22, 2020 23:49
[2020-11-22] MEDS: DEXAMETHASONE 4 MG TABLET PO ONE (23:56)
[2020-11-22] MEDS: ALBUTEROL SULFATE 8GM INHALER. INH ONE (23:56)
[2020-11-23 00:23] VITALS: BP 146/73
== END 2020-11-23 00:02 | disposition home or self-care (01) ==
LOC: ER 23:06
DX: J45.901 Unspecified asthma with (acute) exacerbation (principal); F41.9 Anxiety disorder, unspecified; F32.9 Major depressive disorder, single episode, unspecified; Z76.0 Encounter for issue of repeat prescription; Z88.2 Allergy status to sulfonamides
CPT/HCPCS: 94640; 99283; J8540; 94664

== ENCOUNTER 2020-11-27 20:16 | Emergency (ER) | payer SELFPAY ==
[~2020-11-27] VITALS: Ht 154.9 cm; Wt 102.3 kg
[2020-11-27 20:20] VITALS: BP 143/73
[2020-11-27] MEDS ORDERED: IPRATRPIUM/ALBUTEROL 0.5/2.5MG 3 ML NEBU. NEB ONE (20:45)
--- NOTE | 2020-11-27 21:01 | PHYS DOC ---
Past History Past Medical History: Anxiety, Asthma, Bronchitis, COPD, Depression, Schizophrenia, Other Additional Past Medical Histor: psychosis Past Surgical History: Tonsillectomy Additional Past Surgical Histo: EAR SURGERY Alcohol Use: Rarely Drug Use: None General Adult EDM: Chief Complaint: COUGH HPI: HPI: 59-year-old female presents with shortness of breath and wheezing. The patient is well-known to the emergency room. She does have an inhaler, but does not think it was working today. She cleaned house today that was very dagoberto. She was not wearing a mask. She denies fever or chills. She has no other complaints this time. Review of Systems: Review of Systems: Constitutional: Denies fever or chills Eyes: Denies change in visual acuity HENT: Denies nasal congestion or sore throat Respiratory: Shortness of breath Cardiovascular: Denies chest pain or edema GI: Denies abdominal pain, nausea, vomiting, bloody stools or diarrhea : Denies dysuria Musculoskeletal: Denies back pain or joint pain Integument: Denies rash Neurologic: Denies headache, focal weakness or sensory changes Endocrine: Denies polyuria or polydipsia Lymphatic: Denies swollen glands Psychiatric: Denies depression or anxiety Current Medications: Current Meds: Current Medications Medications (Trade) Dose Ordered Sig/Shaunna Start Time Stop Time Status Last Admin Dose Admin Albuterol/ Ipratropium (Duoneb) 3 ml 1X ONCE 11/27/20 20:45 11/27/20 20:46 DC Allergies: Allergies: Allergies Coded Allergies Type Severity Reaction Last Updated Verified Sulfa (Sulfonamide Antibiotics) Allergy Intermediate 07/31/20 No Physical Exam: PE: Constitutional: Well developed, well nourished, no acute distress, non-toxic appearance. [] HENT: Normocephalic, atraumatic, bilateral external ears normal, oropharynx moist, no oral exudates, nose normal. [] Eyes: PERRLA, EOMI, conjunctiva normal, no discharge. [] Neck: Normal range of motion, no tenderness, supple, no stridor. [] Cardiovascular: Heart rate regular rhythm, no murmur [] Lungs & Thorax: Bilateral breath sounds mild expiratory wheezing [] Abdomen: Bowel sounds normal, soft, no tenderness, no masses, no pulsatile masses. [] Skin: Warm, dry, no erythema, no rash. [] Back: No tenderness, no CVA tenderness. [] Extremities: No tenderness, no cyanosis, no clubbing, ROM intact, no edema. [] Neurologic: Alert and oriented X 3, normal motor function, normal sensory function, no focal deficits noted. [] Psychologic: Affect normal, judgement normal, mood normal. [] Current Patient Data: Vital Signs: Vital Signs Date Time Temp Pulse Resp B/P (MAP) Pulse Ox O2 Delivery O2 Flow Rate FiO2 11/27/20 20:20 98.1 90 24 143/73 (96) 96 Room Air EKG: EKG: [] Radiology/Procedures: Radiology/Procedures: [] Heart Score: C/O Chest Pain: N/A Risk Factors: Risk Factors: DM, Current or recent (<one month) smoker, HTN, HLP, family history of CAD, obesity. Risk Scores: Score 0 - 3: 2.5% MACE over next 6 weeks - Discharge Home Score 4 - 6: 20.3% MACE over next 6 weeks - Admit for Clinical Observation Score 7 - 10: 72.7% MACE over next 6 weeks - Early Invasive Strategies Course & Med Decision Making: Course & Med Decision Making Pertinent Labs and Imaging studies reviewed. (See chart for details) The patient had a DuoNeb treatment and is feeling better. I have advised her to take her albuterol inhaler every 4 hours for the next 24 hours. She is stable for discharge at this time. [] Dragon Disclaimer: Dragon Disclaimer: This electronic medical record was generated, in whole or in part, using a voice recognition dictation system. Departure Departure: Impression: Primary Impression: Asthma Disposition: HOME / SELF CARE / HOMELESS Condition: STABLE Referrals: PCP,JENNIFER (PCP) Patient Instructions: Asthma, Adult, [id number] BERTA KIM DO Nov 27, 2020 21:01
[2020-11-28] MEDS ORDERED: ALBU2.5V5 NEB (14:34)
[2020-11-28] MEDS ORDERED: PRED20TA PO (14:34)
== END 2020-11-27 21:15 | disposition home or self-care (01) ==
LOC: ER 20:16
DX: J45.909 Unspecified asthma, uncomplicated (principal); F41.9 Anxiety disorder, unspecified; J44.9 Chronic obstructive pulmonary disease, unspecified; F20.9 Schizophrenia, unspecified; F32.9 Major depressive disorder, single episode, unspecified; Z88.2 Allergy status to sulfonamides
CPT/HCPCS: 94640; 99283-25

== ENCOUNTER 2020-11-28 12:32 | Emergency (ER) | payer SELFPAY ==
[~2020-11-28] VITALS: Ht 154.9 cm; Wt 102.3 kg
[2020-11-28 12:50] VITALS: BP 152/63
[2020-11-28] MEDS ORDERED: IPRATRPIUM/ALBUTEROL 0.5/2.5MG 3 ML NEBU. ONE (12:54)
[2020-11-28] MEDS ORDERED: predniSONE 20 MG TABLET PO ONE (13:45)
--- NOTE | 2020-11-28 13:57 | RAD ---
INDICATION: Reason: asthma exacerbation, short of breath / Spl. Instructions: / History: COMPARISON: November 01, 2020 FINDINGS: 2 view of chest obtained. Mild elevation of the right hemidiaphragm. Cardiac silhouette is unremarkable. Mild haziness at the l kristian bases. Degenerative changes the spine. IMPRESSION: * Mild haziness at the lung bases could be secondary to atelectasis with early infiltrate not exclud ed. Electronically signed by: Mino Richardson MD (11/28/2020 1:54 PM) [id number]
[2020-11-28] MEDS ORDERED: PRED20TA PO (14:34)
[2020-11-28] MEDS ORDERED: ALBU2.5V5 NEB (14:34)
--- NOTE | 2020-11-28 14:35 | PHYS DOC ---
Past History Past Medical History: Anxiety, Asthma, Bronchitis, COPD, Depression, Schizophrenia, Other Additional Past Medical Histor: psychosis Past Surgical History: Tonsillectomy Additional Past Surgical Histo: EAR SURGERY Alcohol Use: Rarely Drug Use: None Adult General Chief Complaint Chief Complaint: ASTHMA HPI HPI Patient is a 59-year-old female presents emergency department complaining of acute asthma attack that started 3 days ago. Patient states she was seen here yesterday for the same complaint and was given a breathing treatment and sent home. Patient states she feels as if she needs a steroid to help. Patient is also requesting a refill of nebulizer treatment albuterol medication for home. Patient denies any chest pains, nasal congestion, sore throat, ear pains, chest congestion, nausea, vomiting, or diarrhea, patient denies fever or chills. Patient states this is typical for her asthma presentation. Patient has no other physical complaints or physical concerns. Patient denies cigarette smoking, illicit drug use, or alcohol consumption. Review of Systems Review of Systems 14 body systems of review of systems have been reviewed. See HPI for pertinent positives and negative responses, otherwise all other systems are negative, nonpertinent or noncontributory. Current Medications Current Medications Current Medications Medications (Trade) Dose Ordered Sig/Shaunna Start Time Stop Time Status Last Admin Dose Admin Albuterol/ Ipratropium (Duoneb) 3 ml STK-MED ONCE 11/28/20 12:54 11/28/20 12:55 DC Prednisone (Prednisone) 60 mg 1X ONCE 11/28/20 13:45 11/28/20 13:46 DC 11/28/20 13:52 60 MG Allergies Allergies Allergies Coded Allergies Type Severity Reaction Last Updated Verified Sulfa (Sulfonamide Antibiotics) Allergy Intermediate 07/31/20 No Physical Exam Physical Exam Constitutional: Well developed, well nourished, no acute distress, non-toxic appearance. 59-year-old female in mild respiratory distress. HENT: Normocephalic, atraumatic, bilateral external ears normal, oropharynx moist, no oral exudates, nose normal. Bilateral TMs within normal limits, no erythema or peritonsillar swelling appreciated, no uvular swelling, no laryngeal swelling, no drooling, no trismus, no deep tissue infectious process appreciated, bilateral external auditory canals within normal limits, no drainage appreciated. No lymphadenopathy of the head or neck appreciated. Eyes: Conjunctiva normal, no discharge. Neck: Normal range of motion, no tenderness, supple, no stridor. No meningismus signs, no nuchal rigidity. Cardiovascular:Heart rate regular rhythm, no murmur, heart sounds S1-S2 to auscultation. Lungs & Thorax: I/E wheezing to upper lobes, diminished lower lobes. No other adventitious lung sounds appreciated. Abdomen: Bowel sounds normal, soft, no tenderness, no masses, no pulsatile masses. Skin: Warm, dry, no erythema, no rash. Back: No tenderness, no CVA tenderness. Extremities: No tenderness, no cyanosis, no clubbing, ROM intact, no edema. Neurologic: Alert and oriented X 3, normal motor function, normal sensory function, no focal deficits noted. Psychologic: Affect normal, judgement normal, mood normal. Current Patient Data Vital Signs Vital Signs Date Time Temp Pulse Resp B/P (MAP) Pulse Ox O2 Delivery O2 Flow Rate FiO2 11/28/20 13:03 100 Room Air 11/28/20 12:50 99 18 152/63 (92) EKG EKG [] Radiology/Procedures Radiology/Procedures PATIENT: MATEO RODRIGUEZ ACCOUNT: [id number] : 1960 LOCATION: ER AGE: 59 SEX: F EXAM STATUS: REG ER ORD. PHYSICIAN: YARA SERRANO APRN REASON: asthma exacerbation, short of breath PROCEDURE: CHEST PA & LATERAL INDICATION: Reason: asthma exacerbation, short of breath / Spl. Instructions: / History: COMPARISON: November 01, 2020 FINDINGS: 2 view of chest obtained. Mild elevation of the right hemidiaphragm. Cardiac silhouette is unremarkable. Mild haziness at the lung bases. Degenerative changes the spine. IMPRESSION: * Mild haziness at the lung bases could be secondary to atelectasis with early infiltrate not excluded. Electronically signed by: Otilio Randle MD (11/28/2020 1:54 PM) [id number] DICTATED AND SIGNED BY: OTILIO RANDLE MD DATE: 11/28/20 1352 CC: YARA SERRANO APRN; PCP,NO ~MTH0 0 Heart Score C/O Chest Pain: No Risk Factors: Risk Factors: DM, Current or recent (<one month) smoker, HTN, HLP, family history of CAD, obesity. Risk Scores: Risk Factors: DM, Current or recent (<one month) smoker, HTN, HLP, family history of CAD, obesity. Course & Med Decision Making Course & Med Decision Making Pertinent Labs and Imaging studies reviewed. (See chart for details) 59-year-old female, vital signs reviewed, presents emergency department concerning asthma attack for the past 3 days. Physical presentation consistent with acute asthma exacerbation, will order chest x-ray, DuoNeb treatment, 60 mg p.o. prednisone. Chest x-ray nonconcerning for acute process, consistent with previous chest x- rays, reviewed wet read with ED attending physician Dr. Salinas who agrees antibiotic treatment not indicated. Discussed findings with patient, upon reevaluation of the patient the patient is in no respiratory distress, lung sounds clear to auscultate all lung gonzales. Patient is nontoxic in appearance. Discussed with patient will order p.o. prednisone 20 mg x 5 days, will order nebulizer albuterol medication for her home nebulizer machine. Patient gave verbal understanding of discharge home instructions, follow-up with PCP tomorrow, return to ER precautions or concerns, the patient states he feels much better and is ready go home, the patient was discharged home without incident. Dragon Disclaimer Dragon Disclaimer This electronic medical record was generated, in whole or in part, using a voice recognition dictation system. Departure Departure: Impression: Primary Impression: Acute asthma exacerbation Disposition: HOME / SELF CARE / HOMELESS Condition: GOOD Referrals: PCP,NO (PCP) Patient Instructions: Asthma, Adult Additional Instructions: You are seen today in the emergency department for an asthma exacerbation, please follow-up with a primary care provider for further evaluation of your asthma and consideration for home treatment medication changes, you may use the [facility] at [address] [place] [address], [facility], [place], [address], phone number [phone]. Please call today for an appointment. I am prescribing you prednisone 20 mg to take daily over the next 5 days, I am also prescribing you your albuterol nebulizer treatment medications. Please use as directed. R eturn to the emergency department for worsening symptoms or other concerns. EMERGENCY DEPARTMENT GENERAL DISCHARGE INSTRUCTIONS Thank you for coming to [facility] (ED) today and trusting us with you care. We trust that you had a positivie experience in our Emergency Department. If you wish to speak to the department management, you may call the director at [phone]. YOUR FOLLOW UP INSTRUCTIONS ARE FOLLOWS: 1. Do you have a private Doctor? If you do not have a private doctor, please ask for a resource list of physicians or clinics that may be able to assist you with follow up care. 2. The Emergency Physician has interpreted your x-rays. The X-Ray specialist will also review them. If there is a change in the findings, you will be notified in 48 hours when at all possible. 3. A lab test or culture has been done, your results will be reviewed and you will be notified if you need a change in treatment. ADDITIONAL INSTRUCTIONS AND INFORMATION: 1. Your care today has been supervised by a physician who is specially trained in emergency care. Many problems require more than one evaluation for a complete diagnosis and treatment. We recommend that you schedule your follow up appointment as recommended to ensure complete treatment of you illness or injury. If you are unable to obtain follow up care and continue to have a problem, or if your condition worsens, we recommend that you return to the ED. 2. We are not able to safely determine your condition over the phone nor are we able to give sound medical advice over the phone. For these safety reasons, if you call for medical advice we will ask you to come to the ED for further evaluation. 3. If you have any questions regarding these discharge instructions please call the ED at [phone]. SAFETY INFORMATION: In the interest of safety, wellness, and injury prevention; we encourage you to wear your sealbelt, if you smoke; quite smoking, and we encourage family to use a protective helmet for bicycling and other sporting events that present an increased risk for head injury. IF YOUR SYMPTOMS WORSEN OR NEW SYMPTOMS DEVELOP, OR YOU HAVE CONCERNS ABOUT YOUR CONDITION; OR IF YOUR CONDITION WORSENS WHILE YOU ARE WAITING FOR YOUR FOLLOW UP APPOINTMENT; EITHER CONTACT YOUR PRIMARY CARE DOCTOR, THE PHYSICIAN WHOSE NAME AND NUMBER YOU WERE GIVEN, OR RETURN TO THE ED IMMEDIATELY. Scripts Albuterol Sulfate (ALBUTEROL SULFATE NEB SOLN ) 2.5 Mg/3 Ml Vial.neb 2.5 MG NEB QIDPRN PRN for asthma, #60 EACH 0 Refills Prov: YARA SERRANO APRN 11/28/20 Prednisone (PREDNISONE) 20 Mg Tablet 1 TAB PO DAILY for allergies for 5 Days, #5 TAB 0 Refills Prov: YARA SERRANO APRN 11/28/20 Problem Qualifiers Primary Impression: Acute asthma exacerbation Asthma severity: mild Asthma persistence: intermittent Qualified Codes: J45.21 - Mild intermittent asthma with (acute) exacerbation YARA SERRANO [employer]MO[employer]IPE Nov 28, 2020 14:35
[2020-11-29] MEDS ORDERED: ACET325T9 PO (22:03)
[2020-11-29] MEDS ORDERED: GUAI600T47 PO (22:03)
== END 2020-11-28 14:42 | disposition home or self-care (01) ==
LOC: ER 12:32
DX: J45.901 Unspecified asthma with (acute) exacerbation (principal)
CPT/HCPCS: 71046; 94640; 99283; J7512

== ENCOUNTER 2020-11-29 01:32 | Emergency (ER) | payer SELFPAY ==
[~2020-11-29] VITALS: Ht 154.9 cm; Wt 102.3 kg
[2020-11-29] MEDS ORDERED: IPRATRPIUM/ALBUTEROL 0.5/2.5MG 3 ML NEBU. NEB ONE (01:45)
--- NOTE | 2020-11-29 01:50 | PHYS DOC ---
Past History Past Medical History: Anxiety, Asthma, Bronchitis, COPD, Depression, Schizophrenia, Other Additional Past Medical Histor: psychosis Past Surgical History: Tonsillectomy Additional Past Surgical Histo: EAR SURGERY Alcohol Use: Rarely Drug Use: None General Adult EDM: Chief Complaint: SOB HPI: HPI: 60-year-old female returns the emergency room with complaints of wheezing. Patient is well-known to the emergency room. I took care of her last night. She states that she is used her albuterol inhaler multiple times but still feels like she is wheezing. She "knows that the hospital nebulizer works better". Patient has been prescribed a nebulizer in the past but she has not picked it up. She denies chest pain or diaphoresis. She has no other complaints. Review of Systems: Review of Systems: Constitutional: Denies fever or chills Eyes: Denies change in visual acuity HENT: Denies nasal congestion or sore throat Respiratory: wheezing, shortness of breath Cardiovascular: Denies chest pain or edema GI: Denies abdominal pain, nausea, vomiting, bloody stools or diarrhea : Denies dysuria Musculoskeletal: Denies back pain or joint pain Integument: Denies rash Neurologic: Denies headache, focal weakness or sensory changes Endocrine: Denies polyuria or polydipsia Lymphatic: Denies swollen glands Psychiatric: Denies depression or anxiety Current Medications: Current Meds: Current Medications Medications (Trade) Dose Ordered Sig/Shaunna Start Time Stop Time Status Last Admin Dose Admin Albuterol/ Ipratropium (Duoneb) 3 ml 1X ONCE 11/29/20 01:45 11/29/20 01:46 DC Allergies: Allergies: Allergies Coded Allergies Type Severity Reaction Last Updated Verified Sulfa (Sulfonamide Antibiotics) Allergy Intermediate 07/31/20 No Physical Exam: PE: Constitutional: Well developed, well nourished, no acute distress, non-toxic appearance. [] HENT: Normocephalic, atraumatic, bilateral external ears normal, oropharynx moist, no oral exudates, nose normal. [] Eyes: PERRLA, EOMI, conjunctiva normal, no discharge. [] Neck: Normal range of motion, no tenderness, supple, no stridor. [] Cardiovascular: Heart rate regular rhythm, no murmur [] Lungs & Thorax: Bilateral end expiratory wheezes at the base [] Abdomen: Bowel sounds normal, soft, no tenderness, no masses, no pulsatile masses. [] Skin: Warm, dry, no erythema, no rash. [] Back: No tenderness, no CVA tenderness. [] Extremities: No tenderness, no cyanosis, no clubbing, ROM intact, no edema. [] Neurologic: Alert and oriented X 3, normal motor function, normal sensory function, no focal deficits noted. [] Psychologic: Affect normal, judgement normal, mood normal. [] EKG: EKG: [] Radiology/Procedures: Radiology/Procedures: [] Heart Score: C/O Chest Pain: N/A Risk Factors: Risk Factors: DM, Current or recent (<one month) smoker, HTN, HLP, family history of CAD, obesity. Risk Scores: Score 0 - 3: 2.5% MACE over next 6 weeks - Discharge Home Score 4 - 6: 20.3% MACE over next 6 weeks - Admit for Clinical Observation Score 7 - 10: 72.7% MACE over next 6 weeks - Early Invasive Strategies Course & Med Decision Making: Course & Med Decision Making Pertinent Labs and Imaging studies reviewed. (See chart for details) I find it highly unlikely that the patient is using her albuterol as recommended. The patient has already been given a 5-day prescription for steroids. I have given her a DuoNeb treatment in the ED. She is stable for discharge at this time. [] Leon Disclaimer: Leon Disclaimer: This electronic medical record was generated, in whole or in part, using a voice recognition dictation system. Departure Departure: Impression: Primary Impression: Acute asthma exacerbation Disposition: HOME / SELF CARE / HOMELESS Condition: IMPROVED Referrals: PCP,JENNIFER (PCP) BERTA KIM DO Nov 29, 2020 01:50
[2020-11-29 02:54] VITALS: BP 150/96
[2020-11-29] MEDS ORDERED: methylPREDNISolone SOD SUCC PF 125 MG/2 ML VIAL. IM ONE (03:00)
[2020-11-29] MEDS ORDERED: ALBUTEROL SULFATE 8GM INHALER. INH ONE (03:00)
[2020-11-29] MEDS ORDERED: ACET325T9 PO (22:03)
[2020-11-29] MEDS ORDERED: GUAI600T47 PO (22:03)
== END 2020-11-29 03:05 | disposition home or self-care (01) ==
LOC: ER 01:32
DX: J45.901 Unspecified asthma with (acute) exacerbation (principal); F41.9 Anxiety disorder, unspecified; Z88.2 Allergy status to sulfonamides
CPT/HCPCS: 94640; 96372; 99283; J2930

== ENCOUNTER 2020-11-29 16:40 | Inpatient (IN) | payer SELFPAY ==
[~2020-11-29] VITALS: Ht 154.9 cm; Wt 99.8 kg
[2020-11-29] MEDS ORDERED: ASPIRIN 325 MG TABLET PO ONE (17:00)
[2020-11-29] MEDS ORDERED: methylPREDNISolone SOD SUCC PF 125 MG/2 ML VIAL. IV ONE (17:00)
[2020-11-29] MEDS ORDERED: IPRATRPIUM/ALBUTEROL 0.5/2.5MG 3 ML NEBU. NEB ONE (17:00)
--- NOTE | 2020-11-29 17:10 | PHYS DOC ---
Past History Past Medical History: Anxiety, Asthma, Bronchitis, COPD, Depression, Schizophrenia, Other Additional Past Medical Histor: psychosis (JOSLYN TORRES DO) Past Surgical History: Tonsillectomy Additional Past Surgical Histo: EAR SURGERY (JOSLYN TORRES DO) Alcohol Use: None Drug Use: None (JOSLYN TORRES DO) Adult General Chief Complaint Chief Complaint: ASTHMA HPI HPI Patient is a 60-year-old female presenting for shortness of breath. This is her fourth visit in past 48 hours. Has long history of asthma with exacerbation and poor health literacy. Was seen at our facility earlier this morning and evaluated where she received albuterol treatment and steroids, she has not filled subsequent steroid prescription and reports she thinks she has remembered to utilize albuterol treatments every 4 hours as instructed. Nothing known makes better or worse. Patient denies any pain but admits overall shortness of breath and increased wheezing. States she has felt hot but no reported fever. Lives at home with sister and other family member, denies any's recent sick contacts or long distance travel. No history of blood clots/pulmonary embolism (JOSLYN TORRES DO) Review of Systems Review of Systems Fourteen body systems of review of systems have been reviewed. See HPI for pertinent positives and negative responses, other chance all other systems are negative, non-pertinent or non-contributory (JOSLYN TORRES DO) Current Medications Current Medications Current Medications Medications (Trade) Dose Ordered Sig/Shaunna Start Time Stop Time Status Last Admin Dose Admin Albuterol/ Ipratropium (Duoneb) 3 ml 1X ONCE 11/29/20 17:00 11/29/20 17:01 UNV Aspirin (Leeanna Aspirin) 325 mg 1X ONCE 11/29/20 17:00 11/29/20 17:01 UNV Methylprednisolone Sodium Succinate (SOLU-Medrol 125MG VIAL) 125 mg 1X ONCE 11/29/20 17:00 11/29/20 17:01 UNV (JOSLYN TORRES DO) Allergies Allergies Allergies Coded Allergies Type Severity Reaction Last Updated Verified Sulfa (Sulfonamide Antibiotics) Allergy Intermediate 07/31/20 No (JOSLYN TORRES DO) Physical Exam Physical Exam Constitutional: Well developed, well nourished, demonstrates increased work of breathing without overt respiratory failure HENT: Normocephalic, atraumatic, bilateral external ears normal, oropharynx dry with poor dentition, no oral exudates, nose normal. Eyes: PERRLA, EOMI, conjunctiva normal, no discharge. Neck: Normal range of motion, no tenderness, supple, no stridor. Cardiovascular: Heart rate tachycardic, sinus rhythm, no murmurs rubs or gallops Lungs & Thorax: Crackles present bilaterally with increased work of breathing and accessory muscle use and neck noted, no overt respiratory collapse but does demonstrate increased work of breathing Abdomen: Bowel sounds normal, soft, no tenderness, no masses, no pulsatile mas ses. Nonsurgical abdomen, no peritoneal signs Skin: Warm, dry, no erythema, no rash. Back: No tenderness, no CVA tenderness. Extremities: No tenderness, no cyanosis, no clubbing, ROM intact, no edema. Neurologic: Alert and oriented X 3, grossly normal motor & sensory function, no focal deficits noted. Psychologic: Affect normal, mood normal. (JOSLYN TORRES DO) Current Patient Data Vital Signs Vital Signs Date Time Temp Pulse Resp B/P (MAP) Pulse Ox O2 Delivery O2 Flow Rate FiO2 11/29/20 16:55 98.5 119 34 175/100 (125) 87 Lab Results Current Medications Medications (Trade) Dose Ordered Sig/Shaunna Route PRN Reason Start Time Stop Time Status Last Admin Dose Admin Aspirin (Leeanna Aspirin) 325 mg 1X ONCE PO 11/29/20 17:00 11/29/20 17:19 DC 11/29/20 17:12 Methylprednisolone Sodium Succinate (SOLU-Medrol 125MG VIAL) 125 mg 1X ONCE IV 11/29/20 17:00 11/29/20 17:19 DC 11/29/20 17:12 Albuterol/ Ipratropium (Duoneb) 3 ml 1X ONCE NEB 11/29/20 17:00 11/29/20 17:19 DC 11/29/20 17:13 Iohexol (Omnipaque 350 Mg/ml) 100 ml 1X ONCE IV 11/29/20 17:15 11/29/20 17:19 DC 11/29/20 17:43 (JOSLYN TORRES DO) EKG EKG EKG ordered and interpreted by myself at 1732 hrs. as sinus tachycardia with a rate of 117 bpm, unremarkable intervals, no axis deviation, T wave inversion noted in lead III, no STEMI (JOSLYN TORRES DO) Radiology/Procedures Radiology/Procedures [] (JOSLYN TORRES DO) Impressions: EXAM: CT chest with contrast - pulmonary embolus protocol CLINICAL HISTORY: Reason: SHORT OF BREATH, ASTHMA COMPARISON: None. TECHNIQUE: CT of the chest following the administration of intravenous contrast during the pulmonary arterial phase. Axial, coronal and sagittal reformatted images were generated including MIP images. ---PQRS compliance statement - One or more of the following individualized dose reduction techniques were utilized for this study: 1. Automated exposure control 2. Adjustment of the mA and/or kV according to patient size 3. Use of iterative reconstruction technique--- FINDINGS: CHEST: Diagnostic quality: Suboptimal. Pulmonary emboli: No pulmonary emboli to the level of the segmental branches. More peripheral vessels are not well assessed. Right heart strain: None Pulmonary arteries: Normal in caliber. Linear and bandlike opacities middle lobe likely scarring/atelectasis. Heart is not enlarged. Coronary calcifications are seen. No pericardial effusion. No pleural effusion or pneumothorax. No mediastinal or hilar lymphadenopathy. No axillary lymphadenopathy. Visualized Upper abdomen: Calcified gallstone is seen within the gallbladder. Small hiatal hernia. Bones: No aggressive osseous lesion is seen. IMPRESSION: 1. Suboptimal contrast bolus. No pulmonary emboli to the level of the segmental branches. More peripheral vessels are not well assessed. 2. Linear and bandlike opacities middle lobe likely scarring/atelectasis. 3. Cholelithiasis without CT evidence for acute cholecystitis. 4. Small hiatal hernia. Electronically signed by: Arie Vásquez MD (11/29/2020 6:24 PM) [facility] DICTATED AND SIGNED BY: ARIE VÁSQUEZ MD DATE: 11/29/201812 CC: BERTA KIM DO; JOSLYN TORRES DO; PCP,NO ~MTH0 0 (BERTA KIM DO) Heart Score C/O Chest Pain: No HEART Score for Chest Pain: HEART Score for Chest Pain Response (Comments) Value History Slighlty/Non-Suspicious 0 ECG Nonspecific Repolarizatio 1 Age >45 - < 65 1 Risk Factors >3 Risk Factors or Hx CAD 2 Total 4 Risk Factors: Risk Factors: DM, Current or recent (<one month) smoker, HTN, HLP, family history of CAD, obesity. Risk Scores: Risk Factors: DM, Current or recent (<one month) smoker, HTN, HLP, family history of CAD, obesity. (JOSLYN TORRES DO) Course & Med Decision Making Course & Med Decision Making Airway patent but demonstrating increased work of breathing.vitals obtained and concerning for hypoxia 86% on room air, tachypnea, tachycardia and hypertensive. IV access obtained and supplemental oxygen via nasal cannula administered with improvement in O2 saturations Diagnostic ER work-up ensued. Aspirin, Solu-Medrol, and DuoNeb treatment administered with improvement in symptoms. ER Labs and CTA pending at time of my shift's end. I gave comprehensive signout to Dr. Kim. Please defer to his future documentation regarding care of patient while in ER This patient required critical care. Due to the fact that the patient required a significant amount of one on one physician patient contact time, ordering and review of studies, arranging urgent treatment with development of a management plan, evaluation of patients response to treatment with frequent reassessments, and discussions with other providers this patient required critical care time 45mins. Critical care time was indicated due to the inherent instability and/or potential for instability in this patient. The critical care time that is allocated to this patient is above and beyond any time spent on any other billable procedures performed on this patient. (JOSLYN TORRES DO) Course & Med Decision Making The patient CTA of the chest was negative for pulmonary embolus. The patient continued to have wheezing. I spoke with Dr. Tobias and he has accepted the patient for admission. She is admitted for asthma exacerbation. (EBRTA KIM DO) Dragon Disclaimer Dragon Disclaimer This electronic medical record was generated, in whole or in part, using a voice recognition dictation system. (JOSLYN TORRES DO) Departure Departure: Impression: Primary Impression: Acute asthma exacerbation Disposition: ADMITTED INPATIENT Admitting Physician: Armando Tobias (BERTA KIM DO) Condition: STABLE Referrals: PCP,NO (PCP) JOSLYN TORRES DO Nov 29, 2020 17:10 BERTA KIM DO Nov 29, 2020 18:45
[2020-11-29] MEDS ORDERED: IOHEXOL 350 MG/ML 100 ML VIAL. IV ONE (17:15)
--- NOTE | 2020-11-29 17:33 | EKG ---
[address] [address] Test Date: 2020-11-29 Test Time: 17:22:47 Pat Name: MATEO RODRIGUEZ Department: Room: Gender: F Supervisor Case Loading: FUNMILAYO : 1960 Requested By: OJSLYN TORRES Order Number: [id number] Reading MD: Measurements Intervals [place] Rate: 117 P: 46 VT: 132 QRS: 42 QRSD: 82 T: 21 QT: 310 QTc: 437 Interpretive Statements SINUS TACHYCARDIA R-S TRANSITION ZONE IN V LEADS DISPLACED TO THE LEFT OTHERWISE NORMAL ECG RI6.02 No previous ECG available for comparison
[2020-11-29 17:53] LABS: CALCIUM 9.5 mg/dL (8.5-10.1); CREATININE 0.9 mg/dL (0.6-1.0); GFR 63.7; POTASSIUM 4.1 mmol/L (3.5-5.1)
[2020-11-29 17:54] LABS: BASO % 0 % (0-3); EOS % 0 % (0-3); HEMATOCRIT 41.5 % (36.0-47.0); LYMPH # 0.6 x10^3/uL (1.0-4.8); LYMPH % 6 % (24-48); MEAN CORPUSCULAR HEMOGLOBIN 31 pg (25-35); MEAN CORPUSCULAR HGB CONC 34 g/dL (31-37); MEAN CORPUSCULAR VOLUME 90 fL (79-100); MONO # 0.4 x10^3/uL (0.0-1.1); MONO % 4 % (0-9); NEUT # 8.3 x10^3uL (1.8-7.7); NEUT % 90 % (31-73); PLATELET COUNT 259 x10^3/uL (140-400); RED BLOOD COUNT 4.59 x10^6/uL (3.50-5.40); WHITE BLOOD COUNT 9.2 x10^3/uL (4.0-11.0)
[2020-11-29 17:59] LABS: TOTAL BILIRUBIN 0.5 mg/dL (0.2-1.0); TOTAL PROTEIN 8.1 g/dL (6.4-8.2)
--- NOTE | 2020-11-29 18:27 | RAD ---
EXAM: CT chest with contrast - pulmonary embolus protocol CLINICAL HISTORY: Reason: SHORT OF BREATH, ASTHMA COMPARISON: None. TECHNIQUE: CT of the chest following the administration of intravenous contrast during the pulmonary arterial phase. Axial, coronal and sagittal reformatted images were generated including MIP images. ---PQRS compliance statement - One or more of the following individualized dose reduction techniques were utilized for this study: 1. Automated exposure control 2. Adjustment of the mA and/or kV according to patient size 3. Use of iterative reconstruction technique--- FINDINGS: CHEST: Diagnostic quality: Suboptimal. Pulmonary emboli: No pulmonary emboli to the level of the segmental branches. More peripheral vessel s are not well assessed. Right heart strain: None Pulmonary arteries: Normal in caliber. Linear and bandlike opacities middle lobe likely scarring/atelectasis. Heart is not enlarged. Coronar y calcifications are seen. No pericardial effusion. No pleural effusion or pneumothorax. No mediastinal or hilar lymphadenopathy. No axillary lymphadenopathy. Visualized Upper abdomen: Calcified gallstone is seen within the gallbladder. Small hiatal hernia. Bones: No aggressive osseous lesion is seen. IMPRESSION: 1. Suboptimal contrast bolus. No pulmonary emboli to the level of the segmental branches. More perip heral vessels are not well assessed. 2. Linear and bandlike opacities middle lobe likely scarring/atelectasis. 3. Cholelithiasis without CT evidence for acute cholecystitis. 4. Small hiatal hernia. Electronically signed by: Arie Roblero MD (11/29/2020 6:24 PM) MENG
[2020-11-29] MEDS ORDERED: ONDANSETRON PF 4 MG/2 ML VIAL. IVP PRN (19:00)
[2020-11-29] MEDS: methylPREDNISolone SOD SUCC PF 40 MG/ML VIAL. IV SCH (19:00)
[2020-11-29] MEDS: IPRATRPIUM/ALBUTEROL 0.5/2.5MG 3 ML NEBU. NEB SCH (21:13)
[2020-11-29] MEDS ORDERED: GUAI600T47 PO (22:03)
[2020-11-29] MEDS ORDERED: ACET325T9 PO (22:03)
[2020-11-29 22:38] VITALS: BP 141/88
--- NOTE | 2020-11-29 23:12 | NUR ---
The patient, MATEO RODRIGUEZ, 60 y/o, F admitted by MORGAN CHAVARRIA MD, was given written information regarding hospital policies, unit procedures and contact persons. Valuables were checked; medications removed from pt room and sent to pharmacy. All other belongings left with pt.
[2020-11-30] MEDS: methylPREDNISolone SOD SUCC PF 40 MG/ML VIAL. IV SCH (03:42)
--- NOTE | 2020-11-30 04:40 | NUR ---
Nursing note: Pt arrived to floor at 2124. Oriented to unit, belongings logged, medications removed from room; history and med rec completed. Discussed with MD at approx. 2220 med rec, mucinex restarted. Pt up ad jez, heart rate 120s-130s when ambulating to toilet or after coughing fit, improved with O2 and rest. Pt on 4L O2 NC.
[2020-11-30] MEDS: IPRATRPIUM/ALBUTEROL 0.5/2.5MG 3 ML NEBU. NEB SCH (05:04)
[2020-11-30 05:28] VITALS: BP 126/80
[2020-11-30] MEDS ORDERED: ACETAMINOPHEN 325 MG TABLET PO PRN (06:30)
[2020-11-30 07:00] VITALS: BP 119/74
--- NOTE | 2020-11-30 09:36 | HP ---
ATTENDING PHYSICIAN: Dr. Tobias. CHIEF COMPLAINT: Shortness of breath. HISTORY OF PRESENT ILLNESS: The patient is a 60-year-old female with frequent admissions to the Emergency Department. She has an exacerbation of asthma. She has poor health literacy. She is a nonsmoker, but is exposed to secondhand smoke. There is no history of drug use. Her CT scan showed no blood clots. She is mildly hypoxemic. She was given supplemental oxygen, steroids, nebulizer therapy. She was admitted for observation and evaluation. Unfortunately, in the past from her admissions in the ED, she was given prescriptions and never got it filled. She has been homeless. She has no means. She lives with her sister. PAST MEDICAL HISTORY: Significant for chronic bronchitis, asthma, generalized anxiety, COPD, schizoaffective disorder and depression. In talking with her, she denies these psychiatric diagnoses, but it is clearly evident that she has bipolar disorder and is very manic. She also goes off on tangents and we had to persuade her to come back to the issue at hand. ALLERGIES: SHE HAS ALLERGIES TO SULFA DRUGS. MEDICATION: She has no prescription meds. She was given prescription, never got it filled. FAMILY HISTORY: Noncontributory SOCIAL HISTORY: She lives with a sister. There is another sister out of town that has been helping. She is homeless. REVIEW OF SYSTEMS: Significant for the wheezing. No fevers, exposures, COVID exposure or pneumonia. She has had previous ear surgery. All other systems reviewed and turned to be negative. PHYSICAL EXAMINATION: GENERAL: When I saw her, this is a pleasant, middle-aged female, but she is very tangential in her thought process. VITAL SIGNS: Initial blood pressure was 141/88, her pulse is 100 and regular. She was afebrile, oxygen saturation is now 91% on room air. HEENT: Head is without trauma. Pupils are reactive. Sclerae nonicteric. Oropharynx clear. NECK: Supple, no bruits identified. LUNGS: Minimal wheezing in the upper airways. No rales or rhonchi. CARDIOVASCULAR: Regular heart tones. No gallops. ABDOMEN: Soft. EXTREMITIES: Without edema. NEUROLOGIC: Function focally intact. Speech is fluent. She is fully ambulatory. IMAGING: CT of the chest reviewed. No blood clots or infiltrates identified and some chronic scarring identified. LABORATORY DATA: The hemoglobin is 14.0 g/dL, white count 9200. Electrolytes are all within normal range. Nonfasting blood sugar 152. Cardiac enzymes negative for coronary ischemia. Liver panel all within normal range. ASSESSMENT: 1. A 60-year-old female with a history of asthma with mild exacerbation. 2. Noncompliance of meds. 3. Underlying schizoaffective disorder with bipolar component. She has not been treated. She has been in denial. 4. ____, she is homeless. 5. Noncompliance. PLAN: 1. Observation status. 2. Intravenous Solu-Medrol. 3. Supplemental oxygen, which will be weaned. 4. Nebulizer therapy. STEPHEN/DENISE DR: Blanca TID: [id number]
--- NOTE | 2020-11-30 09:38 | NUR ---
O2 REASSESSED, PATIENT IS ON RA AT 91%, REPORTED TO DR. CHAVARRIA. PATIENT IS DISCHARGED HOME, PATIENT STATED SHE WILL NOT SIGN HER DISCHARGE PAPERWORK, SHE STATED SHE DOCTOR DISCHARGING HER TOO SOON, PATIENT TOOK A SHOWER, GOT DRESSED, PATIENT LEFT UNIT VIA AMBULATION ACCOMP BY SELF.
== END 2020-11-30 09:40 | disposition home or self-care (01) | DRG 203 ==
LOC: ER 16:40 → 1 SOUTH 18:51
PROVIDERS: ADMIT Hospitalist; ATTEND Hospitalist
DX: J45.901 Unspecified asthma with (acute) exacerbation (principal); F25.9 Schizoaffective disorder, unspecified; F31.9 Bipolar disorder, unspecified; J44.9 Chronic obstructive pulmonary disease, unspecified; F41.1 Generalized anxiety disorder; R09.02 Hypoxemia; Z77.22 Contact with and (suspected) exposure to environmental tobacco smoke (acute) (chronic); Z88.2 Allergy status to sulfonamides; Z91.19 Patient's noncompliance with other medical treatment and regimen; Z91.14 Patient's other noncompliance with medication regimen; Z59.0 Homelessness
CPT/HCPCS: 36415; 71275; 80053; 83605; 84484; 85025; 87040; 93005; 94640; 96374; J2920; J2930; Q9967; 99285-25

== ENCOUNTER 2020-12-01 09:41 | Emergency (ER) | payer SELFPAY ==
[~2020-12-01] VITALS: Ht 154.9 cm; Wt 99.8 kg
[2020-12-01 09:41] VITALS: BP 132/81
[~2020-12-01 09:41] MED LIST changes: +ACET325T9 PO; +GUAI600T47 PO
[2020-12-01] MEDS ORDERED: IPRATRPIUM/ALBUTEROL 0.5/2.5MG 3 ML NEBU. ONE (09:49)
--- NOTE | 2020-12-01 09:57 | PHYS DOC ---
Past History Past Medical History: Anxiety, Asthma, Bronchitis, COPD, Depression, Schizophrenia, Other Additional Past Medical Histor: psychosis Past Surgical History: Tonsillectomy Additional Past Surgical Histo: EAR SURGERY Alcohol Use: None Drug Use: None Adult General Chief Complaint Chief Complaint: ASTHMA HPI HPI Patient is a [age] year old [sex] who presents with [] Review of Systems Review of Systems Fourteen body systems of review of systems have been reviewed. See HPI for pertinent positives and negative responses, other chance all other systems are negative, non-pertinent or non-contributory Current Medications Current Medications Current Medications Medications (Trade) Dose Ordered Sig/Shaunna Start Time Stop Time Status Last Admin Dose Admin Albuterol/ Ipratropium (Duoneb) 3 ml STK-MED ONCE 12/01/20 09:49 12/01/20 09:50 DC Allergies Allergies Allergies Coded Allergies Type Severity Reaction Last Updated Verified Sulfa (Sulfonamide Antibiotics) Allergy Intermediate 07/31/20 No Physical Exam Physical Exam Constitutional: Well developed, well nourished, no acute distress, non-toxic ap pearance. HENT: Normocephalic, atraumatic, bilateral external ears normal, oropharynx moist, no oral exudates, nose normal. Eyes: PERRLA, EOMI, conjunctiva normal, no discharge. Neck: Normal range of motion, no tenderness, supple, no stridor. Cardiovascular: Heart rate regular, sinus rhythm, no murmurs rubs or gallops Lungs & Thorax: Bilateral breath sounds clear to auscultation Abdomen: Bowel sounds normal, soft, no tenderness, no masses, no pulsatile masses. Nonsurgical abdomen, no peritoneal signs Skin: Warm, dry, no erythema, no rash. Back: No tenderness, no CVA tenderness. Extremities: No tenderness, no cyanosis, no clubbing, ROM intact, no edema. Neurologic: Alert and oriented X 3, grossly normal motor & sensory function, no focal deficits noted. Psychologic: Affect normal, judgement normal, mood normal. Current Patient Data Vital Signs Vital Signs Date Time Temp Pulse Resp B/P (MAP) Pulse Ox O2 Delivery O2 Flow Rate FiO2 12/01/20 09:41 98.4 130 40 132/81 (98) 85 Room Air Vital Signs Date Time Temp Pulse Resp B/P (MAP) Pulse Ox O2 Delivery O2 Flow Rate FiO2 6/13/21 09:53 87 Room Air 12/01/20 09:41 98.4 130 40 132/81 (98) Lab Results Current Medications Medications (Trade) Dose Ordered Sig/Shaunna Route PRN Reason Start Time Stop Time Status Last Admin Dose Admin Albuterol/ Ipratropium (Duoneb) 3 ml STK-MED ONCE .ROUTE 12/01/20 09:49 12/01/20 09:50 DC EKG EKG [] Radiology/Procedures Radiology/Procedures [] Heart Score Risk Factors: Risk Factors: DM, Current or recent (<one month) smoker, HTN, HLP, family history of CAD, obesity. Risk Scores: Risk Factors: DM, Current or recent (<one month) smoker, HTN, HLP, family history of CAD, obesity. Course & Med Decision Making Course & Med Decision Making Pertinent Labs and Imaging studies reviewed. (See chart for details) [] Dragon Disclaimer Dragon Disclaimer This electronic medical record was generated, in whole or in part, using a voice recognition dictation system. Departure Departure: Impression: Primary Impression: Asthma exacerbation Disposition: HOME / SELF CARE / HOMELESS Condition: IMPROVED Referrals: PCP,NO (PCP) Patient Instructions: Asthma Attacks, Prevention, Asthma Prevention-Brief, Asthma, Acute Bronchospasm Additional Instructions: You were seen for an asthma exacerbation. You should be checking your peak flows daily and taking all of your controller and rescue inhalers as previously prescribed. You need to fill previous prescriptions such as prednisone. It is beneficial for you to start taking ipdr-toh-rffvirm antihistamine such as Claritin or Zyrtec in addition to an intranasal corticosteroid such as Flonase as your allergies are likely contributing to your bronchospasms You need to use your albuterol inhaler at home to avoid increased wheezing and respiratory distress that you keep requiring intervention for while in ER setting Return to the ED if you develop worsening cough, shortness of breath, fever > 101, chest pain, or any other new or concerning symptoms. You need to follow up with your primary care doctor as soon as possible as a severe asthma exacerbation can be fatal. JOSLYN TORRES DO Dec 01, 2020 09:57
== END 2020-12-01 11:30 | disposition home or self-care (01) ==
LOC: ER 09:41
DX: J45.901 Unspecified asthma with (acute) exacerbation (principal); F41.9 Anxiety disorder, unspecified; Z88.2 Allergy status to sulfonamides
CPT/HCPCS: 94640; 99283

== ENCOUNTER 2021-05-27 18:48 | Emergency (ER) | payer SELFPAY ==
[~2021-05-27] VITALS: Ht 154.9 cm; Wt 99.8 kg
[~2021-05-27 18:48] MED LIST changes: -CITA40TA5 PO; +CITA40TA6 PO; +CLIN-95 PO; -CLIN300C9 PO; -DOXY100C2 PO; +DOXY100C3 PO
--- NOTE | 2021-05-27 19:03 | PHYS DOC ---
Past History Past Medical History: Anxiety, Asthma, Bronchitis, COPD, Depression, Schizophrenia, Other Additional Past Medical Histor: psychosis Past Surgical History: Tonsillectomy Additional Past Surgical Histo: EAR SURGERY Alcohol Use: None Drug Use: None General Adult EDM: Chief Complaint: CONGESTION HPI: HPI: "... I ve been sick maybe a week or so.. now my throat is sore.. congested.. and ears are full..." Patient is a 60 year old female who presents with above hx and complaints of congestion,. Sore throat, malaise, arthralgia, myalgia, and subjective fever and chills. Patient does have past medical history of anxiety, asthma, bronchitis, COPD, depression, schizophrenia, ear surgeries, and prior hallucinations of toxic smells and odors. Patient has been following at the [facility] for her psychiatric symptoms. Not on any current medications. Patient has not received a flu vaccination or Covid vaccination or Pneumovax. Patient denies any recent travel. No specific ill contacts. Review of Systems: Review of Systems: Constitutional: Denies fever or chills Eyes: Denies change in visual acuity HENT: Complains of nasal congestion or sore throat Respiratory: History of cough and wheezing Cardiovascular: Denies chest pain or edema GI: Denies abdominal pain, nausea, vomiting, bloody stools or diarrhea : Denies dysuria Musculoskeletal: Denies back pain or joint pain Integument: Denies rash Neurologic: Denies headache, focal weakness or sensory changes Endocrine: Denies polyuria or polydipsia Lymphatic: Denies swollen glands Psychiatric: History of anxiety. Denies any hallucinations or current delusions.. Denies any suicidal ideations. Denies any homicidal ideations Family History: Family History: Noncontributory to presentation Current Medications: Current Meds: See nursing for home meds Allergies: Allergies: Allergies Coded Allergies Type Severity Reaction Last Updated Verified Sulfa (Sulfonamide Antibiotics) Allergy Intermediate 07/31/20 No Physical Exam: PE: Constitutional: no acute distress, non-toxic appearance. [] HENT: Normocephalic, atraumatic, bilateral external ears normal, oropharynx moist, mild injection pharynx,, nose nasal drainage no oral exudates, nose swollen turbinates and clear rhinorrhea. Mastoid scar Eyes: PERRLA, EOMI, conjunctiva normal, no discharge. [] Neck: Normal range of motion, no tenderness, supple, no stridor. [] Cardiovascular:Heart rate regular rhythm, no murmur [] Lungs & Thorax: Bilateral breath sounds equal apex with scattered wheezes on auscultation [] Abdomen: Bowel sounds normal, soft, no tenderness, no masses, no pulsatile masses. [] Skin: Warm, dry, no erythema, no rash. [] Back: No tenderness, no CVA tenderness. [] Extremities: No tenderness, no cyanosis, no clubbing, ROM intact, no edema. [] Neurologic: Alert and oriented X 3, normal motor function, normal sensory functi on, no focal deficits noted. [] Psychologic: Affect anxious, judgement normal, mood normal. [] EKG: EKG: [] Radiology/Procedures: Radiology/Procedures: [] Heart Score: C/O Chest Pain: N/A Risk Factors: Risk Factors: DM, Current or recent (<one month) smoker, HTN, HLP, family history of CAD, obesity. Risk Scores: Score 0 - 3: 2.5% MACE over next 6 weeks - Discharge Home Score 4 - 6: 20.3% MACE over next 6 weeks - Admit for Clinical Observation Score 7 - 10: 72.7% MACE over next 6 weeks - Early Invasive Strategies Course & Med Decision Making: Course & Med Decision Making Pertinent Labs and Imaging studies reviewed. (See chart for details) Continue Benadryl 25-50 mg at 4 times a day for congestion and drainage. Patient use MDI 2 puffs 4 times a day. Patient take prednisone 50 mg a day for the next 5 days. Patient continue Covid precautions. Recommend patient complete vaccinations of Covid, Pneumovax, flu, went over this acute illness. Return if any concerns. Impression: 1. Viral syndrome 2. History of schizophrenia 3. History of anxiety 4. Mild asthma exacerbation, 5. History COPD/bronchitis [] Loydaon Disclaimer: Leon Disclaimer: This electronic medical record was generated, in whole or in part, using a voice recognition dictation system. Departure Departure: Referrals: PCP,NO (PCP) Scripts Prednisone (PREDNISONE) 50 Mg Tablet 50 MG PO DAILY for bronchitis for 5 Days, #5 TAB Prov: RAYNE REN MD 05/27/21 Loen Disclaimer This chart was dictated in whole or in part using Voice Recognition software in a busy, high-work load, and often noisy Emergency Department environment. It may contain unintended and wholly unrecognized errors or omissions. RAYNE REN MD May 27, 2021 19:03
[2021-05-27] MEDS ORDERED: predniSONE 10 MG TABLET. PO ONE (19:30)
[2021-05-27] MEDS ORDERED: diphenhydrAMINE HCL 25 MG CAPSULE PO ONE (19:30)
[2021-05-27] MEDS ORDERED: ALBUTEROL SULFATE 8GM INHALER. INH ONE (19:30)
[2021-05-27] MEDS ORDERED: IPRATRPIUM/ALBUTEROL 0.5/2.5MG 3 ML NEBU. NEB ONE (19:45)
[2021-05-27 20:13] LABS: INFLUENZA A PATIENT NEGATIVE (NEGATIVE); INFLUENZA B PATIENT NEGATIVE (NEGATIVE)
[2021-05-27] MEDS ORDERED: PRED50TA PO (21:13)
[2021-05-27 21:25] VITALS: BP 140/64
--- NOTE | 2021-05-28 11:27 | NUR ---
ATTEMPTED TO REACH PATIENT WITH COVID RESULTS. SISTER ANSWERED. ASKED SISTER TO TELL PT TO CALL US BACK.
--- NOTE | 2021-05-28 13:40 | NUR ---
pt notified of covid results
== END 2021-05-27 21:25 | disposition home or self-care (01) ==
LOC: ER 18:48
DX: J45.901 Unspecified asthma with (acute) exacerbation (principal); B34.9 Viral infection, unspecified; F20.9 Schizophrenia, unspecified; F41.9 Anxiety disorder, unspecified; J44.9 Chronic obstructive pulmonary disease, unspecified; Z20.822 Contact with and (suspected) exposure to COVID-19; Z88.2 Allergy status to sulfonamides
CPT/HCPCS: 87070; 87426; 87804; 87880; 94640; 99283; C9803; J7512; Q0163; U0003; 94664

== ENCOUNTER 2021-10-28 17:31 | Emergency (ER) | payer SELFPAY ==
[~2021-10-28] VITALS: Ht 154.9 cm; Wt 99.8 kg
[2021-10-28 17:55] VITALS: BP 145/75
[2021-10-28] MEDS ORDERED: IPRATRPIUM/ALBUTEROL 0.5/2.5MG 3 ML NEBU. NEB ONE (18:30)
[2021-10-28] MEDS ORDERED: ALBUTEROL SULFATE 8GM INHALER. INH ONE (18:30)
[2021-10-28] MEDS ORDERED: DEXAMETHASONE 4 MG TABLET PO ONE (18:30)
--- NOTE | 2021-10-28 18:33 | PHYS DOC ---
Past History Past Medical History: Anxiety, Asthma, Bronchitis, COPD, Depression, Schizophrenia, Other Additional Past Medical Histor: psychosis (ANGEL JOHNSON APRN) Past Surgical History: Tonsillectomy Additional Past Surgical Histo: EAR SURGERY (ANGEL JOHNSON APRN) Alcohol Use: None Drug Use: None (ANGEL JOHNSON APRN) General Adult EDM: Chief Complaint: CONGESTION HPI: HPI: Patient is a 80-year-old female presents with congestion and cough since yesterday. Denies fever. Denies exposure to recent illness. Patient does report history of seasonal allergies but has not taken any of her allergy medications. History of anxiety, depression, schizophrenia, COPD. (ANGEL JOHNSON APRN) Review of Systems: Review of Systems: ROS At least 10 ROS systems have been reviewed and are negative except as documented in the HPI. General: Negative except as outlined in HPI above. Skin: Negative except as outlined in HPI above. HEENT: Negative except as outlined in HPI above. Neck: Negative except as outlined in HPI above. Respiratory: Negative except as outlined in HPI above.. Cardiovascular: Negative except as outlined in HPI above. Abdomen: Negative except as outlined in HPI above. : Negative except as outlined in HPI above. Back/MSK: Negative except as outlined in HPI above. Neuro: Negative except as outlined in HPI above. Psych: Negative except as outlined in HPI above. (ANGEL JOHNSON APRN) Allergies: Allergies: Allergies Coded Allergies Type Severity Reaction Last Updated Verified Sulfa (Sulfonamide Antibiotics) Allergy Intermediate 07/31/20 No (ANGEL JOHNSON APRN) Physical Exam: PE: Constitutional: Well developed, well nourished, no acute distress, non-toxic appearance. [] HENT: bilateral external ears normal, oropharynx moist, no oral exudates, nose normal. [] Eyes: PERRLA, EOMI, conjunctiva normal, no discharge. [] Neck: Normal range of motion, no tenderness, supple, no stridor. [] Cardiovascular:Heart rate regular rhythm, no murmur [] Lungs & Thorax: Bilateral breath sounds clear to auscultation, no wheezing Abdomen: Bowel sounds normal, soft, no tenderness, no masses, no pulsatile masses. [] Skin: Warm, dry, no erythema, no rash. [] Back: No tenderness, no CVA tenderness. [] Extremities: No tenderness, no cyanosis, no clubbing, ROM intact, no edema. [] Neurologic: Alert and oriented X 3, normal motor function, normal sensory function, no focal deficits noted. [] Psychologic: Affect normal, judgement normal, anxious mood (ANGEL JOHNSON APRN) Current Patient Data: Vital Signs: Vital Signs Date Time Temp Pulse Resp B/P (MAP) Pulse Ox O2 Delivery O2 Flow Rate FiO2 10/28/21 17:55 97.1 92 18 145/75 (98) 97 (ANGEL JOHNSON APRN) EKG: EKG: [] (ANGEL JOHNSON APRN) Radiology/Procedures: Radiology/Procedures: [] (ANGEL JOHNSON APRN) Heart Score: C/O Chest Pain: No Risk Factors: Risk Factors: DM, Current or recent (<one month) smoker, HTN, HLP, family history of CAD, obesity. Risk Scores: Score 0 - 3: 2.5% MACE over next 6 weeks - Discharge Home Score 4 - 6: 20.3% MACE over next 6 weeks - Admit for Clinical Observation Score 7 - 10: 72.7% MACE over next 6 weeks - Early Invasive Strategies (ANGEL JOHNSON APRN) Course & Med Decision Making: Course & Med Decision Making Pertinent Labs and Imaging studies reviewed. (See chart for details) [] 80-year-old male presents with congestion and cough since yesterday. Afebrile. Patient is out of her inhaler. Patient is also requesting a breathing treatment. Patient given steroids as well. Advised patient to start taking her allergy medication at home. Follow-up with PCP. (ANGEL JOHNSON APRN) Leon Disclaimer: Leon Disclaimer: This electronic medical record was generated, in whole or in part, using a voice recognition dictation system. (ANGEL JOHNSON APRN) Departure Departure: Impression: Primary Impression: Seasonal allergies Additional Impression: Cough Disposition: 01 HOME / SELF CARE / HOMELESS Condition: STABLE Referrals: MAYE JOSE APRN (PCP) Patient Instructions: Allergies, Generic Additional Instructions: You are seen the emergency room for congestion and cough. You were given an inhaler along with a breathing treatment. You are also given steroids while in the ER. Continue taking your seasonal allergy medication to help with symptoms. Return to emergency with worsening symptoms or concerns. EMERGENCY DEPARTMENT GENERAL DISCHARGE INSTRUCTIONS Thank you for coming to [facility] (ED) today and trusting us with you care. We trust that you had a positivie experience in our Emergency Department. If you wish to speak to the department management, you may call the director at [phone]. YOUR FOLLOW UP INSTRUCTIONS ARE FOLLOWS: 1. Do you have a private Doctor? If you do not have a private doctor, please ask for a resource list of physicians or clinics that may be able to assist you with follow up care. 2. The Emergency Physician has interpreted your x-rays. The X-Ray specialist will also review them. If there is a change in the findings, you will be notified in 48 hours when at all possible. 3. A lab test or culture has been done, your results will be reviewed and you will be notified if you need a change in treatment. ADDITIONAL INSTRUCTIONS AND INFORMATION: 1. Your care today has been supervised by a physician who is specially trained in emergency care. Many problems require more than one evaluation for a complete diagnosis and treatment. We recommend that you schedule your follow up appointment as recommended to ensure complete treatment of you illness or injury. If you are unable to obtain follow up care and continue to have a problem, or if your condition worsens, we recommend that you return to the ED. 2. We are not able to safely determine your condition over the phone nor are we able to give sound medical advice over the phone. For these safety reasons, if you call for medical advice we will ask you to come to the ED for further evaluation. 3. If you have any questions regarding these discharge instructions please call the ED at [phone]. SAFETY INFORMATION: In the interest of safety, wellness, and injury prevention; we encourage you to wear your sealbelt, if you smoke; quite smoking, and we encourage family to use a protective helmet for bicycling and other sporting events that present an increased risk for head injury. IF YOUR SYMPTOMS WORSEN OR NEW SYMPTOMS DEVELOP, OR YOU HAVE CONCERNS ABOUT YOUR CONDITION; OR IF YOUR CONDITION WORSENS WHILE YOU ARE WAITING FOR YOUR FOLLOW UP APPOINTMENT; EITHER CONTACT YOUR PRIMARY CARE DOCTOR, THE PHYSICIAN WHOSE NAME AND NUMBER YOU WERE GIVEN, OR RETURN TO THE ED IMMEDIATELY. Dragon Disclaimer This chart was dictated in whole or in part using Voice Recognition software in a busy, high-work load, and often noisy Emergency Department environment. It may contain unintended and wholly unrecognized errors or omissions. (RAYNE REN MD) Attending Signature Attending Signature I have participated in the care of this patient and I have reviewed and agree with all pertinent clinical information above including history, exam, and recommendations. (RAYNE REN MD) ANGEL JOHNSON APRN October 28, 2021 18:33 RAYNE REN MD October 29, 2021 08:00
== END 2021-10-28 19:17 | disposition home or self-care (01) ==
LOC: ER 17:31
DX: J30.2 Other seasonal allergic rhinitis (principal); J44.9 Chronic obstructive pulmonary disease, unspecified; F20.9 Schizophrenia, unspecified; Z88.2 Allergy status to sulfonamides
CPT/HCPCS: 94640; 99284; J8540; 94664